=== PATIENT | male | born 1985 | race Caucasian/White ===

== ENCOUNTER 2017-02-06 13:52 | Emergency (ER) | payer MEDICAID ==
[~2017-02-06] VITALS: Ht 170.2 cm; Wt 71.4 kg
[~2017-02-06 13:52] MED LIST: ACHD5005 PO; AGM875T PO; ALPR1TAB72 PO; AMOX500C2 PO; BISA5TAB81 PO; CEPH-38 PO; CEPH500C PO; CHLO118L TP; CYCL10TA9 PO; DIAZ5TAB3 PO; HYDR-229 PO; HYDR-2890 PO; HYDR-2997 PO; HYDR1CAP2 PO; HYDR1TAB PO; KETO-22 PO; KETO75CA PO; LIDO20SO20 PO; METR500T PO; MUPI1OIN5 NS; NAPR-243 PO; ONDA8TAB9 PO; OXYC-12 PO; PENI500T PO; PRM25T PO; SULF-222 PO; TRM50T PO
[2017-02-06] MEDS ORDERED: AZIT250T5 PO (14:03)
[2017-02-06] MEDS ORDERED: BENZ-13 PO (14:03)
--- NOTE | 2017-02-06 14:03 | ED Cough/URI ---
General Chief Complaint: Cough/Cold/Flu Symptoms Stated Complaint: COUGH/CHEST CONGESTION Source: patient Exam Limitations: no limitations History of Present Illness Time seen by provider: 14:00 Initial Comments To ER with reports of a nonproductive cough for 5 days. Cough is nonproductive. No other symptoms. Reports chest congestion. Timing/Duration: just prior to arrival Severity/Quality: moderate Associated Symptoms: cough, shortness of breath Allergies and Home Medications Allergies Coded Allergies: No Known Drug Allergies (Verified , 02/06/17) Home Medications Diazepam 5 Mg Tablet, #28 (Reported) Tramadol HCl 50 Mg Tablet, #28 (Reported) Constitutional: see HPI, No chills, No fever EENTM: see HPI Respiratory: see HPI, cough Cardiovascular: no symptoms reported Genitourinary: no symptoms reported Musculoskeletal: no symptoms reported Skin: no symptoms reported Psychiatric/Neurological: No Symptoms Reported Past Dmfclby-Yxwgsp-Aebfgh Hx Patient Social History Type Used: Cigarettes Recent Foreign Travel: No Contact w/Someone Who Travel: No Recent Hopitalizations: No Immunizations Up To Date Tetanus Booster (TDap): Unknown Date of Influenza Vaccine: Aug 19, 2011 Seasonal Allergies Seasonal Allergies: No Surgeries HX Surgeries: No Respiratory Hx Respiratory Disorders: No Cardiovascular Hx Cardiac Disorders: No Neurological Hx Neurological Disorders: Yes (CERVICAL DISTONIA) Reproductive System Hx Reproductive Disorders: No Sexually Transmitted Disease: No HIV/AIDS: No Genitourinary Hx Genitourinary Disorders: No Gastrointestinal Hx Gastrointestinal Disorders: No Musculoskeletal Hx Musculoskeletal Disorders: Yes Musculoskeletal Disorders: Chronic Back Pain Endocrine Hx Endocrine Disorders: No HEENT HX ENT Disorders: No Cancer Hx Cancer: No Psychosocial Hx Psychiatric Problems: Yes Behavioral Health Disorders: Depression Integumentary HX Skin/Integumentary Disorder: No Blood Transfusions Hx Blood Disorders: No Family Medical History Significant Family History: No Pertinent Family Hx Family Medial History: Patient reports no known family medical history. Physical Exam Vital Signs Vital Sign - Last 12Hours 02/06/17 13:59 Temp 99.3 Pulse 94 Resp 20 B/P (MAP) 130/86 Pulse Ox 99 O2 Delivery Room Air Capillary Refill : General Appearance: WD/WN, no apparent distress Eyes: Bilateral Eye EOMI, Bilateral Eye Normal Inspection, Bilateral Eye PERRL HEENT: PERRL/EOMI, normal ENT inspection Neck: non-tender, full range of motion Respiratory: normal breath sounds, no respiratory distress, no accessory muscle use Cardiovascular: regular rate, rhythm, no murmur Gastrointestinal: normal bowel sounds, non tender, soft Neurologic/Psychiatric: alert, normal mood/affect, oriented x 3 Skin: normal color, warm/dry Progress/Results/Core Measures Results/Orders My Orders Orders - BOO THOMPSON APRN Chest Pa/Lat (2 View) (02/06/17 13:59) Dexamethasone Pf Injection (Decadron Pf (02/06/17 14:15) Vital Signs/I&O Vital Sign - Last 12Hours 02/06/17 02/06/17 13:59 13:59 Temp 99.3 Pulse 94 Resp 20 B/P (MAP) 130/86 Pulse Ox 99 O2 Delivery Room Air Room Air Departure Impression Impression: Primary Impression: Bronchitis Disposition: HOME, SELF-CARE Condition: Stable Departure-Patient Inst. Decision time for Depature: 14:01 Referrals: NO,LOCAL PHYSICIAN (PCP/Family) Primary Care Physician Patient Instructions: Cough, Adult (DC) Add. Discharge Instructions: 1. Medication as directed 2. Follow-up with your doctor later this week. If you do not have a doctor list is been provided for you. There is also a walk-in clinic at the [facility] 3. All discharge instructions reviewed with patient and/or family. Voiced understanding. BOO THOMPSON APRN Feb 06, 2017 14:03
[2017-02-06] MEDS ORDERED: DIAZ5TAB3 (14:06)
[2017-02-06] MEDS ORDERED: TRAM50TA2 (14:06)
[2017-02-06] MEDS ORDERED: DEXAMETHASONE PF 10 MG/ML (DECADRON) VIAL IM ONE (14:15)
[2017-02-06] MEDS ORDERED: PRD20T PO (14:15)
[2017-02-06 14:17] VITALS: BP 130/70
--- NOTE | 2017-02-06 14:22 | Diagnostic Imaging Report ---
Indication: Dizziness and cough for 6 days. Discussion: Two views of the chest were obtained, comparison 09/25/2016. Mild pulmonary hyperinflation is stable. Stable normal heart size. No focal consolidation, pleural fluid, or pneumothorax. No osseous abnormality. Impression: 1. Stable pulmonary hyperinflation. Dictated by: Dictated on workstation # [id number]
== END 2017-02-06 14:16 | disposition home or self-care (01) ==
LOC: EDUNIT# 13:52 → ER 13:54
DX: J40 Bronchitis, not specified as acute or chronic (principal)
CPT/HCPCS: 71020; 99282

== ENCOUNTER 2017-02-18 10:18 | Emergency (ER) | payer MEDICAID ==
[~2017-02-18] VITALS: Ht 167.6 cm; Wt 68.0 kg
[~2017-02-18 10:18] MED LIST changes: +AZIT250T5 PO; +BENZ-13 PO; +DIAZ5TAB3; +PRD20T PO; +TRAM50TA2
[2017-02-18 11:57] LABS: BASOPHILS # (AUTO) 0.1 10^3/uL (0.0-0.1); BASOPHILS % (AUTO) 1 % (0-10); EOSINOPHILS # (AUTO) 0.2 10^3/uL (0.0-0.3); EOSINOPHILS % (AUTO) 3 % (0-10); LYMPHOCYTES # (AUTO) 1.5 X 10^3 (1.0-4.0); LYMPHOCYTES % (AUTO) 24 % (12-44); MEAN CORPUSCULAR HEMOGLOBIN 33 PG (25-34); MEAN CORPUSCULAR HGB CONC 36 G/DL (32-36); MEAN CORPUSCULAR VOLUME 93 FL (80-99); MEAN PLATELET VOLUME 10.3 FL (7.4-10.4); MONOCYTES # (AUTO) 0.9 X 10^3 (0.0-1.0); MONOCYTES % (AUTO) 14 % (0-12); NEUTROPHILS # (AUTO) 3.6 X 10^3 (1.8-7.8); NEUTROPHILS % (AUTO) 58 % (42-75); PLATELET COUNT 228 10^3/uL (130-400); RED BLOOD COUNT 5.12 10^6/uL (4.35-5.85); RED CELL DISTRIBUTION WIDTH 12.9 % (10.0-14.5); WHITE BLOOD COUNT 6.3 10^3/uL (4.3-11.0)
--- NOTE | 2017-02-18 12:06 | ED Cough/URI ---
General Chief Complaint: Cough/Cold/Flu Symptoms Stated Complaint: COUGH NAUSEA Nursing Triage Note: patient reports still having cough that he was treated here previously before. patient also reports being fatigued Source: patient Exam Limitations: no limitations History of Present Illness Time seen by provider: 12:06 Initial Comments 31 yo male patient presents to the ED with c/o clear productive cough x 2-3 wks. patient states he was seen in the ED on 02/06/17 by [facility] [place] APRN for similar symptoms. Was given prednisone and tessalon perles w/o improvement in symptoms. Denies SOA, n/v/d, sore throat or nasal congestion. does have occasional wheezing. continues to smoke. Timing/Duration: other (2-3 wks) Severity/Quality: productive cough (clear sputum.) Modifying Factors: Worse With Coughing Allergies and Home Medications Allergies Coded Allergies: No Known Drug Allergies (Verified , 02/06/17) Home Medications Albuterol Sulfate 6.7 Gm Hfa.aer.ad, 2 PUFF IH Q6H PRN for SHORTNESS OF BREATH, #1 Ref 0 Prescribed by: JUSTIN MONTILLA on 02/18/17 1309 Minocycline HCl 100 Mg Capsule, 100 MG PO BID, #14 Ref 0 Prescribed by: JUSTIN MONTILLA on 02/18/17 1306 Prednisone 20 Mg Tab, 40 MG PO DAILY, #10 Ref 0 Prescribed by: JUSTIN MONTILLA on 02/18/17 1309 Constitutional: see HPI, chills, No dizziness, No fever, malaise EENTM: No ear discharge, No ear pain, No nose congestion, No nose pain, No throat pain, No throat swelling Respiratory: cough, No dyspnea on exertion, phlegm, No short of breath, No stridor, wheezing Cardiovascular: no symptoms reported Gastrointestinal: No abdominal pain, No diarrhea, No loss of appetite, No nausea, No vomiting Genitourinary: no symptoms reported Musculoskeletal: no symptoms reported Skin: no symptoms reported Psychiatric/Neurological: Headache, Denies Numbness, Denies Paresthesia, Denies Tingling, Denies Weakness Immunological/Allergic: no symptoms reported All Other Systems Reviewed Negative Unless Noted: Yes (Negative excepted noted.) Past Tkgndho-Ptjdza-Gisuju Hx Patient Social History Alcohol Use: Denies Use Recreational Drug Use: No Type Used: Cigarettes Recent Foreign Travel: No Contact w/Someone Who Travel: No Recent Infectious Disease Expo: No Recent Hopitalizations: No Immunizations Up To Date Tetanus Booster (TDap): Unknown Date of Influenza Vaccine: Aug 19, 2011 Seasonal Allergies Seasonal Allergies: No Surgeries HX Surgeries: No Respiratory Hx Respiratory Disorders: No Cardiovascular Hx Cardiac Disorders: No Neurological Hx Neurological Disorders: Yes (CERVICAL DISTONIA) Reproductive System Hx Reproductive Disorders: No Sexually Transmitted Disease: No HIV/AIDS: No Genitourinary Hx Genitourinary Disorders: No Gastrointestinal Hx Gastrointestinal Disorders: No Musculoskeletal Hx Musculoskeletal Disorders: Yes Musculoskeletal Disorders: Chronic Back Pain Endocrine Hx Endocrine Disorders: No HEENT HX ENT Disorders: No Cancer Hx Cancer: No Psychosocial Hx Psychiatric Problems: Yes Behavioral Health Disorders: Depression Integumentary HX Skin/Integumentary Disorder: No Blood Transfusions Hx Blood Disorders: No Reviewed Nursing Assessment Reviewed/Agree w Nursing PMH: Yes Family Medical History Significant Family History: No Pertinent Family Hx Family Medial History: Patient reports no known family medical history. Physical Exam Vital Signs Vital Sign - Last 12Hours 02/18/17 11:04 Temp 97.6 Pulse 93 Resp 18 B/P (MAP) 111/86 Pulse Ox 97 O2 Delivery Room Air Capillary Refill : Less Than 3 Seconds General Appearance: WD/WN, no apparent distress, other (sitting on the side of the bed. Moves w/o difficulty.) HEENT: PERRL/EOMI, TMs normal, No photophobia, pharyngeal erythema, No tonsillar exudate Neck: non-tender, full range of motion, supple, lymphadenopathy (R), lymphadenopathy (L), other (trachea midline. ) Respiratory: lungs clear, no respiratory distress, No crackles, No rales, No rhonchi, No stridor, wheezing (faint expiratory wheeze.), expiration Cardiovascular: regular rate, rhythm, no murmur Gastrointestinal: non tender, soft, No distended Neurologic/Psychiatric: alert, normal mood/affect, oriented x 3 Skin: normal color, warm/dry, tattoos/piercings Progress/Results/Core Measures Results/Orders Lab Results Laboratory Tests Test 02/18/17 11:49 Range/Units White Blood Count 6.3 4.3-11.0 10^3/uL Red Blood Count 5.12 4.35-5.85 10^6/uL Hemoglobin 17.0 13.3-17.7 G/DL Hematocrit 48 40-54 % Mean Corpuscular Volume 93 80-99 FL Mean Corpuscular Hemoglobin 33 25-34 PG Mean Corpuscular Hemoglobin Concent 36 32-36 G/DL Red Cell Distribution Width 12.9 10.0-14.5 % Platelet Count 228 130-400 10^3/uL Mean Platelet Volume 10.3 7.4-10.4 FL Neutrophils (%) (Auto) 58 42-75 % Lymphocytes (%) (Auto) 24 12-44 % Monocytes (%) (Auto) 14 H 0-12 % Eosinophils (%) (Auto) 3 0-10 % Basophils (%) (Auto) 1 0-10 % Neutrophils # (Auto) 3.6 1.8-7.8 X 10^3 Lymphocytes # (Auto) 1.5 1.0-4.0 X 10^3 Monocytes # (Auto) 0.9 0.0-1.0 X 10^3 Eosinophils # (Auto) 0.2 0.0-0.3 10^3/uL Basophils # (Auto) 0.1 0.0-0.1 10^3/uL My Orders Orders - JUSTIN MONTILLA PA Chest Pa/Lat (2 View) (02/18/17 12:24) Vital Signs/I&O Vital Sign - Last 12Hours 02/18/17 02/18/17 11:04 11:06 Temp 97.6 Pulse 93 Resp 18 B/P (MAP) 111/86 Pulse Ox 97 O2 Delivery Room Air Room Air Blood Pressure Mean: 94 Diagnostic Imaging Diagonstic Imaging: Xray Plain Films/CT/US/NM/MRI: chest Comments FINDINGS: Heart size and pulmonary vascularity remain within normal limits. There is air trapping similar to previous study. No consolidation, pneumothorax or pleural fluid is identified. IMPRESSION: No acute abnormality is detected. Dictated on workstation # [id number] Reviewed: Reviewed by Me (radiology report reviewed by me. ) Departure Communication Progress Notes patient seen and evaluated. obtained saline lock, CBC, and CXR. Patient states he does not want the IV in and demands removal at this time. I discussed with the patient that we will remove the IV at the time of [facility]. Patient demands to have the IV removed "now!" and states "it creeps me out." IV subsequently removed. 1305 diagnostic findings discussed with the patient. plan for dsch to home. Impression Impression: Primary Impression: Acute bronchitis Qualified Codes: J20.9 - Acute bronchitis, unspecified Additional Impression: Tobacco use Disposition: HOME, SELF-CARE Condition: Improved Departure-Patient Inst. Decision time for Depature: 13:05 Referrals: NO,LOCAL PHYSICIAN (PCP/Family) Primary Care Physician Add. Discharge Instructions: All discharge instructions reviewed with patient and/or family. Voiced understanding. Medications as directed. Tylenol extra strength over the counter for pain, headache, or fever. Motrin 800 mg by mouth every 8 hours as needed for pain, headache, or congestion. Cool humidifier. Avoid smoking. Follow-up with your family practitioner for recheck if no improvement in symptoms. Return to the emergency department for worsened symptoms or any other concerns. 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
--- NOTE | 2017-02-18 12:58 | Diagnostic Imaging Report ---
INDICATION: Chronic cough. PA and lateral views of the chest are obtained. Comparison is made study of 02/06/2017. FINDINGS: Heart size and pulmonary vascularity remain within normal limits. There is air trapping similar to previous study. No consolidation, pneumothorax or pleural fluid is identified. IMPRESSION: No acute abnormality is detected. Dictated by: Dictated on workstation # [id number]
[2017-02-18] MEDS ORDERED: MINO100C2 PO (13:06)
[2017-02-18] MEDS ORDERED: RT-ALBUINH IH (13:09)
[2017-02-18] MEDS ORDERED: PRD20T PO (13:09)
[2017-02-18 13:14] VITALS: BP 118/92
== END 2017-02-18 13:13 | disposition home or self-care (01) ==
LOC: EDUNIT# 10:18 → ER 10:20
DX: J20.9 Acute bronchitis, unspecified (principal); F17.210 Nicotine dependence, cigarettes, uncomplicated
CPT/HCPCS: 36415; 71020; 85025; 93005; 99282

== ENCOUNTER → 2017-06-11 | Emergency (ER) | payer MEDICAID ==
[~2017-06-11] VITALS: Ht 165.1 cm; Wt 68.0 kg
[~2017-06-11] MED LIST changes: +MINO100C2 PO; +RT-ALBUINH IH
[2017-06-11 18:30] VITALS: BP 0/0
== END | disposition left against medical advice (07) ==
LOC: EDUNIT# 17:38 → ER 17:39
DX: S19.9XXA Unspecified injury of neck, initial encounter (principal); X58.XXXA Exposure to other specified factors, initial encounter; Y99.8 Other external cause status; Z53.21 Procedure and treatment not carried out due to patient leaving prior to being seen by health care provider
CPT/HCPCS: 99281

== ENCOUNTER 2017-06-12 13:00 | Emergency (ER) | payer MEDICAID ==
[~2017-06-12] VITALS: Ht 165.1 cm; Wt 68.2 kg
[2017-06-12] MEDS: fentaNYL INJECTION 100 MCG/2 ML AMP ONE (13:28)
[2017-06-12] MEDS: fentaNYL INJECTION 100 MCG/2 ML AMP IM PRN (13:28)
--- NOTE | 2017-06-12 13:58 | ED Neck-Back Pain/Injury ---
General Chief Complaint: Head/Cervical Problems Stated Complaint: NECK PAIN Nursing Triage Note: PT STATES HE HAD HIS SON WALKING ON HIS BACK ABOUT 4 DAYS AGO TO TRY TO POP IT AND HE FELT A POP BETWEEN THE SHOULDER BLADES, HX OF CERVICAL DISTONIA, NECK PAIN WORSE THAN USUAL. PT'S HEAD IS NORMALLY TURNED TO THE RT FROM THE DISTONIA. Nursing Sepsis Screen: No Definite Risk Source of Information: Patient Exam Limitations: No Limitations History of Present Illness Time Seen by Provider: 13:55 Initial Comments 32-year-old white male presents complaining of increasing neck pain after his 140 pound son walked on his neck 4 days ago in an attempt to relieve his cervical muscle spasm. Patient has a history of cervical spondylolysis. He has to this point not had a permanent neurologic sequelae. Patient is complaining of pain in his neck but denies associated paresthesias or weakness in his extremities. Allergies and Home Medications Allergies Coded Allergies: No Known Drug Allergies (Verified , 02/06/17) Home Medications Albuterol Sulfate 6.7 Gm Hfa.aer.ad, 2 PUFF IH Q6H PRN for SHORTNESS OF BREATH, #1 Ref 0 Prescribed by: JUSTIN MONTILLA on 02/18/17 1309 Minocycline HCl 100 Mg Capsule, 100 MG PO BID, #14 Ref 0 Prescribed by: JUSTIN MONTILLA on 02/18/17 1306 Prednisone 20 Mg Tab, 40 MG PO DAILY, #10 Ref 0 Prescribed by: JUSTIN MONTILLA on 02/18/17 1309 Constitutional: No chills, No fever EENTM: No hearing loss, No vision loss Respiratory: No cough Cardiovascular: No chest pain Gastrointestinal: No abdominal pain, No vomiting Genitourinary: No dysuria, No frequency Musculoskeletal: No back pain, neck pain Skin: No rash Psychiatric/Neurological: No Symptoms Reported Past Msdimff-Avbnqx-Jyhhjc Hx Patient Social History Alcohol Use: Denies Use Recreational Drug Use: No Smoking Status: Current Everyday Smoker Type Used: Cigarettes Recent Foreign Travel: No Contact w/Someone Who Travel: No Recent Infectious Disease Expo: No Recent Hopitalizations: No Immunizations Up To Date Tetanus Booster (TDap): Unknown Date of Influenza Vaccine: Aug 19, 2011 Seasonal Allergies Seasonal Allergies: No Surgeries History of Surgeries: No Respiratory History of Respiratory Disorde: No Cardiovascular History of Cardiac Disorders: No Neurological History of Neurological Disord: Yes (CERVICAL DISTONIA) Neurological Disorders: Headaches /Migraines Reproductive System Hx Reproductive Disorders: No Sexually Transmitted Disease: No HIV/AIDS: No Genitourinary History of Genitourinary Disor: No Gastrointestinal History of Gastrointestinal Di: No Musculoskeletal History of Musculoskeletal Dis: Yes Musculoskeletal Disorders: Chronic Back Pain Endocrine History of Endocrine Disorders: No HEENT History of HEENT Disorders: No Cancer History of Cancer: No Psychosocial History of Psychiatric Problem: Yes Behavioral Health Disorders: Depression Integumentary History of Skin or Integumenta: No Blood Transfusions History of Blood Disorders: No Reviewed Nursing Assessment Reviewed/Agree w Nursing PMH: Yes Family Medical History Significant Family History: No Pertinent Family Hx Family Medial History: Patient reports no known family medical history. Physical Exam Vital Signs Vital Sign - Last 12Hours 06/12/17 13:11 Temp 96.9 Pulse 78 Resp 18 B/P (MAP) 127/78 Pulse Ox 98 Capillary Refill : Less Than 3 Seconds General Appearance: No Apparent Distress, Mild Distress HEENT: PERRL/EOMI Neck: Limited Range of Motion, Tender Lateral Cardiovascular: Regular Rate, Rhythm Respiratory: Lungs Clear Gastrointestinal: Normal Bowel Sounds Extremity: Normal Capillary Refill, Normal Inspection Neurologic/Psychiatric: Oriented x3, No Motor/Sensory Deficits, Normal Mood/ Affect Skin: Normal Color, Warm/Dry Progress/Results/Core Measures Results/Orders My Orders Orders - VANESSA MILES MD Fentanyl Injection (Sublimaze Injection (06/12/17 13:30) Ct Cervical Spine Wo (06/12/17 13:19) Fentanyl Injection (Sublimaze Injection (06/12/17 13:16) Medications Given in ED Current Medications Medications Dose Ordered Sig/Travis Route Start Time Stop Time Status Last Admin Dose Admin Fentanyl Citrate 50 mcg ONCE PRN IM 06/12/17 13:30 06/12/17 13:28 50 MCG Vital Signs/I&O Vital Sign - Last 12Hours 06/12/17 06/12/17 06/12/17 13:11 13:28 13:28 Temp 96.9 96.9 96.9 Pulse 78 Resp 18 B/P (MAP) 127/78 Pulse Ox 98 Blood Pressure Mean: 94 Departure Impression Impression: Primary Impression: Neck sprain Qualified Codes: S13.9XXA - Sprain of joints and ligaments of unspecified parts of neck, initial encounter Disposition: 01 HOME, SELF-CARE Condition: Improved (ERASED) Departure-Patient Inst. Decision time for Depature: 15:13 Referrals: [facility],LOCAL PHYSICIAN (PCP) Primary Care Physician Patient Instructions: Neck Sprain (DC) Add. Discharge Instructions: Vicodin for pain. Follow-up with your doctor on Thursday. Return of any problems. All discharge instructions reviewed with patient and/or family. Voiced understanding. VANESSA MILES MD Jun 12, 2017 13:58
--- NOTE | 2017-06-12 14:30 | Diagnostic Imaging Report ---
PROCEDURE: CT cervical spine without contrast. TECHNIQUE: Multiple contiguous axial images were obtained through the cervical spine without the use of intravenous contrast. Sagittal and coronal reformations were then performed. INDICATION: Neck pain, limited range of motion, symptoms of four days' duration. FINDINGS: Reconstruction views revealed no anterior or posterior listheses. Coronal views show the head slightly tilted to the right and rotated to the left. There is no dislocation. There are degenerative disc and endplate and facet changes throughout the cervical spine which showed only mild progression from the previous exam. Osteophytes and disc material now result in mild canal stenoses at the C3-4 and C4-5 levels where there is also at least mild biforaminal stenosis. There is no facet joint dislocation or perching. There is no paravertebral hemorrhage, and there is no endplate destruction or fracture pattern. No segmentation anomaly or dysraphism. No acute finding. IMPRESSION: No listhesis given positioning. No fracture, destruction, or endplate irregularity. Mild spondylosis and facet arthrosis showing mild progression from prior. No high-grade canal stenosis. No acute appearing bony abnormality. Dictated by: Dictated on workstation # [id number]
[2017-06-12 15:32] VITALS: BP 125/80
== END 2017-06-12 15:28 | disposition home or self-care (01) ==
LOC: EDUNIT# 13:00 → ER 13:03
DX: S13.9XXA Sprain of joints and ligaments of unspecified parts of neck, initial encounter (principal); G43.909 Migraine, unspecified, not intractable, without status migrainosus; F32.9 Major depressive disorder, single episode, unspecified; F17.210 Nicotine dependence, cigarettes, uncomplicated; X58.XXXA Exposure to other specified factors, initial encounter
CPT/HCPCS: 72125; 99284

== ENCOUNTER 2017-07-05 16:35 | Emergency (ER) | payer MEDICAID ==
[~2017-07-05] VITALS: Ht 165.1 cm; Wt 68.2 kg
[~2017-07-05 16:35] MED LIST changes: +AZIT250T12 PO; -AZIT250T5 PO
[2017-07-05] MEDS ORDERED: LIDOCAINE 2% 20 ML (XYLOCAINE) VIAL INJ STA (16:48)
--- NOTE | 2017-07-05 16:59 | ED EENT ---
History of Present Illness General Chief Complaint: Dental Problems/Pain Stated Complaint: DENTAL PAIN Source: patient Exam Limitations: no limitations History of Present Illness Time seen by provider: 16:44 Initial Comments Here with complaint of pain to the extraction site to the right lower posterior jaw area. Patient has poor dentition overall. Extraction was 3 or 4 days ago. States ibuprofen 800 mg is not working. He is using topical anesthetic and that is not helping. He is currently on antibiotics and reports he is taking that as directed. Timing/Duration: gradual, other (2-3 days) Severity: moderate Location: mouth, dental Prearrival Treatment: over the counter meds, prescription meds Associated Symptoms: No drooling, No facial pain/swelling, No fever, No nasal congestion/drainage, tooth pain Allergies and Home Medications Allergies Coded Allergies: No Known Drug Allergies (Verified , 02/06/17) Home Medications Albuterol Sulfate 6.7 Gm Hfa.aer.ad, 2 PUFF IH Q6H PRN for SHORTNESS OF BREATH, #1 Ref 0 Prescribed by: JUSTIN MONTILLA on 02/18/17 1309 Minocycline HCl 100 Mg Capsule, 100 MG PO BID, #14 Ref 0 Prescribed by: JUSTIN MONTILLA on 02/18/17 1306 Prednisone 20 Mg Tab, 40 MG PO DAILY, #10 Ref 0 Prescribed by: JUSTIN MONTILLA on 02/18/17 1309 Review of Systems Constitutional: see HPI, No chills, No fever Eyes: No Symptoms Reported Ears: No Symptoms Reported Nose: no symptoms reported Mouth: see HPI, pain, swelling Throat: no symptoms reported Respiratory: no symptoms reported Cardiovascular: no symptoms reported Neurological: No Symptoms Reported Past Ajwiodu-Cphmou-Rpehia Hx Patient Social History Smoking Status: Current Everyday Smoker Type Used: Cigarettes Recent Foreign Travel: No Contact w/Someone Who Travel: No Recent Hopitalizations: No Immunizations Up To Date Tetanus Booster (TDap): Unknown Date of Influenza Vaccine: Aug 19, 2011 Seasonal Allergies Seasonal Allergies: No Surgeries History of Surgeries: No Respiratory History of Respiratory Disorde: No Cardiovascular History of Cardiac Disorders: No Neurological History of Neurological Disord: Yes (CERVICAL DISTONIA) Neurological Disorders: Headaches /Migraines Reproductive System Hx Reproductive Disorders: No Sexually Transmitted Disease: No HIV/AIDS: No Genitourinary History of Genitourinary Disor: No Gastrointestinal History of Gastrointestinal Di: No Musculoskeletal History of Musculoskeletal Dis: Yes Musculoskeletal Disorders: Chronic Back Pain Endocrine History of Endocrine Disorders: No HEENT History of HEENT Disorders: No Cancer History of Cancer: No Psychosocial History of Psychiatric Problem: Yes Behavioral Health Disorders: Depression Integumentary History of Skin or Integumenta: No Blood Transfusions History of Blood Disorders: No Reviewed Nursing Assessment Reviewed/Agree w Nursing PMH: Yes Family Medical History Significant Family History: No Pertinent Family Hx Family Medial History: Patient reports no known family medical history. Physical Exam General Appearance: WD/WN, no apparent distress Mouth/Throat: pharynx normal, dental tenderness, other (tender to the extraction site right lower posterior near what would be number 30. Socket appears to be healing well overall.) Neck: full range of motion, supple Cardiovascular: regular rate, rhythm, no murmur Respiratory: lungs clear, normal breath sounds Neurologic/Psychiatric: alert, oriented x 3 Skin: normal color, warm/dry Progress/Results/Core Measures Results/Orders My Orders Orders - DEE ASHLEY MD Lidocaine 2% Injection 20 Ml (Xylocaine (07/05/17 16:48) Progress Note : Progress Note Seen and evaluated. Patient requesting numbing medicine to the area. Inferior alveolar block and dental block placed with 2 percent lidocaine 4 mL total solution by me. Tolerated procedure well. States he had improvement with respect to pain afterwards. Discharged home with return precautions. Patient verbalize understanding instructions and agreement with plan. Departure Impression Impression: Primary Impression: Pain, dental Disposition: 01 HOME, SELF-CARE Condition: Stable Departure-Patient Inst. Decision time for Depature: 17:06 Referrals: NO,LOCAL PHYSICIAN (PCP/Family) Primary Care Physician Patient Instructions: Dental Pain (DC) Add. Discharge Instructions: All discharge instructions reviewed with patient and/or family. Voiced understanding. Take medications as directed. Follow-up with your dentist tomorrow morning for recheck and further evaluation. Return for worsening, fever, vomiting, weakness , breathing problems or other concerns as needed. Scripts Hydrocodone/Acetaminophen (Hydrocodon-Acetaminoph 7.5-325) 1 Each Tablet 1 EACH PO Q6H for Pain, #5 TAB 0 Refills Prov: DEE ASHLEY MD 07/05/17 Images Mouth/Nose 1 - Tenderness DEE ASHLEY MD Jul 05, 2017 16:59
[2017-07-05] MEDS ORDERED: HYDR-3816 PO (17:05)
[2017-07-05 17:08] VITALS: BP 107/63
== END 2017-07-05 17:08 | disposition home or self-care (01) ==
LOC: EDUNIT# 16:35 → ER 16:36
DX: K08.89 Other specified disorders of teeth and supporting structures (principal); G43.909 Migraine, unspecified, not intractable, without status migrainosus; F32.9 Major depressive disorder, single episode, unspecified; F17.210 Nicotine dependence, cigarettes, uncomplicated
CPT/HCPCS: 99282

== ENCOUNTER 2017-08-18 06:38 | Emergency (ER) | payer MEDICAID ==
[~2017-08-18] VITALS: Ht 167.6 cm; Wt 68.0 kg
[~2017-08-18 06:38] MED LIST changes: -AZIT250T12 PO; +AZIT250T5 PO; +HYDR-3816 PO
[2017-08-18] MEDS ORDERED: ORPHENADRINE 60 MG/2 ML (NORFLEX) AMP IM ONE (07:00)
[2017-08-18] MEDS ORDERED: KETOROLAC 60 MG/2 ML VIAL IM ONE (07:00)
--- NOTE | 2017-08-18 07:10 | ED General ---
General Chief Complaint: General Problems/Pain Stated Complaint: NEUROLOGICAL DISORDER,CAN'T SLEEP Nursing Triage Note: PT TO ED 6 W/ C/O NECK SPASMS R/T CERVICAL DYSTONIA. ALSO REPORTS HE HAS NOT BEEN ABLE TO SLEEP X3 DAYS. Nursing Sepsis Screen: No Definite Risk Source of Information: Patient, Old Records Exam Limitations: No Limitations History of Present Illness Time Seen by Provider: 06:40 Initial Comments This 32-year-old man presents to the emergency room with complaints of cervical dystonia which has been worsening over the past 3 days. He has tried Tylenol and naproxen at home without much benefit. He has had difficulty sleeping. He has head and neck tremors associated with the dystonia. He previously saw a neurologist, Dr. Bergeron, from the [facility]. He has not followed up with a neurologist or primary care provider in over a year. He has had frequent visits to the emergency room for pain related issues including dental and back problems. He denies any drug or alcohol use. He reports previously receiving Botox injections. He took Tylenol PM last night which did not resolve his problem. He reports his grandfather drove him here this morning. Allergies and Home Medications Allergies Coded Allergies: No Known Drug Allergies (Verified , 02/06/17) Constitutional: no symptoms reported EENTM: no symptoms reported Respiratory: no symptoms reported Cardiovascular: no symptoms reported Gastrointestinal: no symptoms reported Genitourinary: no symptoms reported Musculoskeletal: see HPI Skin: no symptoms reported Psychiatric/Neurological: See HPI Hematologic/Lymphatic: No Symptoms Reported Past Ctkafrr-Jijptt-Yhruic Hx Patient Social History Alcohol Use: Denies Use Recreational Drug Use: No Smoking Status: Current Everyday Smoker Type Used: Cigarettes 2nd Hand Smoke Exposure: Yes Recent Foreign Travel: No Contact w/Someone Who Travel: No Recent Infectious Disease Expo: No Recent Hopitalizations: No Physical Abuse: No Sexual Abuse: No Mistreated: No Fear: No Immunizations Up To Date Tetanus Booster (TDap): Unknown Date of Influenza Vaccine: Aug 19, 2011 Seasonal Allergies Seasonal Allergies: No Surgeries History of Surgeries: No Respiratory History of Respiratory Disorde: No Cardiovascular History of Cardiac Disorders: No Neurological History of Neurological Disord: Yes (CERVICAL DYSTONIA) Neurological Disorders: Headaches /Migraines Reproductive System Hx Reproductive Disorders: No Sexually Transmitted Disease: No HIV/AIDS: No Genitourinary History of Genitourinary Disor: No Gastrointestinal History of Gastrointestinal Di: No Musculoskeletal History of Musculoskeletal Dis: Yes Musculoskeletal Disorders: Chronic Back Pain Endocrine History of Endocrine Disorders: No HEENT History of HEENT Disorders: Yes (Recurrent dental pain) Cancer History of Cancer: No Psychosocial History of Psychiatric Problem: Yes Behavioral Health Disorders: Depression Suicide Risk Score: 0 Integumentary History of Skin or Integumenta: No Blood Transfusions History of Blood Disorders: No Family Medical History Significant Family History: No Pertinent Family Hx Family Medial History: Patient reports no known family medical history. 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 Because of history of illicit substances in prior drug screens, I requested a urine drug screen on this visit which patient agreed to. Patient has not yet been able to produce a specimen. Patient initially declined any drug or alcohol use but then later stated he smokes marijuana. Review of patient's chart notes a CT scan of the cervical spine performed in May of this year. No high-grade stenosis was noted at that time. Progress Note #2: Time: 07:30 Progress Note Patient did not provide a urine specimen. He expressed dissatisfaction that he was asked to provide a urine specimen. He was offered cyclobenzaprine and hydroxyzine prescriptions but declined stating he did not want to create a perception that he was seeking controlled substances. We discussed appropriate means of follow-up for chronic conditions. He was advised to follow-up at the [facility] as soon as possible. Departure Impression Impression: Primary Impression: Cervical dystonia Disposition: HOME, SELF-CARE Condition: Improved Departure-Patient Inst. Decision time for Depature: 07:00 Referrals: NO,LOCAL PHYSICIAN (PCP/Family) Primary Care Physician Patient Instructions: Muscle Spasms (DC) Add. Discharge Instructions: Follow-up with the [facility] as soon as possible. Call today to arrange follow-up appointment. You may continue [id number] medications such as ibuprofen up to 800 mg every 8 hours as needed for pain. You may add Tylenol (acetaminophen) up to 1000 mg every 6 hours as needed for additional pain relief. Benadryl (or generic diphenhydramine) up to 50 mg every 6 hours may be used for additional relief of spasms and to help you sleep. Gentle heat such as a heating pad on low may also be helpful. Your primary care provider can help with referral to a neurologist and/or physical therapy. All discharge instructions reviewed with patient and/or family. Voiced understanding. JEREMY GARRIDO MD Aug 18, 2017 07:10
[2017-08-18 07:45] VITALS: BP 114/77
== END 2017-08-18 07:45 | disposition home or self-care (01) ==
LOC: EDUNIT# 06:38 → ER 06:40
DX: G24.3 Spasmodic torticollis (principal); G43.909 Migraine, unspecified, not intractable, without status migrainosus; F32.9 Major depressive disorder, single episode, unspecified; F17.210 Nicotine dependence, cigarettes, uncomplicated
CPT/HCPCS: 96372; 99284

== ENCOUNTER 2017-09-29 08:33 | Emergency (ER) | payer MEDICAID ==
[~2017-09-29] VITALS: Ht 167.6 cm; Wt 68.0 kg
[~2017-09-29 08:33] MED LIST changes: +AZIT250T12 PO; -AZIT250T5 PO
[2017-09-29] MEDS ORDERED: KETOROLAC 30 MG/ML VIAL IVP ONE (09:15)
[2017-09-29] MEDS ORDERED: ASPIRIN 81 MG CHEW (CHILDREN'S ASA) PO ONE (09:15)
[2017-09-29 09:25] LABS: BASOPHILS # (AUTO) 0.1 10^3/uL (0.0-0.1); BASOPHILS % (AUTO) 1 % (0-10); EOSINOPHILS # (AUTO) 0.4 10^3/uL (0.0-0.3); EOSINOPHILS % (AUTO) 5 % (0-10); LYMPHOCYTES # (AUTO) 2.1 X 10^3 (1.0-4.0); LYMPHOCYTES % (AUTO) 26 % (12-44); MEAN CORPUSCULAR HEMOGLOBIN 33 PG (25-34); MEAN CORPUSCULAR HGB CONC 35 G/DL (32-36); MEAN CORPUSCULAR VOLUME 95 FL (80-99); MEAN PLATELET VOLUME 10.5 FL (7.4-10.4); MONOCYTES # (AUTO) 1.1 X 10^3 (0.0-1.0); MONOCYTES % (AUTO) 14 % (0-12); NEUTROPHILS # (AUTO) 4.5 X 10^3 (1.8-7.8); NEUTROPHILS % (AUTO) 55 % (42-75); PLATELET COUNT 193 10^3/uL (130-400); RED BLOOD COUNT 5.12 10^6/uL (4.35-5.85); RED CELL DISTRIBUTION WIDTH 12.4 % (10.0-14.5); WHITE BLOOD COUNT 8.2 10^3/uL (4.3-11.0)
--- NOTE | 2017-09-29 09:33 | Diagnostic Imaging Report ---
INDICATION: Anterior chest pressure and pain. TECHNIQUE: PA and lateral views of the chest were obtained at 0940 hours. COMPARISON: 02/18/2017. FINDINGS: The heart and mediastinal silhouette are normal in appearance. There is hyperinflation. There are chronic appearing increased interstitial markings which are unchanged compared to the prior study. There is no pneumothorax or pleural fluid. IMPRESSION: Hyperinflation with no acute infiltrate or pleural fluid. Dictated by: Dictated on workstation # [id number]
[2017-09-29 09:39] LABS: PROTHROMBIN TIME PATIENT 13.7 SEC (12.2-14.7)
[2017-09-29 09:47] LABS: ALANINE AMINOTRANSFERASE 14 U/L (0-55); ALBUMIN 4.5 GM/DL (3.2-4.5); ANION GAP 10 MMOL/L (5-14); ASPARTATE AMINO TRANSFERASE 23 U/L (5-34); BILIRUBIN,TOTAL 0.7 MG/DL (0.1-1.0); BLOOD UREA NITROGEN 16 MG/DL (7-18); BUN/CREATININE RATIO 18; CALCIUM 9.3 MG/DL (8.5-10.1); CARBON DIOXIDE 25 MMOL/L (21-32); CHLORIDE 102 MMOL/L (98-107); CREATININE SERUM 0.88 MG/DL (0.60-1.30); GFR ESTIMATED > 60; GLUCOSE 92 MG/DL (70-105); POTASSIUM 4.1 MMOL/L (3.6-5.0); SODIUM 137 MMOL/L (135-145); TOTAL PROTEIN 7.5 GM/DL (6.4-8.2)
[2017-09-29 09:53] LABS: MYOGLOBIN SERUM 53.9 NG/ML (10.0-92.0)
--- NOTE | 2017-09-29 13:05 | ED Chest Pain ---
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 He denies associated symptoms. He cannot identify any alleviating or exacerbating factors. Pain was initially 8/10 and is now 5/10. He denies any history of cardiopulmonary problems. He smokes but denies drug or alcohol use. Allergies and Home Medications Allergies Coded Allergies: No Known Drug Allergies (Verified , 02/06/17) Home Medications No Active Prescriptions or Reported Meds Review of Systems Constitutional: no symptoms reported EENTM: No Symptoms Reported Respiratory: No Symptoms Reported Cardiovascular: See HPI Gastrointestinal: No Symptoms Reported Genitourinary: No Symptoms Reported Musculoskeletal: other (neck pain from cervical dystonia) Skin: no symptoms reported Psychiatric/Neurological: No Symptoms Reported Endocrine: No Symptoms Reported Hematologic/Lymphatic: No Symptoms Reported Past Aydclyk-Jtnpol-Lffukz Hx Patient Social History Alcohol Use: Denies Use Recreational Drug Use: No Smoking Status: Current Everyday Smoker Type Used: Cigarettes 2nd Hand Smoke Exposure: Yes Recent Foreign Travel: No Contact w/Someone Who Travel: No Recent Infectious Disease Expo: No Recent Hopitalizations: No Immunizations Up To Date Tetanus Booster (TDap): Unknown Date of Influenza Vaccine: Aug 19, 2011 Seasonal Allergies Seasonal Allergies: No Surgeries History of Surgeries: No Respiratory History of Respiratory Disorde: No Cardiovascular History of Cardiac Disorders: No Neurological History of Neurological Disord: Yes (CERVICAL DYSTONIA) Neurological Disorders: Headaches /Migraines Reproductive System Hx Reproductive Disorders: No Sexually Transmitted Disease: No HIV/AIDS: No Genitourinary History of Genitourinary Disor: No Gastrointestinal History of Gastrointestinal Di: No Musculoskeletal History of Musculoskeletal Dis: Yes Musculoskeletal Disorders: Chronic Back Pain Endocrine History of Endocrine Disorders: No HEENT History of HEENT Disorders: Yes (Recurrent dental pain) Cancer History of Cancer: No Psychosocial History of Psychiatric Problem: Yes Behavioral Health Disorders: Depression Integumentary History of Skin or Integumenta: No Blood Transfusions History of Blood Disorders: No Family Medical History Significant Family History: No Pertinent Family Hx Family Medial History: Patient reports no known family medical history. Physical Exam Vital Signs Vital Sign - Last 12Hours 09/29/17 09/29/17 08:35 13:37 Temp 98.0 Pulse 82 Resp 16 B/P (MAP) 124/83 (97) Pulse Ox 97 Capillary Refill : Less Than 3 Seconds General Appearance: WD/WN, Mild Distress, Thin HEENT: PERRL/EOMI, Normal ENT Inspection, Pharynx Normal Neck: Normal Inspection Respiratory: Chest Non Tender, Lungs Clear, Normal Breath Sounds, No Accessory Muscle Use, No Respiratory Distress Cardiovascular: Regular Rate, Rhythm, No Edema, No Murmur Gastrointestinal: Normal Bowel Sounds, Non Tender, Soft Extremity: Normal Inspection, Non Tender, No Calf Tenderness, No Pedal Edema, Other (Negative Joe) Neurologic/Psychiatric: Alert, Oriented x3, No Motor/Sensory Deficits, Normal 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/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, 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 Skin: Normal Color, Warm/Dry Progress/Results/Core Measures Results/Orders Lab Results Laboratory Tests Test 09/29/17 09:14 09/29/17 10:30 09/29/17 11:56 Range/Units White Blood Count 8.2 4.3-11.0 10^3/uL Red Blood Count 5.12 4.35-5.85 10^6/uL Hemoglobin 17.1 13.3-17.7 G/DL Hematocrit 48 40-54 % Mean Corpuscular Volume 95 80-99 FL Mean Corpuscular Hemoglobin 33 25-34 PG Mean Corpuscular Hemoglobin Concent 35 32-36 G/DL Red Cell Distribution Width 12.4 10.0-14.5 % Platelet Count 193 130-400 10^3/uL Mean Platelet Volume 10.5 H 7.4-10.4 FL Neutrophils (%) (Auto) 55 42-75 % Lymphocytes (%) (Auto) 26 12-44 % Monocytes (%) (Auto) 14 H 0-12 % Eosinophils (%) (Auto) 5 0-10 % Basophils (%) (Auto) 1 0-10 % Neutrophils # (Auto) 4.5 1.8-7.8 X 10^3 Lymphocytes # (Auto) 2.1 1.0-4.0 X 10^3 Monocytes # (Auto) 1.1 H 0.0-1.0 X 10^3 Eosinophils # (Auto) 0.4 H 0.0-0.3 10^3/uL Basophils # (Auto) 0.1 0.0-0.1 10^3/uL Prothrombin Time 13.7 12.2-14.7 SEC INR Comment 1.0 0.8-1.4 Activated Partial Thromboplast Time 34 24-35 SEC Sodium Level 137 135-145 MMOL/L Potassium Level 4.1 3.6-5.0 MMOL/L Chloride Level 102 98-107 MMOL/L Carbon Dioxide Level 25 21-32 MMOL/L Anion Gap 10 5-14 MMOL/L Blood Urea Nitrogen 16 7-18 MG/DL Creatinine 0.88 0.60-1.30 MG/DL Estimat Glomerular Filtration Rate > 60 BUN/Creatinine Ratio 18 Glucose Level 92 70-105 MG/DL Calcium Level 9.3 8.5-10.1 MG/DL Magnesium Level 2.0 1.8-2.4 MG/DL Total Bilirubin 0.7 0.1-1.0 MG/DL Aspartate Amino Transf (AST/SGOT) 23 5-34 U/L Alanine Aminotransferase (ALT/SGPT) 14 0-55 U/L Alkaline Phosphatase 108 40-136 U/L Myoglobin 53.9 10.0-92.0 NG/ML Troponin I < 0.30 < 0.30 <0.30 NG/ML Total Protein 7.5 6.4-8.2 GM/DL Albumin 4.5 3.2-4.5 GM/DL Urine Opiates Screen NEGATIVE NEGATIVE Urine Oxycodone Screen NEGATIVE NEGATIVE Urine Methadone Screen NEGATIVE NEGATIVE Urine Propoxyphene Screen NEGATIVE NEGATIVE Urine Barbiturates Screen NEGATIVE NEGATIVE Ur Tricyclic Antidepressants Screen POSITIVE H NEGATIVE Urine Phencyclidine Screen NEGATIVE NEGATIVE Urine Amphetamines Screen NEGATIVE NEGATIVE Urine Methamphetamines Screen NEGATIVE NEGATIVE Urine Benzodiazepines Screen NEGATIVE NEGATIVE Urine Cocaine Screen NEGATIVE NEGATIVE Urine Cannabinoids Screen POSITIVE H NEGATIVE My Orders Orders - JEREMY GARRIDO MD Ekg Tracing (09/29/17 08:38) Cbc With Automated Diff (09/29/17 09:02) Magnesium (09/29/17 09:02) Cardiac Profile 1 (09/29/17 09:02) Comprehensive Metabolic Panel (09/29/17 09:02) Myoglobin Serum (09/29/17 09:02) Protime With Inr (09/29/17 09:02) Partial Thromboplastin Time (09/29/17 09:02) O2 (09/29/17 09:02) Monitor-Rhythm Ecg Trace Only (09/29/17 09:02) Aspirin Chewable Tablet (Baby Aspirin Ch (09/29/17 09:15) Saline Lock/Iv-Start (09/29/17 09:02) Chest Pa/Lat (2 View) (09/29/17 09:02) Ketorolac Injection (Toradol Injection) (09/29/17 09:15) Drug Screen Stat (Urine) (09/29/17 09:04) Troponin I (09/29/17 11:41) Ekg Tracing (09/29/17 11:41) Medications Given in ED Vital Signs/I&O Vital Sign - Last 12Hours 09/29/17 09/29/17 08:35 13:37 Temp 98.0 Pulse 82 71 Resp 16 18 B/P (MAP) 124/83 (97) Pulse Ox 97 Blood Pressure Mean: 97 Progress Note : Progress Note Patient received aspirin and Toradol. Pain resolved. Workup was unremarkable. Repeat EKG and troponin 4 hours after onset of pain were normal. Patient was dismissed home in stable and improved condition. ECG EKG #1: EKG Time: 08:38 Rate: 84 Rhythm: Normal Sinus Comment Normal sinus rhythm. ST changes have the appearance of normal early repolarization pattern for this young male. No evidence of ischemia. No abnormal intervals or axis deviation. EKG #2: EKG Time: 11:49 Rate: 76 Rhythm: Normal Sinus Intervals: Normal ECG Comparisson: Unchanged Comment Normal sinus rhythm. ST changes have the appearance of normal early repolarization pattern for this young male. No evidence of ischemia. No abnormal intervals or axis deviation. Diagnostic Imaging Diagonstic Imaging: Xray Plain Films/CT/US/NM/MRI: chest Comments NAME: CAROLEE MOISE [facility]i [facility] REC#: [id number] PT STATUS: REG ER : 1985 PHYSICIAN: JEREMY GARRIDO MD ADMIT DATE: 09/29/17/ER Signed Date of Exam: 09/29/17 CHEST PA/LAT (2 VIEW) INDICATION: Anterior chest pressure and pain. TECHNIQUE: PA and lateral views of the chest were obtained at 0940 hours. COMPARISON: 02/18/2017. FINDINGS: The heart and mediastinal silhouette are normal in appearance. There is hyperinflation. There are chronic appearing increased interstitial markings which are unchanged compared to the prior study. There is no pneumothorax or pleural fluid. IMPRESSION: Hyperinflation with no acute infiltrate or pleural fluid. Dictated by: Dictated on workstation # [id number] Dict: 09/29/17926 Trans: 09/29/17947 Interpreted by: ANDREA BALL MD Electronically signed by: ANDREA BALL MD 09/29/17947 Departure Impression Impression: Primary Impression: Atypical chest pain Disposition: HOME, SELF-CARE Condition: Improved Departure-Patient Inst. Decision time for Depature: 13:15 Referrals: NO,LOCAL PHYSICIAN (PCP/Family) Primary Care Physician Patient Instructions: Chest Pain (DC) Add. Discharge Instructions: You may take ibuprofen up to 600 mg every 6 hours as needed for pain. Add Tylenol (acetaminophen) up to 1000 mg every 6 hours as needed for additional pain relief. Establish with an follow-up with a primary care provider soon as possible. Discuss possible referral to a corporate legal manager if felt appropriate by your doctor. Return to the emergency room if you have more episodes of chest pain, especially chest pain not resolved by use of ibuprofen. All discharge instructions reviewed with patient and/or family. Voiced understanding. Scripts No Active Prescriptions or Reported Meds JEREMY GARRIDO MD Sep 29, 2017 13:05
[2017-09-29 13:37] VITALS: BP 95/67
== END 2017-09-29 13:37 | disposition home or self-care (01) ==
LOC: EDUNIT# 08:33 → ER 08:34
DX: R07.89 Other chest pain (principal); G40.909 Epilepsy, unspecified, not intractable, without status epilepticus; F32.9 Major depressive disorder, single episode, unspecified; F17.210 Nicotine dependence, cigarettes, uncomplicated
CPT/HCPCS: 36415; 71020; 80053; 80306; 83735; 83874; 84484; 85025; 85610; 85730; 93005; 93041

== ENCOUNTER 2017-10-29 08:56 | Emergency (ER) | payer MEDICAID ==
[~2017-10-29] VITALS: Ht 167.6 cm; Wt 49.0 kg
--- NOTE | 2017-10-29 10:16 | Diagnostic Imaging Report ---
PROCEDURE: CT cervical spine without contrast. TECHNIQUE: Multiple contiguous axial images were obtained through the cervical spine without the use of intravenous contrast. Sagittal and coronal reformations were then performed. INDICATION: Neck pain. COMPARISON: CT cervical spine without contrast 06/12/2017. FINDINGS: Vertebral body heights are preserved. No fractures. No anterolisthesis or retrolisthesis. Mild to moderate degenerative endplate changes and facet arthropathy in the upper cervical spine. This results in mild to moderate bilateral neural foraminal narrowing at C2-C3, C3-C4 and C4-C5. No high-grade spinal canal narrowing is evident on this noncontrast exam. The visualized paravertebral soft tissues are unremarkable. IMPRESSION: No acute CT findings in the cervical spine. Spondylotic changes as above. Dictated by: Dictated on workstation # [id number]
[2017-10-29] MEDS ORDERED: HYDROcodone/APAP 7.5 MG/325 MG (LORTAB, LORCET PLUS) TABLET PO STA (10:38)
--- NOTE | 2017-10-29 10:41 | ED Neck-Back Pain/Injury ---
General Chief Complaint: Head/Cervical Problems Stated Complaint: NECK PAIN Nursing Triage Note: AMB TO ROOM REPORTS WAS PLAYING FOOTBALL WITH SONS DIVED TO CATCH FOOTBALL FELT POP HIS HIS NECK.PMH OF CERVICAL DYSTONIA. C COLLAR APPLIED ON ADMIT. Nursing Sepsis Screen: No Definite Risk Source of Information: Patient Exam Limitations: No Limitations History of Present Illness Time Seen by Provider: 10:20 Initial Comments Here with report of neck pain. States he is playing football with his sons in diabetic and she football a few days ago and felt his neck pop currently is undergoing disability evaluation for cervical dystonia. C-collar was applied by nurse. Denies weakness or numbness in the upper extremities. Denies bowel or bladder incontinence. He is walking without difficulty. Complains of significant neck pain. Does not have a local physician. Previously was living in [place] but now lives here. He is asking about a neurologist. Timing/Duration: 2-3 Days Severity: Moderate Pain/Injury Location: Neck Radiation: Other (none) Associated Symptoms: No muscle spasms, No weakness, No lower back pain, No loss of bladder control, No loss of bowel control Allergies and Home Medications Allergies Coded Allergies: No Known Drug Allergies (Verified , 02/06/17) Home Medications No Active Prescriptions or Reported Meds Constitutional: see HPI, No chills, No fever EENTM: no symptoms reported Respiratory: no symptoms reported Cardiovascular: no symptoms reported Musculoskeletal: see HPI, muscle pain, neck pain Skin: no symptoms reported Psychiatric/Neurological: No Symptoms Reported Past Hkoetef-Lufhqj-Sfxxjm Hx Patient Social History Alcohol Use: Denies Use Recreational Drug Use: No Type Used: Cigarettes 2nd Hand Smoke Exposure: Yes Recent Foreign Travel: No Contact w/Someone Who Travel: No Recent Infectious Disease Expo: No Recent Hopitalizations: No Immunizations Up To Date Tetanus Booster (TDap): Unknown Date of Influenza Vaccine: Aug 19, 2011 Seasonal Allergies Seasonal Allergies: No Surgeries History of Surgeries: No Respiratory History of Respiratory Disorde: No Cardiovascular History of Cardiac Disorders: No Neurological History of Neurological Disord: Yes (CERVICAL DYSTONIA) Neurological Disorders: Headaches /Migraines Reproductive System Hx Reproductive Disorders: No Sexually Transmitted Disease: No HIV/AIDS: No Genitourinary History of Genitourinary Disor: No Gastrointestinal History of Gastrointestinal Di: No Musculoskeletal History of Musculoskeletal Dis: Yes Musculoskeletal Disorders: Chronic Back Pain Endocrine History of Endocrine Disorders: No HEENT History of HEENT Disorders: Yes (Recurrent dental pain) Cancer History of Cancer: No Psychosocial History of Psychiatric Problem: Yes Behavioral Health Disorders: Depression Integumentary History of Skin or Integumenta: No Blood Transfusions History of Blood Disorders: No Reviewed Nursing Assessment Reviewed/Agree w Nursing PMH: Yes Family Medical History Significant Family History: No Pertinent Family Hx Family Medial History: Patient reports no known family medical history. Physical Exam Vital Signs Vital Sign - Last 12Hours 10/29/17 09:02 Temp 98.2 Pulse 108 Resp 18 B/P (MAP) 129/72 (91) Capillary Refill : Less Than 3 Seconds General Appearance: WD/WN, Mild Distress (pain related) HEENT: PERRL/EOMI, Pharynx Normal Neck: Limited Range of Motion, Tender Lateral, Other (remain in c-collar until after exam by CT) Cardiovascular: Regular Rate, Rhythm, No Murmur Respiratory: Lungs Clear, Normal Breath Sounds Peripheral Pulses: 2+ Dorsalis Pedis (R), 2+ Left Dors-Pedis (L), 2+ Radial Pulses (R), 2+ Radial Pulses (L) Gastrointestinal: Non Tender, Soft Back: Normal Inspection, No CVA Tenderness, No Vertebral Tenderness Extremity: Normal Range of Motion, Non Tender Neurologic/Psychiatric: Alert, Oriented x3 Skin: Normal Color, Warm/Dry Progress/Results/Core Measures Results/Orders My Orders Orders - DEE ASHLEY MD Ct Cervical Spine Wo (10/29/17 09:09) Hydrocodone/Apap 7.5/325 Tab (Lortab 7. (10/29/17 10:38) Vital Signs/I&O Vital Sign - Last 12Hours 10/29/17 09:02 Temp 98.2 Pulse 108 Resp 18 B/P (MAP) 129/72 (91) Blood Pressure Mean: 91 Progress Note : Progress Note Seen and evaluated. CT neck ordered. No acute fractures noted. Degenerative changes noted. 1032 C-collar removed. Full range of motion although has pain. [place] 7.5/325 one tab by mouth given. Discharged home with return precautions. Patient verbalize understanding instructions and agreement with plan. Instructed to follow-up with his primary provider or seek local provider. Information given for [facility]. Diagnostic Imaging Diagonstic Imaging: CT Plain Films/CT/US/NM/MRI: c-spine Comments [facility]. [place], [place] NAME: CAROLEE MOISE [facility] REC#: [id number] PT STATUS: REG ER : 1985 PHYSICIAN: DEE ASHLEY MD ADMIT DATE: 10/29/17/ER Draft Date of Exam:10/29/17 CT CERVICAL SPINE WO PROCEDURE: CT cervical spine without contrast. TECHNIQUE: Multiple contiguous axial images were obtained through the cervical spine without the use of intravenous contrast. Sagittal and coronal reformations were then performed. INDICATION: Neck pain. COMPARISON: CT cervical spine without contrast 06/12/2017. FINDINGS: Vertebral body heights are preserved. No fractures. No anterolisthesis or retrolisthesis. Mild to moderate degenerative endplate changes and facet arthropathy in the upper cervical spine. This results in mild to moderate bilateral neural foraminal narrowing at C2-C3, C3-C4 and C4-C5. No high-grade spinal canal narrowing is evident on this noncontrast exam. The visualized paravertebral soft tissues are unremarkable. IMPRESSION: No acute CT findings in the cervical spine. Spondylotic changes as above. Dictated on workstation # [id number] Dict: 10/29/17 1007 Trans: 10/29/17 [facility]5 MARIELLA [phone] Interpreted by: MIRLANDE MCWILLIAMS MD Electronically signed by: Departure Impression Impression: Primary Impression: Neck pain Disposition: HOME, SELF-CARE Condition: Stable Departure-Patient Inst. Decision time for Depature: 10:52 Ref[facility]: [facility] [place] (PCP) Primary Care Physician Patient Instructions: Chronic Neck Pain (DC) Add. Discharge Instructions: All discharge instructions reviewed with patient and/or family. Voiced understanding. Follow-up with your doctor of choice or the system listed. You do need to seek primary care. You should seek neurology or neurosurgery evaluation as well. You can discussed this with your primary care doctor. Return for worse pain, fever, vomiting, weakness, breathing problems or other concerns as needed. Scripts Ibuprofen (Ibuprofen) 600 Mg Tablet 600 MG PO Q6H Y for PAIN, #30 TAB 0 Refills Prov: DEE ASHLEY MD 10/29/17 Tramadol HCl (Tramadol HCl) 50 Mg Tablet 50 MG PO Q6H Y for PAIN, #20 TAB 0 Refills Prov: DEE ASHLEY MD 10/29/17 Cyclobenzaprine HCl (Cyclobenzaprine HCl) 10 Mg Tablet 10 MG PO Q8H Y for SPASMS, #15 TAB 0 Refills Prov: DEE ASHLEY MD 10/29/17 Work/School Note: Local Medical Staff Listing DEE ASHLEY MD Oct 29, 2017 10:41
[2017-10-29] MEDS ORDERED: IBUP-1773 PO (10:54)
[2017-10-29] MEDS ORDERED: CYCL10TA9 PO (10:54)
[2017-10-29] MEDS ORDERED: TRAM50TA2 PO (10:54)
[2017-10-29 11:11] VITALS: BP 129/72
--- OUTSIDE RECORDS SUMMARY | 2017-10-29 20:12 | XMS REPORT | Continuity of Care Document ---
Author Author [facility] Address Unknown Phone Unavailable Allergies Active Description Code Type Severity Reaction Onset Reported/Identified Relationship to Patient Clinical Status Yes No Known Drug Allergies [id number] Drug Allergy Mild N/A 02/06/2017 Medications There is no data. Problems Date Dx Coded Attending Type Code Diagnosis Diagnosed By 04/22/2010 Ot 723.1 04/22/2010 Ot 905.7 04/22/2010 Ot E929.3 06/06/2010 Ot 521.00 06/06/2010 Ot 525.9 07/03/2010 Ot 521.00 07/03/2010 Ot 523.10 07/03/2010 Ot 525.9 07/28/2010 Ot 681.10 07/28/2010 Ot 917.1 07/28/2010 Ot E000.8 07/28/2010 Ot E849.0 07/28/2010 Ot E920.4 10/14/2010 Ot 521.00 10/14/2010 Ot 522.5 10/14/2010 Ot 525.9 11/28/2010 Ot 521.00 11/28/2010 Ot 525.9 04/08/2011 Ot 805.2 FX DORSAL VERTEBRA-CLOSE 04/08/2011 Ot 959.19 OTH INJURY OF OTHER SITES OF TRUNK 04/08/2011 Ot E000.8 OTHER EXTERNAL CAUSE STATUS 04/08/2011 Ot E849.0 ACCIDENT IN HOME 04/08/2011 Ot E927.0 OVEREXERTION FROM SUDDEN STRENUOUS MOVEM 08/18/2011 Ot 521.00 UNSPEC DENTAL CARIES 08/18/2011 Ot 523.10 CHRONIC GINGIVITIS, PLAQUE INDUCED 08/18/2011 Ot 525.9 DENTAL DISORDER NOS 11/16/2011 Ot 846.0 SPRAIN LUMBOSACRAL 11/16/2011 Ot 847.1 SPRAIN THORACIC REGION 11/16/2011 Ot 959.19 OTH INJURY OF OTHER SITES OF TRUNK 11/16/2011 Ot E000.8 OTHER EXTERNAL CAUSE STATUS 11/16/2011 Ot E849.0 ACCIDENT IN HOME 11/16/2011 Ot E880.9 FALL ON STAIR/STEP NEC 12/13/2011 Ot 521.00 UNSPEC DENTAL CARIES 12/13/2011 Ot 523.10 CHRONIC GINGIVITIS, PLAQUE INDUCED 12/13/2011 Ot 525.9 DENTAL DISORDER NOS 01/10/2012 Ot 724.5 BACKACHE NOS 01/10/2012 Ot 959.19 OTH INJURY OF OTHER SITES OF TRUNK 01/10/2012 Ot E000.8 OTHER EXTERNAL CAUSE STATUS 01/10/2012 Ot E849.0 ACCIDENT IN HOME 01/10/2012 Ot E882 FALL FROM BUILDING 01/24/2012 Ot 724.2 LUMBAGO 03/10/2012 Ot 724.2 LUMBAGO 03/10/2012 Ot 847.2 SPRAIN LUMBAR REGION 03/10/2012 Ot E000.8 OTHER EXTERNAL CAUSE STATUS 03/10/2012 Ot E849.0 ACCIDENT IN HOME 03/10/2012 Ot E927.0 OVEREXERTION FROM SUDDEN STRENUOUS MOVEM 06/03/2012 Ot 922.31 BACK CONTUSION 06/03/2012 Ot 923.11 CONTUSION OF ELBOW 06/03/2012 Ot 959.19 OTH INJURY OF OTHER SITES OF TRUNK 06/03/2012 Ot E000.8 OTHER EXTERNAL CAUSE STATUS 06/03/2012 Ot E849.0 ACCIDENT IN HOME 06/03/2012 Ot E880.9 FALL ON STAIR/STEP NEC 04/28/2013 JUSTIN VELOZ Ot 521.00 UNSPEC DENTAL CARIES 04/28/2013 JUSTIN VELOZ Ot 522.5 PERIAPICAL ABSCESS 04/28/2013 JUSTIN VELOZ Ot 525.9 DENTAL DISORDER NOS 05/28/2013 JESSICA NICHOLE DO Ot 847.2 SPRAIN LUMBAR REGION 05/28/2013 JESSICA NICHOLE DO Ot 959.19 OTH INJURY OF OTHER SITES OF TRUNK 05/28/2013 JESSICA NICHOLE DO Ot E000.8 OTHER EXTERNAL CAUSE STATUS 05/28/2013 JESSICA NICHOLE DO Ot E884.9 FALL-1 LEVEL TO OTH NEC 07/08/2014 BOO THOMPSON APRN Ot 521.00 UNSPEC DENTAL CARIES 07/08/2014 BOO THOMPSON APRN Ot 585.9 CHRONIC KIDNEY DISEASE, UNSPECIFIED 10/03/2014 MORGAN BARRERA APRN T 723.1 PAIN NECK 10/03/2014 MORGAN BARRERA APRN 723.1 PAIN NECK 10/03/2014 MARSH DDS, JESSICA 723.1 PAIN NECK 01/10/2015 INGRID YAN, CAROLEE Kiser Ot 041.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 SUSCEPTIBLE STAPHYLOCOCCUS A 01/10/2015 INGRID YAN, CAROLEE Kiser Ot 682.3 CELLULITIS OF ARM 02/16/2015 MORGAN GANNON DO Ot 041.12 METHICILLIN RESISTANT STAPHYLOCOCCUS AUR 02/16/2015 MORGAN GANNON DO Ot 682.3 CELLULITIS OF ARM 02/16/2015 MORGAN GANNON DO Ot 682.6 CELLULITIS OF LEG 02/18/2015 JUSTIN VELOZ Ot 682.6 CELLULITIS OF LEG 04/21/2015 BOO THOMPSON APRN Ot 305.50 OPIOID ABUSE-UNSPEC 04/21/2015 BOO THOMPSON APRN Ot 564.00 UNSPEC CONSTIPATION 04/21/2015 BOO THOMPSON APRN Ot 789.05 ABDOMINAL PAIN, PERIUMBILIC 04/24/2015 BRANDI YAN, VANESSA Anderson Ot 305.1 TOBACCO USE DISORDER 04/24/2015 BRANDI YAN, VANESSA Anderson Ot 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, HYPNOTIC OR ANXIOLYTIC ABUSE, 04/24/2015 VANESSA PAZ MD Ot 305.51 OPIOID ABUSE-CONTINUOUS 06/02/2016 VANESSA MILES MD Ot F17.210 NICOTINE DEPENDENCE, CIGARETTES, UNCOMPL 06/02/2016 VANESSA MILES MD Ot M54.2 CERVICALGIA 06/04/2016 VANESSA MILES MD Ot F17.210 NICOTINE DEPENDENCE, CIGARETTES, UNCOMPL 06/04/2016 VANESSA MILES MD Ot M54.2 CERVICALGIA 09/25/2016 BOO THOMPSON APRN Ot F17.210 NICOTINE DEPENDENCE, CIGARETTES, UNCOMPL 09/25/2016 BOO THOMPSON APRN Ot M79.1 MYALGIA 09/25/2016 BOO THOMPSON APRN Ot R11.2 NAUSEA WITH VOMITING, UNSPECIFIED 09/25/2016 BOO THOMPSON APRN Ot R19.7 DIARRHEA, UNSPECIFIED 09/25/2016 THOMPSON, PETER J [employer] ASSEMBLER Ot R51 HEADACHE 09/26/2016 BOO THOMPSON [employer] ASSEMBLER Ot F17.210 NICOTINE DEPENDENCE, CIGARETTES, UNCOMPL 09/26/2016 BOO THOMPSON [employer] ASSEMBLER Ot M79.1 MYALGIA 09/26/2016 BOO THOMPSON [employer] ASSEMBLER Ot R11.2 NAUSEA WITH VOMITING, UNSPECIFIED 09/26/2016 BOO THOMPSON [employer] ASSEMBLER Ot R19.7 DIARRHEA, UNSPECIFIED 09/26/2016 BOO THOMPSON BACKREST ASSEMBLER Ot R51 HEADACHE 02/06/2017 BOO THOMPSON [employer] ASSEMBLER Ot J40 BRONCHITIS, NOT SPECIFIED ACUTE OR CH 02/06/2017 BOO THOMPSON [employer] ASSEMBLER Ot R05 COUGH 02/18/2017 JUSTIN VELOZ Ot F17.210 NICOTINE DEPENDENCE, CIGARETTES, UNCOMPL 02/18/2017 JUSTIN VELOZ Ot J20.9 ACUTE BRONCHITIS, UNSPECIFIED 02/18/2017 JUSTIN VELOZ Ot R05 COUGH 02/18/2017 JUSTIN VELOZ Ot F17.210 NICOTINE DEPENDENCE, CIGARETTES, UNCOMPL 02/18/2017 JUSTIN VELOZ Ot J20.9 ACUTE BRONCHITIS, UNSPECIFIED 02/18/2017 JUSTIN VELOZ Ot R05 COUGH 06/11/2017 VANESSA MILES MD Ot S19.9XXA UNSPECIFIED INJURY OF NECK, INITIAL ENCO 06/11/2017 VANESSA MILES MD Ot X58.XXXA EXPOSURE TO OTHER SPECIFIED FACTORS, INI 06/11/2017 VANESSA MILES MD Ot Y99.8 OTHER EXTERNAL CAUSE STATUS 06/11/2017 VANESSA MILES MD Ot Z53.21 PROC/TRTMT NOT CRD OUT D/T PT LV BEF SEE 06/12/2017 VANESSA MILES MD Ot S19.9XXA UNSPECIFIED INJURY OF NECK, INITIAL ENCO 06/12/2017 VANESSA MILES MD Ot X58.XXXA EXPOSURE TO OTHER SPECIFIED FACTORS, INI 06/12/2017 VANESSA MILES MD Ot Y99.8 OTHER EXTERNAL CAUSE STATUS 06/12/2017 VANESSA MILES MD Ot Z53.21 PROC/TRTMT NOT CRD OUT D/T PT LV BEF SEE 06/12/2017 JUSTIN VELOZ Ot F17.210 NICOTINE DEPENDENCE, CIGARETTES, UNCOMPL 06/12/2017 JUSTIN VELOZ Ot F32.9 MAJOR DEPRESSIVE DISORDER, SINGLE EPISOD 06/12/2017 JUSTIN VELOZ Ot G43.909 MIGRAINE, UNSP, NOT INTRACTABLE, WITHOUT 06/12/2017 JUSTIN VELOZ Ot M54.2 CERVICALGIA 06/12/2017 JUSTIN VELOZ Ot S13.9XXA SPRAIN OF JOINTS AND LIGAMENTS OF UNSP P 06/12/2017 JUSTIN VELOZ Ot X58.XXXA EXPOSURE TO OTHER SPECIFIED FACTORS, INI 07/05/2017 DEE ASHLEY MD Ot F17.210 NICOTINE DEPENDENCE, CIGARETTES, UNCOMPL 07/05/2017 DEE ASHLEY MD Ot F32.9 MAJOR DEPRESSIVE DISORDER, SINGLE EPISOD 07/05/2017 DEE ASHLEY MD Ot G43.909 MIGRAINE, UNSP, NOT INTRACTABLE, WITHOUT 07/05/2017 DEE ASHLEY MD Ot K08.89 OTHER SPECIFIED DISORDERS OF TEETH AND S 08/18/2017 RADHIKA YAN, JEREMY Laws Ot F17.210 NICOTINE DEPENDENCE, CIGARETTES, UNCOMPL 08/18/2017 JEREMY GARRIDO MD Ot F32.9 MAJOR DEPRESSIVE DISORDER, SINGLE EPISOD 08/18/2017 RADHIKA YAN, JEREMY Laws Ot G24.3 SPASMODIC TORTICOLLIS 08/18/2017 JEREMY GARRIDO MD Ot G43.909 MIGRAINE, UNSP, NOT INTRACTABLE, WITHOUT 09/29/2017 JEREMY GARRIDO MD Ot F17.210 NICOTINE DEPENDENCE, CIGARETTES, UNCOMPL 09/29/2017 JEREMY GARRIDO MD Ot F32.9 MAJOR DEPRESSIVE DISORDER, SINGLE EPISOD 09/29/2017 JEREMY GARRIDO MD Ot G40.909 EPILEPSY, UNSP, NOT INTRACTABLE, WITHOUT 09/29/2017 JEREMY GARRIDO MD Ot R07.89 OTHER CHEST PAIN 09/29/2017 JEREMY GARRIDO MD Ot R07.9 CHEST PAIN, UNSPECIFIED Procedures Code Description Performed By Performed On 94.65 DRUG DETOXIFICATION 04/22/2015 Results Test Result Range Complete blood count (CBC) with automated white blood cell (WBC) differential - 09/25/16 10:43 Blood leukocytes automated count (number/volume) 8.8 10*3/uL 4.3-11.0 Blood erythrocytes automated count (number/volume) 4.82 10*6/uL 4.35-5.85 Venous blood hemoglobin measurement (mass/volume) 16.2 g/dL 13.3-17.7 Blood hematocrit (volume fraction) 46 % 40-54 Automated erythrocyte mean corpuscular volume 96 [foz_us] 80-99 Automated erythrocyte mean corpuscular hemoglobin (mass per erythrocyte) 34 pg 25-34 Automated erythrocyte mean corpuscular hemoglobin concentration measurement ( mass/volume) 35 g/dL 32-36 Automated erythrocyte distribution width ratio 12.8 % 10.0-14.5 Automated blood platelet count (count/volume) 211 10*3/uL 130-400 Automated blood platelet mean volume measurement 10.6 [foz_us] 7.4-10.4 Automated blood neutrophils/100 leukocytes 60 % 42-75 Automated blood lymphocytes/100 leukocytes 22 % 12-44 Blood monocytes/100 leukocytes 15 % 0-12 Automated blood eosinophils/100 leukocytes 3 % 0-10 Automated blood basophils/100 leukocytes 1 % 0-10 Blood neutrophils automated count (number/volume) 5.3 10*3 1.8-7.8 Blood lymphocytes automated count (number/volume) 1.9 10*3 1.0-4.0 Blood monocytes automated count (number/volume) 1.3 10*3 0.0-1.0 Automated eosinophil count 0.3 10*3/uL 0.0-0.3 Automated blood basophil count (count/volume) 0.0 10*3/uL 0.0-0.1 Comprehensive metabolic panel - 09/25/16 10:43 Serum or plasma sodium measurement (moles/volume) 140 mmol/L 135-145 Serum or plasma potassium measurement (moles/volume) 4.6 mmol/L 3.6-5.0 Serum or plasma chloride measurement (moles/volume) 106 mmol/L 98-107 Carbon dioxide 24 mmol/L 21-32 Serum or plasma anion gap determination (moles/volume) 10 mmol/L 5-14 Serum or plasma urea nitrogen measurement (mass/volume) 19 mg/dL 7-18 Serum or plasma creatinine measurement (mass/volume) 0.80 mg/dL 0.60-1.30 Serum or plasma urea nitrogen/creatinine mass ratio 24 NRG Serum or plasma creatinine measurement with calculation of estimated glomerular filtration rate > NRG Serum or plasma glucose measurement (mass/volume) 111 mg/dL 70-105 Serum or plasma calcium measurement (mass/volume) 9.2 mg/dL 8.5-10.1 Serum or plasma total bilirubin measurement (mass/volume) 0.3 mg/dL 0.1-1.0 Serum or plasma alkaline phosphatase measurement (enzymatic activity/volume) 112 U/L 40-136 Serum or plasma aspartate aminotransferase measurement (enzymatic activity/ volume) 33 U/L 5-34 Serum or plasma alanine aminotransferase measurement (enzymatic activity/volume ) 45 U/L 0-55 Serum or plasma protein measurement (mass/volume) 7.1 g/dL 6.4-8.2 Serum or plasma albumin measurement (mass/volume) 4.2 g/dL 3.2-4.5 Complete urinalysis with reflex to culture - 09/25/16 11:28 Urine color determination YELLOW NRG Urine clarity determination CLEAR NRG Urine pH measurement by test strip 8 5-9 Specific gravity of urine by test strip 1.015 1.016- 1.022 Urine protein assay by test strip, semi-quantitative NEGATIVE NEGATIVE Urine glucose detection by automated test strip NEGATIVE NEGATIVE Erythrocytes detection in urine sediment by light microscopy NEGATIVE NEGATIVE Urine ketones detection by automated test strip NEGATIVE NEGATIVE Urine nitrite detection by test strip NEGATIVE NEGATIVE Urine total bilirubin detection by test strip NEGATIVE NEGATIVE Urine urobilinogen measurement by automated test strip (mass/volume) 8 mg/dL NORMAL Urine leukocyte esterase detection by dipstick 1+ NEGATIVE Automated urine sediment erythrocyte count by microscopy (number/high power field) NONE NRG Automated urine sediment leukocyte count by microscopy (number/high power field ) [HPF] NRG Bacteria detection in urine sediment by light microscopy FEW NRG Squamous epithelial cells detection in urine sediment by light microscopy RARE NRG Crystals detection in urine sediment by light microscopy NONE NRG Casts detection in urine sediment by light microscopy NONE NRG Mucus detection in urine sediment by light microscopy NEGATIVE NRG Complete urinalysis with reflex to culture NO NRG Amorphous sediment detection in urine sediment by light microscopy FEW JUJU PHOSPHATE NRG Urine drug screening test - 09/25/16 11:28 Urine phencyclidine detection by screening method NEGATIVE NEGATIVE Urine benzodiazepines detection by screening method POSITIVE NEGATIVE Urine cocaine detection NEGATIVE NEGATIVE Urine amphetamines detection by screening method NEGATIVE NEGATIVE Urine methamphetamine detection by screening method NEGATIVE NEGATIVE Urine cannabinoids detection by screening method POSITIVE NEGATIVE Urine opiates detection by screening method POSITIVE NEGATIVE Urine barbiturates detection NEGATIVE NEGATIVE Screening urine tricyclic antidepressants detection NEGATIVE NEGATIVE Urine methadone detection by screening method NEGATIVE NEGATIVE Urine oxycodone detection NEGATIVE NEGATIVE Urine propoxyphene detection NEGATIVE NEGATIVE Complete blood count (CBC) with automated white blood cell (WBC) differential - 02/18/17 11:49 Blood leukocytes automated count (number/volume) 6.3 10*3/uL 4.3-11.0 Blood erythrocytes automated count (number/volume) 5.12 10*6/uL 4.35-5.85 Venous blood hemoglobin measurement (mass/volume) 17.0 g/dL 13.3-17.7 Blood hematocrit (volume fraction) 48 % 40-54 Automated erythrocyte mean corpuscular volume 93 [foz_us] 80-99 Automated erythrocyte mean corpuscular hemoglobin (mass per erythrocyte) 33 pg 25-34 Automated erythrocyte mean corpuscular hemoglobin concentration measurement ( mass/volume) 36 g/dL 32-36 Automated erythrocyte distribution width ratio 12.9 % 10.0-14.5 Automated blood platelet count (count/volume) 228 10*3/uL 130-400 Automated blood platelet mean volume measurement 10.3 [foz_us] 7.4-10.4 Automated blood neutrophils/100 leukocytes 58 % 42-75 Automated blood lymphocytes/100 leukocytes 24 % 12-44 Blood monocytes/100 leukocytes 14 % 0-12 Automated blood eosinophils/100 leukocytes 3 % 0-10 Automated blood basophils/100 leukocytes 1 % 0-10 Blood neutrophils automated count (number/volume) 3.6 10*3 1.8-7.8 Blood lymphocytes automated count (number/volume) 1.5 10*3 1.0-4.0 Blood monocytes automated count (number/volume) 0.9 10*3 0.0-1.0 Automated eosinophil count 0.2 10*3/uL 0.0-0.3 Automated blood basophil count (count/volume) 0.1 10*3/uL 0.0-0.1 Complete blood count (CBC) with automated white blood cell (WBC) differential - 09/29/17 09:14 Blood leukocytes automated count (number/volume) 8.2 10*3/uL 4.3-11.0 Blood erythrocytes automated count (number/volume) 5.12 10*6/uL 4.35-5.85 Venous blood hemoglobin measurement (mass/volume) 17.1 g/dL 13.3-17.7 Blood hematocrit (volume fraction) 48 % 40-54 Automated erythrocyte mean corpuscular volume 95 [foz_us] 80-99 Automated erythrocyte mean corpuscular hemoglobin (mass per erythrocyte) 33 pg 25-34 Automated erythrocyte mean corpuscular hemoglobin concentration measurement ( mass/volume) 35 g/dL 32-36 Automated erythrocyte distribution width ratio 12.4 % 10.0-14.5 Automated blood platelet count (count/volume) 193 10*3/uL 130-400 Automated blood platelet mean volume measurement 10.5 [foz_us] 7.4-10.4 Automated blood neutrophils/100 leukocytes 55 % 42-75 Automated blood lymphocytes/100 leukocytes 26 % 12-44 Blood monocytes/100 leukocytes 14 % 0-12 Automated blood eosinophils/100 leukocytes 5 % 0-10 Automated blood basophils/100 leukocytes 1 % 0-10 Blood neutrophils automated count (number/volume) 4.5 10*3 1.8-7.8 Blood lymphocytes automated count (number/volume) 2.1 10*3 1.0-4.0 Blood monocytes automated count (number/volume) 1.1 10*3 0.0-1.0 Automated eosinophil count 0.4 10*3/uL 0.0-0.3 Automated blood basophil count (count/volume) 0.1 10*3/uL 0.0-0.1 Comprehensive metabolic panel - 09/29/17 09:14 Serum or plasma sodium measurement (moles/volume) 137 mmol/L 135-145 Serum or plasma potassium measurement (moles/volume) 4.1 mmol/L 3.6-5.0 Serum or plasma chloride measurement (moles/volume) 102 mmol/L 98-107 Carbon dioxide 25 mmol/L 21-32 Serum or plasma anion gap determination (moles/volume) 10 mmol/L 5-14 Serum or plasma urea nitrogen measurement (mass/volume) 16 mg/dL 7-18 Serum or plasma creatinine measurement (mass/volume) 0.88 mg/dL 0.60-1.30 Serum or plasma urea nitrogen/creatinine mass ratio 18 NRG Serum or plasma creatinine measurement with calculation of estimated glomerular filtration rate > NRG Serum or plasma glucose measurement (mass/volume) 92 mg/dL 70-105 Serum or plasma calcium measurement (mass/volume) 9.3 mg/dL 8.5-10.1 Serum or plasma total bilirubin measurement (mass/volume) 0.7 mg/dL 0.1-1.0 Serum or plasma alkaline phosphatase measurement (enzymatic activity/volume) 108 U/L 40-136 Serum or plasma aspartate aminotransferase measurement (enzymatic activity/ volume) 23 U/L 5-34 Serum or plasma alanine aminotransferase measurement (enzymatic activity/volume ) 14 U/L 0-55 Serum or plasma protein measurement (mass/volume) 7.5 g/dL 6.4-8.2 Serum or plasma albumin measurement (mass/volume) 4.5 g/dL 3.2-4.5 Magnesium - 09/29/17 09:14 Magnesium 2.0 mg/dL 1.8-2.4 PT panel in platelet poor plasma by coagulation assay - 09/29/17 09:14 Prothrombin time (PT) in platelet poor plasma by coagulation assay 13.7 s 12.2-14.7 INR in platelet poor plasma or blood by coagulation assay 1.0 0.8-1.4 Activated partial thromboplastin time (aPTT) in platelet poor plasma bycoagulation assay - 09/29/17 09:14 Activated partial thromboplastin time (aPTT) in platelet poor plasma bycoagulation assay 34 s 24-35 Serum or plasma troponin i.cardiac measurement (mass/volume) - 09/29/17 09:14 Serum or plasma troponin i.cardiac measurement (mass/volume) < ng/ mL <0.30 Myoglobin, serum - 09/29/17 09:14 Myoglobin, serum 53.9 ng/mL 10.0-92.0 Urine drug screening test - 09/29/17 10:30 Urine phencyclidine detection by screening method NEGATIVE NEGATIVE Urine benzodiazepines detection by screening method NEGATIVE NEGATIVE Urine cocaine detection NEGATIVE NEGATIVE Urine amphetamines detection by screening method NEGATIVE NEGATIVE Urine methamphetamine detection by screening method NEGATIVE NEGATIVE Urine cannabinoids detection by screening method POSITIVE NEGATIVE Urine opiates detection by screening method NEGATIVE NEGATIVE Urine barbiturates detection NEGATIVE NEGATIVE Screening urine tricyclic antidepressants detection POSITIVE NEGATIVE Urine methadone detection by screening method NEGATIVE NEGATIVE Urine oxycodone detection NEGATIVE NEGATIVE Urine propoxyphene detection NEGATIVE NEGATIVE Serum or plasma troponin i.cardiac measurement (mass/volume) - 09/29/17 11:56 Serum or plasma troponin i.cardiac measurement (mass/volume) < ng/ mL <0.30 Encounters ACCT No. Visit Date/Time Discharge Status Pt. Type Provider Facility Loc./Unit Complaint [id number] 02/08/2015 13:21:00 02/08/2015 23:59:59 CLS Outpatient MARSH SHAHBAZ JESSICA [id number] 11/06/2014 12:15:00 11/06/2014 23:59:59 CLS Outpatient MORGAN BARRERA APRN [id number] 10/03/2014 08:26:00 10/03/2014 23:59:59 CLS Outpatient MORGAN BARRERA APRN [id number] 05/07/2010 16:02:00 05/07/2010 23:59:59 CLS Outpatient DIMPLEJose HARTMANNGLADYS Kwasi [id number] 09/29/2017 08:34:00 09/29/2017 13:37:00 DIS Emergency JEREMY GARRIDO MD [facility] ER CP [id number] 08/18/2017 06:40:00 08/18/2017 07:45:00 DIS Emergency JEREMY GARRIDO MD [facility] ER NEUROLOGICAL DISORDER, CAN'T SLEEP [id number] 07/05/2017 16:36:00 07/05/2017 17:08:00 DIS Emergency DEE ASHLEY MD [facility] ER DENTAL PAIN [id number] 06/12/2017 13:03:00 06/12/2017 15:28:00 DIS Emergency JUSTIN VELOZ [facility] ER NECK PAIN [id number] 06/11/2017 17:39:00 06/11/2017 18:30:00 DIS Emergency VANESSA MILES MD [facility] ER NECK INJ [id number] 02/18/2017 10:20:00 02/18/2017 13:13:00 DIS Emergency JUSTIN VELOZ [facility] ER COUGH NAUSEA [id number] 02/06/2017 13:54:00 02/06/2017 14:16:00 DIS Emergency BOO THOMPSON APRN [facility] ER COUGH/CHEST CONGESTION [id number] 09/25/2016 10:36:00 09/25/2016 12:08:00 DIS Emergency BOO THOMPSON APRN [facility] ER VOMITING COUGH HEADACHE FATIGUE [id number] 06/02/2016 13:14:00 06/02/2016 14:13:00 DIS Emergency VANESSA MILES MD [facility] ER NECK PAIN/SHAKING [id number] 04/22/2015 23:25:00 04/24/2015 15:25:00 DIS Inpatient VANESSA PAZ MD [facility] 4TH BENZODIAZEPINE WITHDRAWAL ;NARCOTIC WITHDRAWAL [id number] 04/21/2015 20:34:00 04/21/2015 22:10:00 DIS Emergency BOO THOMPSON APRN [facility] ER BLOODY STOOLS,ABD PAIN, WANTS REHAB [id number] 02/18/2015 12:02:00 02/18/2015 12:51:00 DIS Emergency JUSTIN VELOZ [facility] ER CYST ON HIP [id number] 02/16/2015 00:03:00 02/16/2015 00:55:00 DIS Emergency MORGAN GANNON DO [facility] ER CELLULITIS [id number] 01/15/2015 11:44:00 01/15/2015 23:59:59 CLS Preadmit ROHAN HARTMAN MD [facility] WOUNDCARE [id number] 01/07/2015 01:35:00 01/10/2015 16:30:00 DIS Outpatient CAROLEE QUINTERO MD [facility] SDC MULTIPLE ABCESS/ CELLULITIS [id number] 07/08/2014 11:44:00 07/08/2014 12:25:00 DIS Emergency BOO THOMPSON APRN [facility] ER TOOTH INFECTION [id number] 06/03/2013 16:23:00 06/03/2013 23:59:59 CLS Preadmit DAVON VINCENT MD [facility] ER DENTAL PAIN,POSSIBLE RASH [id number] 06/01/2013 12:37:00 06/01/2013 23:59:59 CLS Outpatient [id number] 05/28/2013 08:10:00 05/28/2013 09:58:00 DIS Emergency JESSICA NICHOLE DO [facility] ER L SIDE LOWER BACK PAIN AND RIB PAIN [id number] 04/28/2013 16:12:00 04/28/2013 18:55:00 DIS Emergency JUSTIN VELOZ [facility] ER DENTAL PAIN [id number] 03/26/2015 10:11:00 Document Registration [id number] 03/23/2015 13:15:00 Document Registration [id number] 06/03/2012 17:30:00 Document Registration [id number] 03/10/2012 13:38:00 Document Registration [id number] 01/24/2012 14:20:00 Document Registration [id number] 01/10/2012 14:24:00 Document Registration [id number] 12/13/2011 16:18:00 Document Registration [id number] 11/16/2011 08:46:00 Document Registration [id number] 08/18/2011 21:09:00 Document Registration [id number] 04/08/2011 12:15:00 Document Registration [id number] 11/28/2010 16:26:00 Document Registration [id number] 10/14/2010 10:52:00 Document Registration [id number] 07/28/2010 16:08:00 Document Registration [id number] 07/03/2010 02:58:00 Document Registration [id number] 06/06/2010 06:29:00 Document Registration [id number] 04/22/2010 12:05:00 Document Registration
== END 2017-10-29 11:11 | disposition home or self-care (01) ==
LOC: EDUNIT# 08:56 → ER 08:57
DX: M54.2 Cervicalgia (principal); G43.909 Migraine, unspecified, not intractable, without status migrainosus; F32.9 Major depressive disorder, single episode, unspecified; Z77.22 Contact with and (suspected) exposure to environmental tobacco smoke (acute) (chronic); X50.0XXA Overexertion from strenuous movement or load, initial encounter
CPT/HCPCS: 72125; 99283

== ENCOUNTER 2017-11-26 08:44 | Emergency (ER) | payer MEDICAID ==
[~2017-11-26] VITALS: Ht 167.6 cm; Wt 68.0 kg
[~2017-11-26 08:44] MED LIST changes: +HYDR-34 PO; -HYDR-3816 PO; +IBUP-1773 PO; +TRAM50TA2 PO
--- NOTE | 2017-11-26 09:23 | ED Neck-Back Pain/Injury ---
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 has had incrased shaking, head and neck pain for the past 5 days. has taken motrin and naprosyn with little relief. Nursing Sepsis Screen: No Definite Risk Source of Information: Patient Exam Limitations: No Limitations History of Present Illness Date Seen by Provider: Nov 26, 2017 Time Seen by Provider: 09:22 Initial Comments This is the 56 contact for this 32-year-old white male. Most have involved the neck complaint. This goes back to 2005. Timing/Duration: 6-7 Days Severity: Moderate, Severe Pain/Injury Location: Neck Allergies and Home Medications Allergies Coded Allergies: No Known Drug Allergies (Verified , 02/06/17) Home Medications Cyclobenzaprine HCl 10 Mg Tablet, 10 MG PO Q8H PRN for SPASMS, #15 Ref 0 Prescribed by: DEE ASHLEY on 10/29/17 1054 Ibuprofen 600 Mg Tablet, 600 MG PO Q6H PRN for PAIN, #30 Ref 0 Prescribed by: DEE ASHLEY on 10/29/17 1054 Tramadol HCl 50 Mg Tablet, 50 MG PO Q6H PRN for PAIN, #20 Ref 0 Prescribed by: DEE ASHLEY on 10/29/17 1054 Constitutional: see HPI EENTM: no symptoms reported Respiratory: no symptoms reported Cardiovascular: no symptoms reported Gastrointestinal: no symptoms reported Genitourinary: no symptoms reported Musculoskeletal: neck pain, other (tremulous movement of head) Skin: no symptoms reported Psychiatric/Neurological: No Symptoms Reported Past Timlovj-Ntrdtj-Vnzhtq Hx Patient Social History Type Used: Cigarettes 2nd Hand Smoke Exposure: Yes Recent Foreign Travel: No Contact w/Someone Who Travel: No Recent Infectious Disease Expo: No Recent Hopitalizations: No Immunizations Up To Date Tetanus Booster (TDap): Unknown Date of Influenza Vaccine: Aug 19, 2011 Seasonal Allergies Seasonal Allergies: No Surgeries History of Surgeries: No Respiratory History of Respiratory Disorde: No Cardiovascular History of Cardiac Disorders: No Neurological History of Neurological Disord: Yes (CERVICAL DYSTONIA) Neurological Disorders: Headaches /Migraines Reproductive System Hx Reproductive Disorders: No Sexually Transmitted Disease: No HIV/AIDS: No Genitourinary History of Genitourinary Disor: No Gastrointestinal History of Gastrointestinal Di: No Musculoskeletal History of Musculoskeletal Dis: Yes Musculoskeletal Disorders: Chronic Back Pain Endocrine History of Endocrine Disorders: No HEENT History of HEENT Disorders: Yes (Recurrent dental pain) Cancer History of Cancer: No Psychosocial History of Psychiatric Problem: Yes Behavioral Health Disorders: Depression Integumentary History of Skin or Integumenta: No Blood Transfusions History of Blood Disorders: No Family Medical History Significant Family History: No Pertinent Family Hx Family Medial History: Patient reports no known family medical history. Physical Exam Vital Signs Vital Signs - First Documented 11/26/17 09:10 Temp 95.9 Pulse 94 B/P (MAP) 135/88 (104) Capillary Refill : Less Than 3 Seconds General Appearance: Other (patient sitting on gurney with legs crossed Ivorian style and leaning forward with head and hands) HEENT: Other Neck: Other Cardiovascular: Regular Rate, Rhythm, No Edema, No Gallop, No JVD, No Murmur, Normal Peripheral Pulses Respiratory: Chest Non Tender, Lungs Clear, Normal Breath Sounds, No Accessory Muscle Use, No Respiratory Distress, Accessory Muscle Use Gastrointestinal: Normal Bowel Sounds, No Organomegaly, No Pulsatile Mass, Non Tender, Soft Back: Normal Inspection Extremity: Normal Capillary Refill, Normal Inspection, Normal Range of Motion, Non Tender, No Calf Tenderness, No Pedal Edema, Calf Tenderness Neurologic/Psychiatric: Alert, Oriented x3, No Motor/Sensory Deficits, Normal Mood/Affect, cane piler II-XII Norm as Tested, Abnormal Cerebellar Tests Skin: Normal Color, Warm/Dry, Cool, Cyanosis Lymphatic: No Adenopathy Progress/Results/Core Measures Results/Orders Vital Signs/I&O Vital Sign - Last 12Hours 11/26/17 09:10 Temp 95.9 Pulse 94 B/P (MAP) 135/88 (104) Blood Pressure Mean: 104 Departure Impression Impression: Primary Impression: cervical dystonia Disposition: 01 HOME, SELF-CARE Condition: Stable/Unchanged Departure-Patient Inst. Decision time for Depature: 10:13 Referrals: NO,LOCAL PHYSICIAN (PCP) Primary Care Physician Add. Discharge Instructions: All discharge instructions reviewed with patient and/or family. Voiced understanding. You need a referral to a neurologist who does neuromuscular diseases. Medications used for treatment of cervical dystonia are not in the scope of ER medicine. DAVON VINCENT MD Nov 26, 2017 09:23
[2017-11-26] MEDS ORDERED: LORazepam 1 MG (ATIVAN) TAB PO ONE (10:15)
[2017-11-26] MEDS ORDERED: KETOROLAC 60 MG/2 ML VIAL IM ONE (10:15)
[2017-11-26 10:32] VITALS: BP 135/88
[2017-11-27] MEDS ORDERED: NAPR-1071 PO (08:00)
[2017-11-27] MEDS ORDERED: TRAM50TA2 PO (08:00)
== END 2017-11-26 10:32 | disposition home or self-care (01) ==
LOC: EDUNIT# 08:44 → ER 08:47
DX: G24.9 Dystonia, unspecified (principal); G43.909 Migraine, unspecified, not intractable, without status migrainosus; F32.9 Major depressive disorder, single episode, unspecified; Z77.22 Contact with and (suspected) exposure to environmental tobacco smoke (acute) (chronic)
CPT/HCPCS: 96372; 99284

== ENCOUNTER 2017-11-27 04:54 | Emergency (ER) | payer MEDICAID ==
[~2017-11-27] VITALS: Ht 172.7 cm; Wt 68.0 kg
[2017-11-27] MEDS ORDERED: ORPHENADRINE 60 MG/2 ML (NORFLEX) AMP IM STA (06:38)
[2017-11-27] MEDS ORDERED: morphine INJ 10 MG/ML 1ML (SYR OR VIAL) IM STA (06:38)
--- NOTE | 2017-11-27 06:42 | ED Neck-Back Pain/Injury ---
General Chief Complaint: Back Problems Stated Complaint: BACK PAIN,SON WALKED ON BACK YESTERDAY Nursing Triage Note: pt states chronic back pain hx cervical dystonia, states pain sceen here yesterday, went home son 180 lbs walked on back, foot slipped stepped on neck, now has neck pain. Nursing Sepsis Screen: No Definite Risk Source of Information: Patient Exam Limitations: No Limitations History of Present Illness Date Seen by Provider: Nov 27, 2017 Time Seen by Provider: 06:28 Initial Comments Here with report of neck pain that worsened since yesterday. He was seen yesterday for the same and last month as well by me at that time. Today he reports the pain is worse after he had his 180 pound son try to walk on his back to see if it would pop his neck and make him feel better. This did not work. On the last visit that I saw him he was playing football and fell and hit his head and neck and worsened his neck. This also occurred with his son. Denies weakness or numbness. Complains of pain to the area of C6/7. Location: C-Spine, Paraspinous Muscles Timing/Duration: 1-2 Days, Getting Worse Severity: Moderate, Severe Pain/Injury Location: Neck Method of Injury: Other Modifying Factors: Improves With Immobilization, Worse With Movement Associated Symptoms: muscle spasms, No fever, No weakness, No numbness in legs/ feet, No tingling in legs/feet, No sensory/motor loss, No lower back pain, No loss of bladder control, No loss of bowel control Allergies and Home Medications Allergies Coded Allergies: No Known Drug Allergies (Verified , 02/06/17) Home Medications Cyclobenzaprine HCl 10 Mg Tablet, 10 MG PO Q8H PRN for SPASMS, #15 Ref 0 Prescribed by: DEE ASHLEY on 10/29/17 1054 Ibuprofen 600 Mg Tablet, 600 MG PO Q6H PRN for PAIN, #30 Ref 0 Prescribed by: DEE ASHLEY on 10/29/17 1054 Tramadol HCl 50 Mg Tablet, 50 MG PO Q6H PRN for PAIN, #20 Ref 0 Prescribed by: DEE ASHLEY on 10/29/17 1054 Constitutional: see HPI, No chills, No fever EENTM: no symptoms reported Respiratory: no symptoms reported Cardiovascular: no symptoms reported Gastrointestinal: No abdominal pain, No nausea, No vomiting Musculoskeletal: see HPI Skin: no symptoms reported Psychiatric/Neurological: Emotional Problems, Denies Weakness All Other Systems Reviewed Negative Unless Noted: Yes Past Uszhvdy-Msrojt-Ccuwdv Hx Patient Social History Alcohol Use: Denies Use Recreational Drug Use: No Type Used: Cigarettes 2nd Hand Smoke Exposure: Yes Recent Foreign Travel: No Contact w/Someone Who Travel: No Recent Infectious Disease Expo: No Recent Hopitalizations: No Immunizations Up To Date Tetanus Booster (TDap): Unknown Date of Influenza Vaccine: Aug 19, 2011 Seasonal Allergies Seasonal Allergies: No Surgeries History of Surgeries: No Respiratory History of Respiratory Disorde: No Cardiovascular History of Cardiac Disorders: No Neurological History of Neurological Disord: Yes (CERVICAL DYSTONIA) Neurological Disorders: Headaches /Migraines Reproductive System Hx Reproductive Disorders: No Sexually Transmitted Disease: No HIV/AIDS: No Genitourinary History of Genitourinary Disor: No Gastrointestinal History of Gastrointestinal Di: No Musculoskeletal History of Musculoskeletal Dis: Yes Musculoskeletal Disorders: Chronic Back Pain Endocrine History of Endocrine Disorders: No HEENT History of HEENT Disorders: Yes (Recurrent dental pain) Cancer History of Cancer: No Psychosocial History of Psychiatric Problem: Yes Behavioral Health Disorders: Depression Integumentary History of Skin or Integumenta: No Blood Transfusions History of Blood Disorders: No Reviewed Nursing Assessment Reviewed/Agree w Nursing PMH: Yes Family Medical History Significant Family History: No Pertinent Family Hx Family Medial History: Patient reports no known family medical history. Physical Exam Vital Signs Vital Signs - First Documented 11/27/17 06:03 Temp 97.1 Pulse 72 Resp 20 B/P (MAP) 131/77 (95) Pulse Ox 99 O2 Delivery Room Air Capillary Refill : Less Than 3 Seconds General Appearance: No Apparent Distress, WD/WN HEENT: PERRL/EOMI, Pharynx Normal Neck: Tender Lateral, Tender Midline, Other (prominent sternocleidomastoids bilateral. Tenderness posterior and throughout neck.) Cardiovascular: Regular Rate, Rhythm, No Murmur Respiratory: Lungs Clear, Normal Breath Sounds Peripheral Pulses: 2+ Dorsalis Pedis (R), 2+ Left Dors-Pedis (L), 2+ Radial Pulses (R), 2+ Radial Pulses (L) Gastrointestinal: Non Tender, Soft Back: Normal Inspection, No CVA Tenderness, No Vertebral Tenderness Extremity: Normal Range of Motion, Non Tender Neurologic/Psychiatric: Alert, Oriented x3 Skin: Normal Color, Warm/Dry Progress/Results/Core Measures Results/Orders My Orders Orders - DEE ASHLEY MD Ct Cervical Spine Wo (11/27/17 06:38) Morphine Injection (Morphine Injection (11/27/17 06:38) Orphenadrine Injection (Norflex Injectio (11/27/17 06:38) Vital Signs/I&O Vital Sign - Last 12Hours 11/27/17 06:03 Temp 97.1 Pulse 72 Resp 20 B/P (MAP) 131/77 (95) Pulse Ox 99 O2 Delivery Room Air Blood Pressure Mean: 95 Progress Note : Progress Note Seen and evaluated. Morphine 10 mg IM and Norflex 60 mg IM. We will repeat CT scan of neck as he apparently has new injury. Monitor patient. 0750: CT results reviewed. Patient felt a little better after medicines. Discharged home with return precautions. Patient verbalize understanding instructions and agreement with plan. He is asking for prescription of tramadol which I will give her a few days. He's declined muscle relaxants but states he will do ibuprofen or Naprosyn. Diagnostic Imaging Diagonstic Imaging: CT Plain Films/CT/US/NM/MRI: c-spine Comments VIA [facility]. [place], [place] NAME: CAROLEE MOISE [facility] REC#: [id number] PT STATUS: REG ER : 1985 PHYSICIAN: DEE ASHLEY MD ADMIT DATE: 11/27/17/ER Draft Date of Exam:11/27/17 CT CERVICAL SPINE WO Clinical indication: Patient with chronic back pain and history of cervical dystonia. Exam: CT scan of the cervical spine performed without IV contrast. Coronal and sagittal reformatted images are created. Comparison: CT scan of the cervical spine dated 10/29/2017. Findings: There is no evidence of acute cervical spine fracture or dislocation. There is stable multilevel cervical spine degenerative disease with vertebral body spurs seen at the C2 through C5 levels. There is stable small posterior spurs and uncinate spurs at the C2-C3, C3-C4, and C4-C5 levels with associated stable multilevel moderate bilateral neural foramen narrowing and mild central canal narrowing. There is no significant neck soft tissue abnormality. Visualized upper lung bearden are clear. IMPRESSION: Stable CT scan of cervical spine with multilevel degenerative disease and no acute fracture or dislocation. Dictated on workstation # [id number] Dict: 11/27/17 0737 Trans: 11/27/17 0745 [facility] [id number] Interpreted by: ALEJANDRA PALUMBO MD Electronically signed by: Departure Impression Impression: Primary Impression: Chronic neck pain Disposition: HOME, SELF-CARE Condition: Stable Departure-Patient Inst. Referrals: NO,LOCAL PHYSICIAN (PCP/Family) Primary Care Physician Patient Instructions: Chronic Neck Pain (DC) Add. Discharge Instructions: All discharge instructions reviewed with patient and/or family. Voiced understanding. You need to follow-up with your Dr. for recheck and further evaluation. Return for worse pain, weakness, numbness, breathing problems or other concerns as needed. You should avoid activities that will increased risk of injuring your neck like playing football or having people walk on your back. You may take ibuprofen 800 mg every 8 hours as needed for pain or the prescribed Naprosyn but do not take both as they are the same med class. Scripts Tramadol HCl (Tramadol HCl) 50 Mg Tablet 50 MG PO Q6H Y for PAIN, #20 TAB 0 Refills Prov: DEE ASHLEY MD 11/27/17 Naproxen (Naprosyn) 500 Mg Tablet 500 MG PO BID Y for PAIN-MODERATE, #30 TAB 0 Refills Prov: DEE ASHLEY MD 11/27/17 DEE ASHLEY MD Nov 27, 2017 06:42
--- NOTE | 2017-11-27 07:45 | Diagnostic Imaging Report ---
Clinical indication: Patient with chronic back pain and history of cervical dystonia. Exam: CT scan of the cervical spine performed without IV contrast. Coronal and sagittal reformatted images are created. Comparison: CT scan of the cervical spine dated 10/29/2017. Findings: There is no evidence of acute cervical spine fracture or dislocation. There is stable multilevel cervical spine degenerative disease with vertebral body spurs seen at the C2 through C5 levels. There is stable small posterior spurs and uncinate spurs at the C2-C3, C3-C4, and C4-C5 levels with associated stable multilevel moderate bilateral neural foramen narrowing and mild central canal narrowing. There is no significant neck soft tissue abnormality. Visualized upper lung bearden are clear. IMPRESSION: Stable CT scan of cervical spine with multilevel degenerative disease and no acute fracture or dislocation. Dictated by: Dictated on workstation # [id number]
[2017-11-27] MEDS ORDERED: TRAM50TA2 PO (08:00)
[2017-11-27] MEDS ORDERED: NAPR-1071 PO (08:00)
[2017-11-27 08:06] VITALS: BP 131/77
--- OUTSIDE RECORDS SUMMARY | 2017-11-29 07:56 | XMS REPORT | Continuity of Care Document ---
Author Author [facility] Address Unknown Phone Unavailable Allergies Active Description Code Type Severity Reaction Onset Reported/Identified Relationship to Patient Clinical Status Yes No Known Drug Allergies [id number] Drug Allergy Mild N/A 02/06/2017 Medications There [...] Ot 525.9 DENTAL DISORDER NOS 05/28/2013 JESSICA NICHOEL DO Ot 847.2 SPRAIN LUMBAR REGION 05/28/2013 [...] R19.7 DIARRHEA, UNSPECIFIED 09/25/2016 THOMPSON, PETER J CAKE CUTTER MACHINE Ot R51 HEADACHE 09/26/2016 BOO THOMPSON CAKE CUTTER MACHINE Ot F17.210 NICOTINE DEPENDENCE, CIGARETTES, UNCOMPL 09/26/2016 BOO THOMPSON CAKE CUTTER MACHINE Ot M79.1 MYALGIA 09/26/2016 BOO THOMPSON CAKE CUTTER MACHINE Ot R11.2 NAUSEA WITH VOMITING, UNSPECIFIED 09/26/2016 BOO THOMPSON CAKE CUTTER MACHINE Ot R19.7 DIARRHEA, UNSPECIFIED 09/26/2016 BOO THOMPSON CAKE CUTTER MACHINE Ot R51 HEADACHE 02/06/2017 BOO THOMPSON CAKE CUTTER MACHINE Ot J40 BRONCHITIS, NOT SPECIFIED ACUTE OR CH 02/06/2017 BOO THOMPSON CAKE CUTTER MACHINE Ot R05 COUGH 02/18/2017 JUSTIN VELOZ Ot [...] G43.909 MIGRAINE, UNSP, NOT INTRACTABLE, WITHOUT 09/29/2017 RADHIKA YAN, JEREMY Laws Ot F17.210 NICOTINE DEPENDENCE, CIGARETTES, UNCOMPL 09/29/2017 RADHIKA YAN, JEREMY Laws Ot F32.9 MAJOR DEPRESSIVE DISORDER, SINGLE EPISOD 09/29/2017 JEREMY GARRIDO MD Ot G40.909 EPILEPSY, UNSP, NOT INTRACTABLE, WITHOUT 09/29/2017 JEREMY GARRIDO MD T Ot R07.89 OTHER CHEST PAIN 09/29/2017 JEREMY GARRIDO MD Ot R07.9 CHEST PAIN, UNSPECIFIED 10/29/2017 DEE ASHLEY MD Ot F32.9 MAJOR DEPRESSIVE DISORDER, SINGLE EPISOD 10/29/2017 DEE ASHLEY MD Ot G43.909 MIGRAINE, UNSP, NOT INTRACTABLE, WITHOUT 10/29/2017 DEE ASHLEY MD Ot M54.2 CERVICALGIA 10/29/2017 DEE ASHLEY MD Ot X50.0XXA OVEREXERTION FROM STRENUOUS MOVEMENT OR 10/29/2017 DEE ASHLEY MD Ot Z77.22 CNTCT W AND EXPSR TO ENVIRON TOBACCO SMO Procedures Code Description Performed By Performed On [...] Status Pt. Type Provider Facility Loc./Unit Complaint [id number] 02/08/2015 13:21:00 02/08/2015 23:59:59 CLS Outpatient JESSICA MARSH DDS [id number] 11/06/2014 12:15:00 11/06/2014 23:59:59 CLS Outpatient MORGAN BARRERA APRN [id number] 10/03/2014 08:26:00 10/03/2014 23:59:59 CLS Outpatient MORGAN BARRERA APRN [id number] 05/07/2010 16:02:00 05/07/2010 23:59:59 CLS Outpatient GLADYS HASKINS DDS [id number] 11/26/2017 08:47:00 11/26/2017 10:32:00 DIS Emergency DAVON VINCENT MD [facility] ER SHAKING,NECK PAIN,RIGHT SIDE PAIN [id number] 10/29/2017 08:57:00 10/29/2017 11:11:00 DIS Emergency DEE ASHLEY MD [facility] NECK PAIN [id number] 09/29/2017 08:34:00 09/29/2017 13:37:00 DIS Emergency JEREMY GARRIDO MD [facility] CP [id number] 08/18/2017 06:40:00 08/18/2017 07:45:00 DIS Emergency RADHIKA YAN, JEREMY Veto [facility] NEUROLOGICAL DISORDER, CAN'T SLEEP [id number] 07/05/2017 16:36:00 07/05/2017 17:08:00 DIS Emergency DEE ASHLEY MD [facility] ER DENTAL PAIN [id number] 06/12/2017 13:03:00 06/12/2017 15:28:00 DIS Emergency JUSTIN VELOZ [facility] NECK PAIN [id number] 06/11/2017 17:39:00 06/11/2017 18:30:00 DIS Emergency VANESSA MILES MD [facility] NECK INJ [id number] 02/18/2017 10:20:00 02/18/2017 13:13:00 DIS Emergency JUSTIN VELOZ [facility] COUGH NAUSEA [id number] 02/06/2017 13:54:00 02/06/2017 14:16:00 DIS Emergency BOO THOMPSON APRN [facility] COUGH/CHEST CONGESTION [id number] 09/25/2016 10:36:00 09/25/2016 12:08:00 DIS Emergency BOO THOMPSON APRN [facility] VOMITING COUGH HEADACHE FATIGUE [id number] 06/02/2016 13:14:00 06/02/2016 14:13:00 DIS Emergency GINGER YAN, VANESSA Adame [facility] NECK PAIN/SHAKING [id number] 04/22/2015 23:25:00 04/24/2015 15:25:00 DIS Inpatient BRANDI YAN, VANESSA Anderson [facility] 4TH BENZODIAZEPINE WITHDRAWAL ;NARCOTIC WITHDRAWAL [id number] 04/21/2015 20:34:00 04/21/2015 22:10:00 DIS Emergency BOO THOMPSON APRN [facility] ER BLOODY STOOLS,ABD PAIN, WANTS REHAB [id number] 02/18/2015 12:02:00 02/18/2015 12:51:00 DIS Emergency JUSTIN VELOZ [facility] ER CYST ON HIP [id number] 02/16/2015 00:03:00 02/16/2015 00:55:00 DIS Emergency JAGDEEP KEARNEYMORGAN [facility] ER CELLULITIS [id number] 01/15/2015 11:44:00 01/15/2015 23:59:59 CLS Preadmit ROHAN HARTMAN MD [facility] WOUNDCARE [id number] 01/07/2015 01:35:00 01/10/2015 16:30:00 DIS Outpatient CAROLEE QUINTERO MD [facility] SDC MULTIPLE ABCESS/ CELLULITIS [id number] 07/08/2014 11:44:00 07/08/2014 12:25:00 DIS Emergency BOO THOMPSON APRN [facility] ER TOOTH INFECTION [id number] 06/03/2013 16:23:00 06/03/2013 23:59:59 CLS Preadmit DAVON VINCENT MD [facility] ER DENTAL PAIN,POSSIBLE RASH [id number] 06/01/2013 12:37:00 06/01/2013 23:59:59 CLS Outpatient [id number] 05/28/2013 08:10:00 05/28/2013 09:58:00 DIS Emergency JESSICA NICHOLE DO [facility] ER L SIDE LOWER BACK PAIN AND RIB PAIN [id number] 04/28/2013 16:12:00 04/28/2013 18:55:00 DIS Emergency JUSTIN VELOZ [facility] ER DENTAL PAIN [id number] 03/26/2015 10:11:00 Document Registration [id number] 03/23/2015 13:15:00 Document Registration [id number] 06/03/2012 17:30:00 Document Registration [id number] 03/10/2012 13:38:00 Document Registration [id number] 01/24/2012 14:20:00 Document Registration [id number] 01/10/2012 14:24:00 Document Registration [id number] 12/13/2011 16:18:00 Document Registration [id number] 11/16/2011 08:46:00 Document Registration [id number] 08/18/2011 21:09:00 Document Registration [id number] 04/08/2011 12:15:00 Document Registration [id number] 11/28/2010 16:26:00 Document Registration [id number] 10/14/2010 10:52:00 Document Registration [id number] 07/28/2010 16:08:00 Document Registration [id number] 07/03/2010 02:58:00 Document Registration [id number] 06/06/2010 06:29:00 Document Registration [id number] 04/22/2010 12:05:00 Document Registration
== END 2017-11-27 08:06 | disposition home or self-care (01) ==
LOC: EDUNIT# 04:54 → ER 04:58
DX: M54.2 Cervicalgia (principal); G89.29 Other chronic pain; G43.909 Migraine, unspecified, not intractable, without status migrainosus; F32.9 Major depressive disorder, single episode, unspecified; Z77.22 Contact with and (suspected) exposure to environmental tobacco smoke (acute) (chronic)
CPT/HCPCS: 72125; 96372; 99284

== ENCOUNTER 2017-12-09 20:40 | Emergency (ER) | payer MEDICAID ==
[~2017-12-09] VITALS: Ht 170.2 cm; Wt 68.0 kg
[~2017-12-09 20:40] MED LIST changes: +NAPR-1071 PO
[2017-12-09] MEDS ORDERED: ORPHENADRINE 60 MG/2 ML (NORFLEX) AMP IV STA (21:47)
[2017-12-09] MEDS ORDERED: KETOROLAC 30 MG/ML VIAL IVP STA (21:47)
[2017-12-09] MEDS ORDERED: NS 250 ML (IVPB) BAG IV ONE (22:45)
[2017-12-09] MEDS ORDERED: IOHEXOL 350 MG/ML 100 ML (OMNIPAQUE 350) VIAL IV ONE (22:45)
[2017-12-09] MEDS ORDERED: RX-NAPROXEN (NAPROSYN) 250 MG TAB PPK#4 PO ONE (23:30)
[2017-12-09] MEDS ORDERED: RX-CYCLOBENZAPRINE 10 MG (FLEXERIL) TAB PPK#3 PO ONE (23:30)
[2017-12-09] MEDS ORDERED: RX-TRAMADOL 50 MG (ULTRAM) TAB PPK#4 PO STA (23:32)
[2017-12-09] MEDS ORDERED: RX-CYCLOBENZAPRINE 10 MG (FLEXERIL) TAB PPK#3 PO STA (23:32)
[2017-12-09] MEDS ORDERED: METH4TAB PO (23:37)
[2017-12-09] MEDS ORDERED: CYCL10TA9 PO (23:37)
--- NOTE | 2017-12-09 23:37 | ED Fall/Injury ---
General Chief Complaint: Trauma-Non Activation Stated Complaint: BACK AND NECK PAIN;FALL Nursing Triage Note: pt reports he slipped on ice at home as he was carrying in groceries. he struck his right ribs et felt his neck pop. c/o right upper back pain, right neck pain et right rib pain. ccollar applied. denies numbness or tingling. denies loc Source: patient History of Present Illness Date Seen by Provider: Dec 10, 2017 Time Seen by Provider: 21:30 Initial Comments PT ARRIVES VIA POV FROM HOME PT STATES HE WAS CARRYING GROCERIES INTO HOUSE AND SLIPPED ON THE ICE, LANDING ON HIS RIGHT SIDE ON [place], AND HIS HEAD LANDED ON [place] STATES HE HIT HIS RIGHT RIBS ON [place] AND IT JERKED HIS NECK AND HIS NECK POPPED OCCURRED AT 2000 TONIGHT NO LOSS OF CONSCIOUSNESS NO PARESTHESIAS OR MOTOR DEFICITS NO VISION CHANGES NO DIZZINESS NO NAUSEA/VOMITING HAS CHRONIC NECK AND BACK PAIN--STATES HE HAS "CERVICAL DYSTONIA" AND "HIS NECK IS ALWAYS FIXATED TO THE RIGHT", AND CLAIMS THAT HE HAS HAD A "BROKEN VERTEBRA IN HIS BACK" BUT HAS NO IDEA WHAT PART OF HIS BACK. PT WITH MULTITUDE OF VISITS --ALL FOR VARIOUS PAIN COMPLAINTS--NECK PAIN, BACK PAIN, DENTAL PAIN, ABSCESSES, VARIOUS REPORTED "INJURIES" THIS IS 4TH VISIT IN 2018 SEEN 10/29/17 FOR ALLEGED FALL INJURY--GIVEN RX'S FOR FLEXERIL #15, IBUPROFEN AND TRAMADOL #20 SEEN HERE 11/26/17 FOR CHRONIC NECK PAIN COMPLAINT--NO RX GIVEN SEEN HERE AGAIN 11/27/17 FOR ALLEGED INJURY--GIVEN RX FOR NAPROXEN #30 AND TRAMADOL #20 HAS RECEIVED MULTIPLE RX'S FOR TRAMADOL AND HYDROCODONE HAS NEW PT APPOINTMENT AT [facility] 01/05/[address] PT OF DR. [facility]PA[facility] IN [place] Allergies and Home Medications Allergies Coded Allergies: No Known Drug Allergies (Verified , 02/06/17) Home Medications Cyclobenzaprine HCl 10 Mg Tablet, 10 MG PO Q8H PRN for SPASMS, #15 Ref 0 Prescribed by: DEE ASHLEY on 10/29/17 1054 Cyclobenzaprine HCl 10 Mg Tablet, 10 MG PO Q8H, #15 Prescribed by: JESSICA NICHOLE on 12/09/17 2337 Ibuprofen 600 Mg Tablet, 600 MG PO Q6H PRN for PAIN, #30 Ref 0 Prescribed by: DEE ASHLEY on 10/29/17 1054 Methylprednisolone 4 Mg Tab.ds.pk, 4 MG PO UD, #1 Prescribed by: JESSICA NICHOLE on 12/09/17 2337 Naproxen 500 Mg Tablet, 500 MG PO BID PRN for PAIN-MODERATE, #30 Ref 0 Prescribed by: DEE ASHLEY on 11/27/17 0800 Tramadol HCl 50 Mg Tablet, 50 MG PO Q6H PRN for PAIN, #20 Ref 0 Prescribed by: DEE ASHLEY on 10/29/17 1054 Tramadol HCl 50 Mg Tablet, 50 MG PO Q6H PRN for PAIN, #20 Ref 0 Prescribed by: DEE ASHLEY on 11/27/17 0800 Constitutional: no symptoms reported Eyes: No Symptoms Reported Ears, Nose, Mouth, Throat: no symptoms reported Respiratory: no symptoms reported Cardiovascular: no symptoms reported Gastrointestinal: no symptoms reported Genitourinary: no symptoms reported Musculoskeletal: see HPI Skin: no symptoms reported Psychiatric/Neurological: No Symptoms Reported Past Czvnxab-Zizubq-Wtnbap Hx Patient Social History Alcohol Use: Occasionally Uses Recreational Drug Use: Yes (TESTED + FOR THC, OPIATES, BENZODIAZEPINES MULTIPLE TIMES, IN ADDITION TO TRICYCLICS) Smoking Status: Current Everyday Smoker (1 PPD) Type Used: Cigarettes (1 PPD) 2nd Hand Smoke Exposure: Yes Recent Foreign Travel: No Contact w/Someone Who Travel: No Recent Infectious Disease Expo: No Recent Hopitalizations: No Immunizations Up To Date Tetanus Booster (TDap): Unknown Date of Influenza Vaccine: Aug 19, 2011 Seasonal Allergies Seasonal Allergies: No Surgeries History of Surgeries: No Respiratory History of Respiratory Disorde: No Cardiovascular History of Cardiac Disorders: No Neurological History of Neurological Disord: Yes ("CERVICAL DYSTONIA" PER PT) Neurological Disorders: Headaches /Migraines Reproductive System Hx Reproductive Disorders: No Sexually Transmitted Disease: No HIV/AIDS: No Genitourinary History of Genitourinary Disor: No Gastrointestinal History of Gastrointestinal Di: No Musculoskeletal History of Musculoskeletal Dis: Yes (CHRONIC NECK PAIN AND SELF-REPORTED "CERVICAL DYSTONIA" ) Musculoskeletal Disorders: Chronic Back Pain Endocrine History of Endocrine Disorders: No HEENT History of HEENT Disorders: Yes (Recurrent dental pain) Cancer History of Cancer: No Psychosocial History of Psychiatric Problem: Yes Behavioral Health Disorders: Depression Integumentary History of Skin or Integumenta: No Blood Transfusions History of Blood Disorders: No Family Medical History Significant Family History: No Pertinent Family Hx Family Medial History: Patient reports no known family medical history. Physical Exam Vital Signs Vital Signs - First Documented 12/09/17 21:20 Temp 97.3 Pulse 121 Resp 20 B/P (MAP) 116/78 (91) Pulse Ox 98 O2 Delivery Room Air Capillary Refill : Less Than 3 Seconds General Appearance: thin, other (VERY DRAMATIC, CONSTANT MOVEMENTS--LAYING ON RIGHT SIDE IN POSITION, ANXIOUS, DIRTY, REEKS OF CIGARETTES. PT AMBULATED INTO ER ON HIS OWN) HEENT: PERRL/EOMI Neck: tender lateral, tender midline Cardiovascular: normal peripheral pulses, regular rate, rhythm, no murmur Respiratory: normal breath sounds, no respiratory distress, no accessory muscle use Gastrointestinal: normal bowel sounds, soft, no organomegaly, no pulsatile mass Back: other (DIFFUSE TENDERNESS TO BACK AND RIGHT POSTERIOR RIBS AND FLANK AREA. 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 tested, no motor/sensory deficits, alert, oriented x 3 Skin: normal color, warm/dry, tattoos/piercings (MULTIPLE TATTOOS), other (NO EXTERNAL EVIDENCE OF TRAUMA) Zonia Coma Score Best Eye Response: (4) Open Spontaneously Best Verbal Response: (5) Oriented Best Motor Response: (6) Obeys Commands Zonia Total: 15 Progress/Results/Core Measures Results/Orders My Orders Orders - JESSICA NICHOLE DO Ct Head/Cervical Spine Wo (12/09/17 21:47) Ct Thoracic/Lumbar Spine Wo (12/09/17 21:47) Saline Lock/Iv-Start (12/09/17 21:47) Chest 1 View, Ap/Pa Only (12/09/17 21:47) Pelvis (12/09/17 21:47) Ketorolac Injection (Toradol Injection) (12/09/17 21:47) Orphenadrine Injection (Norflex Injectio (12/09/17 21:47) Ct Chest/Abdomen/Pelvis W (12/09/17 21:47) Cervical Collar (12/09/17 21:47) Iohexol Injection (Omnipaque 350 Mg/Ml 1 (12/09/17 22:45) Ns (Ivpb) (Sodium Chloride 0.9%) (12/09/17 22:45) Rx-Cyclobenzaprine Tablet (Rx-Flexeril T (12/09/17 23:32) Rx-Naproxen (Rx-Naprosyn) (12/09/17 23:32) Rx-Tramadol Hcl (Rx-Ultram) (12/09/17 23:32) Rx-Cyclobenzaprine Tablet (Rx-Flexeril T (12/09/17 23:30) Rx-Naproxen (Rx-Naprosyn) (12/09/17 23:30) Medications Given in ED Current Medications Medications Dose Ordered Sig/Travis Route Start Time Stop Time Status Last Admin Dose Admin Iohexol 100 ml ONCE ONCE IV 12/09/17 22:45 12/09/17 22:46 DC 12/09/17 22:40 100 ML Sodium Chloride 250 ml ONCE ONCE IV 12/09/17 22:45 12/09/17 22:46 DC 12/09/17 22:40 80 ML Vital Signs/I&O Vital Sign - Last 12Hours 12/09/17 12/09/17 12/10/17 12/10/17 21:20 21:20 00:05 00:05 Temp 97.3 Pulse 121 121 78 78 Resp 18 18 B/P (MAP) 116/78 (91) 116/78 (91) 121/83 (96) 121/83 Pulse Ox 98 99 99 O2 Delivery Room Air Room Air Room Air Blood Pressure Mean: 91 Progress Note : Progress Note NO DETERIORATION IN PT'S CONDITION DURING ER STAY PT AMBULATED OUT OF ER WITHOUT DIFFICULTY REFUSED NAPROXEN --STATES HE HAS SOME AT HOME PT ADVISED HE WOULD NOT BE GETTING RX'S FOR NARCOTICS OR ULTRAM ( HAS RECEIVED MULTIPLE RX'S RECENTLY FOR PAIN MEDICATION) Diagnostic Imaging Comments CT HEAD/CERVICAL SPINE--NO ACUTE PROCESS, DEGENERATIVE CHANGES--PER [facility] VIA FAX @ 3765 CT CHEST/ABDOMEN/PELVIS AND THORACIC AND LUMBAR SPINE--NO ACUTE PROCESS, DEGENERATIVE CHANGES--PER [facility] VIA FAX @ 8643 CXR--NO ACUTE PROCESS, PENDING RADIOLOGIST REVIEW PELVIS XRAY--NO ACUTE PROCESS, PENDING RADIOLOGIST REVIEW Reviewed: Reviewed by Me Departure Impression Impression: Primary Impression: Status post fall Additional Impressions: EXACERBATION OF CHRONIC BACK AND NECK PAIN Head contusion Contusion of rib on right side Disposition: HOME, SELF-CARE Condition: Stable Departure-Patient Inst. Referrals: NO,LOCAL PHYSICIAN (PCP/Family) Primary Care Physician Patient Instructions: Bruised Rib (DC), CHRONIC PAIN, Cervical Muscle Strain ( DC), Contusion (DC), Lumbar Muscle Strain (DC), Minor Head Injury (DC) Add. Discharge Instructions: ALTERNATE ICE AND HEAT TO SORE AREAS AT 20 MINUTE INTERVALS FOLLOW UP WITH OF [facility] IN 1 WEEK IF NO BETTER All discharge instructions reviewed with patient and/or family. Voiced understanding. Scripts Cyclobenzaprine HCl (Cyclobenzaprine HCl) 10 Mg Tablet 10 MG PO Q8H, #15 TAB Prov: JESSICA NICHOLE DO 12/09/17 Methylprednisolone (Medrol) 4 Mg Tab.ds.pk 4 MG PO UD, #1 PKG Prov: JESSICA NICHOLE DO 12/09/17 JESSICA NICHOLE DO Dec 09, 2017 23:37
[2017-12-09] MEDS: RX-NAPROXEN (NAPROSYN) 250 MG TAB PPK#4 PO STA ×2 (23:39→23:42)
[2017-12-10 00:05] VITALS: BP 121/83
--- NOTE | 2017-12-10 07:40 | Diagnostic Imaging Report ---
INDICATION: Fall, chest pain COMPARISON: 09/29/2017 FINDINGS: Single view of the chest demonstrate clear lungs bilaterally. The heart is normal. There is no pneumothorax. The osseous structures are age-appropriate. IMPRESSION: Negative chest. Dictated by: Dictated on workstation # [id number]
--- NOTE | 2017-12-10 07:47 | Diagnostic Imaging Report ---
INDICATION: Fall COMPARISON: None FINDINGS: Single view of the pelvis demonstrates no fracture or dislocation. Articular surfaces are normal. There is contrast in the distal ureters and urinary bladder. IMPRESSION: No fracture identified. Dictated by: Dictated on workstation # [id number]
--- NOTE | 2017-12-10 07:50 | Diagnostic Imaging Report ---
INDICATION: Back pain, trauma COMPARISON: None TECHNIQUE: Multiple axial images were obtained through the thoracolumbar spine with two-dimensional reconstructions. FINDINGS: The alignment is normal. There is no subluxation or fracture. Vertebral body heights and disc spaces are well-maintained. The SI joints are symmetric. Posterior elements are intact throughout. Visualized lung bases are clear. There are nonobstructive stones in both kidneys measuring approximately 2 mm. There is no paraspinous hematoma. IMPRESSION: 1. No traumatic malalignment or fracture 2. Nonobstructive bilateral nephrolithiasis. Dictated by: Dictated on workstation # [id number]
--- NOTE | 2017-12-10 08:12 | Diagnostic Imaging Report ---
PROCEDURE: CT head and CT cervical spine without contrast. TECHNIQUE: Multiple contiguous axial images were obtained through the brain and cervical spine without the use of intravenous contrast. Sagittal and coronal reformations through the cervical spine were then performed. INDICATION: Fall with injury resulting in head and neck pain. CT HEAD: Multiple contiguous axial CT images of the head were obtained. FINDINGS: Ventricles and sulci are within normal limits for size. There is no intracranial hemorrhage identified. There is no abnormal mass effect or shift of midline structures. There is a mucous retention cyst or polyp in left maxillary sinus. IMPRESSION: Unremarkable CT of the head. CT cervical spine: Comparison is made to study of 11/27/2017. EXAMINATION: Multiple contiguous axial CT images of the cervical spine were obtained with sagittal and coronal reformatted images produced. FINDINGS: The cervical curvature and alignment are within normal limits. The vertebral body heights and disc spaces are maintained without evidence of fracture or subluxation. There is no paraspinous hematoma. Mild cervical spondylosis is similar to the previous study. IMPRESSION: No CT evidence of acute cervical spinal abnormality. Dictated by: Dictated on workstation # [id number]
--- NOTE | 2017-12-10 08:14 | Diagnostic Imaging Report ---
PROCEDURE: CT chest, abdomen, and pelvis with contrast. TECHNIQUE: Multiple contiguous axial images were obtained through the chest, abdomen, and pelvis after the administration of intravenous contrast. INDICATION: Slipped and fall, right neck, chest and back pain. CHEST: There is no pneumothorax. There is no findings of lung contusion or pulmonary laceration. The aorta and mediastinum intact. No fracture deformity is identified. No evidence for pleural hematoma. Lungs clear. No mass. ABDOMEN AND PELVIS: There is no free fluid or findings of hemoperitoneum. The liver, spleen, adrenals, pancreas and kidneys intact. There is no mesenteric or bowel wall hematoma. There is no free air. Images are reconstructed in sagittal and coronal planes showing the thoracolumbar statures to be grossly unremarkable with no acute endplate irregularity or paraspinal hematoma. The urinary bladder is intact. The pelvic osseous structures are intact. No pneumatosis or free gas. No mass, adenopathy or bowel obstruction. IMPRESSION: CT CHEST: No thoracic injury apparent. CT ABDOMEN AND PELVIS: No findings of solid or hollow visceral injury. No acute findings Dictated by: Dictated on workstation # [id number]
== END 2017-12-10 00:05 | disposition home or self-care (01) ==
LOC: EDUNIT# 20:40 → ER 20:42
DX: S00.93XA Contusion of unspecified part of head, initial encounter (principal); S20.211A Contusion of right front wall of thorax, initial encounter; M54.9 Dorsalgia, unspecified; M54.2 Cervicalgia; G89.29 Other chronic pain; R40.2142 Coma scale, eyes open, spontaneous, at arrival to emergency department; R40.2252 Coma scale, best verbal response, oriented, at arrival to emergency department; R40.2362 Coma scale, best motor response, obeys commands, at arrival to emergency department; G43.909 Migraine, unspecified, not intractable, without status migrainosus; F32.9 Major depressive disorder, single episode, unspecified; F12.10 Cannabis abuse, uncomplicated; F17.210 Nicotine dependence, cigarettes, uncomplicated; Z79.82 Long term (current) use of aspirin; W01.198A Fall on same level from slipping, tripping and stumbling with subsequent striking against other object, initial encounter
CPT/HCPCS: 70450; 71045; 71260; 72125; 72128; 72131; 72170; 74177; 96374; 96375

== ENCOUNTER 2018-01-26 13:01 | Emergency (ER) | payer MEDICAID ==
[~2018-01-26] VITALS: Ht 170.2 cm; Wt 68.2 kg
[~2018-01-26 13:01] MED LIST changes: +METH4TAB PO
--- OUTSIDE RECORDS SUMMARY | 2018-01-26 13:07 | XMS REPORT ---
Author Author ROSINAHANH CEJA [facility] Address Unknown Care Team Providers Care Clam Digger Name Role Phone HANH COLBY Unavailable PROBLEMS Type Condition ICD9-CM Code JOH75-IV Code Onset Dates Condition Status SNOMED Code Problem Mood disorder F39 Active 10032390 Problem Abnormal thyroid blood test R94.6 Active 863030466 Problem Other chronic pain G89.29 Active 29536608 Problem Cervical dystonia G24.3 Active 037274775 ALLERGIES No Known Allergies ENCOUNTERS Encounter Location Date Diagnosis [facility] [address] [address] Dec, [facility] [address] [phone] Nov, [facility] [address] [address] Oct, [facility] [address] [address] Aug, Fever, unspecified fever cause R50.9 and Viral illness B34.9 [facility] [id number] [place] [id number] Jun, Dental examination Z01.20 and Dental caries K02.9 [facility] [address] [id number] Apr, Cervicalgia M54.2 ; Mood disorder F39 and Periodontal abscess K05.219 [facility] [address] [id number] February, Dental examination Z01.20 [facility] [address] [address] Jul, Other chronic pain G89.29 [facility] [address] [address] Jul, [facility] [id number] [place] [phone] Jul, [facility] [id number] [place] [address] Jul, [facility] [id number] [place] [address] Jun, Cervical dystonia G24.3 ; Other chronic pain G89.29 and Abnormal thyroid blood test R94.6 [facility] [id number] [place] [phone] May, Cervical dystonia G24.3 [facility] [id number] [place] [phone] February, [facility] [id number] [place] [phone] Jan, [facility] [address] [address] Jan, [facility] [id number] [place] [phone] Oct, [facility] [id number] [place] [address] Oct, [facility] [id number] [place] [address] Sep, [facility] [address] [phone] Sep, [facility] [id number] [place] [address] Aug, [facility] [id number] [place] [address] Aug, IMMUNIZATIONS No Known Immunizations SOCIAL HISTORY Never Assessed REASON FOR VISIT Archie PLAN OF CARE Activity Details Follow Up 1 Week, 2 Weeks Reason:te VITAL SIGNS Blood pressure systolic 112 mmHg 2017-03-10 Blood pressure diastolic 69 mmHg 2017-03-10 MEDICATIONS Medication Instructions Dosage Frequency Start Date End Date Duration Status Amoxicillin 500 MG Orally every 8 hrs 1 capsule 8h 7 days Active Diazepam 5 mg Orally 2 times a day prn 1 tablet 14 days Active RESULTS No Results PROCEDURES Procedure Date Ordered Result Body Site LTD ORAL EVALUATION - PROBLEM FOCUS March 10, 2017 INTRAORL-PERIAPICAL 1 FILM [id number] March 10, 2017 INSTRUCTIONS MEDICATIONS ADMINISTERED No Known Medications MEDICAL (GENERAL) HISTORY Type Description Date Medical History Cervical Dystonia--dx at age 18 Medical History Opiod Abuse per Dr. Harmon
--- OUTSIDE RECORDS SUMMARY | 2018-01-26 13:09 | XMS REPORT | Continuity of Care Document ---
Author Author [facility] Address Unknown Phone Unavailable Allergies Active Description Code Type Severity Reaction Onset Reported/Identified Relationship to Patient Clinical Status Yes No Known Drug Allergies [id number] Drug Allergy Mild N/A 02/06/2017 Medications There [...] OF OTHER SITES OF TRUNK 05/28/2013 JESSICA NCIHOLE DO Ot E000.8 OTHER EXTERNAL CAUSE STATUS [...] PAZ MD Ot 305.51 OPIOID ABUSE-CONTINUOUS 06/02/2016 AVNESSA MILES MD Ot F17.210 NICOTINE DEPENDENCE, CIGARETTES, [...] R19.7 DIARRHEA, UNSPECIFIED 09/25/2016 THOMPSON, PETER J COMPENSATION AND BENEFITS ADMINISTRATOR Ot R51 HEADACHE 09/26/2016 BOO THOMPSON COMPENSATION AND BENEFITS ADMINISTRATOR Ot F17.210 NICOTINE DEPENDENCE, CIGARETTES, UNCOMPL 09/26/2016 BOO THOMPSON COMPENSATION AND BENEFITS ADMINISTRATOR Ot M79.1 MYALGIA 09/26/2016 BOO THOMPSON COMPENSATION AND BENEFITS ADMINISTRATOR Ot R11.2 NAUSEA WITH VOMITING, UNSPECIFIED 09/26/2016 BOO THOMPSON COMPENSATION AND BENEFITS ADMINISTRATOR Ot R19.7 DIARRHEA, UNSPECIFIED 09/26/2016 BOO THOMPSON COMPENSATION AND BENEFITS ADMINISTRATOR Ot R51 HEADACHE 02/06/2017 BOO THOMPSON COMPENSATION AND BENEFITS ADMINISTRATOR Ot J40 BRONCHITIS, NOT SPECIFIED ACUTE OR CH 02/06/2017 BOO THOMPSON COMPENSATION AND BENEFITS ADMINISTRATOR Ot R05 COUGH 02/18/2017 JUSTIN VELOZ Ot [...] W AND EXPSR TO ENVIRON TOBACCO SMO 11/26/2017 DAVON VINCENT MD Ot F32.9 MAJOR DEPRESSIVE DISORDER, SINGLE EPISOD 11/26/2017 DAVON VINCENT MD Ot G24.9 DYSTONIA, UNSPECIFIED 11/26/2017 DAVON VINCENT MD Ot G43.909 MIGRAINE, UNSP, NOT INTRACTABLE, WITHOUT 11/26/2017 DAVON VINCENT MD Ot M54.2 CERVICALGIA 11/26/2017 DAVON VINCENT MD Ot Z77.22 CNTCT W AND EXPSR TO ENVIRON TOBACCO SMO 11/27/2017 DEE ASHLEY MD Ot F32.9 MAJOR DEPRESSIVE DISORDER, SINGLE EPISOD 11/27/2017 DEE ASHLEY MD Ot G43.909 MIGRAINE, UNSP, NOT INTRACTABLE, WITHOUT 11/27/2017 DEE ASHLEY MD Ot G89.29 OTHER CHRONIC PAIN 11/27/2017 EDE ASHLEY MD Ot M54.2 CERVICALGIA 11/27/2017 DEE ASHLEY MD Ot Z77.22 CNTCT W AND EXPSR TO ENVIRON TOBACCO SMO 11/30/2017 DAVON VINCENT MD Ot F32.9 MAJOR DEPRESSIVE DISORDER, SINGLE EPISOD 11/30/2017 DAVON VINCENT MD Ot G24.9 DYSTONIA, UNSPECIFIED 11/30/2017 DAVON VINCENT MD Ot G43.909 MIGRAINE, UNSP, NOT INTRACTABLE, WITHOUT 11/30/2017 DAVON VINCENT MD Ot M54.2 CERVICALGIA 11/30/2017 DAVON VINCENT MD Ot Z77.22 CNTCT W AND EXPSR TO ENVIRON TOBACCO SMO 11/30/2017 DEE ASHLEY MD Ot F32.9 MAJOR DEPRESSIVE DISORDER, SINGLE EPISOD 11/30/2017 DEE ASHLEY MD Ot G43.909 MIGRAINE, UNSP, NOT INTRACTABLE, WITHOUT 11/30/2017 DEE ASHLEY MD Ot G89.29 OTHER CHRONIC PAIN 11/30/2017 DEE ASHLEY MD Ot M54.2 CERVICALGIA 11/30/2017 DEE ASHLEY MD Ot Z77.22 CNTCT W AND EXPSR TO ENVIRON TOBACCO SMO 12/10/2017 JESSICA NICHOLE DO Ot F12.10 CANNABIS ABUSE, UNCOMPLICATED 12/10/2017 JESSICA NICHOLE DO Ot F17.210 NICOTINE DEPENDENCE, CIGARETTES, UNCOMPL 12/10/2017 JESSICA NICHOLE DO Ot F32.9 MAJOR DEPRESSIVE DISORDER, SINGLE EPISOD 12/10/2017 JESSICA NICHOLE DO Ot G43.909 MIGRAINE, UNSP, NOT INTRACTABLE, WITHOUT 12/10/2017 JESSICA NICHOLE DO Ot G89.29 OTHER CHRONIC PAIN 12/10/2017 JESSICA NICHOLE DO Ot M54.2 CERVICALGIA 12/10/2017 JESSICA NICHOLE DO Ot M54.9 DORSALGIA, UNSPECIFIED 12/10/2017 JESSICA NICHOLE DO Ot R40.2142 COMA SCALE, EYES OPEN, SPONTANEOUS, EMR 12/10/2017 JESSICA NICHOLE DO Ot R40.2252 COMA SCALE, BEST VERBAL RESPONSE, ORIENT 12/10/2017 JESSICA NICHOLE DO Ot R40.2362 COMA SCALE, BEST MOTOR RESPONSE, OBEYS C 12/10/2017 JESSICA NICHOLE DO Ot S00.93XA CONTUSION OF UNSPECIFIED PART OF HEAD, I 12/10/2017 JESSICA NICHOLE DO Ot S20.211A CONTUSION OF RIGHT FRONT WALL OF THORAX, 12/10/2017 JESSICA NICHOLE DO Ot W01.198A FALL SAME LEV FROM SLIP/TRIP W STRIKE AG 12/10/2017 JESSICA NICHOLE DO Ot Z79.82 FPC (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 12/11/2017 JESSICA NICHOLE DO Ot F12.10 CANNABIS ABUSE, UNCOMPLICATED 12/11/2017 JESSICA NICHOLE DO Ot F17.210 NICOTINE DEPENDENCE, CIGARETTES, UNCOMPL 12/11/2017 JESSICA NICHOLE DO Ot F32.9 MAJOR DEPRESSIVE DISORDER, SINGLE EPISOD 12/11/2017 DIONISIO KEARNEY JESSICA Sean Ot G43.909 MIGRAINE, UNSP, NOT INTRACTABLE, WITHOUT 12/11/2017 DIONISIO JESSICA KEARNEY Ot G89.29 OTHER CHRONIC PAIN 12/11/2017 DIONISIO DO JESSICA K Ot M54.2 CERVICALGIA 12/11/2017 DIONISIO DO JESSICA K Ot M54.9 DORSALGIA, UNSPECIFIED 12/11/2017 DIONISIO JESSICA KEARNEY Ot R40.2142 COMA SCALE, EYES OPEN, SPONTANEOUS, EMR 12/11/2017 DIONISIO JESSICA KEARNEY Ot R40.2252 COMA SCALE, BEST VERBAL RESPONSE, ORIENT 12/11/2017 DIONISIO JESSICA KEARNEY Ot R40.2362 COMA SCALE, BEST MOTOR RESPONSE, OBEYS C 12/11/2017 DIONISIO ELISHA KEARNEYA Sean Ot S00.93XA CONTUSION OF UNSPECIFIED PART OF HEAD, I 12/11/2017 JESSICA NICHOLE DO Ot S20.211A CONTUSION OF RIGHT FRONT WALL OF THORAX, 12/11/2017 JESSICA NICHOLE DO Ot W01.198A FALL SAME LEV FROM SLIP/TRIP W STRIKE AG 12/11/2017 DIONISIO DO JESSICA Sean Ot Z79.82 INSURANCE ADJUSTOR (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 Procedures Code Description Performed By Performed On 94.65 DRUG DETOXIFICATION 04/22/2015 Results Test Result Range CBC With Differential/Platelet - 06/18/16 11:42 WBC 6.3 x10E3/uL 3.4-10.8 RBC 4.95 x10E6/uL 4.14-5.80 Hemoglobin 16.5 g/dL 12.6-17.7 Hematocrit 47.4 % 37.5-51.0 MCV 96 fL 79-97 MCH 33.3 pg 26.6-33.0 MCHC 34.8 g/dL 31.5-35.7 RDW 12.9 % 12.3-15.4 Platelets 214 x10E3/uL 150-379 Neutrophils 59 % Lymphs 25 % Monocytes 13 % Eos 2 % Basos 1 % Neutrophils (Absolute) 3.8 x10E3/uL 1.4-7.0 Lymphs (Absolute) 1.6 x10E3/uL 0.7-3.1 Monocytes(Absolute) 0.8 x10E3/uL 0.1-0.9 Eos (Absolute) 0.1 x10E3/uL 0.0-0.4 Baso (Absolute) 0.1 x10E3/uL 0.0-0.2 Immature Granulocytes 0 % Immature Grans (Abs) 0.0 x10E3/uL 0.0-0.1 Comp. Metabolic Panel (14) - 06/18/16 11:42 Glucose, Serum 99 mg/dL 65-99 BUN 10 mg/dL 6-20 Creatinine, Serum 0.71 mg/dL 0.76-1.27 eGFR If NonAfricn Am 125 mL/min/1.73 >59 eGFR If Africn Am 145 mL/min/1.73 >59 BUN/Creatinine Ratio 14 8-19 Sodium, Serum 140 mmol/L 134-144 Potassium, Serum 4.2 mmol/L 3.5-5.2 Chloride, Serum 102 mmol/L 97-108 Carbon Dioxide, Total 21 mmol/L 18-29 Calcium, Serum 9.5 mg/dL 8.7-10.2 Protein, Total, Serum 7.3 g/dL 6.0-8.5 Albumin, Serum 4.6 g/dL 3.5-5.5 Globulin, Total 2.7 g/dL 1.5-4.5 A/G Ratio 1.7 1.1-2.5 Bilirubin, Total 0.5 mg/dL 0.0-1.2 Alkaline Phosphatase, S 107 IU/L 39-117 AST (SGOT) 30 IU/L 0-40 ALT (SGPT) 24 IU/L 0-44 TSH - 06/18/16 11:42 TSH 0.293 uIU/mL 0.450-4.500 Complete blood count (CBC) with automated white [...] Status Pt. Type Provider Facility Loc./Unit Complaint [id number] 02/08/2015 13:21:00 02/08/2015 23:59:59 [facility] Outpatient JESSICA MARSH DDS [id number] 11/06/2014 12:15:00 11/06/2014 23:59:59 CLS Outpatient MORGAN BARRERA APRN T [id number] 10/03/2014 08:26:00 10/03/2014 23:59:59 CLS Outpatient BRUCE MORGAN GARZA [id number] 05/07/2010 16:02:00 05/07/2010 23:59:59 CLS Outpatient GLADYS HASKINS DDS [id number] 04/23/2015 02:28:34 ACT Document Registration [id number] 12/09/2017 20:42:00 12/10/2017 00:05:00 DIS Emergency JESSICA NICHOLE DO [facility] ER BACK AND NECK PAIN;FALL [id number] 11/27/2017 04:58:00 11/27/2017 08:06:00 DIS Emergency DEE ASHLEY MD [facility] ER BACK PAIN,SON WALKED ON BACK YESTERDAY [id number] 11/26/2017 08:47:00 11/26/2017 10:32:00 DIS Emergency DAVON VINCENT MD [facility] ER SHAKING,NECK PAIN,RIGHT SIDE PAIN [id number] 10/29/2017 08:57:00 10/29/2017 11:11:00 DIS Emergency DEE ASHLEY MD [facility] ER NECK PAIN [id number] 09/29/2017 08:34:00 09/29/2017 13:37:00 DIS Emergency JEREMY GARRIDO MD [facility] ER CP [id number] 08/18/2017 06:40:00 08/18/2017 07:45:00 DIS Emergency JEREMY GARRIDO MD [facility] ER NEUROLOGICAL DISORDER, CAN'T SLEEP [id number] 07/05/2017 16:36:00 07/05/2017 17:08:00 DIS Emergency DEE ASHLEY MD [facility] ER DENTAL PAIN [id number] 06/12/2017 13:03:00 06/12/2017 15:28:00 DIS Emergency JUSTIN VELOZ [facility] ER NECK PAIN [id number] 06/11/2017 17:39:00 06/11/2017 18:30:00 DIS Emergency VANESSA MILES MD [facility] ER NECK INJ [id number] 02/18/2017 10:20:00 02/18/2017 13:13:00 DIS Emergency JUSTIN VELOZ [facility] ER COUGH NAUSEA [id number] 02/06/2017 13:54:00 02/06/2017 14:16:00 DIS Emergency BOO THOMPSON APRN [facility] ER COUGH/CHEST CONGESTION [id number] 09/25/2016 10:36:00 09/25/2016 12:08:00 DIS Emergency BOO THOMPSON APRN [facility] ER VOMITING COUGH HEADACHE FATIGUE [id number] 06/02/2016 13:14:00 06/02/2016 14:13:00 DIS Emergency VANESSA MILES MD [facility] ER NECK PAIN/SHAKING [id number] 04/22/2015 23:25:00 04/24/2015 15:25:00 DIS Inpatient VANESSA PAZ MD [facility] 4TH BENZODIAZEPINE WITHDRAWAL ;NARCOTIC WITHDRAWAL [id number] 04/21/2015 20:34:00 04/21/2015 22:10:00 DIS Emergency BOO THOMPSON APRN [facility] ER BLOODY STOOLS,ABD PAIN, WANTS REHAB [id number] 02/18/2015 12:02:00 02/18/2015 12:51:00 DIS Emergency JUSTIN VELOZ [facility] ER CYST ON HIP [id number] 02/16/2015 00:03:00 02/16/2015 00:55:00 DIS Emergency MORGAN GANNON DO [facility] ER CELLULITIS [id number] 01/15/2015 11:44:00 01/15/2015 23:59:59 CLS PreadROHAN Balderrama MD [facility] WOUNDCARE [id number] 01/07/2015 01:35:00 01/10/2015 16:30:00 DIS Outpatient CAROLEE QUINTERO MD [facility] SDC MULTIPLE ABCESS/ CELLULITIS [id number] 07/08/2014 11:44:00 07/08/2014 12:25:00 DIS Emergency BOO THOMPSON APRN [facility] ER TOOTH INFECTION [id number] 06/03/2013 16:23:00 06/03/2013 23:59:59 CLS Preadmit DAVON VINCENT MD [facility] ER DENTAL PAIN,POSSIBLE RASH [id number] 06/01/2013 12:37:00 06/01/2013 23:59:59 CLS Outpatient [id number] 05/28/2013 08:10:00 05/28/2013 09:58:00 DIS Emergency DIONISIO DO, JESSICA K [facility] ER L SIDE LOWER BACK PAIN AND RIB PAIN [id number] 04/28/2013 16:12:00 04/28/2013 18:55:00 DIS Emergency JUSTIN VELOZ [facility] ER DENTAL PAIN [id number] 03/26/2015 10:11:00 Document Registration [id number] 03/23/2015 13:15:00 Document Registration [id number] 06/03/2012 17:30:00 Document Registration [id number] 03/10/2012 13:38:00 Document Registration [id number] 01/24/2012 14:20:00 Document Registration [id number] 01/10/2012 14:24:00 Document Registration [id number] 12/13/2011 16:18:00 Document Registration [id number] 11/16/2011 08:46:00 Document Registration [id number] 08/18/2011 21:09:00 Document Registration [id number] 04/08/2011 12:15:00 Document Registration [id number] 11/28/2010 16:26:00 Document Registration [id number] 10/14/2010 10:52:00 Document Registration [id number] 07/28/2010 16:08:00 Document Registration [id number] 07/03/2010 02:58:00 Document Registration [id number] 06/06/2010 06:29:00 Document Registration [id number] 04/22/2010 12:05:00 Document Registration [id number] 01/19/2018 10:40:00 01/19/2018 23:59:59 CLS Outpatient JOLEEN MCKEON APRN [facility] [id number] 06/19/2016 08:46:00 Document Registration
[2018-01-26] MEDS ORDERED: ORPHENADRINE 60 MG/2 ML (NORFLEX) AMP IM ONE (13:15)
[2018-01-26] MEDS ORDERED: CYCL5TAB PO (13:15)
[2018-01-26] MEDS ORDERED: NAPR-1071 PO (13:15)
[2018-01-26] MEDS ORDERED: KETOROLAC 60 MG/2 ML VIAL IM ONE (13:15)
--- NOTE | 2018-01-26 13:15 | ED Neck-Back Pain/Injury ---
General Chief Complaint: Head/Cervical Problems Stated Complaint: NECK AND SHOULDER PAIN AND DISCOMFORT Nursing Triage Note: PT WITH HX OF NECK PAIN PRESENTS WITH NECK PAIN. Nursing Sepsis Screen: No Definite Risk Source of Information: Patient Exam Limitations: No Limitations History of Present Illness Date Seen by Provider: Jan 26, 2018 Time Seen by Provider: 13:11 Initial Comments To ER with reports of pain at the base of his neck which is chronic but worse than usual since playing football a week ago. He reports a history of cervical dystonia. Pain does not radiate down either of his arms, no paresthesias. He has been getting headaches since the pain has been worse than usual. No fevers or chills. Has had 2 c-spine CTs this year alone and C spine MRI in 2009. Location: C-Spine Timing/Duration: 1 Week Severity: Moderate Associated Symptoms: No fever, No numbness in legs/feet, No tingling in legs/ feet, No sensory/motor loss, No lower back pain, No loss of bladder control, No loss of bowel control Allergies and Home Medications Allergies Coded Allergies: No Known Drug Allergies (Verified , 02/06/17) Home Medications Cyclobenzaprine HCl 10 Mg Tablet, 10 MG PO Q8H PRN for SPASMS Prescribed by: DEE ASHLEY on 10/29/17 1054 Cyclobenzaprine HCl 10 Mg Tablet, 10 MG PO Q8H Prescribed by: JESSICA NICHOLE on 12/09/17 2337 Cyclobenzaprine HCl 5 Mg Tablet, 5 MG PO TID Prescribed by: BOO THOMPSON on 01/26/18 1315 Ibuprofen 600 Mg Tablet, 600 MG PO Q6H PRN for PAIN Prescribed by: DEE ASHLEY on 10/29/17 1054 Methylprednisolone 4 Mg Tab.ds.pk, 4 MG PO UD Prescribed by: JESSICA NICHOLE on 12/09/17 2337 Naproxen 500 Mg Tablet, 500 MG PO BID PRN for PAIN-MODERATE Prescribed by: DEE ASHLEY on 11/27/17 0800 Naproxen 500 Mg Tablet, 500 MG PO BID PRN for PAIN-MODERATE TO SEVERE Prescribed by: BOO THOMPSON on 01/26/18 1315 Tramadol HCl 50 Mg Tablet, 50 MG PO Q6H PRN for PAIN Prescribed by: DEE ASHLEY on 10/29/17 1054 Tramadol HCl 50 Mg Tablet, 50 MG PO Q6H PRN for PAIN Prescribed by: DEE ASHLEY on 11/27/17 0800 Patient Home Medication List Home Medication List Reviewed: Yes Constitutional: see HPI, No chills, No fever EENTM: see HPI Respiratory: no symptoms reported Cardiovascular: no symptoms reported Genitourinary: no symptoms reported Musculoskeletal: see HPI, neck pain Skin: no symptoms reported Past Cngekfk-Tppshg-Harcwq Hx Patient Social History Type Used: Cigarettes 2nd Hand Smoke Exposure: Yes Recent Foreign Travel: No Contact w/Someone Who Travel: No Recent Infectious Disease Expo: No Recent Hopitalizations: No Immunizations Up To Date Tetanus Booster (TDap): Unknown Date of Influenza Vaccine: Aug 19, 2011 Seasonal Allergies Seasonal Allergies: No Past Medical History Surgeries: No Respiratory: No Cardiac: No Neurological: Yes ("CERVICAL DYSTONIA" PER PT) Headaches /Migraines Reproductive Disorders: No Sexually Transmitted Disease: No HIV/AIDS: No Genitourinary: No Gastrointestinal: No Musculoskeletal: Yes (CHRONIC NECK PAIN AND SELF-REPORTED "CERVICAL DYSTONIA" ) Chronic Back Pain Endocrine: No HEENT: Yes (Recurrent dental pain) Cancer: No Psychosocial: Yes Depression Integumentary: No Blood Disorders: No Family Medical History Patient reports no known family medical history. No Pertinent Family Hx Physical Exam Vital Signs Vital Signs - First Documented 01/26/18 13:06 Temp 96.5 Pulse 95 Resp 20 B/P (MAP) 143/85 (104) Pulse Ox 96 O2 Delivery Room Air Capillary Refill : Less Than 3 Seconds General Appearance: No Apparent Distress, WD/WN, Anxious HEENT: PERRL/EOMI, TMs Normal Neck: Limited Range of Motion, Tender Lateral, Tender Midline Cardiovascular: Regular Rate, Rhythm, Normal Peripheral Pulses Respiratory: Normal Breath Sounds, No Accessory Muscle Use, No Respiratory Distress Gastrointestinal: Normal Bowel Sounds, Non Tender, Soft Extremity: Normal Capillary Refill, Normal Inspection Neurologic/Psychiatric: Alert, Oriented x3, No Motor/Sensory Deficits Skin: Normal Color, Warm/Dry Progress/Results/Core Measures My Orders Orders - BOO THOMPSON APRN Ketorolac Injection (Toradol Injection) (01/26/18 13:15) Orphenadrine Injection (Norflex Injectio (01/26/18 13:15) Medications Given in ED Current Medications Medications Dose Ordered Sig/Travis Route Start Time Stop Time Status Last Admin Dose Admin Ketorolac Tromethamine 60 mg ONCE ONCE IM 01/26/18 13:15 01/26/18 13:16 DC 01/26/18 13:24 60 MG Orphenadrine Citrate 60 mg ONCE ONCE IM 01/26/18 13:15 01/26/18 13:16 DC 01/26/18 13:24 60 MG Vital Signs/I&O 01/26/18 01/26/18 01/26/18 01/26/18 13:06 13:24 13:24 13:39 Temp 96.5 96.5 96.5 96.5 Pulse 95 95 Resp 20 20 B/P (MAP) 143/85 (104) 143/85 (104) Pulse Ox 96 96 O2 Delivery Room Air Room Air Blood Pressure Mean: 104 Departure Impression Primary Impression: Neck sprain Disposition: 01 HOME, SELF-CARE Condition: Stable Departure-Patient Inst. Decision time for Depature: 13:13 Referrals: NO,LOCAL PHYSICIAN (PCP/Family) Primary Care Physician Patient Instructions: Cervical Muscle Strain (DC) Add. Discharge Instructions: 1.Warm compresses to neck 2. medication as directed 3. See your doctor this week for recheck. All discharge instructions reviewed with patient and/or family. Voiced understanding. Scripts Naproxen (Naprosyn) 500 Mg Tablet 500 MG PO BID Y for PAIN-MODERATE TO SEVERE, #20 TAB Prov: BOO THOMPSON CONVERTIBLE SOFA BEDSPRING TESTER 01/26/18 Cyclobenzaprine HCl (Cyclobenzaprine HCl) 5 Mg Tablet 5 MG PO TID, #21 TAB Prov: BOO THOMPSON CONVERTIBLE SOFA BEDSPRING TESTER 01/26/18 BOO THOMPSON CONVERTIBLE SOFA BEDSPRING TESTER Jan 26, 2018 13:15
[2018-01-26 13:39] VITALS: BP 143/85
== END 2018-01-26 13:39 | disposition home or self-care (01) ==
LOC: EDUNIT# 13:01 → ER 13:03
DX: S13.4XXA Sprain of ligaments of cervical spine, initial encounter (principal); G43.909 Migraine, unspecified, not intractable, without status migrainosus; F32.9 Major depressive disorder, single episode, unspecified; Z79.52 Long term (current) use of systemic steroids; Z87.59 Personal history of other complications of pregnancy, childbirth and the puerperium; Z77.22 Contact with and (suspected) exposure to environmental tobacco smoke (acute) (chronic); W03.XXXA Other fall on same level due to collision with another person, initial encounter; Y93.61 Activity, american tackle football
CPT/HCPCS: 96372; 99284

== ENCOUNTER 2018-02-18 12:56 | Emergency (ER) | payer MEDICAID ==
[~2018-02-18] VITALS: Ht 170.2 cm; Wt 68.0 kg
[~2018-02-18 12:56] MED LIST changes: +CYCL5TAB PO
--- OUTSIDE RECORDS SUMMARY | 2018-02-18 13:02 | XMS REPORT | Continuity of Care Document ---
Author Author [employer] [facility] Address Unknown Phone Unavailable Care Team Providers Care Master Motorcycle Technician Name Role Phone [employer] Unavailable Unavailable Problems Medications Allergies, Adverse Reactions, Alerts Immunizations Results Vital Signs Encounters Procedures Plan of Care Social History Assessment and Plan Family History Advance Directives Functional Status
--- OUTSIDE RECORDS SUMMARY | 2018-02-18 13:03 | XMS REPORT ---
Author Author HANH COLBY [facility] Address Unknown Care Team Providers Care Food Safety Manager Name Role Phone HANH COLBY Unavailable PROBLEMS Type Condition ICD9-CM Code RND44-ZS Code Onset Dates Condition Status SNOMED Code Problem Mood disorder F39 Active 62123604 Problem Abnormal thyroid blood test R94.6 Active 143372327 Problem Other chronic pain G89.29 Active 61575865 Problem Cervical dystonia G24.3 Active [id number] ALLERGIES No Known Allergies ENCOUNTERS Encounter Location Date Diagnosis [facility] [address] [phone] Jan, 2018 Abnormal thyroid blood test R94.6 and Cervical dystonia G24.3 [facility] [address] [phone] 14 Nov, 2017 [facility] [address] [address] Oct, [facility] [address] [phone] 14 Aug, 2017 Fever, unspecified fever cause R50.9 and Viral illness B34.9 [facility] [id number] [place] [phone] Jun, 2017 Dental examination Z01.20 and Dental caries K02.9 [facility] [address] [phone] 11 Apr, 2017 Cervicalgia M54.2 ; Mood disorder F39 and Periodontal abscess K05.219 [facility] [address] [phone] February, Dental examination Z01.20 [facility] [address] [address] Jul, Other chronic pain G89.29 [facility] [id number] [address] Jul, [facility] [id number] [place] [phone] Jul, [facility] [id number] [place] [phone] Jul, [facility] [id number] [place] [phone] Jun, Cervical dystonia G24.3 ; Other chronic pain G89.29 and Abnormal thyroid blood test R94.6 [facility] [id number] [place] [address] May, Cervical dystonia G24.3 [facility] [id number] [place] [phone] February, [facility] [id number] [place] [address] Jan, [facility] [id number] [place] [phone] Jan, [facility] [id number] [place] [phone] Oct, [facility] [id number] [address] Oct, [facility] [id number] [address] Sep, [facility] [address] [phone] Sep, [facility] [id number] [address] Aug, [facility] [id number] [address] Aug, IMMUNIZATIONS No Known Immunizations SOCIAL HISTORY Never Assessed REASON FOR VISIT walk in pain PLAN OF CARE Activity Details Follow Up prn Reason:will call VITAL SIGNS Blood pressure systolic 132 mmHg 2017-07-02 Blood pressure diastolic 81 mmHg 2017-07-02 MEDICATIONS No Known Medications RESULTS No Results PROCEDURES Procedure Date Ordered Result Body Site LTD ORAL EVALUATION - PROBLEM FOCUS Jul 02, 2017 INTRAORL-PERIAPICAL 1 FILM [id number] Jul 02, 2017 EXTRAC ERUPTED TOOTH/EXPOSED ROOT Jul 02, 2017 INSTRUCTIONS MEDICATIONS ADMINISTERED No Known Medications MEDICAL (GENERAL) HISTORY Type Description Date Medical History Cervical Dystonia--dx at age 18 Medical History Opiod Abuse per Dr. Harmon
--- OUTSIDE RECORDS SUMMARY | 2018-02-18 13:04 | XMS REPORT | Continuity of Care Document ---
Author Author [facility] Ctr of [facility] C[facility] of [facility] Address Unknown Phone Unavailable Allergies Active Description Code Type Severity Reaction Onset Reported/Identified Relationship to Patient Clinical Status Yes No Known Drug Allergies [id number] Drug Allergy Mild N/A 02/06/2017 Medications There [...] R19.7 DIARRHEA, UNSPECIFIED 09/25/2016 THOMPSON, PETER J SEARCH ANALYST Ot R51 HEADACHE 09/26/2016 BOO THOMPSON SEARCH ANALYST Ot F17.210 NICOTINE DEPENDENCE, CIGARETTES, UNCOMPL 09/26/2016 BOO THOMPSON SEARCH ANALYST Ot M79.1 MYALGIA 09/26/2016 BOO THOMPSON SEARCH ANALYST Ot R11.2 NAUSEA WITH VOMITING, UNSPECIFIED 09/26/2016 BOO THOMPSON SEARCH ANALYST Ot R19.7 DIARRHEA, UNSPECIFIED 09/26/2016 BOO THOMPSON SEARCH ANALYST Ot R51 HEADACHE 02/06/2017 BOO THOMPSON SEARCH ANALYST Ot J40 BRONCHITIS, NOT SPECIFIED ACUTE OR CH 02/06/2017 BOO THOMPSON SEARCH ANALYST Ot R05 COUGH 02/18/2017 JUSTIN VELOZ Ot [...] MD Ot G89.29 OTHER CHRONIC PAIN 11/27/2017 DEE ASHLEY MD Ot M54.2 CERVICALGIA 11/27/2017 DEE [...] AG 12/10/2017 JESSICA NICHOLE DO Ot Z79.82 PRISON (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 12/11/2017 JESSICA NICHOLE DO Ot F12.10 CANNABIS ABUSE, UNCOMPLICATED 12/11/2017 JESSICA NICHOLE DO Ot F17.210 NICOTINE DEPENDENCE, CIGARETTES, UNCOMPL 12/11/2017 JESSICA NICHOLE DO Ot F32.9 MAJOR DEPRESSIVE DISORDER, SINGLE EPISOD 12/11/2017 DIONISIO KEARNEY JESSICA K Ot G43.909 MIGRAINE, UNSP, NOT INTRACTABLE, WITHOUT 12/11/2017 DIONISIO KEARNEY JESSICA K Ot G89.29 OTHER CHRONIC PAIN 12/11/2017 DIONISIO DO JESSICA K Ot M54.2 CERVICALGIA 12/11/2017 DIONISIO KEARNEY JESSICA K Ot M54.9 DORSALGIA, UNSPECIFIED 12/11/2017 DIONISIO JESSICA KEARNEY Ot R40.2142 COMA SCALE, EYES OPEN, SPONTANEOUS, EMR 12/11/2017 DIONISIO JESSICA KEARNEY Ot R40.2252 COMA SCALE, BEST VERBAL RESPONSE, ORIENT 12/11/2017 DIONISIO JESSICA KEARNEY Ot R40.2362 COMA SCALE, BEST MOTOR RESPONSE, OBEYS C 12/11/2017 DIONISIO DO JESSICA K Ot S00.93XA CONTUSION OF UNSPECIFIED PART OF HEAD, I 12/11/2017 DIONISIO DOJESSICA Ot S20.211A CONTUSION OF RIGHT FRONT WALL OF THORAX, 12/11/2017 DIONISIO JESSICA KEARNEY Ot W01.198A FALL SAME LEV FROM SLIP/TRIP W STRIKE AG 12/11/2017 JESSICA NICHOLE DO Ot 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 01/26/2018 BOO THOMPSON APRN Ot F32.9 MAJOR DEPRESSIVE DISORDER, SINGLE EPISOD 01/26/2018 BOO THOMPSON APRN Ot G43.909 MIGRAINE, UNSP, NOT INTRACTABLE, WITHOUT 01/26/2018 BOO THOMPSON APRN Ot M54.2 CERVICALGIA 01/26/2018 BOO THOMPSON APRN Ot S13.4XXA SPRAIN OF LIGAMENTS OF CERVICAL SPINE, I 01/26/2018 BOO THOMPSON APRN Ot W03.XXXA OTH FALL SAME LEV DUE TO COLLISION W ANO 01/26/2018 BOO THOMPSON APRN Ot Y93.61 ACTIVITY, GUATEMALAN TACKLE FOOTBALL 01/26/2018 BOO THOMPSON APRN Ot Z77.22 CNTCT W AND EXPSR TO ENVIRON TOBACCO SMO 01/26/2018 BOO THOMPSON APRN Ot Z79.52 DATA ENTRY SUPERVISOR (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 OF SYSTEMIC STER 01/26/2018 BOO THOMPSON APRN Ot Z87.59 PERSONAL HISTORY OF COMP OF PREG, CHLDBR 01/28/2018 BOO THOMPSON APRN Ot F32.9 MAJOR DEPRESSIVE DISORDER, SINGLE EPISOD 01/28/2018 BOO THOMPSON APRN Ot G43.909 MIGRAINE, UNSP, NOT INTRACTABLE, WITHOUT 01/28/2018 BOO THOMPSON APRN Ot M54.2 CERVICALGIA 01/28/2018 BOO THOMPSON APRN Ot S13.4XXA SPRAIN OF LIGAMENTS OF CERVICAL SPINE, I 01/28/2018 BOO THOMPSON APRN Ot W03.XXXA OTH FALL SAME LEV DUE TO COLLISION W ANO 01/28/2018 BOO THOMPSON APRN Ot Y93.61 ACTIVITY, GUATEMALAN TACKLE FOOTBALL 01/28/2018 BOO THOMPSON APRN Ot Z77.22 CNTCT W AND EXPSR TO ENVIRON TOBACCO SMO 01/28/2018 BOO THOMPSON APRN Ot Z79.52 PRISON (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 OF SYSTEMIC STER 01/28/2018 BOO THOMPSON APRN Ot Z87.59 PERSONAL HISTORY OF COMP OF PREG, CHLDBR 02/01/2018 BOO THOMPSON APRN Ot F32.9 MAJOR DEPRESSIVE DISORDER, SINGLE EPISOD 02/01/2018 BOO THOMPSON APRN Ot G43.909 MIGRAINE, UNSP, NOT INTRACTABLE, WITHOUT 02/01/2018 BOO THOMPSON APRN Ot M54.2 CERVICALGIA 02/01/2018 BOO THOMPSON APRN Ot S13.4XXA SPRAIN OF LIGAMENTS OF CERVICAL SPINE, I 02/01/2018 BOO THOMPSON APRN Ot W03.XXXA OTH FALL SAME LEV DUE TO COLLISION W ANO 02/01/2018 BOO THOMPSON APRN Ot Y93.61 ACTIVITY, GUATEMALAN Valentin Uzhun FOOTBALL 02/01/2018 BOO THOMPSON APRN Ot Z77.22 CNTCT W AND EXPSR TO ENVIRON TOBACCO SMO 02/01/2018 BOO THOMPSON APRN Ot Z79.52 DATA ENTRY SUPERVISOR (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 OF SYSTEMIC STER 02/01/2018 BOO THOMPSON APRN Ot Z87.59 PERSONAL HISTORY OF COMP OF PREG, CHLDBR Procedures Code Description Performed By Performed On [...] Status Pt. Type Provider Facility Loc./Unit Complaint [id number] 02/08/2015 13:21:00 02/08/2015 23:59:59 CLS Outpatient JESSICA MARSH DDS [id number] 11/06/2014 12:15:00 11/06/2014 23:59:59 CLS Outpatient MORGAN BARRERA APRN [id number] 10/03/2014 08:26:00 10/03/2014 23:59:59 CLS Outpatient MORGAN BARRERA APRN [id number] 05/07/2010 16:02:00 05/07/2010 23:59:59 CLS Outpatient GLADYS HASKINS DDS [id number] 04/23/2015 02:28:34 ACT Document Registration [id number] 01/26/2018 13:03:00 01/26/2018 13:39:00 DIS Emergency BOO THOMPSON APRN [facility] ER NECK AND SHOULDER PAIN AND DISCOMFORT [id number] 12/09/2017 20:42:00 12/10/2017 00:05:00 DIS Emergency JESSICA NICHOLE DO [facility] ER BACK AND NECK PAIN;FALL [id number] 11/27/2017 04:58:00 11/27/2017 08:06:00 DIS Emergency DEE ASHLEY MD [facility] ER BACK PAIN,SON WALKED ON BACK YESTERDAY [id number] 11/26/2017 08:47:00 11/26/2017 10:32:00 DIS Emergency DAVON VINCENT MD [facility] ER SHAKING,NECK PAIN,RIGHT SIDE PAIN [id number] 10/29/2017 08:57:00 10/29/2017 11:11:00 DIS Emergency EDE ASHLEY MD [facility] ER NECK PAIN [id number] 09/29/2017 08:34:00 09/29/2017 13:37:00 DIS Emergency JEREMY GARRIDO MD [facility] ER CP [id number] 08/18/2017 06:40:00 08/18/2017 07:45:00 DIS Emergency JEREMY GARRIDO MD [facility] ER NEUROLOGICAL DISORDER, CAN'T SLEEP [id number] 07/05/2017 16:36:00 07/05/2017 17:08:00 DIS Emergency DEE ASHLEY MD [facility] ER DENTAL PAIN [id number] 06/12/2017 13:03:00 06/12/2017 15:28:00 DIS Emergency JUSTIN VELOZ [facility] ER NECK PAIN [id number] 06/11/2017 17:39:00 06/11/2017 18:30:00 DIS Emergency VANESSA MILES MD [facility] ER NECK INJ [id number] 02/18/2017 10:20:00 02/18/2017 13:13:00 DIS Emergency JUSTIN VELOZ [facility] ER COUGH NAUSEA [id number] 02/06/2017 13:54:00 02/06/2017 14:16:00 DIS Emergency BOO THOMPSON APRN [facility] ER COUGH/CHEST CONGESTION [id number] 09/25/2016 10:36:00 09/25/2016 12:08:00 DIS Emergency BOO THOMPSON APRN [facility] ER VOMITING COUGH HEADACHE FATIGUE [id number] 06/02/2016 13:14:00 06/02/2016 14:13:00 DIS Emergency VANESSA MILES MD [facility] ER NECK PAIN/SHAKING [id number] 04/22/2015 23:25:00 04/24/2015 15:25:00 DIS Inpatient VANESSA PAZ MD [facility] 4TH BENZODIAZEPINE WITHDRAWAL ;NARCOTIC WITHDRAWAL [id number] 04/21/2015 20:34:00 04/21/2015 22:10:00 DIS Emergency BOO THOMPSON SEARCH ANALYST [facility] ER BLOODY STOOLS,ABD PAIN, WANTS REHAB [id number] 02/18/2015 12:02:00 02/18/2015 12:51:00 DIS Emergency JUSTIN VELOZ [facility] ER CYST ON HIP [id number] 02/16/2015 00:03:00 02/16/2015 00:55:00 DIS Emergency MORGAN GANNON DO [facility] ER CELLULITIS [id number] 01/15/2015 11:44:00 01/15/2015 23:59:59 CLS Preadmit DEVAN YAN, ROHAN Davalos [facility] WOUNDCARE [id number] 01/07/2015 01:35:00 01/10/2015 16:30:00 DIS Outpatient INGRID YAN, CAROLEE Kiser [facility] SDC MULTIPLE ABCESS/ CELLULITIS [id number] 07/08/2014 11:44:00 07/08/2014 12:25:00 DIS Emergency BOO THOMPSON SEARCH ANALYST [facility] ER TOOTH INFECTION [id number] 06/03/2013 16:23:00 06/03/2013 23:59:59 CLS Preadmit DAVON VINCENT MD [facility] ER DENTAL PAIN,POSSIBLE RASH [id number] 06/01/2013 12:37:00 06/01/2013 23:59:59 CLS Outpatient [id number] 05/28/2013 08:10:00 05/28/2013 09:58:00 DIS Emergency JESSICA NICHOLE DO [facility] ER L SIDE LOWER BACK PAIN AND RIB PAIN [id number] 04/28/2013 16:12:00 04/28/2013 18:55:00 DIS Emergency JUSTIN VELOZ [facility] ER DENTAL PAIN [id number] 02/18/2018 12:58:00 ACT Emergency JEREMY GARRIDO MD [facility] ER NECK PAIN [id number] 03/26/2015 10:11:00 Document Registration [id number] 03/23/2015 13:15:00 Document Registration [id number] 06/03/2012 17:30:00 Document Registration [id number] 03/10/2012 13:38:00 Document Registration [id number] 01/24/2012 14:20:00 Document Registration [id number] 01/10/2012 14:24:00 Document Registration [id number] 12/13/2011 16:18:00 Document Registration [id number] 11/16/2011 08:46:00 Document Registration [id number] 08/18/2011 21:09:00 Document Registration [id number] 04/08/2011 12:15:00 Document Registration [id number] 11/28/2010 16:26:00 Document Registration [id number] 10/14/2010 10:52:00 Document Registration [id number] 07/28/2010 16:08:00 Document Registration [id number] 07/03/2010 02:58:00 Document Registration [id number] 06/06/2010 06:29:00 Document Registration [id number] 04/22/2010 12:05:00 Document Registration [id number] 01/19/2018 10:40:00 01/19/2018 23:59:59 CLS Outpatient KALANIL JOLEEN [facility] [id number] 06/19/2016 08:46:00 Document Registration
[2018-02-18] MEDS ORDERED: TRAM50TA2 PO (15:32)
--- NOTE | 2018-02-18 15:33 | ED Neck-Back Pain/Injury ---
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 He has appointment an appointment in 1 month with a neck specialist in [place]. He has been seen several times in 2018 for neck problems. Location: C-Spine Timing/Duration: Getting Worse Severity: Moderate Pain/Injury Location: Neck Method of Injury: Fall Associated Symptoms: muscle spasms; No numbness in legs/feet, No tingling in legs/feet, No sensory/motor loss, No lower back pain, No loss of bladder control , No loss of bowel control Allergies and Home Medications Allergies Coded Allergies: No Known Drug Allergies (Verified , 02/06/17) Home Medications Cyclobenzaprine HCl 10 Mg Tablet, 10 MG PO Q8H PRN for SPASMS Prescribed by: DEE ASHLEY on 10/29/17 1054 Cyclobenzaprine HCl 10 Mg Tablet, 10 MG PO Q8H Prescribed by: JESSICA NICHOLE on 12/09/17 2337 Cyclobenzaprine HCl 5 Mg Tablet, 5 MG PO TID Prescribed by: BOO THOMPSON on 01/26/18 1315 Ibuprofen 600 Mg Tablet, 600 MG PO Q6H PRN for PAIN Prescribed by: DEE ASHLEY on 10/29/17 1054 Methylprednisolone 4 Mg Tab.ds.pk, 4 MG PO UD Prescribed by: JESSICA NICHOLE on 12/09/17 2337 Naproxen 500 Mg Tablet, 500 MG PO BID PRN for PAIN-MODERATE Prescribed by: DEE ASHLEY on 11/27/17 0800 Naproxen 500 Mg Tablet, 500 MG PO BID PRN for PAIN-MODERATE TO SEVERE Prescribed by: BOO THOMPSON on 01/26/18 1315 Tramadol HCl 50 Mg Tablet, 50 MG PO Q6H PRN for PAIN Prescribed by: DEE ASHLEY on 10/29/17 1054 Tramadol HCl 50 Mg Tablet, 50 MG PO Q6H PRN for PAIN Prescribed by: DEE ASHLEY on 11/27/17 0800 Tramadol HCl 50 Mg Tablet, 50 MG PO Q8H Prescribed by: GAURANG TOMAS on 02/18/18 1532 Patient Home Medication List Home Medication List Reviewed: Yes Constitutional: no symptoms reported, chills Musculoskeletal: see HPI, neck pain All Other Systems Reviewed Negative Unless Noted: Yes Past Tjvyewe-Ijxpuv-Pbaobg Hx Past Med/Social Hx: Reviewed Nursing Past Med/Soc Hx Patient Social History Alcohol Use: Denies Use Recreational Drug Use: No Smoking Status: Current Everyday Smoker Type Used: Cigarettes 2nd Hand Smoke Exposure: Yes Recent Foreign Travel: No Contact w/Someone Who Travel: No Recent Infectious Disease Expo: No Recent Hopitalizations: No Immunizations Up To Date Tetanus Booster (TDap): Unknown Date of Influenza Vaccine: Aug 19, 2011 Seasonal Allergies Seasonal Allergies: No Past Medical History Surgeries: No Respiratory: No Cardiac: No Neurological: Yes ("CERVICAL DYSTONIA" PER PT) Headaches /Migraines Reproductive Disorders: No Sexually Transmitted Disease: No HIV/AIDS: No Genitourinary: No Gastrointestinal: No Musculoskeletal: Yes (CHRONIC NECK PAIN AND SELF-REPORTED "CERVICAL DYSTONIA" ) Chronic Back Pain Endocrine: No HEENT: Yes (Recurrent dental pain) Cancer: No Psychosocial: Yes Depression Integumentary: No Blood Disorders: No Family Medical History Patient reports no known family medical history. No Pertinent Family Hx Physical Exam Vital Signs Vital Signs - First Documented 02/18/18 14:03 Temp 98.2 Pulse 89 Resp 18 B/P (MAP) 118/90 (99) Pulse Ox 97 Capillary Refill : Less Than 3 Seconds General Appearance: No Apparent Distress, WD/WN Neck: Normal Inspection, Supple, Limited Range of Motion (secondary to pain), Tender Lateral Cardiovascular: No Murmur, Normal Peripheral Pulses Respiratory: Chest Non Tender, Lungs Clear, Normal Breath Sounds Neurologic/Psychiatric: Alert, Oriented x3, No Motor/Sensory Deficits, Normal Mood/Affect Skin: Normal Color, Warm/Dry Progress/Results/Core Measures Results/Orders My Orders Orders - GAURANG TOMAS Tramadol Tablet (Ultram Tablet) (02/18/18 15:27) Vital Signs/I&O 02/18/18 02/18/18 14:03 15:40 Temp 98.2 Pulse 89 89 Resp 18 18 B/P (MAP) 118/90 (99) 118/90 (99) Pulse Ox 97 97 Blood Pressure Mean: 99 Progress Progress Note : Time: 15:10 Progress Note Initial evaluation completed. Discharge instructions and return precautions reviewed. Provided physical therapy prescription for 2 times a week for 4 weeks. Departure Impression Primary Impression: Cervical disc disease Disposition: HOME, SELF-CARE Condition: Stable Departure-Patient Inst. Decision time for Depature: 15:30 Referrals: NO,LOCAL PHYSICIAN (PCP/Family) Primary Care Physician Patient Instructions: Chronic Neck Pain (DC), Degenerative Disc Disease (DC) Add. Discharge Instructions: Alternate between heat and ice on your neck. Use Columbia balm rub or patches for neck pain. Establish care with [facility]. Call your neurologist at [facility] to see about having an appointment sooner. Consider physical therapy for neck pain. Use her medication as prescribed. You may continue taking naproxen twice daily with food. Return to the emergency department for urgent health care needs. All discharge instructions reviewed with patient and/or family. Voiced understanding. Scripts Tramadol HCl (Tramadol HCl) 50 Mg Tablet 50 MG PO Q8H for Pain, #20 TAB 0 Refills Prov: GAURANG TOMAS 02/18/18 GAURANG TOMAS February 18, 2018 15:33
[2018-02-18 15:40] VITALS: BP 118/90
== END 2018-02-18 15:40 | disposition home or self-care (01) ==
LOC: EDUNIT# 12:56 → ER 12:58
DX: M50.90 Cervical disc disorder, unspecified, unspecified cervical region (principal); G43.909 Migraine, unspecified, not intractable, without status migrainosus; F32.9 Major depressive disorder, single episode, unspecified; F17.210 Nicotine dependence, cigarettes, uncomplicated; Z79.52 Long term (current) use of systemic steroids
CPT/HCPCS: 99283

== ENCOUNTER 2018-03-09 08:59 | Emergency (ER) | payer MEDICAID ==
[~2018-03-09] VITALS: Ht 167.6 cm; Wt 63.7 kg
--- NOTE | 2018-03-09 10:37 | ED Neck-Back Pain/Injury ---
General Chief Complaint: Head/Cervical Problems Stated Complaint: NECK PAIN Nursing Triage Note: PT STATES CHRONIC NECK PAIN, DENIES TAKING ANYTHING FOR THE PAIN. Nursing Sepsis Screen: No Definite Risk Source of Information: Patient Exam Limitations: No Limitations History of Present Illness Date Seen by Provider: March 09, 2018 Time Seen by Provider: 10:37 Initial Comments This 32-year-old man presents to the emergency room with exacerbation of chronic neck pain. He states the pain is been worsening for the last 2 months. His primary care provider is [facility]. He reportedly is starting physical therapy March 19 and has a consultation with a neurologist at [facility] later in March. Patient has history of dystonia and degenerative disc disease of the cervical spine. He has been seen numerous times in the emergency room for pain and musculoskeletal complaints. He has been prescribed tramadol multiple times in the past for these issues. He reports playing football a few months ago and landing on his neck which she believes may have exacerbated his problems. He was also moving some furniture over the weekend. He takes naproxen as well as his tramadol. He has tried using a TENS unit and warm baths as well. He has used Voltaren cream as well. He denies any drug or alcohol use although he has had positive toxicology screens in the past. He denies any paresthesias or weakness of the extremities. He denies any bowel or bladder dysfunction. Imaging studies from earlier this year were reviewed. Allergies and Home Medications Allergies Coded Allergies: No Known Drug Allergies (Verified , 02/06/17) Home Medications Prednisone 20 Mg Tab, 20 MG PO DAILY Prescribed by: JEREMY JO on 03/09/18 1112 Tramadol HCl 50 Mg Tablet, 50 MG PO Q6H Prescribed by: JEREMY JO on 03/09/18 1201 Patient Home Medication List Home Medication List Reviewed: Yes Constitutional: no symptoms reported EENTM: no symptoms reported Respiratory: no symptoms reported Cardiovascular: no symptoms reported Gastrointestinal: no symptoms reported Genitourinary: no symptoms reported Musculoskeletal: see HPI Skin: no symptoms reported Psychiatric/Neurological: See HPI Past Xjzcbsv-Lzsnxq-Hhqpbi Hx Past Med/Social Hx: Reviewed Nursing Past Med/Soc Hx, Reviewed and Corrections made Patient Social History Alcohol Use: Denies Use Recreational Drug Use: Yes (Past history) Drug of Choice: Marijuana Smoking Status: Current Everyday Smoker Type Used: Cigarettes 2nd Hand Smoke Exposure: Yes Recent Foreign Travel: No Contact w/Someone Who Travel: No Recent Infectious Disease Expo: No Recent Hopitalizations: No Immunizations Up To Date Tetanus Booster (TDap): Unknown Date of Influenza Vaccine: Aug 19, 2011 Seasonal Allergies Seasonal Allergies: No Past Medical History Surgeries: No Respiratory: No Cardiac: No Neurological: Yes ("CERVICAL DYSTONIA" PER PT, tremor) Headaches /Migraines Reproductive Disorders: No Sexually Transmitted Disease: No HIV/AIDS: No Genitourinary: No Gastrointestinal: No Musculoskeletal: Yes (CHRONIC NECK PAIN AND SELF-REPORTED "CERVICAL DYSTONIA" ) Chronic Back Pain Endocrine: Yes ("Thyroid issues") HEENT: Yes (Recurrent dental pain) Cancer: No Psychosocial: Yes Depression Integumentary: No Blood Disorders: No Family Medical History Reviewed Nursing Family Hx Patient reports no known family medical history. No Pertinent Family Hx Physical Exam Vital Signs Vital Signs - First Documented 03/09/18 09:06 Temp 96.0 Pulse 81 Resp 20 B/P (MAP) 133/79 (97) Pulse Ox 100 O2 Delivery Room Air Capillary Refill : Less Than 3 Seconds General Appearance: WD/WN, Mild Distress HEENT: PERRL/EOMI, Normal ENT Inspection Neck: Tender Lateral, Other (Tenderness and tension in the muscles of the neck and upper back, especially in the trapezius and paraspinous muscles on the left) Cardiovascular: Regular Rate, Rhythm, No Edema, No Murmur Respiratory: Lungs Clear, Normal Breath Sounds, No Accessory Muscle Use Back: Normal Inspection Extremity: Normal Inspection, No Pedal Edema Neurologic/Psychiatric: Alert, Oriented x3, No Motor/Sensory Deficits, Normal Mood/Affect, trim stencil maker II-XII Norm as Tested, Other (Generalized tremor) Skin: Normal Color, Warm/Dry Progress/Results/Core Measures Results/Orders My Orders Orders - JEREMY GARRIDO MD Orphenadrine Injection (Norflex Injectio (03/09/18 11:00) Ketorolac Injection (Toradol Injection) (03/09/18 11:00) Medications Given in ED Vital Signs/I&O 03/09/18 03/09/18 03/09/18 03/09/18 09:06 10:59 10:59 11:38 Temp 96.0 96.0 96.0 96.0 Pulse 81 68 Resp 20 18 B/P (MAP) 133/79 (97) 103/69 (97) Pulse Ox 100 99 O2 Delivery Room Air Room Air Blood Pressure Mean: 97 Progress Progress Note : Progress Note Chart was reviewed including prior visits, recent imaging studies, and medication filling record. Patient was treated with IM Norflex and Toradol. Patient was prescribed tramadol. He was strongly encouraged to establish a chronic pain management program with his primary care provider. Departure Impression Primary Impression: Chronic neck pain Additional Impression: Degenerative disc disease Qualified Codes: M50.30 - Other cervical disc degeneration, unspecified cervical region Disposition: HOME, SELF-CARE Condition: Improved Departure-Patient Inst. Decision time for Depature: 10:55 Referrals: NO,LOCAL PHYSICIAN (PCP/Family) Primary Care Physician Patient Instructions: Chronic Neck Pain (DC) Add. Discharge Instructions: Keep your appointment at [facility]. Additionally, make an appointment was [facility] to establish for chronic pain management. You may continue using ibuprofen or naproxen for anti-inflammatory and pain management. Add Tylenol (acetaminophen) for additional pain relief if needed. Use Ultram (tramadol) only as a backup medication when lrys-vhg-jllsjen medications fail. Try the prednisone as prescribed which may help reduce your pain over the next few days. Return to care if symptoms are worsening, especially if you develop weakness or numbness in the extremities or difficulty controlling bowels or bladder. All discharge instructions reviewed with patient and/or family. Voiced understanding. Scripts Tramadol HCl (Ultram) 50 Mg Tablet 50 MG PO Q6H, #20 TAB Prov: JEREMY GARRIDO MD 03/09/18 Prednisone (Prednisone) 20 Mg Tab 20 MG PO DAILY, #4 TAB Prov: JEREMY GARRIDO MD 03/09/18 Copy Copies To 1: SANDRA HOOVER MD, JOSHUA T MD March 09, 2018 10:37
--- OUTSIDE RECORDS SUMMARY | 2018-03-09 10:56 | XMS REPORT | Continuity of Care Document ---
Author Author [employer] Organization [facility] Address Unknown Phone Unavailable Care Team Providers Care Dip Stand Loader Name Role Phone [employer] Unavailable Unavailable Problems Medications Allergies, Adverse Reactions, Alerts Immunizations Results Vital Signs Encounters Procedures Plan of Care Social History Assessment and Plan Family History Advance Directives Functional Status
--- OUTSIDE RECORDS SUMMARY | 2018-03-09 10:57 | XMS REPORT | Continuity of Care Document ---
Author Author Formerly [facility], 1928–1983 Ctr of [facility] of [facility] Address Unknown Phone Unavailable Allergies Active Description Code Type Severity Reaction Onset Reported/Identified Relationship to Patient Clinical Status Yes No Known Drug Allergies [id number] Drug Allergy Mild N/A 02/06/2017 Medications There [...] R19.7 DIARRHEA, UNSPECIFIED 09/25/2016 THOMPSON, PETER J [employer] Ot R51 HEADACHE 09/26/2016 BOO THOMPSON [employer] Ot F17.210 NICOTINE DEPENDENCE, CIGARETTES, UNCOMPL 09/26/2016 BOO THOMPSON [employer] Ot M79.1 MYALGIA 09/26/2016 BOO THOMPSON [employer] Ot R11.2 NAUSEA WITH VOMITING, UNSPECIFIED 09/26/2016 BOO THOMPSON [employer] Ot R19.7 DIARRHEA, UNSPECIFIED 09/26/2016 BOO THOMPSON [employer] Ot R51 HEADACHE 02/06/2017 BOO THOMPSON [employer] Ot J40 BRONCHITIS, NOT SPECIFIED ACUTE OR CH 02/06/2017 BOO THOMPSON [employer] Ot R05 COUGH 02/18/2017 JUSTIN VELOZ Ot [...] AG 12/10/2017 JESSICA NICHOLE DO Ot Z79.82 HALF-WAY (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 12/11/2017 JESSICA NICHOLE [...] AG 12/11/2017 JESSICA NICHOLE DO Ot Z79.82 TURN OUT (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 01/26/2018 BOO THOMPSON [...] 01/26/2018 BOO THOMPSON APRN Ot Y93.61 ACTIVITY, KITTITIAN TACKLE FOOTBALL 01/26/2018 BOO THOMPSON APRN Ot Z77.22 CNTCT W AND EXPSR TO ENVIRON TOBACCO SMO 01/26/2018 BOO THOMPSON APRN Ot Z79.52 TURN OUT (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 OF SYSTEMIC STER 01/26/2018 BOO [...] 01/28/2018 BOO THOMPSON APRN Ot Y93.61 ACTIVITY, KITTITIAN TACKLE FOOTBALL 01/28/2018 BOO THOMPSON APRN Ot Z77.22 CNTCT W AND EXPSR TO ENVIRON TOBACCO SMO 01/28/2018 BOO THOMPSON APRN Ot Z79.52 HALF-WAY (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 OF SYSTEMIC STER 01/28/2018 BOO [...] 02/01/2018 BOO THOMPSON APRN Ot Y93.61 ACTIVITY, KITTITIAN TACKLE FOOTBALL 02/01/2018 BOO THOMPSON APRN Ot Z77.22 CNTCT W AND EXPSR TO ENVIRON TOBACCO SMO 02/01/2018 BOO THOMPSON APRN Ot Z79.52 TURN OUT (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 OF SYSTEMIC STER 02/01/2018 BOO THOMPSON APRN Ot Z87.59 PERSONAL HISTORY OF COMP OF PREG, CHLDBR 02/18/2018 GAURANG TOMAS Ot F17.210 NICOTINE DEPENDENCE, CIGARETTES, UNCOMPL 02/18/2018 GENOVEVA, GAURANG RESIDENTIAL PROGRAM COORDINATOR Ot F32.9 MAJOR DEPRESSIVE DISORDER, SINGLE EPISOD 02/18/2018 GENOVEVA, GAURANG RESIDENTIAL PROGRAM COORDINATOR Ot G43.909 MIGRAINE, UNSP, NOT INTRACTABLE, WITHOUT 02/18/2018 GENOVEVA, GAURANG RESIDENTIAL PROGRAM COORDINATOR Ot M50.90 CERVICAL DISC DISORDER, UNSP, UNSPECIFIE 02/18/2018 GENOVEVA, GAURANG RESIDENTIAL PROGRAM COORDINATOR Ot M54.2 CERVICALGIA 02/18/2018 GENOVEVA, GAURANG RESIDENTIAL PROGRAM COORDINATOR Ot Z79.52 HALF-WAY (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 OF SYSTEMIC STER 02/22/2018 GENOVEVA, GAURANG RESIDENTIAL PROGRAM COORDINATOR Ot F17.210 NICOTINE DEPENDENCE, CIGARETTES, UNCOMPL 02/22/2018 GENOVEVA, GAURANG RESIDENTIAL PROGRAM COORDINATOR Ot F32.9 MAJOR DEPRESSIVE DISORDER, SINGLE EPISOD 02/22/2018 GENOVEVA, GAURANG RESIDENTIAL PROGRAM COORDINATOR Ot G43.909 MIGRAINE, UNSP, NOT INTRACTABLE, WITHOUT 02/22/2018 GENOVEVA, GAURANG RESIDENTIAL PROGRAM COORDINATOR Ot M50.90 CERVICAL DISC DISORDER, UNSP, UNSPECIFIE 02/22/2018 GENOVEVA, GAURANG RESIDENTIAL PROGRAM COORDINATOR Ot M54.2 CERVICALGIA 02/22/2018 GENOVEVA, GAURANG RESIDENTIAL PROGRAM COORDINATOR Ot Z79.52 TURN OUT (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 OF SYSTEMIC STER 02/24/2018 GENOVEVA, GAURANG RESIDENTIAL PROGRAM COORDINATOR Ot F17.210 NICOTINE DEPENDENCE, CIGARETTES, UNCOMPL 02/24/2018 GENOVEVA, GAURANG RESIDENTIAL PROGRAM COORDINATOR Ot F32.9 MAJOR DEPRESSIVE DISORDER, SINGLE EPISOD 02/24/2018 GENOVEVA, GAURANG RESIDENTIAL PROGRAM COORDINATOR Ot G43.909 MIGRAINE, UNSP, NOT INTRACTABLE, WITHOUT 02/24/2018 GENOVEVA, GAURANG RESIDENTIAL PROGRAM COORDINATOR Ot M50.90 CERVICAL DISC DISORDER, UNSP, UNSPECIFIE 02/24/2018 GENOVEVA, GAURANG RESIDENTIAL PROGRAM COORDINATOR Ot M54.2 CERVICALGIA 02/24/2018 GENOVEVA, GAURANG RESIDENTIAL PROGRAM COORDINATOR Ot Z79.52 HALF-WAY (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 OF SYSTEMIC STER 02/25/2018 GINGER YAN, VANESSA Adame Ot F17.210 NICOTINE DEPENDENCE, CIGARETTES, UNCOMPL 02/25/2018 GINGER YAN, VANESSA Adame Ot F32.9 MAJOR DEPRESSIVE DISORDER, SINGLE EPISOD 02/25/2018 GINGER YAN, VANESSA Adame Ot G24.9 DYSTONIA, UNSPECIFIED 02/25/2018 GINGER YAN, VANESSA Adame Ot G43.909 MIGRAINE, UNSP, NOT INTRACTABLE, WITHOUT 02/25/2018 GINGER YAN, VANESSA Adame Ot M54.2 CERVICALGIA Procedures Code Description Performed By Performed On [...] ng/mL 10.0-92.0 Urine drug screening test - 12/12/17 10:30 Urine phencyclidine detection by screening method [...] Status Pt. Type Provider Facility Loc./Unit Complaint [id number] 02/08/2015 13:21:00 02/08/2015 23:59:59 CLS Outpatient JESSICA MARSH DDS [id number] 11/06/2014 12:15:00 11/06/2014 23:59:59 CLS Outpatient MORGAN BARRERA APRN [id number] 10/03/2014 08:26:00 10/03/2014 23:59:59 CLS Outpatient MORGAN BARRERA APRN [id number] 05/07/2010 16:02:00 05/07/2010 23:59:59 CLS Outpatient GLADYS HASKINS DDS [id number] 04/23/2015 02:28:34 ACT Document Registration [id number] 02/25/2018 08:05:00 02/25/2018 08:48:00 DIS Emergency VANESSA MILES MD Via [facility] ER NECK PAIN [id number] 02/18/2018 12:58:00 02/18/2018 15:40:00 DIS Emergency GAURANG TOMAS [facility] ER NECK PAIN [id number] 01/26/2018 13:03:00 01/26/2018 13:39:00 DIS Emergency BOO THOMPSON APRN [facility] ER NECK AND SHOULDER PAIN AND DISCOMFORT [id number] 12/09/2017 20:42:00 12/10/2017 00:05:00 DIS Emergency JESSICA NICHOLE DO [facility] ER BACK AND NECK PAIN;FALL [id number] 11/27/2017 04:58:00 11/27/2017 08:06:00 DIS Emergency GABI YAN, DEE Anderson [facility] ER BACK PAIN,SON WALKED ON BACK YESTERDAY [id number] 11/26/2017 08:47:00 11/26/2017 10:32:00 DIS Emergency CARLTON YAN, DAVON Estrada [facility] ER SHAKING,NECK PAIN,RIGHT SIDE PAIN [id number] 10/29/2017 08:57:00 10/29/2017 11:11:00 DIS Emergency GABI YAN, DEE Anderson [facility] ER NECK PAIN [id number] 09/29/2017 08:34:00 09/29/2017 13:37:00 DIS Emergency JEREMY GARRIDO MD [facility] ER CP [id number] 08/18/2017 06:40:00 08/18/2017 07:45:00 DIS Emergency JEREMY GARRIDO MD [facility] ER NEUROLOGICAL DISORDER, CAN'T SLEEP [id number] 07/05/2017 16:36:00 07/05/2017 17:08:00 DIS Emergency GABI YAN, DEE Anderson [facility] ER DENTAL PAIN [id number] 06/12/2017 13:03:00 06/12/2017 15:28:00 DIS Emergency JUSTIN VELOZ [facility] ER NECK PAIN [id number] 06/11/2017 17:39:00 06/11/2017 18:30:00 DIS Emergency VANESSA MILES MD [facility] ER NECK INJ [id number] 02/18/2017 10:20:00 02/18/2017 13:13:00 DIS Emergency JUSTIN VELOZ [facility] ER COUGH NAUSEA [id number] 02/06/2017 13:54:00 02/06/2017 14:16:00 DIS Emergency BOO THOMPSON APRN [facility] ER COUGH/CHEST CONGESTION [id number] 09/25/2016 10:36:00 09/25/2016 12:08:00 DIS Emergency BOO THOMPSON APRN [facility] ER VOMITING COUGH HEADACHE FATIGUE [id number] 06/02/2016 13:14:00 06/02/2016 14:13:00 DIS Emergency VANESSA MILES MD [facility] ER NECK PAIN/SHAKING [id number] 04/22/2015 23:25:00 04/24/2015 15:25:00 DIS Inpatient VANESSA PAZ MD [facility] 4TH BENZODIAZEPINE WITHDRAWAL ;NARCOTIC WITHDRAWAL [id number] 04/21/2015 20:34:00 04/21/2015 22:10:00 DIS Emergency BOO THOMPSON APRN [facility] ER BLOODY STOOLS,ABD PAIN, WANTS REHAB [id number] 02/18/2015 12:02:00 02/18/2015 12:51:00 DIS Emergency JUSTIN VELOZ [facility] ER CYST ON HIP [id number] 02/16/2015 00:03:00 02/16/2015 00:55:00 DIS Emergency MORGAN GANNON DO [facility] ER CELLULITIS [id number] 01/15/2015 11:44:00 01/15/2015 23:59:59 CLS Preadmit ROHAN HARTMAN MD [facility] WOUNDCARE [id number] 01/07/2015 01:35:00 01/10/2015 16:30:00 DIS Outpatient CAROLEE QUINTERO MD [facility] SDC MULTIPLE ABCESS/ CELLULITIS [id number] 07/08/2014 11:44:00 07/08/2014 12:25:00 DIS Emergency BOO THOMPSON APRN [facility] ER TOOTH INFECTION [id number] 06/03/2013 16:23:00 06/03/2013 23:59:59 CLS Preadmit DAVON VINCENT MD [facility] ER DENTAL PAIN,POSSIBLE RASH [id number] 06/01/2013 12:37:00 06/01/2013 23:59:59 CLS Outpatient [id number] 05/28/2013 08:10:00 05/28/2013 09:58:00 DIS Emergency JESSICA NICHOLE DO [facility] ER L SIDE LOWER BACK PAIN AND RIB PAIN [id number] 04/28/2013 16:12:00 04/28/2013 18:55:00 DIS Emergency JUSTIN VELOZ [facility] ER DENTAL PAIN [id number] 03/23/2018 09:48:00 PEN Preadmit NO, LOCAL PHYSICIAN [facility] REHAB CERVICAL DYSTONIA [id number] 03/26/2015 10:11:00 Document Registration [id number] 03/23/2015 13:15:00 Document Registration [id number] 06/03/2012 17:30:00 Document Registration [id number] 03/10/2012 13:38:00 Document Registration [id number] 01/24/2012 14:20:00 Document Registration [id number] 01/10/2012 14:24:00 Document Registration [id number] 12/13/2011 16:18:00 Document Registration [id number] 11/16/2011 08:46:00 Document Registration [id number] 08/18/2011 21:09:00 Document Registration [id number] 04/08/2011 12:15:00 Document Registration [id number] 11/28/2010 16:26:00 Document Registration [id number] 10/14/2010 10:52:00 Document Registration [id number] 07/28/2010 16:08:00 Document Registration [id number] 07/03/2010 02:58:00 Document Registration [id number] 06/06/2010 06:29:00 Document Registration [id number] 04/22/2010 12:05:00 Document Registration [id number] 01/19/2018 10:40:00 01/19/2018 23:59:59 [facility] Outpatient MADL JOLEEN GAR[facility] [id number] 06/19/2016 08:46:00 Document Registration
[2018-03-09] MEDS ORDERED: ORPHENADRINE 60 MG/2 ML (NORFLEX) AMP IM ONE (11:00)
[2018-03-09] MEDS ORDERED: KETOROLAC 30 MG/ML VIAL IM ONE (11:00)
[2018-03-09] MEDS ORDERED: TRAM-42 PO ×2 (11:12→12:01)
[2018-03-09] MEDS ORDERED: PRD20T PO (11:12)
[2018-03-09 11:38] VITALS: BP 103/69
[2018-04-12] MEDS ORDERED: NAPR-1071 (08:59)
== END 2018-03-09 11:39 | disposition home or self-care (01) ==
LOC: EDUNIT# 08:59 → ER 09:01
DX: M50.30 Other cervical disc degeneration, unspecified cervical region (principal); F32.9 Major depressive disorder, single episode, unspecified; G43.909 Migraine, unspecified, not intractable, without status migrainosus; F12.10 Cannabis abuse, uncomplicated; F17.210 Nicotine dependence, cigarettes, uncomplicated; Z79.52 Long term (current) use of systemic steroids
CPT/HCPCS: 96372; 99284

== ENCOUNTER 2018-03-24 09:27 | Emergency (ER) | payer MEDICAID ==
[~2018-03-24] VITALS: Ht 177.8 cm; Wt 72.6 kg
[~2018-03-24 09:27] MED LIST changes: +TRAM-42 PO
[2018-03-24] MEDS ORDERED: TRAM-42 PO (10:09)
[2018-03-24] MEDS ORDERED: PRD20T PO (10:09)
--- NOTE | 2018-03-24 10:09 | ED Neck-Back Pain/Injury ---
General Chief Complaint: Back Problems Stated Complaint: NECK PAIN,SHOULDER PAIN,FELL IN SHOWER Nursing Triage Note: ARRIVED VIA AMB TO ROOM 04. STATES HIS CERVICAL DYSTONIA FLARED UP X5 DAYS AGO AND HE FELL IN THE SHOWER X2 DAYS AGO HITTING HIS BACK. Nursing Sepsis Screen: No Definite Risk Source of Information: Patient, Old Records Exam Limitations: No Limitations History of Present Illness Date Seen by Provider: Mar 24, 2018 Time Seen by Provider: 09:54 Initial Comments This 32-year-old man with cervical dystonia presents to the emergency room with complaints of exacerbation of his chronic pain in the neck and back. Pain seems to have worsened over the last 4 or 5 days. He also reports slipping in the shower and bumping his upper back on the wall 2 days ago. He does not feel like there was any acute traumatic injury with that incident. Patient is known to me from multiple other prior visits for similar reasons. Patient states he takes naproxen and Voltaren cream at home which is insufficient for his pain. He was seen recently by me for another exacerbation and was prescribed tramadol. He has used all of that prescription. He was also prescribed prednisone and states he still has 3 of those pills remaining. Patient has received Botox treatments in the past but does not believe those are the best treatment for him. He has an appointment with a neurologist at [facility] April 13. Patient has not follow-up with his primary care provider since his last ER encounter despite instructions to do so. Allergies and Home Medications Allergies Coded Allergies: No Known Drug Allergies (Verified , 02/06/17) Home Medications Prednisone 20 Mg Tab, 20 MG PO DAILY Prescribed by: JEREMY JO on 03/09/18 1112 Prednisone 20 Mg Tab, 20 MG PO DAILY Prescribed by: JEREMY JO on 03/24/18 1009 Tramadol HCl 50 Mg Tablet, 50 MG PO Q6H Prescribed by: JEREMY JO on 03/09/18 1201 Tramadol HCl 50 Mg Tablet, 50 MG PO Q6H PRN for PAIN-MODERATE TO SEVERE Prescribed by: JEREMY JO on 03/24/18 1009 Patient Home Medication List Home Medication List Reviewed: Yes Constitutional: no symptoms reported EENTM: no symptoms reported Respiratory: no symptoms reported Cardiovascular: no symptoms reported Gastrointestinal: no symptoms reported Genitourinary: no symptoms reported Musculoskeletal: see HPI Skin: no symptoms reported Psychiatric/Neurological: See HPI Past Xzmqszh-Yadojz-Iwsagf Hx Past Med/Social Hx: Reviewed Nursing Past Med/Soc Hx Patient Social History Drug of Choice: Marijuana Type Used: Cigarettes 2nd Hand Smoke Exposure: Yes Recent Foreign Travel: No Contact w/Someone Who Travel: No Recent Infectious Disease Expo: No Recent Hopitalizations: No Immunizations Up To Date Tetanus Booster (TDap): Unknown Date of Influenza Vaccine: Aug 19, 2011 Seasonal Allergies Seasonal Allergies: No Past Medical History Surgeries: No Respiratory: No Cardiac: No Neurological: Yes ("CERVICAL DYSTONIA" PER PT, tremor) Headaches /Migraines Reproductive Disorders: No Sexually Transmitted Disease: No HIV/AIDS: No Genitourinary: No Gastrointestinal: No Musculoskeletal: Yes (CHRONIC NECK PAIN AND SELF-REPORTED "CERVICAL DYSTONIA" ) Chronic Back Pain Endocrine: Yes ("Thyroid issues") HEENT: Yes (Recurrent dental pain) Cancer: No Psychosocial: Yes Depression Integumentary: No Blood Disorders: No Family Medical History Patient reports no known family medical history. No Pertinent Family Hx Physical Exam Vital Signs Vital Signs - First Documented 03/24/18 09:51 Temp 98.0 Pulse 79 Resp 18 B/P (MAP) 111/61 (78) Pulse Ox 96 Capillary Refill : Less Than 3 Seconds General Appearance: WD/WN, Mild Distress HEENT: PERRL/EOMI, Normal ENT Inspection Neck: Other (Muscle tension in the neck with muscle tenderness) Cardiovascular: Regular Rate, Rhythm, No Edema, No Murmur Respiratory: Lungs Clear, Normal Breath Sounds, No Accessory Muscle Use, No Respiratory Distress Extremity: Normal Inspection, No Pedal Edema Neurologic/Psychiatric: Alert, Oriented x3, No Motor/Sensory Deficits, Normal Mood/Affect, java architect II-XII Norm as Tested, Other (Tremors of the head, neck, and upper extremities) Skin: Normal Color, Warm/Dry Progress/Results/Core Measures Results/Orders My Orders Orders - JEREMY GARRIDO MD Ketorolac Injection (Toradol Injection) (03/24/18 10:15) Im/Sub-Q Injection Non-Ab Ed (03/24/18 ) Vital Signs/I&O 03/24/18 03/24/18 09:51 10:30 Temp 98.0 98.0 Pulse 79 79 Resp 18 18 B/P (MAP) 111/61 (78) 111/61 (78) Pulse Ox 96 96 Blood Pressure Mean: 78 Progress Progress Note : Time: 10:04 Progress Note Patient is receiving a Toradol injection for pain management. I will renew his Ultram prescription and prescribed a few more days of prednisone. As I have discussed with him before, I am strongly advising that he seek care from his primary care provider for chronic pain management. He has been to [facility] in the past and [facility] facilitated his referral. I asked him to return there to establish a pain management program. Although I have asserted this necessity for primary care management in the past, patient still has not called for an appointment. Departure Impression Primary Impression: Exacerbation of chronic back pain Additional Impression: Cervical dystonia Disposition: 01 HOME, SELF-CARE Condition: Improved Departure-Patient Inst. Decision time for Depature: 10:06 Referrals: NO,LOCAL PHYSICIAN (PCP/Family) Primary Care Physician Patient Instructions: MANAGING YOUR CHRONIC PAIN Add. Discharge Instructions: Please follow through with your referral to the specialist at . It is very important that you establish with a primary care provider for management of your chronic pain. Please call today for an appointment. You may continue taking naproxen up to 500 mg every 12 hours and Tylenol ( acetaminophen) up to 1000 mg every 6 hours as needed for primary pain management. Use Ultram (tramadol) for pain not controlled by [id number]-rrrlnku medications. Return to care if symptoms are worsening despite treatment. Take prednisone and naproxen with food or milk to avoid stomach irritation. All discharge instructions reviewed with patient and/or family. Voiced understanding. Scripts Prednisone (Prednisone) 20 Mg Tab 20 MG PO DAILY, #4 TAB Prov: JEREMY GARRIDO MD 03/24/18 Tramadol HCl (Ultram) 50 Mg Tablet 50 MG PO Q6H PRN for PAIN-MODERATE TO SEVERE, #20 TAB Prov: JEREMY GARRIDO MD 03/24/18 Copy Copies To 1: ANDREAS JULIO JOSHUA T MD Mar 24, 2018 10:09
[2018-03-24] MEDS ORDERED: KETOROLAC 30 MG/ML VIAL IM ONE (10:15)
[2018-03-24 10:30] VITALS: BP 111/61
[2018-04-12] MEDS ORDERED: NAPR-1071 (08:59)
== END 2018-03-24 10:28 | disposition home or self-care (01) ==
LOC: EDUNIT# 09:27 → ER 09:29
DX: M54.2 Cervicalgia (principal); G89.29 Other chronic pain; G24.8 Other dystonia; F32.9 Major depressive disorder, single episode, unspecified; G43.909 Migraine, unspecified, not intractable, without status migrainosus; Z87.891 Personal history of nicotine dependence; Z79.52 Long term (current) use of systemic steroids; W01.198A Fall on same level from slipping, tripping and stumbling with subsequent striking against other object, initial encounter; Y92.002 Bathroom of unspecified non-institutional (private) residence as the place of occurrence of the external cause
CPT/HCPCS: 96372; 99284

== ENCOUNTER 2018-04-01 08:18 | Emergency (ER) | payer MEDICAID ==
[~2018-04-01] VITALS: Ht 167.6 cm; Wt 68.0 kg
--- OUTSIDE RECORDS SUMMARY | 2018-04-01 08:38 | XMS REPORT | Continuity of Care Document ---
Author Author [facility] Address Unknown Phone Unavailable Allergies Active Description Code Type Severity Reaction Onset Reported/Identified Relationship to Patient Clinical Status Yes No Known Drug Allergies [id number] Drug Allergy Mild N/A 02/06/2017 Medications There [...] R19.7 DIARRHEA, UNSPECIFIED 09/25/2016 THOMPSON, PETER J CODE CLERK Ot R51 HEADACHE 09/26/2016 BOO THOMPSON CODE CLERK Ot F17.210 NICOTINE DEPENDENCE, CIGARETTES, UNCOMPL 09/26/2016 BOO THOMPSON CODE CLERK Ot M79.1 MYALGIA 09/26/2016 BOO THOMPSON CODE CLERK Ot R11.2 NAUSEA WITH VOMITING, UNSPECIFIED 09/26/2016 BOO THOMPSON CODE CLERK Ot R19.7 DIARRHEA, UNSPECIFIED 09/26/2016 BOO THOMPSON CODE CLERK Ot R51 HEADACHE 02/06/2017 BOO THOMPSON CODE CLERK Ot J40 BRONCHITIS, NOT SPECIFIED ACUTE OR CH 02/06/2017 BOO THOMPSON CODE CLERK Ot R05 COUGH 02/18/2017 JUSTIN VELOZ Ot [...] AG 12/10/2017 JESSICA NICHOLE DO Ot Z79.82 CUSTODIAL (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 12/11/2017 JESSICA NICHOLE [...] AG 12/11/2017 JESSICA NICHOLE DO Ot 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 01/26/2018 BOO THOMPSON [...] 01/26/2018 BOO THOMPSON APRN Ot Y93.61 ACTIVITY, GIBRALTARIAN TACKLE FOOTBALL 01/26/2018 BOO THOMPSON APRN Ot Z77.22 CNTCT W AND EXPSR TO ENVIRON TOBACCO SMO 01/26/2018 BOO THOMPSON APRN Ot 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 STER 01/26/2018 BOO [...] 01/28/2018 BOO THOMPSON APRN Ot Y93.61 ACTIVITY, GIBRALTARIAN TACKLE FOOTBALL 01/28/2018 BOO THOMPSON APRN Ot Z77.22 CNTCT W AND EXPSR TO ENVIRON TOBACCO SMO 01/28/2018 BOO THOMPSON APRN Ot Z79.52 CUSTODIAL (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 OF SYSTEMIC STER 01/28/2018 BOO [...] 02/01/2018 BOO THOMPSON APRN Ot Y93.61 ACTIVITY, GIBRALTARIAN TACKLE FOOTBALL 02/01/2018 BOO THOMPSON APRN Ot Z77.22 CNTCT W AND EXPSR TO ENVIRON TOBACCO SMO 02/01/2018 BOO THOMPSON APRN Ot 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 STER 02/01/2018 BOO THOMPSON APRN Ot Z87.59 PERSONAL HISTORY OF COMP OF PREG, CHLDBR 02/18/2018 GAURANG TOMAS Ot F17.210 NICOTINE DEPENDENCE, CIGARETTES, UNCOMPL 02/18/2018 GENOVEVA, GAURANG USED CAR SALES SUPERVISOR Ot F32.9 MAJOR DEPRESSIVE DISORDER, SINGLE EPISOD 02/18/2018 GENOVEVA, GAURANG USED CAR SALES SUPERVISOR Ot G43.909 MIGRAINE, UNSP, NOT INTRACTABLE, WITHOUT 02/18/2018 GENOVEVA, GAURANG USED CAR SALES SUPERVISOR Ot M50.90 CERVICAL DISC DISORDER, UNSP, UNSPECIFIE 02/18/2018 GENOVEVA, GAURANG USED CAR SALES SUPERVISOR Ot M54.2 CERVICALGIA 02/18/2018 GENOVEVA, GAURANG USED CAR SALES SUPERVISOR Ot Z79.52 CUSTODIAL (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 OF SYSTEMIC STER 02/22/2018 GENOVEVA, GAURANG USED CAR SALES SUPERVISOR Ot F17.210 NICOTINE DEPENDENCE, CIGARETTES, UNCOMPL 02/22/2018 GENOVEVA, GAURANG USED CAR SALES SUPERVISOR Ot F32.9 MAJOR DEPRESSIVE DISORDER, SINGLE EPISOD 02/22/2018 GENOVEVA, GAURANG USED CAR SALES SUPERVISOR Ot G43.909 MIGRAINE, UNSP, NOT INTRACTABLE, WITHOUT 02/22/2018 GENOVEVA, GAURANG USED CAR SALES SUPERVISOR Ot M50.90 CERVICAL DISC DISORDER, UNSP, UNSPECIFIE 02/22/2018 GENOVEVA, GAURANG USED CAR SALES SUPERVISOR Ot M54.2 CERVICALGIA 02/22/2018 GENOVEVA, GAURANG USED CAR SALES SUPERVISOR Ot 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 STER 02/24/2018 GENOVEVA, GAURANG USED CAR SALES SUPERVISOR Ot F17.210 NICOTINE DEPENDENCE, CIGARETTES, UNCOMPL 02/24/2018 GENOVEVA, GAURANG USED CAR SALES SUPERVISOR Ot F32.9 MAJOR DEPRESSIVE DISORDER, SINGLE EPISOD 02/24/2018 GENOVEVA, GAURANG USED CAR SALES SUPERVISOR Ot G43.909 MIGRAINE, UNSP, NOT INTRACTABLE, WITHOUT 02/24/2018 GENOVEVA, GAURANG USED CAR SALES SUPERVISOR Ot M50.90 CERVICAL DISC DISORDER, UNSP, UNSPECIFIE 02/24/2018 GENOVEVA, GAURANG USED CAR SALES SUPERVISOR Ot M54.2 CERVICALGIA 02/24/2018 GENOVEVA, GAURANG USED CAR SALES SUPERVISOR Ot Z79.52 CUSTODIAL (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 OF SYSTEMIC STER 02/25/2018 GINGER YAN, VANESSA Adame Ot F17.210 NICOTINE DEPENDENCE, CIGARETTES, UNCOMPL 02/25/2018 GINGER YAN, VANESSA Adame Ot F32.9 MAJOR DEPRESSIVE DISORDER, SINGLE EPISOD 02/25/2018 GINGER YAN, VANESSA Adame Ot G24.9 DYSTONIA, UNSPECIFIED 02/25/2018 GINGER YAN, VANESSA Adame Ot G43.909 MIGRAINE, UNSP, NOT INTRACTABLE, WITHOUT 02/25/2018 GINGER YAN, VANESSA S Ot M54.2 CERVICALGIA 03/11/2018 RADHIKA YAN, JEREMY Laws Ot F12.10 CANNABIS ABUSE, UNCOMPLICATED 03/11/2018 RADHIKA YAN, JEREMY Laws Ot F17.210 NICOTINE DEPENDENCE, CIGARETTES, UNCOMPL 03/11/2018 RADHIKA YAN, JEREMY Laws Ot F32.9 MAJOR DEPRESSIVE DISORDER, SINGLE EPISOD 03/11/2018 RADHIKA YAN, JEREMY Laws Ot G43.909 MIGRAINE, UNSP, NOT INTRACTABLE, WITHOUT 03/11/2018 RADHIKA YAN, JEREMY Laws Ot M50.30 OTHER CERVICAL DISC DEGENERATION, UNSP C 03/11/2018 RADHIKA YAN, JEREMY Laws Ot M54.2 CERVICALGIA 03/11/2018 RADHIKA YAN, JEREMY Laws Ot 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 Type Provider Facility Loc./Unit Complaint [id number] 02/08/2015 13:21:00 02/08/2015 23:59:59 CLS Outpatient JESSICA MARSH DDS [id number] 11/06/2014 12:15:00 11/06/2014 23:59:59 CLS Outpatient MORGAN BARRERA APRN [id number] 10/03/2014 08:26:00 10/03/2014 23:59:59 CLS Outpatient MORGAN BARRERA APRN [id number] 05/07/2010 16:02:00 05/07/2010 23:59:59 CLS Outpatient GLADYS HASKINS DDS [id number] 04/23/2015 02:28:34 ACT Document Registration [id number] 03/24/2018 09:29:00 03/24/2018 10:28:00 DIS Emergency RADHIKA YAN, JEREMY Laws Via [facility] ER NECK PAIN,SHOULDER PAIN,FELL IN SHOWER [id number] 03/23/2018 09:48:00 03/23/2018 23:59:59 CLS Preadmit NO, LOCAL PHYSICIAN Via [facility] REHAB CERVICAL DYSTONIA [id number] 03/09/2018 09:01:00 03/09/2018 11:39:00 DIS Outpatient RADHIKA YAN, JEREMY Laws Via [facility] ER NECK PAIN [id number] 02/25/2018 08:05:00 02/25/2018 08:48:00 DIS Emergency VANESSA MILES MD Via [facility] ER NECK PAIN [id number] 02/18/2018 12:58:00 02/18/2018 15:40:00 DIS Emergency GAURANG TOMAS Via [facility] ER NECK PAIN [id number] 01/26/2018 13:03:00 01/26/2018 13:39:00 DIS Emergency BOO THOMPSON APRN Via [facility] ER NECK AND SHOULDER PAIN AND DISCOMFORT [id number] 12/09/2017 20:42:00 12/10/2017 00:05:00 DIS Emergency JESSICA NICHOLE DO Via [facility] ER BACK AND NECK PAIN;FALL [id number] 11/27/2017 04:58:00 11/27/2017 08:06:00 DIS Emergency DEE ASHLEY MD Via [facility] ER BACK PAIN,SON WALKED ON BACK YESTERDAY [id number] 11/26/2017 08:47:00 11/26/2017 10:32:00 DIS Emergency DAVON VINCENT MD Via [facility] ER SHAKING,NECK PAIN,RIGHT SIDE PAIN [id number] 10/29/2017 08:57:00 10/29/2017 11:11:00 DIS Emergency DEE ASHLEY MD Via [facility] ER NECK PAIN [id number] 09/29/2017 08:34:00 09/29/2017 13:37:00 DIS Emergency RADHIKA YAN, JEREMY Laws Via [facility] ER CP [id number] 08/18/2017 06:40:00 08/18/2017 07:45:00 DIS Emergency RADHIKA YAN, JEREMY Laws Via [facility] ER NEUROLOGICAL DISORDER, CAN'T SLEEP [id number] 07/05/2017 16:36:00 07/05/2017 17:08:00 DIS Emergency DEE ASHLEY MD Via [facility] ER DENTAL PAIN [id number] 06/12/2017 13:03:00 06/12/2017 15:28:00 DIS Emergency JUSTIN VELOZ Via [facility] ER NECK PAIN [id number] 06/11/2017 17:39:00 06/11/2017 18:30:00 DIS Emergency VANESSA MILES MD Via [facility] ER NECK INJ [id number] 02/18/2017 10:20:00 02/18/2017 13:13:00 DIS Emergency JUSTIN VELOZ Via [facility] ER COUGH NAUSEA [id number] 02/06/2017 13:54:00 02/06/2017 14:16:00 DIS Emergency BOO THOMPSON APRN Via [facility] ER COUGH/CHEST CONGESTION [id number] 09/25/2016 10:36:00 09/25/2016 12:08:00 DIS Emergency BOO THOMPSON APRN Via [facility] ER VOMITING COUGH HEADACHE FATIGUE [id number] 06/02/2016 13:14:00 06/02/2016 14:13:00 DIS Emergency VANESSA MILES MD Via [facility] ER NECK PAIN/SHAKING [id number] 04/22/2015 23:25:00 04/24/2015 15:25:00 DIS Inpatient BRANDI YAN, VANESSA Anderson Via [facility] 4TH BENZODIAZEPINE WITHDRAWAL ;NARCOTIC WITHDRAWAL [id number] 04/21/2015 20:34:00 04/21/2015 22:10:00 DIS Emergency BOO THMOPSON APRN Via [facility] ER BLOODY STOOLS,ABD PAIN, WANTS REHAB [id number] 02/18/2015 12:02:00 02/18/2015 12:51:00 DIS Emergency JUSTIN VELOZ Via [facility] ER CYST ON HIP [id number] 02/16/2015 00:03:00 02/16/2015 00:55:00 DIS Emergency JAGDEEP MORGAN KEARNEY Via [facility] ER CELLULITIS [id number] 01/15/2015 11:44:00 01/15/2015 23:59:59 CLS Preadmit DEVAN YAN, ROHAN Davalos Via [facility] WOUNDCARE [id number] 01/07/2015 01:35:00 01/10/2015 16:30:00 DIS Out[facility]/ CELLULITIS [id number] 07/08/2014 11:44:00 07/08/2014 12:25:00 DIS Emergency BOO THOMPSON APRN Via [facility] ER TOOTH INFECTION [id number] 06/03/2013 16:23:00 06/03/2013 23:59:59 CLS Preadmit DAVON VINCENT MD Via [facility] ER DENTAL PAIN,POSSIBLE RASH [id number] 06/01/2013 12:37:00 06/01/2013 23:59:59 CLS Outpatient [id number] 05/28/2013 08:10:00 05/28/2013 09:58:00 DIS Emergency JESSICA NICHOLE DO Via [facility] ER L SIDE LOWER BACK PAIN AND RIB PAIN [id number] 04/28/2013 16:12:00 04/28/2013 18:55:00 DIS Emergency JUSTIN VELOZ Via [facility] ER DENTAL PAIN [id number] 03/26/2015 10:11:00 Document Registration [id number] 03/23/2015 13:15:00 Document Registration [id number] 06/03/2012 17:30:00 Document Registration [id number] 03/10/2012 13:38:00 Document Registration [id number] 01/24/2012 14:20:00 Document Registration [id number] 01/10/2012 14:24:00 Document Registration [id number] 12/13/2011 16:18:00 Document Registration [id number] 11/16/2011 08:46:00 Document Registration [id number] 08/18/2011 21:09:00 Document Registration [id number] 04/08/2011 12:15:00 Document Registration [id number] 11/28/2010 16:26:00 Document Registration [id number] 10/14/2010 10:52:00 Document Registration [id number] 07/28/2010 16:08:00 Document Registration [id number] 07/03/2010 02:58:00 Document Registration [id number] 06/06/2010 06:29:00 Document Registration [id number] 04/22/2010 12:05:00 Document Registration [id number] 01/19/2018 10:40:00 01/19/2018 23:59:59 CLS Outpatient MADL CODE CLERK, [facility] [id number] 06/19/2016 08:46:00 Document Registration
[2018-04-01] MEDS ORDERED: PANTOPRAZOLE 40 MG/10 ML (PROTONIX) VIAL IV STA (08:39)
[2018-04-01] MEDS ORDERED: LACTATED RINGERS 1,000 ML IV ONE (08:39)
[2018-04-01] MEDS ORDERED: ONDANSETRON 4 MG/2 ML (SDV) Z0FRAN IVP ONE (08:45)
[2018-04-01 09:01] LABS: BILIRUBIN,URINE NEGATIVE (NEGATIVE); CLARITY,URINE CLEAR; COLOR,URINE YELLOW; GLUCOSE, URINE (UA) NEGATIVE (NEGATIVE); KETONES,URINE NEGATIVE (NEGATIVE); LEUKOCYTE ESTERASE ,URINE 1+ (NEGATIVE); NITRITE,URINE NEGATIVE (NEGATIVE); PH,URINE 6 (5-9); PROTEIN,URINE 1+ (NEGATIVE); UROBILINOGEN,URINE NORMAL (NORMAL)
[2018-04-01 09:01] LABS: BASOPHILS # (AUTO) 0.1 10^3/uL (0.0-0.1); BASOPHILS % (AUTO) 1 % (0-10); EOSINOPHILS # (AUTO) 0.3 10^3/uL (0.0-0.3); EOSINOPHILS % (AUTO) 4 % (0-10); HEMATOCRIT 41 % (40-54); HEMOGLOBIN 15.3 G/DL (13.3-17.7); LYMPHOCYTES # (AUTO) 2.3 X 10^3 (1.0-4.0); LYMPHOCYTES % (AUTO) 31 % (12-44); MEAN CORPUSCULAR HEMOGLOBIN 35 PG (25-34); MEAN CORPUSCULAR HGB CONC 37 G/DL (32-36); MEAN CORPUSCULAR VOLUME 95 FL (80-99); MEAN PLATELET VOLUME 10.5 FL (7.4-10.4); MONOCYTES # (AUTO) 0.9 X 10^3 (0.0-1.0); MONOCYTES % (AUTO) 12 % (0-12); NEUTROPHILS # (AUTO) 3.7 X 10^3 (1.8-7.8); NEUTROPHILS % (AUTO) 52 % (42-75); PLATELET COUNT 188 10^3/uL (130-400); RED BLOOD COUNT 4.35 10^6/uL (4.35-5.85); RED CELL DISTRIBUTION WIDTH 12.2 % (10.0-14.5); WHITE BLOOD COUNT 7.2 10^3/uL (4.3-11.0)
--- NOTE | 2018-04-01 09:03 | ED Abdominal Pain ---
General Chief Complaint: Abdominal/GI Problems Stated Complaint: ABD PAIN Nursing Triage Note: LEFT LOWER ABDPAIN WITH NAUSEA FOR A COUPLE OF DAYS. Sepsis Screen: No Definite Risk Source of Information: Patient History of Present Illness Date Seen by Provider: Apr 01, 2018 Time Seen by Provider: 08:30 Initial Comments PT C/O LUQ PAIN " UNDER MY RIBS" FOR 2-3 DAYS STATES HE HAS HAD NAUSEA X 1 WEEK, NO VOMITING NO DIARRHEA OR CONSTIPATION. LAST BM WAS YESTERDAY. NO BLACK/BLOODY/TARRY STOOLS NO FEVER NO URINARY SYMPTOMS LAST MEAL WAS LAST NIGHT PAIN IS WORSENED BY BENDING OVER, AND PAIN COMES AND GOES. SEEN A WEEK AGO AT [facility] FOR NAUSEA AND WAS TOLD HE HAD A "STOMACH VIRUS". NO TESTS AND NO RX'S PER PT. NO HISTORY OF STOMACH PROBLEMS OR ABDOMINAL SURGERY PT WITH MULTITUDE OF VISITS--VARIOUS PAIN COMPLAINTS--NECK AND BACK PAIN, ALLEGED INJURIES, DENTAL PAIN, ABSCESSES, ETC. 10 VISITS IN 2018--LAST VISIT 03/24/18 FOR CHRONIC BACK AND NECK PAIN COMPLAINT , AND ALLEGED FALL IN THE SHOWER PT HAS RECEIVED MULTIPLE RX'S FOR PAIN MEDICATIONS--RECEIVED RX FOR TRAMADOL # 20 AND PREDNISONE 20 MG #4 ON 03/24/18 SEE PREVIOUS CHARTS FOR DETAILS PCP: [facility], HAS ALSO BEEN A PT OF DR. ROBIN IN [place] Allergies and Home Medications Allergies Coded Allergies: No Known Drug Allergies (Verified , 02/06/17) Patient Home Medication List Home Medication List Reviewed: Yes Review of Systems Constitutional: no symptoms reported; No chills, No diaphoresis, No fever Respiratory: No Symptoms Reported Cardiovascular: No Symptoms Reported Gastrointestinal: See HPI, Abdominal Pain; Denies Constipated, Denies Diarrhea ; Nausea; Denies Poor Appetite, Denies Poor Fluid Intake, Denies Rectal Bleeding , Denies Vomiting Genitourinary: No Symptoms Reported Musculoskeletal: no symptoms reported; No back pain Skin: no symptoms reported Psychiatric/Neurological: No Symptoms Reported Endocrine: No Symptoms Reported Hematologic/Lymphatic: No Symptoms Reported Past Hsxmhvi-Roryge-Ntvzhq Hx Patient Social History Alcohol Use: Denies Use Recreational Drug Use: Yes (THC, TESTED + FOR BENZODIAZEPINES 04/01/18, TESTED + FOR THC, BENZO'S AND TRICYCLICS MUJLTIPLE TIMES) Drug of Choice: THC, TESTED + FOR BENZODIAZEPINES 04/01/18 Smoking Status: Current Everyday Smoker (1 PPD) Type Used: Cigarettes ( 1 PPD) 2nd Hand Smoke Exposure: Yes Recent Foreign Travel: No Contact w/Someone Who Travel: No Recent Infectious Disease Expo: No Recent Hopitalizations: No Immunizations Up To Date Tetanus Booster (TDap): Unknown Date of Influenza Vaccine: Aug 19, 2011 Seasonal Allergies Seasonal Allergies: No Past Medical History Surgeries: No Respiratory: No Cardiac: No Neurological: Yes ("CERVICAL DYSTONIA" PER PT--SELF-REPORTED; TREMOR) Headaches /Migraines Reproductive Disorders: No Sexually Transmitted Disease: No HIV/AIDS: No Genitourinary: No Gastrointestinal: No Musculoskeletal: Yes (CHRONIC NECK PAIN AND SELF-REPORTED "CERVICAL DYSTONIA" ) Chronic Back Pain Endocrine: Yes ("Thyroid issues") HEENT: Yes (Recurrent dental pain) Cancer: No Psychosocial: Yes Depression Integumentary: Yes (ABSCESSES) Blood Disorders: No Family Medical History Patient reports no known family medical history. 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/Psychiatric: 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, no motor/sensory deficits, alert, normal mood/affect, oriented x 3 Skin: normal color, warm/dry, tattoos/piercings (MULTIPLE TATTOOS) Progress/Results/Core Measures Results/Orders Lab Results Laboratory Tests Test 04/01/18 08:45 04/01/18 08:50 Range/Units Urine Color YELLOW Urine Clarity CLEAR Urine pH 6 5-9 Urine Specific [place] 1.025 H 1.016-1.022 Urine Protein 1+ H NEGATIVE Urine Glucose (UA) NEGATIVE NEGATIVE Urine Ketones NEGATIVE NEGATIVE Urine Nitrite NEGATIVE NEGATIVE Urine Bilirubin NEGATIVE NEGATIVE Urine Urobilinogen NORMAL NORMAL MG/DL Urine Leukocyte Esterase 1+ H NEGATIVE Urine RBC (Auto) NEGATIVE NEGATIVE Urine RBC NONE /HPF Urine WBC 2-5 /HPF Urine Squamous Epithelial Cells RARE /HPF Urine Crystals NONE /LPF Urine Bacteria TRACE /HPF Urine Casts NONE /LPF Urine Mucus SMALL H /LPF Urine Other MOD SPERM H /HPF Urine Culture Indicated NO Urine Opiates Screen NEGATIVE NEGATIVE Urine Oxycodone Screen NEGATIVE NEGATIVE Urine Methadone Screen NEGATIVE NEGATIVE Urine Propoxyphene Screen NEGATIVE NEGATIVE Urine Barbiturates Screen NEGATIVE NEGATIVE Ur Tricyclic Antidepressants Screen NEGATIVE NEGATIVE Urine Phencyclidine Screen NEGATIVE NEGATIVE Urine Amphetamines Screen NEGATIVE NEGATIVE Urine Methamphetamines Screen NEGATIVE NEGATIVE Urine Benzodiazepines Screen POSITIVE H NEGATIVE Urine Cocaine Screen NEGATIVE NEGATIVE Urine Cannabinoids Screen POSITIVE H NEGATIVE White Blood Count 7.2 4.3-11.0 10^3/uL Red Blood Count 4.35 4.35-5.85 10^6/uL Hemoglobin 15.3 13.3-17.7 G/DL Hematocrit 41 40-54 % Mean Corpuscular Volume 95 80-99 FL Mean Corpuscular Hemoglobin 35 H 25-34 PG Mean Corpuscular Hemoglobin Concent 37 H 32-36 G/DL Red Cell Distribution Width 12.2 10.0-14.5 % Platelet Count 188 130-400 10^3/uL Mean Platelet Volume 10.5 H 7.4-10.4 FL Neutrophils (%) (Auto) 52 42-75 % Lymphocytes (%) (Auto) 31 12-44 % Monocytes (%) (Auto) 12 0-12 % Eosinophils (%) (Auto) 4 0-10 % Basophils (%) (Auto) 1 0-10 % Neutrophils # (Auto) 3.7 1.8-7.8 X 10^3 Lymphocytes # (Auto) 2.3 1.0-4.0 X 10^3 Monocytes # (Auto) 0.9 0.0-1.0 X 10^3 Eosinophils # (Auto) 0.3 0.0-0.3 10^3/uL Basophils # (Auto) 0.1 0.0-0.1 10^3/uL Prothrombin Time 14.9 H 12.2-14.7 SEC INR Comment 1.2 0.8-1.4 Activated Partial Thromboplast Time 33 24-35 SEC Sodium Level 140 135-145 MMOL/L Potassium Level 3.7 3.6-5.0 MMOL/L Chloride Level 108 H 98-107 MMOL/L Carbon Dioxide Level 24 21-32 MMOL/L Anion Gap 8 5-14 MMOL/L Blood Urea Nitrogen 15 7-18 MG/DL Creatinine 0.81 0.60-1.30 MG/DL Estimat Glomerular Filtration Rate > 60 BUN/Creatinine Ratio 19 Glucose Level 107 H 70-105 MG/DL Calcium Level 9.3 8.5-10.1 MG/DL Magnesium Level 2.2 1.8-2.4 MG/DL Total Bilirubin 1.3 H 0.1-1.0 MG/DL Aspartate Amino Transf (AST/SGOT) 19 5-34 U/L Alanine Aminotransferase (ALT/SGPT) 16 0-55 U/L Alkaline Phosphatase 83 40-136 U/L Total Protein 6.8 6.4-8.2 GM/DL Albumin 4.3 3.2-4.5 GM/DL Amylase Level 54 25-125 U/L Lipase 10 8-78 U/L TSH [place] Testing 1.10 0.35-4.94 UIU/ML Acetaminophen Level < 10 L 10-30 UG/ML Serum Alcohol < 10 <10 MG/DL My Orders Orders - JESSICA NICHOLE DO Saline Lock/Iv-Start (04/01/18 08:39) Acetaminophen (04/01/18 08:39) Alcohol (04/01/18 08:39) Amylase (04/01/18 08:39) Cbc With Automated Diff (04/01/18 08:39) Comprehensive Metabolic Panel (04/01/18 08:39) Drug Screen Stat (Urine) (04/01/18 08:39) Lipase (04/01/18 08:39) Magnesium (04/01/18 08:39) Protime With Inr (04/01/18 08:39) Partial Thromboplastin Time (04/01/18 08:39) Thyroid Analyzer (04/01/18 08:39) Ua Culture If Indicated (04/01/18 08:39) Saline Lock/Iv-Start (04/01/18 08:39) Lactated Ringers (Lr 1000 Ml Iv Solution (04/01/18 08:39) Ondansetron Injection (Zofran Injectio (04/01/18 08:45) Pantoprazole Injection (Protonix Injecti (04/01/18 08:39) Ct Abdomen/Pelvis W (04/01/18 09:17) Acute Abd Series (04/01/18 09:17) Iohexol Injection (Omnipaque 350 Mg/Ml 1 (04/01/18 09:30) Ns (Ivpb) (Sodium Chloride 0.9%) (04/01/18 09:30) Iv Push Conservation Planner Ed (04/01/18 ) Medications Given in ED Vital Signs/I&O Blood Pressure Mean: 77 Progress Progress Note : Progress Note UNEVENTFUL ER STAY Diagnostic Imaging Comments CT ABDOMEN/PELVIS--NO ACUTE PROCESS ACUTE ABDOMEN XRAYS--NO ACUTE PROCESS PER RADIOLOGIST REPORTS @ 1025 Reviewed: Reviewed by Me Departure Impression Primary Impression: Left sided abdominal pain of unknown cause Additional Impression: Illicit drug use Disposition: HOME, SELF-CARE Condition: Stable Departure-Patient Inst. Referrals: [facility] Patient Instructions: Acute Abdomen (Belly Pain), Adult (DC) Add. Discharge Instructions: CLEAR LIQUIDS--WATER, BROTH, JELLO, GATORADE NO FOOD UNTIL YOUR PAIN IS GONE, THEN ADD BRATS DIET TO CLEAR LIQUIDS---BANANAS , RICE, APPLESAUCE, TOAST, SALTINES FOLLOW UP WITH [facility] IN 2-3 DAYS FOR FURTHER CARE All discharge instructions reviewed with patient and/or family. Voiced understanding. JESSICA NICHOLE DO Apr 01, 2018 09:03
[2018-04-01 09:11] LABS: BACTERIA,URINE TRACE /HPF; SQUAMOUS EPITHELIAL CELL,UR RARE /HPF
[2018-04-01 09:12] LABS: URINE OTHER MOD SPERM /HPF
[2018-04-01 09:14] LABS: AMPHETAMINE SCREEN, URINE NEGATIVE (NEGATIVE); BARBITURATE SCREEN URINE NEGATIVE (NEGATIVE); BENZODIAZEPINES SCREEN URINE POSITIVE (NEGATIVE); CANNABINOID SCREEN, URINE POSITIVE (NEGATIVE); COCAINE SCREEN URINE NEGATIVE (NEGATIVE); METHADONE STAT NEGATIVE (NEGATIVE); METHAMPHETAMINE SCREEN URINE S NEGATIVE (NEGATIVE); OPIATE SCREEN URINE NEGATIVE (NEGATIVE); OXYCODONE STAT NEGATIVE (NEGATIVE); PROPOXYPHENE STAT NEGATIVE (NEGATIVE); TRICYCLIC ANTIDEPRESSANTS SCRE NEGATIVE (NEGATIVE)
[2018-04-01 09:14] LABS: INR 1.2 (0.8-1.4); PROTHROMBIN TIME PATIENT 14.9 SEC (12.2-14.7)
[2018-04-01 09:24] LABS: ALANINE AMINOTRANSFERASE 16 U/L (0-55); ALBUMIN 4.3 GM/DL (3.2-4.5); ALKALINE PHOSPHATASE 83 U/L (40-136); AMYLASE 54 U/L (25-125); BILIRUBIN,TOTAL 1.3 MG/DL (0.1-1.0); BUN/CREATININE RATIO 19; CALCIUM 9.3 MG/DL (8.5-10.1); CARBON DIOXIDE 24 MMOL/L (21-32); CHLORIDE 108 MMOL/L (98-107); CREATININE SERUM 0.81 MG/DL (0.60-1.30); GFR ESTIMATED > 60; GLUCOSE 107 MG/DL (70-105); LIPASE 10 U/L (8-78); MAGNESIUM 2.2 MG/DL (1.8-2.4); POTASSIUM 3.7 MMOL/L (3.6-5.0); SODIUM 140 MMOL/L (135-145); TOTAL PROTEIN 6.8 GM/DL (6.4-8.2)
[2018-04-01 09:30] LABS: ACETAMINOPHEN < 10 UG/ML (10-30)
[2018-04-01] MEDS ORDERED: IOHEXOL 350 MG/ML 100 ML (OMNIPAQUE 350) VIAL IV ONE (09:30)
[2018-04-01] MEDS ORDERED: NS 250 ML (IVPB) BAG IV ONE (09:30)
--- NOTE | 2018-04-01 09:55 | Diagnostic Imaging Report ---
INDICATION: Left lower abdominal pain with nausea for a couple of days. TECHNIQUE: Single view chest with supine and upright radiographs of the abdomen. CORRELATION STUDY: 12/09/2017 FINDINGS: Frontal radiograph of the chest demonstrates no acute abnormality. Imaging of the abdomen demonstrates a few gas-filled loops of bowel to be present. However, there is no finding to suggest underlying obstruction. There does appear to be some high density contrast within the distal colon. There is contrast within the genitourinary system which appears to be nonobstructed. The liver does appear to be perhaps enlarged. IMPRESSION: 1. Negative for acute cardiopulmonary abnormality. 2. Unremarkable appearing bowel gas pattern. 3. Suspect hepatomegaly. Dictated by: Dictated on workstation # [id number]
--- NOTE | 2018-04-01 10:01 | Diagnostic Imaging Report ---
PROCEDURE: CT abdomen and pelvis with contrast. TECHNIQUE: Multiple contiguous axial images were obtained through the abdomen and pelvis after administration of intravenous contrast. INDICATION: Mid abdominal pain for 2 days. Comparison is made with prior CT from 12/09/2017. FINDINGS: The lung bases are clear. Liver does demonstrate some generalized low density suggestive of hepatic steatosis. No discrete liver mass is identified. The gallbladder is unremarkable. Pancreas and spleen are unremarkable. No adrenal mass is identified. The kidneys are unremarkable. Aorta is non-aneurysmal. The small and large bowel loops are normal caliber. There is no ascites. No inflammatory process is seen. Bladder is decompressed. Prostate is unremarkable. IMPRESSION: Unremarkable CT of the abdomen and pelvis. No acute feature is detected. Dictated by: Dictated on workstation # [id number]
[2018-04-01] MEDS ORDERED: SUCR1TAB36 PO (10:32)
[2018-04-01] MEDS ORDERED: PANT40TA2 PO (10:32)
[2018-04-01] MEDS ORDERED: HYOS0.1283 SL (10:32)
[2018-04-01 10:40] VITALS: BP 111/73
[2018-04-12] MEDS ORDERED: NAPR-1071 (08:59)
== END 2018-04-01 10:40 | disposition home or self-care (01) ==
LOC: EDUNIT# 08:18 → ER 08:19
DX: R10.12 Left upper quadrant pain (principal); G43.909 Migraine, unspecified, not intractable, without status migrainosus; F32.9 Major depressive disorder, single episode, unspecified; F12.10 Cannabis abuse, uncomplicated; F17.210 Nicotine dependence, cigarettes, uncomplicated
CPT/HCPCS: 36415; 74022; 74177; 80053; 80306; 80320; 80329; 81000; 82150; 83690; 83735; 84443; 85025; 85610; 85730; 96374; 96375; 99282

== ENCOUNTER 2018-04-28 02:09 | Emergency (ER) | payer MEDICAID ==
[~2018-04-28] VITALS: Ht 167.6 cm; Wt 63.7 kg
[~2018-04-28 02:09] MED LIST changes: +HYOS0.1283 SL; +NAPR-1071; +PANT40TA2 PO; +SUCR1TAB36 PO
--- OUTSIDE RECORDS SUMMARY | 2018-04-28 02:14 | XMS REPORT ---
Author Author LARISA PULIDO [facility] Address [address] [place] [address] Care Team Providers Care Bowling Alley Manager Name Role Phone LARISA PULIDO Unavailable PROBLEMS Type Condition ICD9-CM Code [id number] Code Onset Dates Condition Status SNOMED Code Problem Mood disorder F39 Active 97793471 Problem Abnormal thyroid blood test R94.6 Active 435630675 Problem Other chronic pain G89.29 Active 34518927 Problem Cervical dystonia G24.3 Active 618686841 ALLERGIES No Known Allergies ENCOUNTERS Encounter Location Date Diagnosis [facility] [address] [address] Jan, Abnormal thyroid blood test R94.6 and Cervical dystonia G24.3 [facility] IN [facility] [address] [address] 14 Nov, 2017 [facility] [address] [address] Oct, [facility] IN [facility] [address] [address] 14 Aug, 2017 Fever, unspecified fever cause R50.9 and Viral illness B34.9 [facility] [address] [id number] 14 Jun, 2017 Dental examination Z01.20 and Dental caries K02.9 [facility] [address] [place] [id number] Apr, Cervicalgia M54.2 ; Mood disorder F39 and Periodontal abscess K05.219 [facility] [id number] [place] [id number] February, Dental examination Z01.20 [facility] [address] [address] Jul, Other chronic pain G89.29 [facility] [address], [place] [address] Jul, [facility] [id number] [place] [address] Jul, [facility] [id number] [place] [address] Jul, [facility] [id number] [place] [address] Jun, Cervical dystonia G24.3 ; Other chronic pain G89.29 and Abnormal thyroid blood test R94.6 [facility] [id number] [place] [address] May, Cervical dystonia G24.3 [facility] [id number] [place] [address] February, [facility] [address] [address] Jan, [facility] [id number] [place] [address] Jan, [facility] [address], [place] [address] Oct, [facility] [address] [place] [address] Oct, [facility] [address], [place] [address] Sep, [facility] [address] [place] [phone] Sep, [facility] [address], [place] [address] Aug, [facility] [address], [place] [address] Aug, IMMUNIZATIONS No Known Immunizations SOCIAL HISTORY Never Assessed REASON FOR VISIT Cough, fever 101 last night JStrasserRN PLAN OF CARE Activity Details Follow Up prn Reason: VITAL SIGNS Height 66 in 2017-09-01 Weight 144.0 lbs 2017-09-01 Temperature 98.2 degrees Fahrenheit 2017-09-01 Heart Rate 92 bpm 2017-09-01 Respiratory Rate 18 2017-09-01 BMI 23.24 kg/m2 2017-09-01 Blood pressure systolic 112 mmHg 2017-09-01 Blood pressure diastolic 80 mmHg 2017-09-01 MEDICATIONS No Known Medications RESULTS Name Result Date Reference Range INFLUENZA A & B (IN HOUSE) 2017-09-01 INFLUENZA A negative INFLUENZA B negative Control + Lot # [id number] Exp date 2018-06-18 PROCEDURES Procedure Date Ordered Result Body Site INFLUENZA ASSAY W/OPTIC Sep 01, 2017 INSTRUCTIONS MEDICATIONS ADMINISTERED No Known Medications MEDICAL (GENERAL) HISTORY Type Description Date Medical History Cervical Dystonia--dx at age 18 Medical History Opiod Abuse per Dr. Harmon
--- OUTSIDE RECORDS SUMMARY | 2018-04-28 02:14 | XMS REPORT ---
Author Author FRANK GOMEZ [facility] Address [address] [place] [address] Care Team Providers Care Freelance Court Stenographer Name Role Phone FRANK GOMEZ Unavailable PROBLEMS Type Condition ICD9-CM Code MZV03-GB Code Onset Dates Condition Status SNOMED Code Problem Mood disorder F39 Active 78825420 Problem Abnormal thyroid blood test R94.6 Active 004692804 Problem Other chronic pain G89.29 Active 92624042 Problem Cervical dystonia G24.3 Active 930545583 ALLERGIES No Information ENCOUNTERS Encounter Location Date Diagnosis [facility] [address] [address] Jan, Abnormal thyroid blood test R94.6 and Cervical dystonia G24.3 [facility] [address] [address] 14 Nov, 2017 [facility] [address] [address] Oct, [facility] IN [facility] [address] [address] 14 Aug, 2017 Fever, unspecified fever cause R50.9 and Viral illness B34.9 [facility] [address] [id number] 14 Jun, 2017 Dental examination Z01.20 and Dental caries K02.9 [facility] [address] [place] [id number] Apr, Cervicalgia M54.2 ; Mood disorder F39 and Periodontal abscess K05.219 [facility] [address] [id number] February, Dental examination Z01.20 [facility] [address] [address] Jul, Other chronic pain G89.29 [facility] [address] [place] [address] Jul, [facility] [id number] [place] [address] Jul, [facility] [id number] [place] [address] Jul, [facility] [id number] [place] [address] Jun, Cervical dystonia G24.3 ; Other chronic pain G89.29 and Abnormal thyroid blood test R94.6 [facility] [id number] [place] [address] May, Cervical dystonia G24.3 [facility] [id number] [place] [address] February, [facility] [id number] [place] [address] Jan, [facility] [id number] [place] [address] Jan, [facility] [id number] [place] [address] Oct, [facility] [address] [place] [address] Oct, [facility] [address] [place] [address] Sep, [facility] [address] [place] [id number] Sep, [facility] [address] [place] [address] Aug, [facility] [address], [place] [address] Aug, IMMUNIZATIONS No Known Immunizations SOCIAL HISTORY Never Assessed REASON FOR VISIT Triage PLAN OF CARE VITAL SIGNS Height 66 in 2017-12-02 Weight 142.4 lbs 2017-12-02 Temperature 98.9 degrees Fahrenheit 2017-12-02 Heart Rate 80 bpm 2017-12-02 Respiratory Rate 20 2017-12-02 BMI 22.98 kg/m2 2017-12-02 Blood pressure systolic 90 mmHg 2017-12-02 Blood pressure diastolic 60 mmHg 2017-12-02 MEDICATIONS No Known Medications RESULTS No Results PROCEDURES No Known procedures INSTRUCTIONS MEDICATIONS ADMINISTERED No Known Medications MEDICAL (GENERAL) HISTORY Type Description Date Medical History Cervical Dystonia--dx at age 18 Medical History Opiod Abuse per Dr. Harmon
--- OUTSIDE RECORDS SUMMARY | 2018-04-28 02:15 | XMS REPORT ---
Author Author JOLEEN MCKEON Organization [facility] Address [address] [place] [address] Care Team Providers Care Personal Companion Name Role Phone JOLEEN MCKEON Unavailable PROBLEMS Type Condition ICD9-CM Code DVF64-DS Code Onset Dates Condition Status SNOMED Code Problem Mood disorder F39 Active 54474654 Problem Abnormal thyroid blood test R94.6 Active 396160162 Problem Other chronic pain G89.29 Active 76766095 Problem Cervical dystonia G24.3 Active 706380243 ALLERGIES No Information ENCOUNTERS Encounter Location Date Diagnosis [facility] [address] [address] Jan, Abnormal thyroid blood test R94.6 and Cervical dystonia G24.3 [facility] [address] [address] 14 Nov, 2017 [facility] [address] [address] Oct, [facility] WALK IN [facility] [address] [address] 14 Aug, 2017 Fever, unspecified fever cause R50.9 and Viral illness B34.9 [facility] [address] [id number] 14 Jun, 2017 Dental examination Z01.20 and Dental caries K02.9 [facility] [address] [place] [id number] Apr, 2017 Cervicalgia M54.2 ; Mood disorder F39 and Periodontal abscess K05.219 [facility] [id number] [place] [id number] 23 Feb, 2017 Dental examination Z01.20 [facility] [address] [address] Jul, Other chronic pain G89.29 [facility] [address] [place] [address] Jul, [facility] [id number] [place] [address] Jul, [facility] [id number] [place] [address] Jul, [facility] [id number] [place] [address] Jun, Cervical dystonia G24.3 ; Other chronic pain G89.29 and Abnormal thyroid blood test R94.6 [facility] [address] [place] [address] May, Cervical dystonia G24.3 [facility] [id number] [address] February, [facility] [address] [place] [address] Jan, [facility] [address] [place] [address] Jan, [facility] [address], [place] [address] Oct, [facility] [address] [place] [address] Oct, [facility] [address] [place] [address] Sep, [facility] [address] [facility] [place] [id number] Sep, [facility] [address] [place] [address] Aug, [facility] [id number], [place] [address] Aug, IMMUNIZATIONS No Known Immunizations SOCIAL HISTORY Never Assessed REASON FOR VISIT Requests return call PLAN OF CARE VITAL SIGNS MEDICATIONS No Known Medications RESULTS No Results PROCEDURES No Known procedures INSTRUCTIONS MEDICATIONS ADMINISTERED No Known Medications MEDICAL (GENERAL) HISTORY Type Description Date Medical History Cervical Dystonia--dx at age 18 Medical History Opiod Abuse per Dr. Harmon
--- OUTSIDE RECORDS SUMMARY | 2018-04-28 02:16 | XMS REPORT | Continuity of Care Document ---
Author Author [facility] Address Unknown Phone Unavailable Allergies Active Description Code Type Severity Reaction Onset Reported/Identified Relationship to Patient Clinical Status Yes No Known Drug Allergies [id number] Drug Allergy Mild N/A 02/06/2017 Medications There [...] R19.7 DIARRHEA, UNSPECIFIED 09/25/2016 THOMPSON, PETER J [employer] PRINCIPAL Ot R51 HEADACHE 09/26/2016 BOO THOMPSON [employer] V[employer] PRINCIPAL Ot F17.210 NICOTINE DEPENDENCE, CIGARETTES, UNCOMPL 09/26/2016 BOO THOMPSON [employer] PRINCIPAL Ot M79.1 MYALGIA 09/26/2016 BOO THOMPSON [employer] V[employer] PRINCIPAL Ot R11.2 NAUSEA WITH VOMITING, UNSPECIFIED 09/26/2016 BOO THOMPSON [employer] V[employer] PRINCIPAL Ot R19.7 DIARRHEA, UNSPECIFIED 09/26/2016 BOO THOMPSON [employer] PRINCIPAL Ot R51 HEADACHE 02/06/2017 BOO THOMPSON [employer] VICE PRINCIPAL Ot J40 BRONCHITIS, NOT SPECIFIED ACUTE OR CH 02/06/2017 BOO THOMPSON [employer] PRINCIPAL Ot R05 COUGH 02/18/2017 JUSTIN VELOZ Ot [...] VINCENT MD Ot M54.2 CERVICALGIA 11/26/2017 DAVON VINECNT MD Ot Z77.22 CNTCT W AND EXPSR [...] AG 12/10/2017 JESSICA NICHOLE DO Ot Z79.82 SKILLED NURSING (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 12/11/2017 JESSICA NICHOLE [...] AG 12/11/2017 JESSICA NICHOLE DO Ot 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] 02/01/2018 BOO THOMPSON APRN Ot Y93.61 ACTIVITY, BANGLADESHI TACKLE FOOTBALL 02/01/2018 BOO THOMPSON APRN Ot Z77.22 CNTCT W AND EXPSR TO ENVIRON TOBACCO SMO 02/01/2018 BOO THOMPSON APRN Ot Z79.52 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 (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 OF SYSTEMIC STER 02/01/2018 BOO THOMPSON APRN Ot Z87.59 PERSONAL HISTORY OF COMP OF PREG, CHLDBR 02/18/2018 GAURANG TOMAS Ot F17.210 NICOTINE DEPENDENCE, CIGARETTES, UNCOMPL 02/18/2018 GENOVEVA, GAURANG AUTO BODY STRAIGHTENER Ot F32.9 MAJOR DEPRESSIVE DISORDER, SINGLE EPISOD 02/18/2018 GENOVEVA, GAURANG AUTO BODY STRAIGHTENER Ot G43.909 MIGRAINE, UNSP, NOT INTRACTABLE, WITHOUT 02/18/2018 GENOVEVA, GAURANG AUTO BODY STRAIGHTENER Ot M50.90 CERVICAL DISC DISORDER, UNSP, UNSPECIFIE 02/18/2018 GENOVEVA, GAURANG AUTO BODY STRAIGHTENER Ot M54.2 CERVICALGIA 02/18/2018 GENOVEVA, GAURANG AUTO BODY STRAIGHTENER Ot Z79.52 SKILLED NURSING (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 OF SYSTEMIC STER 02/22/2018 GENOVEVA, GAURANG AUTO BODY STRAIGHTENER Ot F17.210 NICOTINE DEPENDENCE, CIGARETTES, UNCOMPL 02/22/2018 GENOVEVA, GAURANG AUTO BODY STRAIGHTENER Ot F32.9 MAJOR DEPRESSIVE DISORDER, SINGLE EPISOD 02/22/2018 GENOVEVA, GAURANG AUTO BODY STRAIGHTENER Ot G43.909 MIGRAINE, UNSP, NOT INTRACTABLE, WITHOUT 02/22/2018 GENOVEVA, GAURANG AUTO BODY STRAIGHTENER Ot M50.90 CERVICAL DISC DISORDER, UNSP, UNSPECIFIE 02/22/2018 GENOVEVA, GAURANG AUTO BODY STRAIGHTENER Ot M54.2 CERVICALGIA 02/22/2018 GENOVEVA, GAURANG AUTO BODY STRAIGHTENER Ot Z79.52 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 (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 OF SYSTEMIC STER 02/24/2018 GENOVEVA, GAURANG AUTO BODY STRAIGHTENER Ot F17.210 NICOTINE DEPENDENCE, CIGARETTES, UNCOMPL 02/24/2018 GENOVEVA, GAURANG AUTO BODY STRAIGHTENER Ot F32.9 MAJOR DEPRESSIVE DISORDER, SINGLE EPISOD 02/24/2018 GENOVEVA, GAURANG AUTO BODY STRAIGHTENER Ot G43.909 MIGRAINE, UNSP, NOT INTRACTABLE, WITHOUT 02/24/2018 GENOVEVA, GAURANG AUTO BODY STRAIGHTENER Ot M50.90 CERVICAL DISC DISORDER, UNSP, UNSPECIFIE 02/24/2018 GENOVEVA, GAURANG AUTO BODY STRAIGHTENER Ot M54.2 CERVICALGIA 02/24/2018 GENOVEVA, GAURANG AUTO BODY STRAIGHTENER Ot Z79.52 SKILLED NURSING (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 OF SYSTEMIC STER 02/25/2018 GINGER YAN, VANESSA Adame Ot F17.210 NICOTINE DEPENDENCE, CIGARETTES, UNCOMPL 02/25/2018 GINGER YAN, VANESSA Adame Ot F32.9 MAJOR DEPRESSIVE DISORDER, SINGLE EPISOD 02/25/2018 GINGER YAN, VANESSA Adame Ot G24.9 DYSTONIA, UNSPECIFIED 02/25/2018 GINGER YAN, VANESSA Adame Ot G43.909 MIGRAINE, UNSP, NOT INTRACTABLE, WITHOUT 02/25/2018 GINGER YAN, VANESSA S Ot M54.2 CERVICALGIA 03/09/2018 RADHIKA YAN, JEREMY Laws Ot F12.10 CANNABIS ABUSE, UNCOMPLICATED 03/09/2018 RADHIKA YAN, JEREMY T Ot F17.210 NICOTINE DEPENDENCE, CIGARETTES, UNCOMPL 03/09/2018 JEREMY GARRIDO MD Ot F32.9 MAJOR DEPRESSIVE DISORDER, SINGLE EPISOD 03/09/2018 JEREMY GARRIDO MD Ot G43.909 MIGRAINE, UNSP, NOT INTRACTABLE, WITHOUT 03/09/2018 RADHIKA YAN, JEREMY Laws Ot M50.30 OTHER CERVICAL DISC DEGENERATION, UNSP C 03/09/2018 JEREMY GARRIDO MD Ot M54.2 CERVICALGIA 03/09/2018 JEREMY GARRIDO MD T Ot Z79.52 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 (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 OF SYSTEMIC STER 03/11/2018 JEREMY GARRIDO MD Ot F12.10 CANNABIS ABUSE, UNCOMPLICATED 03/11/2018 JEREMY GARRIDO MD T Ot F17.210 NICOTINE DEPENDENCE, CIGARETTES, UNCOMPL 03/11/2018 JEREMY GARRIDO MD Ot F32.9 MAJOR DEPRESSIVE DISORDER, SINGLE EPISOD 03/11/2018 JEREMY GARRIDO MD Ot G43.909 MIGRAINE, UNSP, NOT INTRACTABLE, WITHOUT 03/11/2018 JEREMY GARRIDO MD T Ot M50.30 OTHER CERVICAL DISC DEGENERATION, UNSP C 03/11/2018 JEREMY GARRIDO MD Ot M54.2 CERVICALGIA 03/11/2018 JEREMY GARRIDO MD T Ot Z79.52 SKILLED NURSING (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 OF SYSTEMIC STER 03/24/2018 JEREMY GARRIDO MD Ot F32.9 MAJOR DEPRESSIVE DISORDER, SINGLE EPISOD 03/24/2018 JEREMY GARRIDO MD Ot G24.8 OTHER DYSTONIA 03/24/2018 JEREMY GARRIDO MD Ot G43.909 MIGRAINE, UNSP, NOT INTRACTABLE, WITHOUT 03/24/2018 JEREMY GARRIDO MD Ot G89.29 OTHER CHRONIC PAIN 03/24/2018 JEREMY GARRIDO MD Ot M54.2 CERVICALGIA 03/24/2018 JEREMY GARRIDO MD Ot W01.198A FALL SAME LEV FROM SLIP/TRIP W STRIKE AG 03/24/2018 JEREMY GARRIDO MD Ot Y92.002 [facility]HRM OF [facility] SNGL 03/24/2018 JEREMY GARRIDO MD Ot Z79.52 SKILLED NURSING (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 OF SYSTEMIC STER 03/24/2018 JEREMY GARRIDO MD Ot Z87.891 PERSONAL HISTORY OF NICOTINE DEPENDENCE 03/26/2018 JEREMY GARRIDO MD Ot F32.9 MAJOR DEPRESSIVE DISORDER, SINGLE EPISOD 03/26/2018 JEREMY GARRIDO MD Ot G24.8 OTHER DYSTONIA 03/26/2018 JEREMY GARRIDO MD Ot G43.909 MIGRAINE, UNSP, NOT INTRACTABLE, WITHOUT 03/26/2018 JEREMY GARRIDO MD Ot G89.29 OTHER CHRONIC PAIN 03/26/2018 JEREMY GARRIDO MD Ot M54.2 CERVICALGIA 03/26/2018 JEREMY GARRIDO MD Ot W01.198A FALL SAME LEV FROM SLIP/TRIP W STRIKE AG 03/26/2018 JEREMY GARRIDO MD Ot Y92.002 BATHRM OF [facility] SNGL 03/26/2018 JEREMY GARRIDO MD Ot Z79.52 SKILLED NURSING (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 OF SYSTEMIC STER 03/26/2018 JEREMY GARRIDO MD Ot Z87.891 PERSONAL HISTORY OF NICOTINE DEPENDENCE 04/01/2018 JESSICA NICHOLE DO Ot F12.10 CANNABIS ABUSE, UNCOMPLICATED 04/01/2018 JESSICA NICHOLE DO Ot F17.210 NICOTINE DEPENDENCE, CIGARETTES, UNCOMPL 04/01/2018 JESSICA NICHOLE DO Ot F32.9 MAJOR DEPRESSIVE DISORDER, SINGLE EPISOD 04/01/2018 JESSICA NICHOLE DO Ot G43.909 MIGRAINE, UNSP, NOT INTRACTABLE, WITHOUT 04/01/2018 JESSICA NICHOLE DO Ot R10.12 LEFT UPPER QUADRANT PAIN 04/05/2018 JESSICA NICHOLE DO Ot F12.10 CANNABIS ABUSE, UNCOMPLICATED 04/05/2018 JESSICA NICHOLE DO Ot F17.210 NICOTINE DEPENDENCE, CIGARETTES, UNCOMPL 04/05/2018 JESSICA NICHOLE DO Ot F32.9 MAJOR DEPRESSIVE DISORDER, SINGLE EPISOD 04/05/2018 JESSICA NICHOLE DO Ot G43.909 MIGRAINE, UNSP, NOT INTRACTABLE, WITHOUT 04/05/2018 JESSICA NICHOLE DO Ot R10.12 LEFT UPPER QUADRANT PAIN 04/12/2018 DEE ASHLEY MD Ot F12.10 CANNABIS ABUSE, UNCOMPLICATED 04/12/2018 DEE ASHLEY MD Ot F17.210 NICOTINE DEPENDENCE, CIGARETTES, UNCOMPL 04/12/2018 DEE ASHLEY MD Ot F32.9 MAJOR DEPRESSIVE DISORDER, SINGLE EPISOD 04/12/2018 DEE ASHLEY MD Ot G43.909 MIGRAINE, UNSP, NOT INTRACTABLE, WITHOUT 04/12/2018 DEE ASHLEY MD Ot G89.29 OTHER CHRONIC PAIN 04/12/2018 DEE ASHLEY MD Ot M54.2 CERVICALGIA 04/14/2018 DEE ASHLEY MD Ot F12.10 CANNABIS ABUSE, UNCOMPLICATED 04/14/2018 DEE ASHLEY MD Ot F17.210 NICOTINE DEPENDENCE, CIGARETTES, UNCOMPL 04/14/2018 DEE ASHLEY MD Ot F32.9 MAJOR DEPRESSIVE DISORDER, SINGLE EPISOD 04/14/2018 DEE ASHLEY MD Ot G43.909 MIGRAINE, UNSP, NOT INTRACTABLE, WITHOUT 04/14/2018 DEE ASHLEY MD Ot G89.29 OTHER CHRONIC PAIN 04/14/2018 DEE ASHLEY MD Ot M54.2 CERVICALGIA Procedures Code Description Performed [...] i.cardiac measurement (mass/volume) < ng/ mL <0.30 Complete urinalysis with reflex to culture - 04/01/18 08:45 Urine color determination YELLOW NRG Urine clarity determination CLEAR NRG Urine pH measurement by test strip 6 5-9 Specific gravity of urine by test strip 1.025 1.016- 1.022 Urine protein assay by test strip, semi-quantitative 1+ NEGATIVE Urine glucose detection by automated test strip NEGATIVE NEGATIVE Erythrocytes detection in urine sediment by light microscopy NEGATIVE NEGATIVE Urine ketones detection by automated test strip NEGATIVE NEGATIVE Urine nitrite detection by test strip NEGATIVE NEGATIVE Urine total bilirubin detection by test strip NEGATIVE NEGATIVE Urine urobilinogen measurement by automated test strip (mass/volume) NORMAL NORMAL Urine leukocyte esterase detection by dipstick 1+ NEGATIVE Automated urine sediment erythrocyte count by microscopy (number/high power field) NONE NRG Automated urine sediment leukocyte count by microscopy (number/high power field ) [HPF] NRG Bacteria detection in urine sediment by light microscopy TRACE NRG Squamous epithelial cells detection in urine sediment by light microscopy RARE NRG Crystals detection in urine sediment by light microscopy NONE NRG Casts detection in urine sediment by light microscopy NONE NRG Mucus detection in urine sediment by light microscopy SMALL NRG Complete urinalysis with reflex to culture NO NRG Other elements identification in urine sediment by light microscopy MOD SPERM NRG Urine drug screening test - 04/01/18 08:45 Urine phencyclidine detection by screening method NEGATIVE [...] automated white blood cell (WBC) differential - 04/01/18 08:50 Blood leukocytes automated count (number/volume) 7.2 10*3/uL 4.3-11.0 Blood erythrocytes automated count (number/volume) 4.35 10*6/uL 4.35-5.85 Venous blood hemoglobin measurement (mass/volume) 15.3 g/dL 13.3-17.7 Blood hematocrit (volume fraction) 41 % 40-54 Automated erythrocyte mean corpuscular volume 95 [foz_us] 80-99 Automated erythrocyte mean corpuscular hemoglobin (mass per erythrocyte) 35 pg 25-34 Automated erythrocyte mean corpuscular hemoglobin concentration measurement ( mass/volume) 37 g/dL 32-36 Automated erythrocyte distribution width ratio 12.2 % 10.0-14.5 Automated blood platelet count (count/volume) 188 10*3/uL 130-400 Automated blood platelet mean volume measurement 10.5 [[facility]_us] 7.4-10.4 Automated blood neutrophils/100 leukocytes 52 % 42-75 Automated blood lymphocytes/100 leukocytes 31 % 12-44 Blood monocytes/100 leukocytes 12 % 0-12 Automated blood eosinophils/100 leukocytes 4 % 0-10 Automated blood basophils/100 leukocytes 1 % 0-10 Blood neutrophils automated count (number/volume) 3.7 10*3 1.8-7.8 Blood lymphocytes automated count (number/volume) 2.3 10*3 1.0-4.0 Blood monocytes automated count (number/volume) 0.9 10*3 0.0-1.0 Automated eosinophil count 0.3 10*3/uL 0.0-0.3 Automated blood basophil count (count/volume) 0.1 10*3/uL 0.0-0.1 PT panel in platelet poor plasma by coagulation assay - 04/01/18 08:50 Prothrombin time (PT) in platelet poor plasma by coagulation assay 14.9 s 12.2-14.7 INR in platelet poor plasma or blood by coagulation assay 1.2 0.8-1.4 Activated partial thromboplastin time (aPTT) in platelet poor plasma bycoagulation assay - 04/01/18 08:50 Activated partial thromboplastin time (aPTT) in platelet poor plasma bycoagulation assay 33 s 24-35 Comprehensive metabolic panel - 04/01/18 08:50 Serum or plasma sodium measurement (moles/volume) 140 mmol/L 135-145 Serum or plasma potassium measurement (moles/volume) 3.7 mmol/L 3.6-5.0 Serum or plasma chloride measurement (moles/volume) 108 mmol/L 98-107 Carbon dioxide 24 mmol/L 21-32 Serum or plasma anion gap determination (moles/volume) 8 mmol/L 5-14 Serum or plasma urea nitrogen measurement (mass/volume) 15 mg/dL 7-18 Serum or plasma creatinine measurement (mass/volume) 0.81 mg/dL 0.60-1.30 Serum or plasma urea nitrogen/creatinine mass ratio 19 NRG Serum or plasma creatinine measurement with calculation of estimated glomerular filtration rate > NRG Serum or plasma glucose measurement (mass/volume) 107 mg/dL 70-105 Serum or plasma calcium measurement (mass/volume) 9.3 mg/dL 8.5-10.1 Serum or plasma total bilirubin measurement (mass/volume) 1.3 mg/dL 0.1-1.0 Serum or plasma alkaline phosphatase measurement (enzymatic activity/volume) 83 U/L 40-136 Serum or plasma aspartate aminotransferase measurement (enzymatic activity/ volume) 19 U/L 5-34 Serum or plasma alanine aminotransferase measurement (enzymatic activity/volume ) 16 U/L 0-55 Serum or plasma protein measurement (mass/volume) 6.8 g/dL 6.4-8.2 Serum or plasma albumin measurement (mass/volume) 4.3 g/dL 3.2-4.5 Magnesium - 04/01/18 08:50 Magnesium 2.2 mg/dL 1.8-2.4 Serum or plasma amylase measurement (enzymatic activity/volume) - 04/01/18 08: 50 Serum or plasma amylase measurement (enzymatic activity/volume) 54 U /L 25-125 Lipase - 04/01/18 08:50 Lipase 10 U/L 8-78 Serum or plasma thyrotropin measurement by detection limit <=0.05 miu/l (units/ volume) - 04/01/18 08:50 Serum or plasma thyrotropin measurement by detection limit <=0.05 miu/l (units/ volume) 1.10 u[iU]/mL 0.35-4.94 Serum or plasma acetaminophen measurement (mass/volume) - 04/01/18 08:50 Serum or plasma acetaminophen measurement (mass/volume) < ug/mL 10-30 Serum or plasma ethanol measurement (mass/volume) - 04/01/18 08:50 Serum or plasma ethanol measurement (mass/volume) < mg/dL <10 Encounters ACCT No. Visit Date/Time Discharge Status Pt. Type Provider Facility Loc./Unit Complaint [id number] 02/08/2015 13:21:00 02/08/2015 23:59:59 [facility] Outpatient JESSICA MARSH DDS [id number] 11/06/2014 12:15:00 11/06/2014 23:59:59 CLS Outpatient MORGAN BARRERA APRN Veto [id number] 10/03/2014 08:26:00 10/03/2014 23:59:59 CLS Outpatient BRUCE IGLESIASN MORGAN Laws [id number] 05/07/2010 16:02:00 05/07/2010 23:59:59 CLS Outpatient GLADYS HASKINS DDS [id number] 04/23/2015 02:28:34 ACT Document Registration [id number] 04/12/2018 08:19:00 04/12/2018 09:50:00 DIS Emergency GABI YAN, DEE Anderson [facility] ER NECK PAIN,SHAKING [id number] 04/01/2018 08:19:00 04/01/2018 10:40:00 DIS Emergency JESSICA NICHOLE DO [facility] ER ABD PAIN [id number] 03/24/2018 09:29:00 03/24/2018 10:28:00 DIS Emergency RADHIKA YAN, JEREMY Laws [facility] ER NECK PAIN,SHOULDER PAIN,FELL IN SHOWER [id number] 03/23/2018 09:48:00 03/23/2018 23:59:59 CLS Preadmit NO, LOCAL PHYSICIAN [facility] REHAB CERVICAL DYSTONIA [id number] 03/09/2018 09:01:00 03/09/2018 11:39:00 DIS Emergency JEREMY GARRIDO MD [facility] ER NECK PAIN [id number] 02/25/2018 08:05:00 02/25/2018 08:48:00 DIS Emergency VANESSA MILES MD [facility] ER NECK PAIN [id number] 02/18/2018 12:58:00 02/18/2018 15:40:00 DIS Emergency GAURANG TOMAS [facility] ER NECK PAIN [id number] 01/26/2018 13:03:00 01/26/2018 13:39:00 DIS Emergency BOO THOMPSON APRN [facility] ER NECK AND SHOULDER PAIN AND DISCOMFORT [id number] 12/09/2017 20:42:00 12/10/2017 00:05:00 DIS Emergency JESSICA NICHOLE DO [facility] ER BACK AND NECK PAIN;FALL [id number] 11/27/2017 04:58:00 11/27/2017 08:06:00 DIS Emergency GABI YAN, DEE Anderson [facility] ER BACK PAIN,SON WALKED ON BACK YESTERDAY [id number] 11/26/2017 08:47:00 11/26/2017 10:32:00 DIS Emergency DAVON VINCENT MD [facility] ER SHAKING,NECK PAIN,RIGHT SIDE PAIN [id number] 10/29/2017 08:57:00 10/29/2017 11:11:00 DIS Emergency DEE ASHLEY MD [facility] ER NECK PAIN [id number] 09/29/2017 08:34:00 09/29/2017 13:37:00 DIS Emergency JEREMY GARRIDO MD [facility] ER CP [id number] 08/18/2017 06:40:00 08/18/2017 07:45:00 DIS Emergency JEREMY GARRIDO MD [facility] ER NEUROLOGICAL DISORDER, CAN'T SLEEP [id number] 07/05/2017 16:36:00 07/05/2017 17:08:00 DIS Emergency DEE ASHLEY MD [facility] ER DENTAL PAIN [id number] 06/12/2017 13:03:00 06/12/2017 15:28:00 DIS Emergency JUSTIN VELOZ [facility] ER NECK PAIN [id number] 06/11/2017 17:39:00 06/11/2017 18:30:00 DIS Emergency VANESSA MILES MD [facility] ER NECK INJ [id number] 02/18/2017 10:20:00 02/18/2017 13:13:00 DIS Emergency JUSTIN VELOZ [facility] ER COUGH NAUSEA [id number] 02/06/2017 13:54:00 02/06/2017 14:16:00 DIS Emergency BOO THOMPSON APRN [facility] ER COUGH/CHEST CONGESTION [id number] 09/25/2016 10:36:00 09/25/2016 12:08:00 DIS Emergency BOO THOMPSON APRN [facility] ER VOMITING COUGH HEADACHE FATIGUE [id number] 06/02/2016 13:14:00 06/02/2016 14:13:00 DIS Emergency VANESSA MILES MD [facility] ER NECK PAIN/SHAKING [id number] 04/22/2015 23:25:00 04/24/2015 15:25:00 DIS Inpatient VANESSA PAZ MD [facility] 4TH BENZODIAZEPINE WITHDRAWAL ;NARCOTIC WITHDRAWAL [id number] 04/21/2015 20:34:00 04/21/2015 22:10:00 DIS Emergency BOO THOMPSON APRN [facility] ER BLOODY STOOLS,ABD PAIN, WANTS REHAB [id number] 02/18/2015 12:02:00 02/18/2015 12:51:00 DIS Emergency JUSTIN VELOZ [facility] ER CYST ON HIP [id number] 02/16/2015 00:03:00 02/16/2015 00:55:00 DIS Emergency MORGAN GANNON DO [facility] ER CELLULITIS [id number] 01/15/2015 11:44:00 01/15/2015 23:59:59 CLS Preadmit ROHAN HARTMAN MD [facility] WOUNDCARE [id number] 01/07/2015 01:35:00 01/10/2015 16:30:00 DIS [facility]LLULIT[facility] [id number] 07/08/2014 11:44:00 07/08/2014 12:25:00 DIS Emergency BOO THOMPSON APRN [facility] ER TOOTH INFECTION [id number] 06/03/2013 16:23:00 06/03/2013 23:59:59 CLS Preadmit DAVON VINCENT MD [facility] ER DENTAL PAIN,POSSIBLE RASH [id number] 06/01/2013 12:37:00 06/01/2013 23:59:59 CLS Outpatient [id number] 05/28/2013 08:10:00 05/28/2013 09:58:00 DIS Emergency JESSICA NICHOLE DO [facility] ER L SIDE LOWER BACK PAIN AND RIB PAIN [id number] 04/28/2013 16:12:00 04/28/2013 18:55:00 DIS Emergency ELADIA REYESITZCHERELLE Spain [facility] ER DENTAL PAIN [id number] 03/26/2015 10:11:00 Document Registration [id number] 03/23/2015 13:15:00 Document Registration [id number] 06/03/2012 17:30:00 Document Registration [id number] 03/10/2012 13:38:00 Document Registration [id number] 01/24/2012 14:20:00 Document Registration [id number] 01/10/2012 14:24:00 Document Registration [id number] 12/13/2011 16:18:00 Document Registration [id number] 11/16/2011 08:46:00 Document Registration [id number] 08/18/2011 21:09:00 Document Registration [id number] 04/08/2011 12:15:00 Document Registration [id number] 11/28/2010 16:26:00 Document Registration [id number] 10/14/2010 10:52:00 Document Registration [id number] 07/28/2010 16:08:00 Document Registration [id number] 07/03/2010 02:58:00 Document Registration [id number] 06/06/2010 06:29:00 Document Registration [id number] 04/22/2010 12:05:00 Document Registration [id number] 01/19/2018 10:40:00 01/19/2018 23:59:59 CLS Outpatient [employer] [id number] 06/19/2016 08:46:00 Document Registration
[2018-04-28] MEDS ORDERED: ORPHENADRINE 60 MG/2 ML (NORFLEX) AMP IM STA (02:19)
[2018-04-28] MEDS ORDERED: KETOROLAC 60 MG/2 ML VIAL IM STA (02:19)
--- NOTE | 2018-04-28 02:28 | ED Neck-Back Pain/Injury ---
General Chief Complaint: Trauma-Non Activation Stated Complaint: PREVIOUS FALL, NECK PAIN Nursing Triage Note: NECK PAIN S/P FALL 04/26/18 Nursing Sepsis Screen: No Definite Risk Source of Information: Patient Exam Limitations: No Limitations History of Present Illness Date Seen by Provider: Apr 28, 2018 Time Seen by Provider: 02:09 Initial Comments Here by EMS with police escort for complaining of pain in his neck. Apparently he was walking to the hospital for the neck pain and it was hurting too bad down a police lieutenant patrol who noted that he had a warrant for his arrest. He wanted to be seen so was brought here for evaluation. He states that he fell in the shower 2 days ago and had neck pain exacerbation of his chronic neck pain problem. He has been seen multiple times for the same and has at least 10 CTs of the neck/spine/Ed and other CTs of the chest abdomen and pelvis. None have demonstrated any significant abnormality of the C-spine. Patient states that he has been unable to get in with the neurologist in [place] due to transportation issues and he is looking for one closer and is considering [place]. Injury occurred 2 days ago when he fell backwards in the shower and hit his head on the wall. No loss of consciousness but states he strained his neck. He states he felt his neck pop but his neck pops quite a bit. Denies nausea or vomiting. Denies weakness. Allergies and Home Medications Allergies Coded Allergies: No Known Drug Allergies (Verified , 02/06/17) Patient Home Medication List Home Medication List Reviewed: Yes Constitutional: see HPI; No chills, No fever Respiratory: no symptoms reported Cardiovascular: no symptoms reported Gastrointestinal: no symptoms reported Musculoskeletal: see HPI, muscle pain, muscle stiffness, neck pain Skin: no symptoms reported Past Zzcxyyq-Fukotf-Cucadh Hx Past Med/Social Hx: Reviewed Nursing Past Med/Soc Hx Patient Social History Alcohol Use: Denies Use Recreational Drug Use: No (DENIES) Drug of Choice: THC, TESTED + FOR BENZODIAZEPINES 04/01/18 Smoking Status: Current Everyday Smoker Type Used: Cigarettes 2nd Hand Smoke Exposure: Yes Recent Foreign Travel: No Contact w/Someone Who Travel: No Recent Infectious Disease Expo: No Recent Hopitalizations: No Immunizations Up To Date Tetanus Booster (TDap): Unknown Date of Influenza Vaccine: Aug 19, 2011 Seasonal Allergies Seasonal Allergies: No Past Medical History Surgeries: No Respiratory: No Cardiac: No Neurological: Yes ("CERVICAL DYSTONIA" PER PT--SELF-REPORTED; TREMOR) Headaches /Migraines Reproductive Disorders: No Sexually Transmitted Disease: No HIV/AIDS: No Genitourinary: No Gastrointestinal: No Musculoskeletal: Yes (CHRONIC NECK PAIN AND SELF-REPORTED "CERVICAL DYSTONIA" ) Chronic Back Pain Endocrine: Yes ("Thyroid issues") HEENT: Yes (Recurrent dental pain) Cancer: No Psychosocial: Yes Depression Integumentary: Yes (ABSCESSES) Blood Disorders: No Family Medical History Reviewed Nursing Family Hx Patient reports no known family medical history. No Pertinent Family Hx Physical Exam Vital Signs Vital Signs - First Documented 04/28/18 02:12 Temp 98.3 Pulse 92 Resp 18 B/P (MAP) 122/81 (95) Pulse Ox 95 O2 Delivery Room Air Capillary Refill : Less Than 3 Seconds Height, Weight, BMI Height: 5', 6.00" Weight: 140lbs 7.0oz, 63.308261sy Method:Stated ,23.49BMI General Appearance: No Apparent Distress, WD/WN Neck: Limited Range of Motion (typical for patient), Tender Lateral; No Tender Midline (left-sided) Cardiovascular: Regular Rate, Rhythm, No Murmur Respiratory: Lungs Clear, Normal Breath Sounds Extremity: Normal Range of Motion, Non Tender Neurologic/Psychiatric: Alert, Oriented x3, Other (normal gait) Skin: Normal Color, Warm/Dry Progress/Results/Core Measures Results/Orders My Orders Orders - DEE ASHLEY MD Ketorolac Injection (Toradol Injection) (04/28/18 02:19) Orphenadrine Injection (Norflex Injectio (04/28/18 02:19) Drug Screen Stat (Urine) (04/28/18 02:19) Vital Signs/I&O 04/28/18 02:12 Temp 98.3 Pulse 92 Resp 18 B/P (MAP) 122/81 (95) Pulse Ox 95 O2 Delivery Room Air Blood Pressure Mean: 95 Progress Progress Note : Progress Note Seen and evaluated. I have discussed my concern with him related to his chronic neck pain and frequent CT scans. He has had multiple CT scans over the last 8 years of his spine. I discussed with him my concerns for thyroid cancer. Patient is concerned about this and states that the injury was not that bad and he does not want a CT scan. C-collar was removed and he had typical range of motion for him. I did express that we would be unable to tell if he had a serious neck injury without CT scan and he states that he does not want to do that and is not worried about injury but does still have some pain. Norflex and Toradol ordered and given. Discharged home with return precautions. Patient verbalize understanding of instructions and agreement with plan. Gait is steady and he moves all extremities without difficulty. There is no focal neurological deficit other than the left lateral tenderness which is typical for him. Departure Impression Primary Impression: Neck pain Disposition: HOME, SELF-CARE Condition: Stable Departure-Patient Inst. Decision time for Depature: 02:29 Referrals: NO,LOCAL PHYSICIAN (PCP/Family) Primary Care Physician Patient Instructions: Chronic Neck Pain (DC) Add. Discharge Instructions: All discharge instructions reviewed with patient and/or family. Voiced understanding. Follow-up with your doctor this week for recheck and further evaluation and referral to neurology/neurosurgery for further evaluation as previously indicated. You may take ibuprofen 600 mg every 8 hours as needed for pain. You may take Tylenol 1000 mg every 8 hours as needed for pain. Drink plenty of fluids. You may use warm packs or other [id number] items such as I see hot with lidocaine or salon past with lidocaine or similar to area of concern. Cleared for incarceration. DEE ASHLEY MD Apr 28, 2018 02:28
[2018-04-28 02:35] VITALS: BP 122/81
[2018-04-28 02:44] LABS: AMPHETAMINE SCREEN, URINE NEGATIVE (NEGATIVE); BARBITURATE SCREEN URINE NEGATIVE (NEGATIVE); BENZODIAZEPINES SCREEN URINE NEGATIVE (NEGATIVE); CANNABINOID SCREEN, URINE NEGATIVE (NEGATIVE); COCAINE SCREEN URINE NEGATIVE (NEGATIVE); METHADONE STAT NEGATIVE (NEGATIVE); METHAMPHETAMINE SCREEN URINE S NEGATIVE (NEGATIVE); OPIATE SCREEN URINE NEGATIVE (NEGATIVE); OXYCODONE STAT NEGATIVE (NEGATIVE); PROPOXYPHENE STAT NEGATIVE (NEGATIVE); TRICYCLIC ANTIDEPRESSANTS SCRE NEGATIVE (NEGATIVE)
== END 2018-04-28 02:38 | disposition home or self-care (01) ==
LOC: EDUNIT# 02:09 → ER 02:10
DX: M54.2 Cervicalgia (principal); G43.909 Migraine, unspecified, not intractable, without status migrainosus; E07.9 Disorder of thyroid, unspecified; F32.9 Major depressive disorder, single episode, unspecified; F17.210 Nicotine dependence, cigarettes, uncomplicated; W01.198A Fall on same level from slipping, tripping and stumbling with subsequent striking against other object, initial encounter; Y93.E1 Activity, personal bathing and showering
CPT/HCPCS: 80306; 96372; 99284

== ENCOUNTER 2018-05-01 11:18 | Emergency (ER) | payer MEDICAID ==
[~2018-05-01] VITALS: Ht 167.6 cm; Wt 68.0 kg
[2018-05-01] MEDS ORDERED: ORPHENADRINE 60 MG/2 ML (NORFLEX) AMP IM ONE (11:30)
--- NOTE | 2018-05-01 11:36 | ED Neck-Back Pain/Injury ---
General Chief Complaint: Head/Cervical Problems Stated Complaint: NECK PROBLEMS,PAIN Source of Information: Patient Exam Limitations: No Limitations History of Present Illness Date Seen by Provider: May 01, 2018 Time Seen by Provider: 11:32 Initial Comments Patient is a 33-year-old male who presents to the emergency room with complaints of chronic cervical disc dystonia. He has been seen numerous times in this emergency room with several imaging studies. He reports having appointments in [place] with a neurologist but is unable to make these appointments due to transportation. He is a patient of [facility] and reports they are who set up these appointments for him. He states that he was just seen on the April 28 in this emergency room and he also reports that on the April 29 he went to the [place] emergency room and was given a steroid dose pack. He reports this pain is very similar to his chronic pain and he denies injury. Location: C-Spine Timing/Duration: Other (chronic) Pain/Injury Location: Neck Modifying Factors: Worse With Movement; Improves With Pain Medication Associated Symptoms: muscle spasms; No weakness, No numbness in legs/feet, No tingling in legs/feet, No sensory/motor loss, No lower back pain, No loss of bladder control, No loss of bowel control Allergies and Home Medications Allergies Coded Allergies: No Known Drug Allergies (Verified , 02/06/17) Patient Home Medication List Home Medication List Reviewed: Yes Constitutional: see HPI; No chills, No diaphoresis, No weakness EENTM: no symptoms reported Respiratory: see HPI; No dyspnea on exertion, No short of breath, No wheezing Cardiovascular: see HPI; No chest pain, No edema Gastrointestinal: see HPI; No abdominal pain, No constipation, No diarrhea Genitourinary: see HPI; No decreased output, No discharge, No dysuria Musculoskeletal: see HPI; No back pain, No gout, No joint pain; neck pain ( patient has left-sided) Skin: see HPI; No change in color, No change in hair/nails, No dryness Psychiatric/Neurological: See HPI; Denies Anxiety, Denies Depressed, Denies Emotional Problems Past Djouzje-Arrzaj-Kvcsbb Hx Past Med/Social Hx: Reviewed Nursing Past Med/Soc Hx Patient Social History Drug of Choice: THC, TESTED + FOR BENZODIAZEPINES 04/01/18 Type Used: Cigarettes 2nd Hand Smoke Exposure: Yes Recent Foreign Travel: No Contact w/Someone Who Travel: No Recent Hopitalizations: No Immunizations Up To Date Tetanus Booster (TDap): Unknown Date of Influenza Vaccine: Aug 19, 2011 Seasonal Allergies Seasonal Allergies: No Past Medical History Surgeries: No Respiratory: No Cardiac: No Neurological: Yes ("CERVICAL DYSTONIA" PER PT--SELF-REPORTED; TREMOR) Headaches /Migraines Reproductive Disorders: No Sexually Transmitted Disease: No HIV/AIDS: No Genitourinary: No Gastrointestinal: No Musculoskeletal: Yes (CHRONIC NECK PAIN AND SELF-REPORTED "CERVICAL DYSTONIA" ) Chronic Back Pain Endocrine: Yes ("Thyroid issues") HEENT: Yes (Recurrent dental pain) Cancer: No Psychosocial: Yes Depression Integumentary: Yes (ABSCESSES) Blood Disorders: No Family Medical History Reviewed Nursing Family Hx Patient reports no known family medical history. No Pertinent Family Hx Physical Exam Vital Signs Vital Signs - First Documented 05/01/18 11:25 Temp 96.2 Pulse 74 Resp 18 B/P (MAP) 125/98 (107) Pulse Ox 96 Capillary Refill : Height, Weight, BMI Height: 5'6.00" Weight: 140lbs. 7.0oz. 63.081600hb; 23.49 BMI Method:Stated General Appearance: No Apparent Distress, WD/WN HEENT: PERRL/EOMI, TMs Normal, Normal ENT Inspection, Pharynx Normal, Moist Mucous Membranes Neck: Normal Inspection, Supple, Tender Lateral (left lateral tenderness. He reports normal.), Other (typical range of motion for him) Cardiovascular: Regular Rate, Rhythm, No Edema, No Gallop, No JVD, No Murmur, Normal Peripheral Pulses Respiratory: Chest Non Tender, Lungs Clear, Normal Breath Sounds, No Accessory Muscle Use, No Respiratory Distress Gastrointestinal: Normal Bowel Sounds, No Organomegaly, No Pulsatile Mass, Non Tender, Soft Back: Normal Inspection, No CVA Tenderness, No Vertebral Tenderness Extremity: Normal Capillary Refill, Normal Inspection, Normal Range of Motion Neurologic/Psychiatric: Alert, Oriented x3, Normal Mood/Affect Skin: Normal Color, Warm/Dry Lymphatic: No Adenopathy Progress/Results/Core Measures Results/Orders My Orders Orders - BERNOT,DIDIER Orphenadrine Injection (Norflex Injectio (05/01/18 11:30) Tramadol Tablet (Ultram Tablet) (05/01/18 11:30) Medications Given in ED Current Medications Medications Dose Ordered Sig/Travis Route Start Time Stop Time Status Last Admin Dose Admin Orphenadrine Citrate 60 mg ONCE ONCE IM 05/01/18 11:30 05/01/18 11:31 DC 05/01/18 11:40 60 MG Tramadol HCl 50 mg ONCE ONCE PO 05/01/18 11:30 05/01/18 11:31 DC 05/01/18 11:40 50 MG Vital Signs/I&O 05/01/18 05/01/18 11:25 12:00 Temp 96.2 96.2 Pulse 74 74 Resp 18 18 B/P (MAP) 125/98 (107) 125/98 (107) Pulse Ox 96 96 Progress Progress Note : Time: 11:25 Progress Note I discussed close follow up with [facility] early next week. I informed him that they can make arrangements for transportation to [place]. He agrees with follow-up with [facility] early next week. Departure Impression Primary Impression: Chronic neck pain Disposition: 01 HOME, SELF-CARE Condition: Stable/Unchanged Departure-Patient Inst. Decision time for Depature: 11:56 Referrals: NO,LOCAL PHYSICIAN (PCP) Primary Care Physician [facility] Patient Instructions: Chronic Neck Pain (DC) Add. Discharge Instructions: All discharge instructions reviewed with patient and/or family. Voiced understanding. Follow-up with your doctor within 1 week for recheck and further evaluation and referral to neurology/neurosurgery for further evaluation as previously indicated. Call Thursday morning for appointment time. [facility] [phone] You may take ibuprofen 600 mg every 8 hours as needed for pain. You may take Tylenol 1000 mg every 8 hours as needed for pain. Drink plenty of fluids. DIDIER JONES May 01, 2018 11:36
[2018-05-01 12:00] VITALS: BP 125/98
--- OUTSIDE RECORDS SUMMARY | 2018-05-02 15:56 | XMS REPORT | Continuity of Care Document ---
Author Author [facility] of [facility] Address Unknown Phone Unavailable Allergies Active Description Code Type Severity Reaction Onset Reported/Identified Relationship to Patient Clinical Status Yes NO KNOWN DRUG ALLERGIES UNKNOWN NO KNOWN DRUG ALLERG Yes No Known Drug Allergies [id number] Drug Allergy Mild N/A 02/06/2017 Medications Medication Packaging Start Date Stop Date Route Dosage Sig KETOROLAC VIAL INJ 60 MG/2CC (TORADOL VIAL) MG 04/28/2018 04/28/2018 ONCE&1733 ORPHENADRINE INJ 60 MG/2CC (NORFLEX) MG 04/28/2018 04/28/2018 ONCE&1734 Problems Date Dx Coded Attending Type Code [...] KIDNEY DISEASE, UNSPECIFIED 10/03/2014 MORGAN BARRERA APRN 723.1 PAIN NECK 10/03/2014 MORGAN BARRERA APRN 723.1 PAIN NECK 10/03/2014 SALMA DDS, JESSICA 723.1 PAIN NECK 01/10/2015 INGRID YAN, CAROLEE Kisre Ot 041.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 SUSCEPTIBLE STAPHYLOCOCCUS A 01/10/2015 INGRID YAN, CAROLEE Kiser Ot 682.3 CELLULITIS OF ARM 02/16/2015 MORGAN GANNON DO Ot 041.12 METHICILLIN RESISTANT STAPHYLOCOCCUS AUR 02/16/2015 MORGAN GANNON DO Ot 682.3 CELLULITIS OF ARM 02/16/2015 MORGAN GANNON DO Ot 682.6 CELLULITIS OF LEG 02/18/2015 JUSTIN VELOZ Ot 682.6 CELLULITIS OF LEG 04/21/2015 BOO THOMPSON [employer] Ot 305.50 OPIOID ABUSE-UNSPEC 04/21/2015 BOO THOMPSON APRN Ot 564.00 UNSPEC CONSTIPATION 04/21/2015 BOO THOMPSON APRN Ot 789.05 ABDOMINAL PAIN, PERIUMBILIC 04/24/2015 VANESSA PAZ MD Ot 305.1 TOBACCO USE DISORDER 04/24/2015 VANESSA PAZ MD Ot 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, HYPNOTIC OR ANXIOLYTIC ABUSE, 04/24/2015 VANESSA PAZ MD Ot 305.51 OPIOID ABUSE-CONTINUOUS 06/02/2016 VANESSA MILES MD Ot F17.210 NICOTINE DEPENDENCE, CIGARETTES, UNCOMPL 06/02/2016 VANESSA MILES MD Ot M54.2 CERVICALGIA 06/04/2016 VANESSA MILES MD Ot F17.210 NICOTINE DEPENDENCE, CIGARETTES, UNCOMPL 06/04/2016 VANESSA MILES MD Ot M54.2 CERVICALGIA 09/25/2016 BOO THOMPSON APRN Ot F17.210 NICOTINE DEPENDENCE, CIGARETTES, UNCOMPL 09/25/2016 [facility] Ot M79.1 MYALGIA 09/25/2016 BOO THOMPSON APRN Ot R11.2 NAUSEA WITH VOMITING, UNSPECIFIED 09/25/2016 B[facility] Ot R19.7 DIARRHEA, UNSPECIFIED 09/25/2016 [facility] Ot R51 HEADACHE 09/26/2016 BOO THOMPSON APRN Ot F17.210 NICOTINE DEPENDENCE, CIGARETTES, UNCOMPL 09/26/2016 [facility] Ot M79.1 MYALGIA 09/26/2016 B[employer] Ot R11.2 NAUSEA WITH VOMITING, UNSPECIFIED 09/26/2016 BOO THOMPSON APRN Ot R19.7 DIARRHEA, UNSPECIFIED 09/26/2016 BOO THOMPSON APRN Ot R51 HEADACHE 02/06/2017 BOO THOMPSON APRN Ot J40 BRONCHITIS, NOT SPECIFIED ACUTE OR CH 02/06/2017 BOO THOMPSON APRN Ot R05 COUGH 02/18/2017 JUSTIN VELOZ Ot [...] EXPOSURE TO OTHER SPECIFIED FACTORS, INI 06/12/2017 GINGER YAN, VANESSA Adame Ot Y99.8 OTHER EXTERNAL CAUSE STATUS 06/12/2017 GINGER YAN, VANESSA Adame Ot Z53.21 PROC/TRTMT NOT CRD OUT D/T [...] SPECIFIED DISORDERS OF TEETH AND S 08/18/2017 JEREMY GARRIOD MD Ot F17.210 NICOTINE DEPENDENCE, CIGARETTES, UNCOMPL 08/18/2017 JEREMY GARRIDO MD Ot F32.9 MAJOR DEPRESSIVE DISORDER, SINGLE EPISOD 08/18/2017 JEREMY GARRIDO MD Ot G24.3 SPASMODIC TORTICOLLIS 08/18/2017 JEREMY GARRIDO MD Ot G43.909 MIGRAINE, UNSP, NOT INTRACTABLE, WITHOUT 09/29/2017 JEREMY GARRIDO MD Ot F17.210 NICOTINE DEPENDENCE, CIGARETTES, UNCOMPL 09/29/2017 JEREMY GARRIDO MD Ot F32.9 MAJOR DEPRESSIVE DISORDER, SINGLE EPISOD 09/29/2017 JEREMY GARRIDO MD Ot G40.909 EPILEPSY, UNSP, NOT INTRACTABLE, WITHOUT 09/29/2017 RADHIKA YAN, JEREMY Laws Ot R07.89 OTHER CHEST PAIN 09/29/2017 RADHIKA YAN, JEREMY Laws Ot R07.9 CHEST PAIN, UNSPECIFIED 10/29/2017 DEE [...] DO Ot M54.9 DORSALGIA, UNSPECIFIED 12/10/2017 JESSICA NCIHOLE DO Ot R40.2142 COMA SCALE, EYES OPEN, [...] AG 12/10/2017 JESSICA NICHOLE DO Ot Z79.82 SENIOR CARE (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 12/11/2017 DIONISIO JESSICA K Ot F12.10 CANNABIS ABUSE, UNCOMPLICATED 12/11/2017 DIONISIO DO JESSICA K Ot F17.210 NICOTINE DEPENDENCE, CIGARETTES, UNCOMPL 12/11/2017 DIONISIO KEARNEY JESSICA K Ot F32.9 MAJOR DEPRESSIVE DISORDER, SINGLE EPISOD 12/11/2017 DIONISIO JESSICA Sean Ot G43.909 MIGRAINE, UNSP, NOT INTRACTABLE, WITHOUT 12/11/2017 DIONISIO JESSICA K Ot G89.29 OTHER CHRONIC PAIN 12/11/2017 DIONISIO DO JESSICA K Ot M54.2 CERVICALGIA 12/11/2017 DIONISIO DO JESSICA K Ot M54.9 DORSALGIA, UNSPECIFIED 12/11/2017 DIONISIO JESSICA K Ot R40.2142 COMA SCALE, EYES OPEN, SPONTANEOUS, EMR 12/11/2017 DIONISIO DO JESSICA K Ot R40.2252 COMA SCALE, BEST VERBAL RESPONSE, ORIENT 12/11/2017 DIONISIO DO JESSICA K Ot R40.2362 COMA SCALE, BEST MOTOR RESPONSE, OBEYS C 12/11/2017 DIONISIO JESSICA Sean Ot S00.93XA CONTUSION OF UNSPECIFIED PART OF HEAD, I 12/11/2017 DIONISIO DO JESSICA Sean Ot S20.211A CONTUSION OF RIGHT FRONT WALL OF THORAX, 12/11/2017 DIONISIO DO JESSICA K Ot W01.198A FALL SAME LEV FROM SLIP/TRIP W STRIKE AG 12/11/2017 DIONISIO DO JESSICA Sean Ot Z79.82 REFINING SUPERVISOR (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 01/26/2018 BOO [...] 01/26/2018 BOO THOMPSON APRN Ot Y93.61 ACTIVITY, ARMENIAN TACKLE FOOTBALL 01/26/2018 BOO THOMPSON APRN Ot Z77.22 CNTCT W AND EXPSR TO ENVIRON TOBACCO SMO 01/26/2018 BOO THOMPSON APRN Ot Z79.52 SENIOR CARE (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 OF SYSTEMIC STER 01/26/2018 BOO [...] 01/28/2018 BOO THOMPSON APRN Ot Y93.61 ACTIVITY, ARMENIAN TACKLE FOOTBALL 01/28/2018 BOO THOMPSON APRN Ot Z77.22 CNTCT W AND EXPSR TO ENVIRON TOBACCO SMO 01/28/2018 BOO THOMPSON APRN Ot Z79.52 SENIOR CARE (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 OF SYSTEMIC STER 01/28/2018 BOO [...] 02/01/2018 BOO THOMPSON APRN Ot Y93.61 ACTIVITY, ARMENIAN TACKLE FOOTBALL 02/01/2018 BOO THOMPSON APRN Ot Z77.22 CNTCT W AND EXPSR TO ENVIRON TOBACCO SMO 02/01/2018 BOO THOMPSON APRN Ot Z79.52 REFINING SUPERVISOR (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 OF SYSTEMIC STER 02/01/2018 BOO THOMPSON [employer] Ot Z87.59 PERSONAL HISTORY OF COMP OF PREG, CHLDBR 02/18/2018 GENOVEVA, GAURANG CHILI PEPPER GRINDER Ot F17.210 NICOTINE DEPENDENCE, CIGARETTES, UNCOMPL 02/18/2018 GENOVEVA, GAURANG CHILI PEPPER GRINDER Ot F32.9 MAJOR DEPRESSIVE DISORDER, SINGLE EPISOD 02/18/2018 GENOVEVA, GAURANG CHILI PEPPER GRINDER Ot G43.909 MIGRAINE, UNSP, NOT INTRACTABLE, WITHOUT 02/18/2018 GENOVEVA, GAURANG CHILI PEPPER GRINDER Ot M50.90 CERVICAL DISC DISORDER, UNSP, UNSPECIFIE 02/18/2018 GENOVEVA, GAURANG CHILI PEPPER GRINDER Ot M54.2 CERVICALGIA 02/18/2018 GENOVEVA, GAURANG CHILI PEPPER GRINDER Ot Z79.52 SENIOR CARE (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 OF SYSTEMIC STER 02/22/2018 GENOVEVA, GAURANG CHILI PEPPER GRINDER Ot F17.210 NICOTINE DEPENDENCE, CIGARETTES, UNCOMPL 02/22/2018 GENOVEVA, GAURANG CHILI PEPPER GRINDER Ot F32.9 MAJOR DEPRESSIVE DISORDER, SINGLE EPISOD 02/22/2018 GENOVEVA, GAURANG CHILI PEPPER GRINDER Ot G43.909 MIGRAINE, UNSP, NOT INTRACTABLE, WITHOUT 02/22/2018 GENOVEVA, GAURANG CHILI PEPPER GRINDER Ot M50.90 CERVICAL DISC DISORDER, UNSP, UNSPECIFIE 02/22/2018 GENOVEVA, GAURANG CHILI PEPPER GRINDER Ot M54.2 CERVICALGIA 02/22/2018 GENOVEVA, GAURANG CHILI PEPPER GRINDER Ot Z79.52 REFINING SUPERVISOR (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 OF SYSTEMIC STER 02/24/2018 GENOVEVA, GAURANG CHILI PEPPER GRINDER Ot F17.210 NICOTINE DEPENDENCE, CIGARETTES, UNCOMPL 02/24/2018 GENOVEVA, GAURANG CHILI PEPPER GRINDER Ot F32.9 MAJOR DEPRESSIVE DISORDER, SINGLE EPISOD 02/24/2018 GENOVEVA, GAURANG CHILI PEPPER GRINDER Ot G43.909 MIGRAINE, UNSP, NOT INTRACTABLE, WITHOUT 02/24/2018 GENOVEVA, GAURANG CHILI PEPPER GRINDER Ot M50.90 CERVICAL DISC DISORDER, UNSP, UNSPECIFIE 02/24/2018 GENOVEVA, GAURANG CHILI PEPPER GRINDER Ot M54.2 CERVICALGIA 02/24/2018 GENOVEVA, GAURANG CHILI PEPPER GRINDER Ot Z79.52 REFINING SUPERVISOR (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 OF SYSTEMIC STER 02/25/2018 GINGER YAN, VANESSA Adame Ot F17.210 NICOTINE DEPENDENCE, CIGARETTES, UNCOMPL 02/25/2018 GINGER YAN, VANESSA Adame Ot F32.9 MAJOR DEPRESSIVE DISORDER, SINGLE EPISOD 02/25/2018 GINGER YAN, VANESSA Adame Ot G24.9 DYSTONIA, UNSPECIFIED 02/25/2018 GINGER YAN, VANESSA S Ot G43.909 MIGRAINE, UNSP, NOT INTRACTABLE, WITHOUT 02/25/2018 GINGER YAN, VANESSA Adame Ot M54.2 CERVICALGIA 03/09/2018 JEREMY GARRIDO MD T Ot F12.10 CANNABIS ABUSE, UNCOMPLICATED 03/09/2018 RADHIKA YAN, JEREMY T Ot F17.210 NICOTINE DEPENDENCE, CIGARETTES, UNCOMPL 03/09/2018 JEREMY GARRIDO MD Ot F32.9 MAJOR DEPRESSIVE DISORDER, SINGLE EPISOD 03/09/2018 JEREMY GARRIDO MD Ot G43.909 MIGRAINE, UNSP, NOT INTRACTABLE, WITHOUT 03/09/2018 RADHIKA YAN, JEREMY T Ot M50.30 OTHER CERVICAL DISC DEGENERATION, UNSP C 03/09/2018 JEREMY GARRIDO MD Ot M54.2 CERVICALGIA 03/09/2018 JEREMY GARRIDO MD T Ot Z79.52 REFINING SUPERVISOR (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 OF SYSTEMIC STER 03/11/2018 JEREMY GARRIDO MD T Ot F12.10 CANNABIS ABUSE, UNCOMPLICATED 03/11/2018 RADHIKA YAN, JEREMY T Ot F17.210 NICOTINE DEPENDENCE, CIGARETTES, UNCOMPL 03/11/2018 JEREMY GARRIDO MD Ot F32.9 MAJOR DEPRESSIVE DISORDER, SINGLE EPISOD 03/11/2018 JEREMY GARRIDO MD Ot G43.909 MIGRAINE, UNSP, NOT INTRACTABLE, WITHOUT 03/11/2018 RADHIKA YAN, JEREMY T Ot M50.30 OTHER CERVICAL DISC DEGENERATION, UNSP C 03/11/2018 JEREMY GARRIDO MD Ot M54.2 CERVICALGIA 03/11/2018 JEREMY GARRIDO MD T Ot Z79.52 SENIOR CARE (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 OF SYSTEMIC STER 03/24/2018 JEREMY GARRIDO MD Ot F32.9 MAJOR DEPRESSIVE DISORDER, SINGLE EPISOD 03/24/2018 JEREMY GARRIDO MD T Ot G24.8 OTHER DYSTONIA 03/24/2018 JEREMY GARRIDO MD Ot G43.909 MIGRAINE, UNSP, NOT INTRACTABLE, WITHOUT 03/24/2018 JEREMY GARRIDO MD Ot G89.29 OTHER CHRONIC PAIN 03/24/2018 JEREMY GARRIDO MD Ot M54.2 CERVICALGIA 03/24/2018 JEREMY GARRIDO MD Ot W01.198A FALL SAME LEV FROM SLIP/TRIP W STRIKE AG 03/24/2018 JEREMY GARRIDO MD Ot Y92.002 BATHRM OF [facility] SN 03/24/2018 JEREMY GARRIDO MD Ot Z79.52 REFINING SUPERVISOR (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 OF SYSTEMIC STER 03/24/2018 JEREMY [...] JEREMY GARRIDO MD Ot Y92.002 [facility]HRM [facility] SN 03/26/2018 JEREMY GARRIDO MD Ot Z79.52 REFINING SUPERVISOR (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 OF SYSTEMIC STER 03/26/2018 JEREMY GARRIDO MD Ot Z87.891 PERSONAL HISTORY OF NICOTINE DEPENDENCE 04/01/2018 JESSICA NICHOLE DO Ot F12.10 CANNABIS ABUSE, UNCOMPLICATED 04/01/2018 JESSICA NICHOLE DO Ot F17.210 NICOTINE DEPENDENCE, CIGARETTES, UNCOMPL 04/01/2018 DIONISIO DO, JESSICA K Ot F32.9 MAJOR DEPRESSIVE DISORDER, SINGLE EPISOD 04/01/2018 DIONISIO ELISHA KEARNEYA K Ot G43.909 MIGRAINE, UNSP, NOT INTRACTABLE, WITHOUT 04/01/2018 DIONISIO ELISHA KEARNEYA K Ot R10.12 LEFT UPPER QUADRANT PAIN 04/05/2018 ELISHA NICHOLE DOA K Ot F12.10 CANNABIS ABUSE, UNCOMPLICATED 04/05/2018 DIONISIO ELISHA KEARNEYA K Ot F17.210 NICOTINE DEPENDENCE, CIGARETTES, UNCOMPL 04/05/2018 ELISHA NICHOLE DOA K Ot F32.9 MAJOR DEPRESSIVE DISORDER, SINGLE EPISOD 04/05/2018 DIONISIO ELISHA KEARNEYA K Ot G43.909 MIGRAINE, UNSP, NOT INTRACTABLE, WITHOUT 04/05/2018 DIONISIO , JESSICA Sean Ot R10.12 LEFT UPPER QUADRANT PAIN 04/12/2018 [...] 04/14/2018 DEE ASHLEY MD Ot M54.2 CERVICALGIA 04/30/2018 DEE ASHLEY MD Ot E07.9 DISORDER OF THYROID, UNSPECIFIED 04/30/2018 DEE ASHLEY MD Ot F17.210 NICOTINE DEPENDENCE, CIGARETTES, UNCOMPL 04/30/2018 DEE ASHLEY MD Ot F32.9 MAJOR DEPRESSIVE DISORDER, SINGLE EPISOD 04/30/2018 DEE ASHLEY MD Ot G43.909 MIGRAINE, UNSP, NOT INTRACTABLE, WITHOUT 04/30/2018 DEE ASHLEY MD Ot M54.2 CERVICALGIA 04/30/2018 DEE ASHLEY MD Ot W01.198A FALL SAME LEV FROM SLIP/TRIP W STRIKE AG 04/30/2018 DEE ASHLEY MD Ot Y93.E1 ACTIVITY, PERSONAL BATHING AND SHOWERING Procedures Code Description Performed By Performed On [...] 10.5 [foz_us] 7.4-10.4 Automated blood neutrophils/100 leukocytes 52 % [...] plasma ethanol measurement (mass/volume) < mg/dL <10 Urine drug screening test - 04/28/18 02:25 Urine phencyclidine detection by screening method NEGATIVE NEGATIVE Urine benzodiazepines detection by screening method NEGATIVE NEGATIVE Urine cocaine detection NEGATIVE NEGATIVE Urine amphetamines detection by screening method NEGATIVE NEGATIVE Urine methamphetamine detection by screening method NEGATIVE NEGATIVE Urine cannabinoids detection by screening method NEGATIVE NEGATIVE Urine opiates detection by screening method NEGATIVE NEGATIVE Urine barbiturates detection NEGATIVE NEGATIVE Screening urine tricyclic antidepressants detection NEGATIVE NEGATIVE Urine methadone detection by screening method NEGATIVE NEGATIVE Urine oxycodone detection NEGATIVE NEGATIVE Urine propoxyphene detection NEGATIVE NEGATIVE Rapid Drug Screen,Medical - 04/28/18 17:30 Amphetamine NEGATIVE NEGATIVE Barbiturates NEGATIVE NEGATIVE Benzodiazepines POSITIVE NEGATIVE Cocaine NEGATIVE NEGATIVE Marijuana POSITIVE NEGATIVE Methylenedioxymethamphetamine NEGATIVE NEGATIVE Opiates NEGATIVE NEGATIVE Oxycodone NEGATIVE NEGATIVE Phencyclidine NEGATIVE NEGATIVE Propoxyphene NEGATIVE NEGATIVE Tricyclic Antidepressant NEGATIVE NEGATIVE Encounters ACCT No. Visit Date/Time Discharge Status Pt. Type Provider Facility Loc./Unit Complaint [id number] 02/08/2015 13:21:00 02/08/2015 23:59:59 CLS Outpatient JESSICA MARSH DDS [id number] 11/06/2014 12:15:00 11/06/2014 23:59:59 CLS Outpatient MORGAN BARRERA APRN [id number] 10/03/2014 08:26:00 10/03/2014 23:59:59 CLS Outpatient MORGAN BARRERA APRN [id number] 05/07/2010 16:02:00 05/07/2010 23:59:59 CLS Outpatient GLADYS HASKINS DDS [id number] 04/23/2015 02:28:34 ACT Document Registration [id number] 04/28/2018 15:57:00 04/28/2018 18:18:00 [facility] [place] [facility] [place] [id number] 04/28/2018 17:34:01 Document Registration [id number] 04/28/2018 02:10:00 04/28/2018 02:38:00 DIS Outpatient DEE ASHLEY MD [facility] ER PREVIOUS FALL, NECK PAIN [id number] 04/12/2018 08:19:00 04/12/2018 09:50:00 DIS Emergency DEE ASHLEY MD [facility] ER NECK PAIN,SHAKING [id number] 04/01/2018 08:19:00 04/01/2018 10:40:00 DIS Emergency JESSICA NICHOLE DO [facility] ER ABD PAIN [id number] 03/24/2018 09:29:00 03/24/2018 10:28:00 DIS Emergency JEREMY GARRIDO MD [facility] ER NECK PAIN,SHOULDER PAIN,FELL IN SHOWER [id number] 03/23/2018 09:48:00 03/23/2018 23:59:59 CLS Preadmit NO, LOCAL PHYSICIAN [facility] REHAB CERVICAL DYSTONIA [id number] 03/09/2018 09:01:00 03/09/2018 11:39:00 DIS Emergency JEREMY GARRIDO MD [facility] ER NECK PAIN [id number] 02/25/2018 08:05:00 02/25/2018 08:48:00 DIS Emergency VANESSA MILES MD [facility] ER NECK PAIN [id number] 02/18/2018 12:58:00 02/18/2018 15:40:00 DIS Emergency GAURANG TOMAS [facility] ER NECK PAIN [id number] 01/26/2018 13:03:00 01/26/2018 13:39:00 DIS Emergency BOO THOMPSON APRN [facility] ER NECK AND SHOULDER PAIN AND DISCOMFORT [id number] 12/09/2017 20:42:00 12/10/2017 00:05:00 DIS Emergency JESSICA NICHOLE DO [facility] ER BACK AND NECK PAIN;FALL [id number] 11/27/2017 04:58:00 11/27/2017 08:06:00 DIS Emergency GABI YAN, DEE Anderson [facility] ER BACK PAIN,SON WALKED ON BACK YESTERDAY [id number] 11/26/2017 08:47:00 11/26/2017 10:32:00 DIS Emergency CARLTON YAN, DAVON Estrada [facility] ER SHAKING,NECK PAIN,RIGHT SIDE PAIN [id number] 10/29/2017 08:57:00 10/29/2017 11:11:00 DIS Emergency DEE ASHLEY MD [facility] ER NECK PAIN [id number] 09/29/2017 08:34:00 09/29/2017 13:37:00 DIS Emergency JEREMY GARRIDO MD [facility] ER CP [id number] 08/18/2017 06:40:00 08/18/2017 07:45:00 DIS Emergency JEREMY GARRIDO MD [facility] ER NEUROLOGICAL DISORDER, CAN'T SLEEP [id number] 07/05/2017 16:36:00 07/05/2017 17:08:00 DIS Emergency DEE ASHLEY MD [facility] ER DENTAL PAIN [id number] 06/12/2017 13:03:00 06/12/2017 15:28:00 DIS Emergency JUSTIN VELOZ [facility] ER NECK PAIN [id number] 06/11/2017 17:39:00 06/11/2017 18:30:00 DIS Emergency VANESSA MILES MD [facility] ER NECK INJ [id number] 02/18/2017 10:20:00 02/18/2017 13:13:00 DIS Emergency JUSTIN VELOZ [facility] ER COUGH NAUSEA [id number] 02/06/2017 13:54:00 02/06/2017 14:16:00 DIS Emergency BOO THOMPSON APRN [facility] ER COUGH/CHEST CONGESTION [id number] 09/25/2016 10:36:00 09/25/2016 12:08:00 DIS Emergency BOO THOMPSON APRN [facility] ER VOMITING COUGH HEADACHE FATIGUE [id number] 06/02/2016 13:14:00 06/02/2016 14:13:00 DIS Emergency VANESSA MILES MD [facility] ER NECK PAIN/SHAKING [id number] 04/22/2015 23:25:00 04/24/2015 15:25:00 DIS Inpatient VANESSA PAZ MD [facility] 4TH BENZODIAZEPINE WITHDRAWAL ;NARCOTIC WITHDRAWAL [id number] 04/21/2015 20:34:00 04/21/2015 22:10:00 DIS Emergency BOO THOMPSON APRN [facility] ER BLOODY STOOLS,ABD PAIN, WANTS REHAB [id number] 02/18/2015 12:02:00 02/18/2015 12:51:00 DIS Emergency JUSTIN VELOZ [facility] ER CYST ON HIP [id number] 02/16/2015 00:03:00 02/16/2015 00:55:00 DIS Emergency MORGAN GANNON DO [facility] ER CELLULITIS [id number] 01/15/2015 11:44:00 01/15/2015 23:59:59 CLS Preadmit ROHAN HARTMAN MD [facility] WOUNDCARE [id number] 01/07/2015 01:35:00 01/10/2015 16:30:00 DIS Outpatient CAROLEE QUINTERO MD [facility] SDC MULTIPLE ABCESS/ CELLULITIS [id number] 07/08/2014 11:44:00 07/08/2014 12:25:00 DIS Emergency BOO THOMPSON APRN [facility] ER TOOTH INFECTION [id number] 06/03/2013 16:23:00 06/03/2013 23:59:59 CLS Preadmit DAVON VINCENT MD [facility] ER DENTAL PAIN,POSSIBLE RASH [id number] 06/01/2013 12:37:00 06/01/2013 23:59:59 CLS Outpatient [id number] 05/28/2013 08:10:00 05/28/2013 09:58:00 DIS Emergency JESSICA NICHOLE DO [facility] ER L SIDE LOWER BACK PAIN AND RIB PAIN [id number] 04/28/2013 16:12:00 04/28/2013 18:55:00 DIS Emergency JUSTIN VELOZ [facility] ER DENTAL PAIN [id number] 03/26/2015 10:11:00 Document Registration [id number] 03/23/2015 13:15:00 Document Registration [id number] 06/03/2012 17:30:00 Document Registration [id number] 03/10/2012 13:38:00 Document Registration [id number] 01/24/2012 14:20:00 Document Registration [id number] 01/10/2012 14:24:00 Document Registration [id number] 12/13/2011 16:18:00 Document Registration [id number] 11/16/2011 08:46:00 Document Registration [id number] 08/18/2011 21:09:00 Document Registration [id number] 04/08/2011 12:15:00 Document Registration [id number] 11/28/2010 16:26:00 Document Registration [id number] 10/14/2010 10:52:00 Document Registration [id number] 07/28/2010 16:08:00 Document Registration [id number] 07/03/2010 02:58:00 Document Registration [id number] 06/06/2010 06:29:00 Document Registration [id number] 04/22/2010 12:05:00 Document Registration [id number] 01/19/2018 10:40:00 01/19/2018 23:59:59 CLS Outpatient KALANIL JOLEEN [facility]AR[facility] [id number] 06/19/2016 08:46:00 Document Registration
== END 2018-05-01 12:04 | disposition home or self-care (01) ==
LOC: EDUNIT# 11:18 → ER 11:20
DX: M54.2 Cervicalgia (principal); G89.29 Other chronic pain; G43.909 Migraine, unspecified, not intractable, without status migrainosus; E07.9 Disorder of thyroid, unspecified; F32.9 Major depressive disorder, single episode, unspecified; Z77.22 Contact with and (suspected) exposure to environmental tobacco smoke (acute) (chronic)
CPT/HCPCS: 96372; 99284

== ENCOUNTER 2018-05-22 08:39 | Emergency (ER) | payer SELFPAY ==
[~2018-05-22] VITALS: Ht 167.6 cm; Wt 68.0 kg
[2018-05-22] MEDS ORDERED: KETOROLAC 30 MG/ML VIAL IM ONE (09:15)
[2018-05-22] MEDS ORDERED: ORPHENADRINE 60 MG/2 ML (NORFLEX) AMP IM ONE (09:15)
[2018-05-22] MEDS ORDERED: TRAM-42 PO (09:18)
--- NOTE | 2018-05-22 09:18 | ED Neck-Back Pain/Injury ---
General Chief Complaint: Head/Cervical Problems Stated Complaint: NECK PAIN, HEADACHE, Nursing Triage Note: PT AMB TO ROOM #6 W/O DIFFICULTY. A&OX4. CO HEADACHE AND CHRONIC NECK PAIN WHICH IS NOW RADIATING TO BILAT. SHOULDER BLADES. PT REPORTS HE CAN NOT GET INTO PRIMARY DR. AT UNTIL AND THE PAIN HAS BEEN STEADILY INCREASING FOR THE PAST 5 DAYS. PT REPORTS HE HAS BEEN TAKING NAPROXEN AND WARM BATHS TO TRY ANS EASE PAIN WITH LITTLE RELIEF. Nursing Sepsis Screen: No Definite Risk Source of Information: Patient, Old Records Exam Limitations: No Limitations History of Present Illness Date Seen by Provider: May 22, 2018 Time Seen by Provider: 09:00 Initial Comments This 33-year-old man presents to the emergency room with complaints of exacerbation of his chronic neck pain from cervical dystonia. He has been seen in the emergency room room numerous times including multiple recent visits for the same thing. He has had appointments scheduled with [facility] but has not gone due to transportation problems. He also admits that he has not followed up at [facility] since at least February despite documentation that he had appointments scheduled and my assertion that he needs to have his chronic problems managed by his primary care provider. He has been taking ibuprofen and/or naproxen at home for the pain. He had been seen at [facility] as well in April and was prescribed a course of steroids. He stated this was not particularly helpful. He reports his appointment is now scheduled for June. He reports difficulty sleeping for the past 3 days due to exacerbation of his neck pain. Allergies and Home Medications Allergies Coded Allergies: No Known Drug Allergies (Verified , 02/06/17) Home Medications Tramadol HCl 50 Mg Tablet, 50 MG PO Q6H PRN for PAIN-MODERATE TO SEVERE Prescribed by: JEREMY JO on 05/22/18 0954 Patient Home Medication List Home Medication List Reviewed: Yes Constitutional: no symptoms reported EENTM: no symptoms reported Respiratory: no symptoms reported Cardiovascular: no symptoms reported Gastrointestinal: no symptoms reported Genitourinary: no symptoms reported Musculoskeletal: see HPI Skin: no symptoms reported Psychiatric/Neurological: See HPI Past Nldetgd-Tqemsn-Cktmuo Hx Patient Social History Alcohol Use: Denies Use Recreational Drug Use: No Drug of Choice: THC, TESTED + FOR BENZODIAZEPINES 04/01/18 Smoking Status: Current Everyday Smoker Type Used: Cigarettes 2nd Hand Smoke Exposure: Yes Recent Foreign Travel: No Contact w/Someone Who Travel: No Recent Infectious Disease Expo: No Recent Hopitalizations: No Physical Abuse: No Sexual Abuse: No Immunizations Up To Date Tetanus Booster (TDap): Unknown Date of Influenza Vaccine: Aug 19, 2011 Seasonal Allergies Seasonal Allergies: No Past Medical History Surgeries: No Respiratory: No Cardiac: No Neurological: Yes ("CERVICAL DYSTONIA" PER PT--SELF-REPORTED; TREMOR) Headaches /Migraines Reproductive Disorders: No Sexually Transmitted Disease: No HIV/AIDS: No Genitourinary: No Gastrointestinal: No Musculoskeletal: Yes (CHRONIC NECK PAIN AND SELF-REPORTED "CERVICAL DYSTONIA" ) Chronic Back Pain Endocrine: Yes ("Thyroid issues") HEENT: Yes (Recurrent dental pain) Cancer: No Psychosocial: Yes Depression Nursing Suicide Risk Score: 0 Integumentary: Yes (ABSCESSES) Blood Disorders: No Family Medical History Patient reports no known family medical history. No Pertinent Family Hx Physical Exam Vital Signs Vital Signs - First Documented 05/22/18 08:43 Temp 97.0 Pulse 88 Resp 16 B/P (MAP) 118/60 (79) Pulse Ox 98 O2 Delivery Room Air Capillary Refill : Less Than 3 Seconds Height, Weight, BMI Height: 5'6.00" Weight: 150lbs. 0oz. 68.038918ju; 23.49 BMI Method:Stated General Appearance: WD/WN, Mild Distress HEENT: PERRL/EOMI, Normal ENT Inspection Neck: Other (attention in the musculature of the neck with tenderness bilaterally.) Cardiovascular: Regular Rate, Rhythm, No Edema, No Murmur Respiratory: Lungs Clear, Normal Breath Sounds, No Accessory Muscle Use, No Respiratory Distress Back: Normal Inspection Extremity: Normal Inspection Neurologic/Psychiatric: Alert, Oriented x3, No Motor/Sensory Deficits, Normal Mood/Affect, vocational adviser II-XII Norm as Tested, Other (tremor of the head and neck) Skin: Normal Color, Warm/Dry Progress/Results/Core Measures Results/Orders My Orders Orders - JEREMY GARRIDO MD Ketorolac Injection (Toradol Injection) (05/22/18 09:15) Orphenadrine Injection (Norflex Injectio (05/22/18 09:15) Medications Given in ED Current Medications Medications Dose Ordered Sig/Travis Route Start Time Stop Time Status Last Admin Dose Admin Ketorolac Tromethamine 30 mg ONCE ONCE IM 05/22/18 09:15 05/22/18 09:16 DC 05/22/18 09:21 30 MG Orphenadrine Citrate 60 mg ONCE ONCE IM 05/22/18 09:15 05/22/18 09:16 DC 05/22/18 09:21 60 MG Vital Signs/I&O 05/22/18 05/22/18 08:43 09:30 Temp 97.0 97.0 Pulse 88 88 Resp 16 16 B/P (MAP) 118/60 (79) 118/60 (79) Pulse Ox 98 98 O2 Delivery Room Air Blood Pressure Mean: 79 Progress Progress Note : Progress Note Patient was treated with Toradol and Norflex. A small prescription for Ultram was provided. I expressed my frustration and concern with this patient again, as I have in the past, regarding his failure to follow through with referrals and primary care visits. He admits that he has not attempted to follow with his primary care provider despite repeated instructions from me to do so on prior visits. I again reiterated the importance of following up with a primary care provider for consistency and the importance of keeping his specialty referrals. Departure Impression Primary Impression: Cervical dystonia Additional Impression: Non-compliant patient Disposition: 01 HOME, SELF-CARE Condition: Improved Departure-Patient Inst. Decision time for Depature: 09:14 Referrals: NO,LOCAL PHYSICIAN (PCP/Family) Primary Care Physician Patient Instructions: NO INSTRUCTIONS GIVEN Add. Discharge Instructions: You may continue taking naproxen up to 500 mg twice daily for primary pain control. Add Tylenol (acetaminophen) up to 1000 mg every 6 hours as needed for additional pain relief. Use Ultram (tramadol) as prescribed only for pain that is not controlled by [id number] medications. You MUST follow up with your primary care provider for management of your chronic conditions. Follow- up at the [facility] as soon as possible and keep your appointments including your referral to the neurologist at . Return to care at the [facility] walk-in clinic or the ER if you have significant worsening of symptoms. All discharge instructions reviewed with patient and/or family. Voiced understanding. Scripts Tramadol HCl (Ultram) 50 Mg Tablet 50 MG PO Q6H PRN for PAIN-MODERATE TO SEVERE, #8 TAB Prov: JEREMY GARRIDO MD 05/22/18 Copy Copies To 1: ANDREAS JULIO JOSHUA T MD May 22, 2018 09:18
[2018-05-22 09:30] VITALS: BP 118/60
--- OUTSIDE RECORDS SUMMARY | 2018-05-22 12:28 | XMS REPORT ---
Author Author JOLEEN MCKEON Organization [facility] Address [address] [place] [address] Care Team Providers Care Shoe Repairman Name Role Phone JOLEEN MCKEON Unavailable PROBLEMS Type Condition ICD9-CM Code [id number] Code Onset Dates Condition Status SNOMED Code Problem Mood disorder F39 Active 41595035 Problem Abnormal thyroid blood test R94.6 Active 548654241 Problem Other chronic pain G89.29 Active 66828284 Problem Cervical dystonia G24.3 Active 426593085 ALLERGIES No Known Allergies ENCOUNTERS Encounter Location Date Diagnosis [facility] [address] [address] Jan, Abnormal thyroid blood test R94.6 and Cervical dystonia G24.3 [facility] [address] [address] 14 Nov, 2017 [facility] [address] [address] Oct, [facility] [address] [address] 14 Aug, 2017 Fever, unspecified fever cause R50.9 and Viral illness B34.9 [facility] [address] [id number] 14 Jun, 2017 Dental examination Z01.20 and Dental caries K02.9 [facility] [address] [place] [id number] 11 Apr, 2017 Cervicalgia M54.2 ; Mood disorder F39 and Periodontal abscess K05.219 [facility] [id number] [place] [id number] February, Dental examination Z01.20 [facility] [address] [place] [address] Jul, Other chronic pain G89.29 [facility] [id number] [place] [address] Jul, [facility] [id number] [place] [address] Jul, [facility] [id number] [place] [address] Jul, [facility] [id number] [place] [address] Jun, Cervical dystonia G24.3 ; Other chronic pain G89.29 and Abnormal thyroid blood test R94.6 [facility] [id number] [place] [address] May, Cervical dystonia G24.3 [facility] [id number] [place] [address] February, [facility] [id number] [place] [phone] Jan, [facility] [id number] [place] [phone] Jan, [facility] [id number] [address] Oct, [facility] [id number] [address] Oct, [facility] [id number] [address] Sep, [facility] [address] [facility] [place] [id number] Sep, [facility] [id number] [address] Aug, [facility] [id number] [address] Aug, IMMUNIZATIONS No Known Immunizations SOCIAL HISTORY Never Assessed REASON FOR VISIT Thyroid--tjanssenMA, --he c/o not being able to gain weight, wants labs checked to see if thyroid is off. , --having alot of flare ups with his cervial Dystonia PLAN OF CARE Activity Details Follow Up with neurologist as referred Reason:f/u cervical dystonia Pending Test TSH w/ FREE T4 VITAL SIGNS Height 66 in 2018-01-19 Weight 146 lbs 2018-01-19 Temperature 98.4 degrees Fahrenheit 2018-01-19 Heart Rate 68 bpm 2018-01-19 Respiratory Rate 20 2018-01-19 BMI 23.56 kg/m2 2018-01-19 Blood pressure systolic 122 mmHg 2018-01-19 Blood pressure diastolic 80 mmHg 2018-01-19 MEDICATIONS No Known Medications RESULTS No Results PROCEDURES Procedure Date Ordered Result Body Site LAB NOT BILLED BY [facility] January 19, 2018 INSTRUCTIONS MEDICATIONS ADMINISTERED No Known Medications MEDICAL (GENERAL) HISTORY Type Description Date Medical History Cervical Dystonia--dx at age 18 Medical History Opiod Abuse per Dr. Harmon
--- OUTSIDE RECORDS SUMMARY | 2018-05-22 12:29 | XMS REPORT | Continuity of Care Document ---
Author Author [facility] Address Unknown Phone Unavailable Allergies Active Description Code Type Severity Reaction Onset Reported/Identified Relationship to Patient Clinical Status Yes NO KNOWN DRUG ALLERGIES UNKNOWN NO KNOWN DRUG ALLERG Yes No Known Drug Allergies [id number] Drug Allergy Mild N/A 02/06/2017 Medications Medication [...] 682.6 CELLULITIS OF LEG 04/21/2015 BOO THOMPSON AOC DIRECTOR INTELLIGENCE OFFICER Ot 305.50 OPIOID ABUSE-UNSPEC 04/21/2015 BOO THOMPSON [...] NICOTINE DEPENDENCE, CIGARETTES, UNCOMPL 09/25/2016 BOO THOMPSON AOC DIRECTOR INTELLIGENCE OFFICER Ot M79.1 MYALGIA 09/25/2016 BOO THOMPSON APRN Ot R11.2 NAUSEA WITH VOMITING, UNSPECIFIED 09/25/2016 BOO THOMPSON AOC DIRECTOR INTELLIGENCE OFFICER Ot R19.7 DIARRHEA, UNSPECIFIED 09/25/2016 BOO THOMPSON AOC DIRECTOR INTELLIGENCE OFFICER Ot R51 HEADACHE 09/26/2016 BOO THOMPSON APRN Ot F17.210 NICOTINE DEPENDENCE, CIGARETTES, UNCOMPL 09/26/2016 BOO THOMPSON AOC DIRECTOR INTELLIGENCE OFFICER Ot M79.1 MYALGIA 09/26/2016 BOO THOMPSON AOC DIRECTOR INTELLIGENCE OFFICER Ot R11.2 NAUSEA WITH VOMITING, UNSPECIFIED 09/26/2016 [...] DISORDERS OF TEETH AND S 08/18/2017 JEREMY GARRIDO MD Ot F17.210 NICOTINE DEPENDENCE, [...] AG 12/10/2017 JESSICA NICHOLE DO Ot Z79.82 ALF (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 12/11/2017 DIONISIO JESSICA [...] 12/11/2017 DIONISIO DO JESSICA Sean Ot Z79.82 [employer] (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 01/26/2018 BOO THOMPSON [...] 01/26/2018 BOO THOMPSON APRN Ot Y93.61 ACTIVITY, [place] ISLANDER TACKLE FOOTBALL 01/26/2018 BOO THOMPSON APRN Ot Z77.22 CNTCT W AND EXPSR TO ENVIRON TOBACCO SMO 01/26/2018 BOO THOMPSON APRN Ot Z79.52 ALF (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 OF SYSTEMIC STER 01/26/2018 BOO [...] 01/28/2018 BOO THOMPSON APRN Ot Y93.61 ACTIVITY, P[place]ER TACKLE FOOTBALL 01/28/2018 BOO THOMPSON APRN Ot Z77.22 CNTCT W AND EXPSR TO ENVIRON TOBACCO SMO 01/28/2018 BOO THOMPSON APRN Ot Z79.52 ALF (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 OF SYSTEMIC STER 01/28/2018 BOO [...] 02/01/2018 BOO THOMPSON APRN Ot Y93.61 ACTIVITY, [place] TACKLE FOOTBALL 02/01/2018 BOO THOMPSON APRN Ot Z77.22 CNTCT W AND EXPSR TO ENVIRON TOBACCO SMO 02/01/2018 BOO THOMSPON APRN Ot Z79.52 [employer] (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 OF SYSTEMIC STER 02/01/2018 BOO THOMPSON AOC DIRECTOR INTELLIGENCE OFFICER Ot Z87.59 PERSONAL HISTORY OF COMP OF PREG, CHLDBR 02/18/2018 GENOVEVA, GAURANG STOCK HOUSE WORKER Ot F17.210 NICOTINE DEPENDENCE, CIGARETTES, UNCOMPL 02/18/2018 GENOVEVA, GAURANG STOCK HOUSE WORKER Ot F32.9 MAJOR DEPRESSIVE DISORDER, SINGLE EPISOD 02/18/2018 GENOVEVA, GAURANG STOCK HOUSE WORKER Ot G43.909 MIGRAINE, UNSP, NOT INTRACTABLE, WITHOUT 02/18/2018 GENOVEVA, GAURANG STOCK HOUSE WORKER Ot M50.90 CERVICAL DISC DISORDER, UNSP, UNSPECIFIE 02/18/2018 GENOVEVA, GAURANG STOCK HOUSE WORKER Ot M54.2 CERVICALGIA 02/18/2018 GENOVEVA, GAURANG STOCK HOUSE WORKER Ot Z79.52 ALF (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 OF SYSTEMIC STER 02/22/2018 GENOVEVA, GAURANG STOCK HOUSE WORKER Ot F17.210 NICOTINE DEPENDENCE, CIGARETTES, UNCOMPL 02/22/2018 GENOVEVA, GAURANG STOCK HOUSE WORKER Ot F32.9 MAJOR DEPRESSIVE DISORDER, SINGLE EPISOD 02/22/2018 GENOVEVA, GAURANG STOCK HOUSE WORKER Ot G43.909 MIGRAINE, UNSP, NOT INTRACTABLE, WITHOUT 02/22/2018 GENOVEVA, GAURANG STOCK HOUSE WORKER Ot M50.90 CERVICAL DISC DISORDER, UNSP, UNSPECIFIE 02/22/2018 GENOVEVA, GAURANG STOCK HOUSE WORKER Ot M54.2 CERVICALGIA 02/22/2018 GENOVEVA, GAURANG STOCK HOUSE WORKER Ot Z79.52 [employer] (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 OF SYSTEMIC STER 02/24/2018 GENOVEVA, GAURANG STOCK HOUSE WORKER Ot F17.210 NICOTINE DEPENDENCE, CIGARETTES, UNCOMPL 02/24/2018 GENOVEVA, GAURANG STOCK HOUSE WORKER Ot F32.9 MAJOR DEPRESSIVE DISORDER, SINGLE EPISOD 02/24/2018 GENOVEVA, GAURANG STOCK HOUSE WORKER Ot G43.909 MIGRAINE, UNSP, NOT INTRACTABLE, WITHOUT 02/24/2018 GENOVEVA, GAURANG STOCK HOUSE WORKER Ot M50.90 CERVICAL DISC DISORDER, UNSP, UNSPECIFIE 02/24/2018 GENOVEVA, GAURANG STOCK HOUSE WORKER Ot M54.2 CERVICALGIA 02/24/2018 GENOVEVA, GAURANG STOCK HOUSE WORKER Ot Z79.52 [employer] (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 OF SYSTEMIC STER 02/25/2018 GINGER [...] 03/09/2018 JEREMY GARRIDO MD T Ot Z79.52 [employer] (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 OF SYSTEMIC STER 03/11/2018 JEREMY [...] 03/11/2018 JEREMY GARRIDO MD T Ot Z79.52 ALF (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 OF SYSTEMIC STER 03/24/2018 JEREMY [...] JEREMY GARRIDO MD Ot Y92.002 BATHRM OF [facility] SN 03/24/2018 JEREMY GARRIDO MD Ot Z79.52 [employer] (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 OF SYSTEMIC STER 03/24/2018 JEREMY [...] JEREMY GARRIDO MD Ot Y92.[address] [facility] SN 03/26/2018 JEREMY GARRIDO MD Ot Z79.52 [employer] (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 OF SYSTEMIC STER 03/26/2018 JEREMY [...] 04/14/2018 DEE ASHLEY MD Ot M54.2 CERVICALGIA 04/28/2018 DEE ASHLEY MD Ot E07.9 DISORDER OF THYROID, UNSPECIFIED 04/28/2018 DEE ASHLEY MD Ot F17.210 NICOTINE DEPENDENCE, CIGARETTES, UNCOMPL 04/28/2018 DEE ASHLEY MD Ot F32.9 MAJOR DEPRESSIVE DISORDER, SINGLE EPISOD 04/28/2018 DEE ASHLEY MD Ot G43.909 MIGRAINE, UNSP, NOT INTRACTABLE, WITHOUT 04/28/2018 DEE ASHLEY MD Ot M54.2 CERVICALGIA 04/28/2018 DEE ASHLEY MD Ot W01.198A FALL SAME LEV FROM SLIP/TRIP W STRIKE AG 04/28/2018 DEE ASHLEY MD Ot Y93.E1 ACTIVITY, PERSONAL BATHING AND SHOWERING 04/28/2018 Brokob, Trinh W 305.90 OTHER, MIXED, OR UNSPECIFIED DRUG ABUSE, UNSPECIFIED USE 04/28/2018 Brokob, Trinh W 338.2 CHRONIC PAIN 04/28/2018 Brokob, Trinh A 723.1 CERVICALGIA 04/28/2018 Brokob, Trinh W 784.0 HEADACHE 04/28/2018 Brokob, Trinh W 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 04/28/2018 Brokob, Trinh W G89.29 OTHER CHRONIC PAIN 04/28/2018 Brokob, Trinh A M54.2 CERVICALGIA 04/28/2018 Brokob, Trinh W R51 HEADACHE 04/30/2018 DEE ASHLEY MD Ot E07.9 DISORDER OF THYROID, UNSPECIFIED 04/30/2018 DEE ASHLEY MD Ot F17.210 NICOTINE DEPENDENCE, CIGARETTES, UNCOMPL 04/30/2018 DEE ASHLEY MD Ot F32.9 MAJOR DEPRESSIVE DISORDER, SINGLE EPISOD 04/30/2018 DEE ASHLEY MD Ot G43.909 MIGRAINE, UNSP, NOT INTRACTABLE, WITHOUT 04/30/2018 DEE ASHLEY MD Ot M54.2 CERVICALGIA 04/30/2018 DEE ASHELY MD Ot W01.198A FALL SAME LEV FROM SLIP/TRIP W STRIKE AG 04/30/2018 DEE ASHLEY MD Ot Y93.E1 ACTIVITY, PERSONAL BATHING AND SHOWERING 05/01/2018 DIDIER JONES Ot E07.9 DISORDER OF THYROID, UNSPECIFIED 05/01/2018 DIDIER JONES Ot F32.9 MAJOR DEPRESSIVE DISORDER, SINGLE EPISOD 05/01/2018 DIDIER JONES Ot G43.909 MIGRAINE, UNSP, NOT INTRACTABLE, WITHOUT 05/01/2018 DIDIER JONES Ot G89.29 OTHER CHRONIC PAIN 05/01/2018 DIDIER JONES Ot M54.2 CERVICALGIA 05/01/2018 DIDIER JONES Ot Z77.22 CNTCT W AND EXPSR TO [...] Status Pt. Type Provider Facility Loc./Unit Complaint [id number] 02/08/2015 13:21:00 02/08/2015 23:59:59 CLS Outpatient JESSICA MARSH DDS [id number] 11/06/2014 12:15:00 11/06/2014 23:59:59 CLS Outpatient MORGAN BARRERA APRN [id number] 10/03/2014 08:26:00 10/03/2014 23:59:59 CLS Outpatient MORGAN BARRERA APRN [id number] 05/07/2010 16:02:00 05/07/2010 23:59:59 CLS Outpatient GLADYS HASKINS DDS [id number] 04/23/2015 02:28:34 ACT Document Registration [id number] 04/28/2018 15:57:00 04/28/2018 18:18:00 DIS [place] [facility] [place] [id number] 04/28/2018 17:34:01 Document Registration [id number] 05/01/2018 11:20:00 05/01/2018 12:04:00 DIS Emergency DIDIER JONES [facility] ER NECK PROBLEMS,PAIN [id number] 04/28/2018 02:10:00 04/28/2018 02:38:00 DIS Emergency DEE ASHLEY MD [facility] ER PREVIOUS FALL, NECK PAIN [id number] 04/12/2018 08:19:00 04/12/2018 09:50:00 DIS Emergency DEE ASHLEY MD [facility] ER NECK PAIN,SHAKING [id number] 04/01/2018 08:19:00 04/01/2018 10:40:00 DIS Emergency JESSICA NICHOLE DO [facility] ER ABD PAIN [id number] 03/24/2018 09:29:00 03/24/2018 10:28:00 DIS Emergency RADHIKA YAN, JEREMY Laws [facility] ER NECK PAIN,SHOULDER PAIN,FELL IN SHOWER [id number] 03/23/2018 09:48:00 03/23/2018 23:59:59 CLS Preadmit NO, LOCAL PHYSICIAN [facility] REHAB CERVICAL DYSTONIA [id number] 03/09/2018 09:01:00 03/09/2018 11:39:00 DIS Emergency JEREMY GARRIDO MD [facility] ER NECK PAIN [id number] 02/25/2018 08:05:00 02/25/2018 08:48:00 DIS Emergency GINGER YAN, VANESSA Adame [facility] ER NECK PAIN [id number] 02/18/2018 12:58:00 02/18/2018 15:40:00 DIS Emergency GAURANG TOMAS [facility] ER NECK PAIN [id number] 01/26/2018 13:03:00 01/26/2018 13:39:00 DIS Emergency BOO THOMPSON APRN [facility] ER NECK AND SHOULDER PAIN AND DISCOMFORT [id number] 12/09/2017 20:42:00 12/10/2017 00:05:00 DIS Emergency JESSICA NICHOLE DO [facility] ER BACK AND NECK PAIN;FALL [id number] 11/27/2017 04:58:00 11/27/2017 08:06:00 DIS Emergency GABI YAN, DEE Anderson [facility] ER BACK PAIN,SON WALKED ON BACK YESTERDAY [id number] 11/26/2017 08:47:00 11/26/2017 10:32:00 DIS Emergency CARLTON YAN, DAVON Estrada [facility] ER SHAKING,NECK PAIN,RIGHT SIDE PAIN [id number] 10/29/2017 08:57:00 10/29/2017 11:11:00 DIS Emergency DEE ASHLEY MD [facility] ER NECK PAIN [id number] 09/29/2017 08:34:00 09/29/2017 13:37:00 DIS Emergency JEREMY GARRIDO MD [facility] ER CP [id number] 08/18/2017 06:40:00 08/18/2017 07:45:00 DIS Emergency JEREMY GARRIDO MD [facility] ER NEUROLOGICAL DISORDER, CAN'T SLEEP [id number] 07/05/2017 16:36:00 07/05/2017 17:08:00 DIS Emergency DEE ASHLEY MD [facility] ER DENTAL PAIN [id number] 06/12/2017 13:03:00 06/12/2017 15:28:00 DIS Emergency JUSTIN VELOZ [facility] ER NECK PAIN [id number] 06/11/2017 17:39:00 06/11/2017 18:30:00 DIS Emergency VANESSA MILES MD [facility] ER NECK INJ [id number] 02/18/2017 10:20:00 02/18/2017 13:13:00 DIS Emergency JUSTIN VELOZ [facility] ER COUGH NAUSEA [id number] 02/06/2017 13:54:00 02/06/2017 14:16:00 DIS Emergency BOO THOMPSON APRN [facility] ER COUGH/CHEST CONGESTION [id number] 09/25/2016 10:36:00 09/25/2016 12:08:00 DIS Emergency BOO THOMPSON APRN [facility] ER VOMITING COUGH HEADACHE FATIGUE [id number] 06/02/2016 13:14:00 06/02/2016 14:13:00 DIS Emergency VANESSA MILES MD [facility] ER NECK PAIN/SHAKING [id number] 04/22/2015 23:25:00 04/24/2015 15:25:00 DIS Inpatient BRANDI YAN, VANESSA Anderson [facility] 4TH BENZODIAZEPINE WITHDRAWAL ;NARCOTIC WITHDRAWAL [id number] 04/21/2015 20:34:00 04/21/2015 22:10:00 DIS Emergency BOO THOMPSON APRN [facility] ER BLOODY STOOLS,ABD PAIN, WANTS REHAB [id number] 02/18/2015 12:02:00 02/18/2015 12:51:00 DIS Emergency JUSTIN VELOZ [facility] ER CYST ON HIP [id number] 02/16/2015 00:03:00 02/16/2015 00:55:00 DIS Emergency MORGAN GANNON DO [facility] ER CELLULITIS [id number] 01/15/2015 11:44:00 01/15/2015 23:59:59 CLS Preadmit ROHAN HARTMAN MD [facility] WOUNDCARE [id number] 01/07/2015 01:35:00 01/10/2015 16:30:00 DIS Outpatient CAROLEE QUINTERO MD [facility] SDC MULTIPLE ABCESS/ CELLULITIS [id number] 07/08/2014 11:44:00 07/08/2014 12:25:00 DIS Emergency BOO THOMPSON APRN [facility] ER TOOTH INFECTION [id number] 06/03/2013 16:23:00 06/03/2013 23:59:59 CLS Preadmit DAVON VINCENT MD [facility] ER DENTAL PAIN,POSSIBLE RASH [id number] 06/01/2013 12:37:00 06/01/2013 23:59:59 CLS Outpatient [id number] 05/28/2013 08:10:00 05/28/2013 09:58:00 DIS Emergency JESSICA NICHOLE DO [facility] ER L SIDE LOWER BACK PAIN AND RIB PAIN [id number] 04/28/2013 16:12:00 04/28/2013 18:55:00 DIS Emergency JUSTIN VELOZ [facility] ER DENTAL PAIN [id number] 03/26/2015 10:11:00 Document Registration [id number] 03/23/2015 13:15:00 Document Registration [id number] 06/03/2012 17:30:00 Document Registration [id number] 03/10/2012 13:38:00 Document Registration [id number] 01/24/2012 14:20:00 Document Registration [id number] 01/10/2012 14:24:00 Document Registration [id number] 12/13/2011 16:18:00 Document Registration [id number] 11/16/2011 08:46:00 Document Registration [id number] 08/18/2011 21:09:00 Document Registration [id number] 04/08/2011 12:15:00 Document Registration [id number] 11/28/2010 16:26:00 Document Registration [id number] 10/14/2010 10:52:00 Document Registration [id number] 07/28/2010 16:08:00 Document Registration [id number] 07/03/2010 02:58:00 Document Registration [id number] 06/06/2010 06:29:00 Document Registration [id number] 04/22/2010 12:05:00 Document Registration [id number] 01/19/2018 10:40:00 01/19/2018 23:59:59 CLS Outpatient KALANIL JOLEEN GARZA [facility] [id number] 06/19/2016 08:46:00 Document Registration
== END 2018-05-22 09:38 | disposition home or self-care (01) ==
LOC: EDUNIT# 08:39 → ER 08:41
DX: G24.8 Other dystonia (principal); G43.909 Migraine, unspecified, not intractable, without status migrainosus; F32.9 Major depressive disorder, single episode, unspecified; F12.10 Cannabis abuse, uncomplicated; F11.10 Opioid abuse, uncomplicated; F17.210 Nicotine dependence, cigarettes, uncomplicated; Z91.14 Patient's other noncompliance with medication regimen
CPT/HCPCS: 96372; 99284

== ENCOUNTER 2018-07-08 09:02 | Emergency (ER) | payer SELFPAY ==
[~2018-07-08] VITALS: Ht 167.6 cm; Wt 68.0 kg
[~2018-07-08 09:02] MED LIST changes: -BENZ-13 PO; +BENZ100C18 PO
--- OUTSIDE RECORDS SUMMARY | 2018-07-08 09:10 | XMS REPORT | Continuity of Care Document ---
Author Author [facility] Address Unknown Phone Unavailable Allergies Active Description Code Type Severity Reaction Onset Reported/Identified Relationship to Patient Clinical Status Yes NO KNOWN DRUG ALLERGIES UNKNOWN NO KNOWN DRUG ALLERG Yes No Known Drug Allergies [id number] Drug Allergy Mild N/A 02/06/2017 Medications Medication [...] 682.6 CELLULITIS OF LEG 04/21/2015 BOO THOMPSON PC MAINTENANCE TECHNICIAN Ot 305.50 OPIOID ABUSE-UNSPEC 04/21/2015 BOO THOMPSON [...] NICOTINE DEPENDENCE, CIGARETTES, UNCOMPL 09/25/2016 BOO THOMPSON PC MAINTENANCE TECHNICIAN Ot M79.1 MYALGIA 09/25/2016 BOO THOMPSON APRN Ot R11.2 NAUSEA WITH VOMITING, UNSPECIFIED 09/25/2016 BOO THOMPSON PC MAINTENANCE TECHNICIAN Ot R19.7 DIARRHEA, UNSPECIFIED 09/25/2016 BOO THOMPSON PC MAINTENANCE TECHNICIAN Ot R51 HEADACHE 09/26/2016 BOO THOMPSON APRN Ot F17.210 NICOTINE DEPENDENCE, CIGARETTES, UNCOMPL 09/26/2016 BOO THOMPSON PC MAINTENANCE TECHNICIAN Ot M79.1 MYALGIA 09/26/2016 BOO THOMPSON PC MAINTENANCE TECHNICIAN Ot R11.2 NAUSEA WITH VOMITING, UNSPECIFIED 09/26/2016 [...] AG 12/10/2017 JESSICA NICHOLE DO Ot Z79.82 [facility]CI (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 12/11/2017 DIONISIO JESSICA [...] 12/11/2017 DIONISIO DO JESSICA Sean Ot Z79.82 SAIL REPAIR PERSON (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 01/26/2018 BOO THOMPSON [...] 01/26/2018 BOO THOMPSON APRN Ot Y93.61 ACTIVITY, SAMMARINESE TACKLE FOOTBALL 01/26/2018 BOO THOMPSON APRN Ot Z77.22 CNTCT W AND EXPSR TO ENVIRON TOBACCO SMO 01/26/2018 BOO THOMPSON APRN Ot Z79.52 [facility]CI (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 OF SYSTEMIC STER 01/26/2018 BOO [...] 01/28/2018 BOO THOMPSON APRN Ot Y93.61 ACTIVITY, SAMMARINESE TACKLE FOOTBALL 01/28/2018 BOO THOMPSON APRN Ot Z77.22 CNTCT W AND EXPSR TO ENVIRON TOBACCO SMO 01/28/2018 BOO THOMPSON APRN Ot Z79.52 FCI (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 OF SYSTEMIC STER 01/28/2018 BOO [...] 02/01/2018 BOO THOMPSON APRN Ot Y93.61 ACTIVITY, SAMMARINESE TACKLE FOOTBALL 02/01/2018 BOO THOMPSON APRN Ot Z77.22 CNTCT W AND EXPSR TO ENVIRON TOBACCO SMO 02/01/2018 BOO THOMPSON APRN Ot Z79.52 SAIL REPAIR PERSON (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 OF SYSTEMIC STER 02/01/2018 BOO THOMPSON PC MAINTENANCE TECHNICIAN Ot Z87.59 PERSONAL HISTORY OF COMP OF PREG, CHLDBR 02/18/2018 GENOVEVA, GAURANG LEAD ADVISOR Ot F17.210 NICOTINE DEPENDENCE, CIGARETTES, UNCOMPL 02/18/2018 GENOVEVA, GAURANG LEAD ADVISOR Ot F32.9 MAJOR DEPRESSIVE DISORDER, SINGLE EPISOD 02/18/2018 GENOVEVA, GAURANG LEAD ADVISOR Ot G43.909 MIGRAINE, UNSP, NOT INTRACTABLE, WITHOUT 02/18/2018 GENOVEVA, GAURANG LEAD ADVISOR Ot M50.90 CERVICAL DISC DISORDER, UNSP, UNSPECIFIE 02/18/2018 GENOVEVA, GAURANG LEAD ADVISOR Ot M54.2 CERVICALGIA 02/18/2018 GENOVEVA, GAURANG LEAD ADVISOR Ot Z79.52 FCI (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 OF SYSTEMIC STER 02/22/2018 GENOVEVA, GAURANG LEAD ADVISOR Ot F17.210 NICOTINE DEPENDENCE, CIGARETTES, UNCOMPL 02/22/2018 GENOVEVA, GAURANG LEAD ADVISOR Ot F32.9 MAJOR DEPRESSIVE DISORDER, SINGLE EPISOD 02/22/2018 GENOVEVA, GAURANG LEAD ADVISOR Ot G43.909 MIGRAINE, UNSP, NOT INTRACTABLE, WITHOUT 02/22/2018 GENOVEVA, GAURANG LEAD ADVISOR Ot M50.90 CERVICAL DISC DISORDER, UNSP, UNSPECIFIE 02/22/2018 GENOVEVA, GAURANG LEAD ADVISOR Ot M54.2 CERVICALGIA 02/22/2018 GENOVEVA, GAURANG LEAD ADVISOR Ot Z79.52 SAIL REPAIR PERSON (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 OF SYSTEMIC STER 02/24/2018 GENOVEVA, GAURANG LEAD ADVISOR Ot F17.210 NICOTINE DEPENDENCE, CIGARETTES, UNCOMPL 02/24/2018 GENOVEVA, GAURANG LEAD ADVISOR Ot F32.9 MAJOR DEPRESSIVE DISORDER, SINGLE EPISOD 02/24/2018 GENOVEVA, GAURANG LEAD ADVISOR Ot G43.909 MIGRAINE, UNSP, NOT INTRACTABLE, WITHOUT 02/24/2018 GENOVEVA, GAURANG LEAD ADVISOR Ot M50.90 CERVICAL DISC DISORDER, UNSP, UNSPECIFIE 02/24/2018 GENOVEVA, GAURANG LEAD ADVISOR Ot M54.2 CERVICALGIA 02/24/2018 GENOVEVA, GAURANG LEAD ADVISOR Ot Z79.52 SAIL REPAIR PERSON (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 OF SYSTEMIC STER 02/25/2018 GINGER [...] 03/09/2018 JEREMY GARRIDO MD T Ot Z79.52 SAIL REPAIR PERSON (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 OF SYSTEMIC STER 03/11/2018 JEREMY [...] 03/11/2018 JEREMY GARRIDO MD T Ot Z79.52 [facility]CI (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 OF SYSTEMIC STER 03/24/2018 JEREMY [...] JEREMY GARRIDO MD Ot Y92.002 [facility]M [facility] 03/24/2018 JEREMY GARRIDO MD Ot Z79.52 SAIL REPAIR PERSON (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 OF SYSTEMIC STER 03/24/2018 JEREMY [...] JEREMY GARRIDO MD Ot Y92.002 BATHRM OF [facility] SN 03/26/2018 JEREMY GARRIDO MD Ot Z79.52 SAIL REPAIR PERSON (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 OF SYSTEMIC STER 03/26/2018 JEREMY [...] Status Pt. Type Provider Facility Loc./Unit Complaint [id number] 02/08/2015 13:21:00 02/08/2015 23:59:59 CLS Outpatient JESSICA MARSH DDS [id number] 11/06/2014 12:15:00 11/06/2014 23:59:59 CLS Outpatient MORGAN BARRERA APRN [id number] 10/03/2014 08:26:00 10/03/2014 23:59:59 CLS Outpatient MORGAN BARRERA APRN [id number] 05/07/2010 16:02:00 05/07/2010 23:59:59 CLS Outpatient GLADYS HASKINS DDS [id number] 04/23/2015 02:28:34 ACT Document Registration [id number] 04/28/2018 15:57:00 04/28/2018 18:18:00 DIS Outpatient [place] [facility] [place] [id number] 04/28/2018 17:34:01 Document Registration [id number] 05/01/2018 11:20:00 05/01/2018 12:04:00 DIS Emergency DIDIER JONES Via [facility] ER NECK PROBLEMS,PAIN [id number] 04/28/2018 02:10:00 04/28/2018 02:38:00 DIS Emergency DEE ASHLEY MD Via [facility] ER PREVIOUS FALL, NECK PAIN [id number] 04/12/2018 08:19:00 04/12/2018 09:50:00 DIS Emergency DEE ASHLEY MD Via [facility] ER NECK PAIN,SHAKING [id number] 04/01/2018 08:19:00 04/01/2018 10:40:00 DIS Emergency JESSICA NICHOLE DO Via [facility] ER ABD PAIN [id number] 03/24/2018 09:29:00 03/24/2018 10:28:00 DIS Emergency RADHIKA AYN, JEREMY Laws [facility] ER NECK PAIN,SHOULDER PAIN,FELL IN SHOWER [id number] 03/23/2018 09:48:00 03/23/2018 23:59:59 CLS Preadmit NO, LOCAL PHYSICIAN Via [facility] REHAB CERVICAL DYSTONIA [id number] 03/09/2018 09:01:00 03/09/2018 11:39:00 DIS Emergency JEREMY GARRIDO MD Via [facility] ER NECK PAIN [id number] 02/25/2018 08:05:00 02/25/2018 08:48:00 DIS Emergency GINGER YAN, VANESSA Adame Via [facility] ER NECK PAIN [id number] 02/18/2018 12:58:00 02/18/2018 15:40:00 DIS Emergency GAURANG TOMAS Via [facility] ER NECK PAIN [id number] 01/26/2018 13:03:00 01/26/2018 13:39:00 DIS Emergency BOO THOMPSON APRN Via [facility] ER NECK AND SHOULDER PAIN AND DISCOMFORT [id number] 12/09/2017 20:42:00 12/10/2017 00:05:00 DIS Emergency JESSICA NICHOLE DO Via [facility] ER BACK AND NECK PAIN;FALL [id number] 11/27/2017 04:58:00 11/27/2017 08:06:00 DIS Emergency GABI YAN, DEE Anderson [facility] ER BACK PAIN,SON WALKED ON BACK YESTERDAY [id number] 11/26/2017 08:47:00 11/26/2017 10:32:00 DIS Emergency CARLTON YAN, DAVON Estrada Via [facility] ER SHAKING,NECK PAIN,RIGHT SIDE PAIN [id number] 10/29/2017 08:57:00 10/29/2017 11:11:00 DIS Emergency DEE ASHLEY MD Via [facility] ER NECK PAIN [id number] 09/29/2017 08:34:00 09/29/2017 13:37:00 DIS Emergency JEREMY GARRIDO MD Via [facility] ER CP [id number] 08/18/2017 06:40:00 08/18/2017 07:45:00 DIS Emergency JEREMY GARRIDO MD Via [facility] ER NEUROLOGICAL DISORDER, CAN'T SLEEP [id number] 07/05/2017 16:36:00 07/05/2017 17:08:00 DIS Emergency DEE ASHLEY MD Via [facility] ER DENTAL PAIN [id number] 06/12/2017 13:03:00 06/12/2017 15:28:00 DIS Emergency JUSTIN VELOZ Via [facility] ER NECK PAIN [id number] 06/11/2017 17:39:00 06/11/2017 18:30:00 DIS Emergency VANESSA MILES MD Via [facility] ER NECK INJ [id number] 02/18/2017 10:20:00 02/18/2017 13:13:00 DIS Emergency JUSTIN VELOZ Via [facility] ER COUGH NAUSEA [id number] 02/06/2017 13:54:00 02/06/2017 14:16:00 DIS Emergency BOO THOMPSON APRN Via [facility] ER COUGH/CHEST CONGESTION [id number] 09/25/2016 10:36:00 09/25/2016 12:08:00 DIS Emergency BOO THOMPSON APRN Via [facility] ER VOMITING COUGH HEADACHE FATIGUE [id number] 06/02/2016 13:14:00 06/02/2016 14:13:00 DIS Emergency VANESSA MILES MD Via [facility] ER NECK PAIN/SHAKING [id number] 04/22/2015 23:25:00 04/24/2015 15:25:00 DIS Inpatient BRANDI YAN, VANESSA Anderson [facility] 4TH BENZODIAZEPINE WITHDRAWAL ;NARCOTIC WITHDRAWAL [id number] 04/21/2015 20:34:00 04/21/2015 22:10:00 DIS Emergency BOO THOMPSON APRN Via [facility] ER BLOODY STOOLS,ABD PAIN, WANTS REHAB [id number] 02/18/2015 12:02:00 02/18/2015 12:51:00 DIS Emergency JUSTIN VELOZ Via [facility] ER CYST ON HIP [id number] 02/16/2015 00:03:00 02/16/2015 00:55:00 DIS Emergency MORGAN GANNON DO Via [facility] ER CELLULITIS [id number] 01/15/2015 11:44:00 01/15/2015 23:59:59 CLS Preadmit ROHAN HARTMAN MD Via [facility] WOUNDCARE [id number] 01/07/2015 01:35:00 01/10/2015 16:30:00 DIS Outpatient CAROLEE QUINTERO MD Via [facility] SDC MULTIPLE ABCESS/ CELLULITIS [id number] 07/08/2014 11:44:00 07/08/2014 12:25:00 DIS Emergency BOO THOMPSON APRN Via [facility] ER TOOTH INFECTION [id number] 06/03/2013 16:23:00 06/03/2013 23:59:59 CLS Preadmit DAVON VINCENT MD Via [facility] ER DENTAL PAIN,POSSIBLE RASH [id number] 06/01/2013 12:37:00 06/01/2013 23:59:59 CLS Outpatient [id number] 05/28/2013 08:10:00 05/28/2013 09:58:00 DIS Emergency JESSICA NICHOLE DO Via [facility] ER L SIDE LOWER BACK PAIN AND RIB PAIN [id number] 04/28/2013 16:12:00 04/28/2013 18:55:00 DIS Emergency JUSTIN VELOZ Via [facility] ER DENTAL PAIN [id number] 03/26/2015 10:11:00 Document Registration [id number] 03/23/2015 13:15:00 Document Registration [id number] 06/03/2012 17:30:00 Document Registration [id number] 03/10/2012 13:38:00 Document Registration [id number] 01/24/2012 14:20:00 Document Registration [id number] 01/10/2012 14:24:00 Document Registration [id number] 12/13/2011 16:18:00 Document Registration [id number] 11/16/2011 08:46:00 Document Registration [id number] 08/18/2011 21:09:00 Document Registration [id number] 04/08/2011 12:15:00 Document Registration [id number] 11/28/2010 16:26:00 Document Registration [id number] 10/14/2010 10:52:00 Document Registration [id number] 07/28/2010 16:08:00 Document Registration [id number] 07/03/2010 02:58:00 Document Registration [id number] 06/06/2010 06:29:00 Document Registration [id number] 04/22/2010 12:05:00 Document Registration [id number] 01/19/2018 10:40:00 01/19/2018 23:59:59 CLS Outpatient KALANIL JOLEEN [facility] [id number] 06/19/2016 08:46:00 Document Registration
[2018-07-08] MEDS ORDERED: KETOROLAC 60 MG/2 ML VIAL ONE (10:32)
[2018-07-08] MEDS ORDERED: ORPHENADRINE 60 MG/2 ML (NORFLEX) AMP ONE (10:33)
--- NOTE | 2018-07-08 10:41 | ED Neck-Back Pain/Injury ---
General Chief Complaint: Head/Cervical Problems Stated Complaint: FALL;NECK PAIN Nursing Triage Note: PT STATES FELL ON THURSDAY WHILE DECORATING FOR HALLOWEEN, PT HAS CHRONIC NECK PAIN-TORTICOLOS, BUT IS WORSE SINCE FALL RATES 06/28 Nursing Sepsis Screen: No Definite Risk Source of Information: Patient Exam Limitations: No Limitations History of Present Illness Date Seen by Provider: Jul 08, 2018 Time Seen by Provider: 10:40 Initial Comments To ER with chronic neck pain, worse than usual since he fell 2 days ago while decorating for Halloween. No paresthesias. Location: Paraspinous Muscles Timing/Duration: 2-3 Days Severity: Moderate Pain/Injury Location: Neck Allergies and Home Medications Allergies Coded Allergies: No Known Drug Allergies (Verified , 02/06/17) Home Medications Methocarbamol 750 Mg Tablet, 750 MG PO Q6H PRN for PAIN-MODERATE TO SEVERE Prescribed by: BOO THOMPSON on 07/08/18 1212 Tramadol HCl 50 Mg Tablet, 50 MG PO Q6H PRN for PAIN-MODERATE TO SEVERE Prescribed by: JEERMY JO on 05/22/18 0918 Patient Home Medication List Home Medication List Reviewed: Yes Review of Systems Constitutional: see HPI EENTM: see HPI Respiratory: no symptoms reported Cardiovascular: no symptoms reported Genitourinary: no symptoms reported Musculoskeletal: see HPI, muscle twitching, neck pain Skin: no symptoms reported Psychiatric/Neurological: No Symptoms Reported Past Xsvjjnl-Bxhhik-Gptlod Hx Patient Social History Alcohol Use: Denies Use Recreational Drug Use: Yes Drug of Choice: THC, TESTED + FOR BENZODIAZEPINES 04/01/18 Smoking Status: Current Everyday Smoker Type Used: Cigarettes 2nd Hand Smoke Exposure: Yes Recent Foreign Travel: No Contact w/Someone Who Travel: No Recent Infectious Disease Expo: No Recent Hopitalizations: No Physical Abuse: No Sexual Abuse: No Immunizations Up To Date Tetanus Booster (TDap): Unknown Date of Influenza Vaccine: Aug 19, 2011 Seasonal Allergies Seasonal Allergies: No Past Medical History Surgeries: No Respiratory: No Cardiac: No Neurological: Yes ("CERVICAL DYSTONIA" PER PT--SELF-REPORTED; TREMOR) Headaches /Migraines Reproductive Disorders: No Sexually Transmitted Disease: No HIV/AIDS: No Genitourinary: No Gastrointestinal: No Musculoskeletal: Yes (CHRONIC NECK PAIN AND SELF-REPORTED "CERVICAL DYSTONIA" ) Chronic Back Pain Endocrine: Yes ("Thyroid issues") HEENT: Yes (Recurrent dental pain) Cancer: No Psychosocial: Yes Depression Integumentary: Yes (ABSCESSES) Blood Disorders: No Family Medical History Patient reports no known family medical history. No Pertinent Family Hx Physical Exam Vital Signs Vital Signs - First Documented 07/08/18 09:05 Temp 96.9 Pulse 107 Resp 18 B/P (MAP) 150/93 (112) Pulse Ox 96 Capillary Refill : Less Than 3 Seconds Height, Weight, BMI Height: 5'6.00" Weight: 150lbs. 0oz. 68.491173sk; 23.49 BMI Method:Stated General Appearance: No Apparent Distress, WD/WN HEENT: PERRL/EOMI, TMs Normal Neck: Full Range of Motion, Normal Inspection, Tender Lateral, Tender Midline Respiratory: Normal Breath Sounds, No Accessory Muscle Use, No Respiratory Distress Gastrointestinal: Normal Bowel Sounds, Non Tender, Soft Extremity: Normal Capillary Refill, Normal Inspection Neurologic/Psychiatric: Alert, Oriented x3, No Motor/Sensory Deficits Skin: Normal Color, Warm/Dry Progress/Results/Core Measures Results/Orders My Orders Orders - BOO THOMPSON APRN Cervical Spine 3 Views Or Less (07/08/18 10:50) Medications Given in ED Current Medications Medications Dose Ordered Sig/Travis Route Start Time Stop Time Status Last Admin Dose Admin Ketorolac Tromethamine 60 mg STK-MED ONCE .ROUTE 07/08/18 10:32 07/08/18 10:38 DC 07/08/18 10:40 60 MG Orphenadrine Citrate 60 mg STK-MED ONCE .ROUTE 07/08/18 10:33 07/08/18 10:38 DC 07/08/18 10:40 60 MG Vital Signs/I&O 07/08/18 07/08/18 09:05 12:20 Temp 96.9 96.9 Pulse 107 107 Resp 18 18 B/P (MAP) 150/93 (112) 150/93 (112) Pulse Ox 96 96 Blood Pressure Mean: 112 Departure Impression Primary Impression: Chronic neck pain Disposition: 01 HOME, SELF-CARE Condition: Stable Departure-Patient Inst. Decision time for Depature: 12:11 Referrals: NO,LOCAL PHYSICIAN (PCP/Family) Primary Care Physician Patient Instructions: Torticollis (DC) Add. Discharge Instructions: 1. Warm compresses to your neck 2. Muscle relaxers as directed 3. Follow-up with your doctor next week Scripts Methocarbamol (Robaxin-750) 750 Mg Tablet 750 MG PO Q6H PRN for PAIN-MODERATE TO SEVERE, #14 TAB Prov: BOO THOMPSON APRN 07/08/18 BOO THOMPSON APRN Jul 08, 2018 10:41
--- NOTE | 2018-07-08 10:45 | ED Neck-Back Pain/Injury ---
General Chief Complaint: Head/Cervical Problems Stated Complaint: FALL;NECK PAIN Nursing Triage Note: PT STATES FELL ON THURSDAY WHILE DECORATING FOR HALLOWEEN, PT HAS CHRONIC NECK PAIN-TORTICOLOS, BUT IS WORSE SINCE FALL RATES 06/28 Nursing Sepsis Screen: No Definite Risk Source of Information: Patient, Family Exam Limitations: No Limitations History of Present Illness Date Seen by Provider: Jul 08, 2018 Time Seen by Provider: 10:30 Initial Comments The patient is a 33-year-old white male with many previous visits to this ER for neck pain. He has been given a diagnosis of cervical dystonia. He was here in May with neck pain. He stated that he was to have a follow-up appointment at [facility] in June. He and his brother are vague about when or if this is to take place. Earlier this week they were moving a heavy bale to be used in a seasonal/hollowing display. The brother reports that they somehow became unbalanced and his brother fell backwards rather heavily to the ground. Since then he has had increased pain in the neck. Timing/Duration: 3-4 Days Severity: Moderate Pain/Injury Location: Back, Neck Allergies and Home Medications Allergies Coded Allergies: No Known Drug Allergies (Verified , 02/06/17) Home Medications Tramadol HCl 50 Mg Tablet, 50 MG PO Q6H PRN for PAIN-MODERATE TO SEVERE Prescribed by: JEREMY JO on 05/22/18 0918 Review of Systems Constitutional: see HPI EENTM: no symptoms reported Respiratory: no symptoms reported Cardiovascular: no symptoms reported Gastrointestinal: no symptoms reported Genitourinary: no symptoms reported Musculoskeletal: back pain, neck pain Skin: no symptoms reported Psychiatric/Neurological: No Symptoms Reported Past Qjanyzf-Oxlbuc-Tyredx Hx Patient Social History Alcohol Use: Denies Use Recreational Drug Use: Yes Drug of Choice: THC, TESTED + FOR BENZODIAZEPINES 04/01/18 Smoking Status: Current Everyday Smoker Type Used: Cigarettes 2nd Hand Smoke Exposure: Yes Recent Foreign Travel: No Contact w/Someone Who Travel: No Recent Infectious Disease Expo: No Recent Hopitalizations: No Physical Abuse: No Sexual Abuse: No Immunizations Up To Date Tetanus Booster (TDap): Unknown Date of Influenza Vaccine: Aug 19, 2011 Seasonal Allergies Seasonal Allergies: No Past Medical History Surgeries: No Respiratory: No Cardiac: No Neurological: Yes ("CERVICAL DYSTONIA" PER PT--SELF-REPORTED; TREMOR) Headaches /Migraines Reproductive Disorders: No Sexually Transmitted Disease: No HIV/AIDS: No Genitourinary: No Gastrointestinal: No Musculoskeletal: Yes (CHRONIC NECK PAIN AND SELF-REPORTED "CERVICAL DYSTONIA" ) Chronic Back Pain Endocrine: Yes ("Thyroid issues") HEENT: Yes (Recurrent dental pain) Cancer: No Psychosocial: Yes Depression Integumentary: Yes (ABSCESSES) Blood Disorders: No Family Medical History Patient reports no known family medical history. No Pertinent Family Hx Physical Exam Vital Signs Vital Signs - First Documented 07/08/18 09:05 Temp 96.9 Pulse 107 Resp 18 B/P (MAP) 150/93 (112) Pulse Ox 96 Capillary Refill : Less Than 3 Seconds Height, Weight, BMI Height: 5'6.00" Weight: 150lbs. 0oz. 68.167675lu; 23.49 BMI Method:Stated General Appearance: Thin (the patient is a thin nearly emaciated white male lying on his side tucked into a ball. He prefers to hold his neck in a rather extreme anti-flexed position.), Other HEENT: Normal ENT Inspection Neck: Normal Inspection Cardiovascular: Regular Rate, Rhythm, No Edema, No Gallop, No JVD, No Murmur, Normal Peripheral Pulses Respiratory: Chest Non Tender, Lungs Clear, Normal Breath Sounds, No Accessory Muscle Use, No Respiratory Distress, Accessory Muscle Use Gastrointestinal: Normal Bowel Sounds, No Organomegaly Extremity: Normal Capillary Refill, Normal Inspection, Normal Range of Motion, Non Tender, No Calf Tenderness, No Pedal Edema, Calf Tenderness Neurologic/Psychiatric: Alert, Oriented x3, No Motor/Sensory Deficits, Normal Mood/Affect, record press 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 He holds his neck by preference and an anti-flexed position. The posterior para cervical muscles are tight and engorged. There are tender to palpation. He exhibits pain to the attempt to retroflex passively. There is discomfort to passive horizontal rotation as well. Progress/Results/Core Measures Results/Orders My Orders Orders - DAVON VINCENT MD Ketorolac Injection (Toradol Injection) (07/08/18 10:32) Orphenadrine Injection (Norflex Injectio (07/08/18 10:33) Vital Signs/I&O 07/08/18 09:05 Temp 96.9 Pulse 107 Resp 18 B/P (MAP) 150/93 (112) Pulse Ox 96 Blood Pressure Mean: 112 Departure Departure-Patient Inst. Referrals: NO,LOCAL PHYSICIAN (PCP/Family) Primary Care Physician DAVON VINCENT MD Jul 08, 2018 10:45
--- NOTE | 2018-07-08 12:08 | Diagnostic Imaging Report ---
INDICATION: Neck pain, chronic torticollis. COMPARISON: None available. TECHNIQUE: Four views of cervical spine are submitted. FINDINGS AND IMPRESSION: No traumatic spondylolisthesis or definitive acute fracture. Assessment is mildly limited due to patient's chronic torticollis. If there remains high clinical suspicion for acute injury in the cervical spine, then CT without contrast could be obtained. Dictated by: Dictated on workstation # [id number]
[2018-07-08] MEDS ORDERED: METH-313 PO (12:12)
[2018-07-08 12:20] VITALS: BP 150/93
== END 2018-07-08 12:20 | disposition home or self-care (01) ==
LOC: EDUNIT# 09:02 → ER 09:03
DX: M54.2 Cervicalgia (principal); G89.29 Other chronic pain; G43.909 Migraine, unspecified, not intractable, without status migrainosus; F32.9 Major depressive disorder, single episode, unspecified; F12.10 Cannabis abuse, uncomplicated; F17.210 Nicotine dependence, cigarettes, uncomplicated; W19.XXXA Unspecified fall, initial encounter
CPT/HCPCS: 72040; 96374; 96375

== ENCOUNTER 2018-07-31 05:11 | Emergency (ER) | payer SELFPAY ==
[~2018-07-31] VITALS: Ht 167.6 cm; Wt 68.0 kg
[~2018-07-31 05:11] MED LIST changes: +METH-313 PO
--- NOTE | 2018-07-31 05:46 | ED Neck-Back Pain/Injury ---
General Chief Complaint: Head/Cervical Problems Stated Complaint: CERVICAL DYSTONIA FLARE Source of Information: Patient Exam Limitations: No Limitations History of Present Illness Date Seen by Provider: Jul 31, 2018 Time Seen by Provider: 05:33 Initial Comments Here with report of neck pain and left-sided that is typical for him when he has his cervical dystonia flare. States it's been going on about 4 days and then worse over the last 2 days. He has been taking Naprosyn and ibuprofen. States tramadol usually helps. Denies recent injury and is unsure why he is having a flare. He has had multiple visits for the same and is supposed to follow up with neurology or his primary doctor. He is going to be seen at [facility] on this week he reports which would be 08/05. Timing/Duration: 3-4 Days Severity: Moderate Pain/Injury Location: Neck Modifying Factors: Improves With Immobilization; Worse With Movement Associated Symptoms: muscle spasms; No weakness, No sensory/motor loss, No lower back pain Allergies and Home Medications Allergies Coded Allergies: No Known Drug Allergies (Verified , 02/06/17) Home Medications Methocarbamol 750 Mg Tablet, 750 MG PO Q6H PRN for PAIN-MODERATE TO SEVERE Prescribed by: BOO THOMPSON on 07/08/18 1212 Tramadol HCl 50 Mg Tablet, 50 MG PO Q6H PRN for PAIN-MODERATE TO SEVERE Prescribed by: JEREMY JO on 05/22/18 0918 Patient Home Medication List Home Medication List Reviewed: Yes Review of Systems Constitutional: see HPI; No chills, No fever Respiratory: no symptoms reported Cardiovascular: no symptoms reported Musculoskeletal: see HPI, muscle pain, muscle stiffness, neck pain Psychiatric/Neurological: No Symptoms Reported Past Soygsib-Sdoglc-Xwtcbj Hx Past Med/Social Hx: Reviewed Nursing Past Med/Soc Hx Patient Social History Alcohol Use: Denies Use Drug of Choice: THC, TESTED + FOR BENZODIAZEPINES 04/01/18 Smoking Status: Current Everyday Smoker Type Used: Cigarettes 2nd Hand Smoke Exposure: Yes Recent Foreign Travel: No Contact w/Someone Who Travel: No Recent Hopitalizations: No Immunizations Up To Date Tetanus Booster (TDap): Unknown Date of Influenza Vaccine: Aug 19, 2011 Seasonal Allergies Seasonal Allergies: No Past Medical History Surgeries: No Respiratory: No Cardiac: No Neurological: Yes ("CERVICAL DYSTONIA" PER PT--SELF-REPORTED; TREMOR) Headaches /Migraines Reproductive Disorders: No Sexually Transmitted Disease: No HIV/AIDS: No Genitourinary: No Gastrointestinal: No Musculoskeletal: Yes (CHRONIC NECK PAIN AND SELF-REPORTED "CERVICAL DYSTONIA" ) Chronic Back Pain Endocrine: Yes ("Thyroid issues") HEENT: Yes (Recurrent dental pain) Cancer: No Psychosocial: Yes Depression Integumentary: Yes (ABSCESSES) Blood Disorders: No Family Medical History Reviewed Nursing Family Hx Patient reports no known family medical history. No Pertinent Family Hx Physical Exam Vital Signs Capillary Refill : Height, Weight, BMI Height: 5'6.00" Weight: 150lbs. 0oz. 68.973192hc; 23.49 BMI Method:Stated General Appearance: WD/WN, Mild Distress Neck: Limited Range of Motion, Tender Lateral; No Tender Midline Cardiovascular: Regular Rate, Rhythm, No Murmur Respiratory: Lungs Clear, Normal Breath Sounds Back: Normal Inspection, No CVA Tenderness, No Vertebral Tenderness Neurologic/Psychiatric: Alert, Oriented x3 Skin: Normal Color, Warm/Dry Progress/Results/Core Measures Results/Orders My Orders Orders - DEE ASHLEY MD Tramadol Tablet (Ultram Tablet) (07/31/18 05:38) Progress Progress Note : Progress Note Seen and evaluated. Tramadol 50 mg by mouth. Discharged home with return precautions. Patient verbalize understanding instructions and agreement with plan. Departure Impression Primary Impression: Neck pain Disposition: HOME, SELF-CARE Condition: Stable Departure-Patient Inst. Decision time for Depature: 05:45 Referrals: NO,LOCAL PHYSICIAN (PCP/Family) Primary Care Physician Patient Instructions: Chronic Neck Pain (DC), Torticollis (DC) Add. Discharge Instructions: All discharge instructions reviewed with patient and/or family. Voiced understanding. Follow-up with your doctor this week for recheck and further evaluation and referral to neurology/neurosurgery for further evaluation as previously indicated. You may take ibuprofen 600 mg every 8 hours as needed for pain. You may take Tylenol 1000 mg every 8 hours as needed for pain. Drink plenty of fluids. You may use warm packs or other tves-rzs-wkzbinw items such as icy-hot with lidocaine or salon past with lidocaine or similar to area of concern. Scripts Tramadol HCl (Tramadol HCl) 50 Mg Tablet 50 MG PO Q6H PRN for PAIN, #12 TAB 0 Refills Prov: DEE ASHLEY MD 07/31/18 DEE ASHLEY MD Jul 31, 2018 05:46
[2018-07-31] MEDS ORDERED: TRAM50TA2 PO (05:47)
[2018-07-31 05:55] VITALS: BP 140/77
[2018-07-31] MEDS ORDERED: CYCL10TA9 PO (05:55)
== END 2018-07-31 05:55 | disposition home or self-care (01) ==
LOC: EDUNIT# 05:11 → ER 05:17
DX: M54.2 Cervicalgia (principal); G43.909 Migraine, unspecified, not intractable, without status migrainosus; F32.9 Major depressive disorder, single episode, unspecified; F12.10 Cannabis abuse, uncomplicated; F17.210 Nicotine dependence, cigarettes, uncomplicated
CPT/HCPCS: 99283

== ENCOUNTER 2018-08-06 11:38 | Emergency (ER) | payer SELFPAY ==
[~2018-08-06] VITALS: Ht 167.6 cm; Wt 68.0 kg
--- OUTSIDE RECORDS SUMMARY | 2018-08-06 11:45 | XMS REPORT | Continuity of Care Document ---
Author Author Formerly [facility] Address Unknown Phone Unavailable Allergies Active Description Code Type Severity Reaction Onset Reported/Identified Relationship to Patient Clinical Status Yes NO KNOWN DRUG ALLERGIES UNKNOWN NO KNOWN DRUG ALLERG Yes No Known Drug Allergies [id number] Drug Allergy Mild N/A 02/06/2017 Medications Medication [...] 682.6 CELLULITIS OF LEG 04/21/2015 BOO THOMPSON FINE PATCHER Ot 305.50 OPIOID ABUSE-UNSPEC 04/21/2015 BOO THOMPSON [...] NICOTINE DEPENDENCE, CIGARETTES, UNCOMPL 09/25/2016 BOO THOMPSON FINE PATCHER Ot M79.1 MYALGIA 09/25/2016 BOO THOMPSON APRN Ot R11.2 NAUSEA WITH VOMITING, UNSPECIFIED 09/25/2016 BOO THOMPSON FINE PATCHER Ot R19.7 DIARRHEA, UNSPECIFIED 09/25/2016 BOO THOMPSON FINE PATCHER Ot R51 HEADACHE 09/26/2016 BOO THOMPSON APRN Ot F17.210 NICOTINE DEPENDENCE, CIGARETTES, UNCOMPL 09/26/2016 OBO THOMPSON FINE PATCHER Ot M79.1 MYALGIA 09/26/2016 BOO THOMPSON FINE PATCHER Ot R11.2 NAUSEA WITH VOMITING, UNSPECIFIED 09/26/2016 [...] EXPSR TO ENVIRON TOBACCO SMO 12/10/2017 JESSICA NIHCOLE DO Ot F12.10 CANNABIS ABUSE, UNCOMPLICATED 12/10/2017 [...] COMA SCALE, BEST VERBAL RESPONSE, ORIENT 12/10/2017 JSESICA NICHOLE DO Ot R40.2362 COMA SCALE, BEST [...] 12/11/2017 DIONISIO DO JESSICA Sean Ot Z79.82 FINANCIAL AID ADVISOR (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 01/26/2018 BOO THOMPSON [...] 01/26/2018 BOO THOMPSON APRN Ot Y93.61 ACTIVITY, SRI LANKAN TACKLE FOOTBALL 01/26/2018 BOO THOMPSON APRN Ot [...] 01/28/2018 BOO THOMPSON APRN Ot Y93.61 ACTIVITY, SRI LANKAN TACKLE FOOTBALL 01/28/2018 BOO THOMPSON APRN Ot [...] 02/01/2018 BOO THOMPSON APRN Ot Y93.61 ACTIVITY, SRI LANKAN TACKLE FOOTBALL 02/01/2018 BOO THOMPSON APRN Ot Z77.22 CNTCT W AND EXPSR TO ENVIRON TOBACCO SMO 02/01/2018 BOO THOMPSON APRN Ot Z79.52 FINANCIAL AID ADVISOR (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 OF SYSTEMIC STER 02/01/2018 BOO THOMPSON FINE PATCHER Ot Z87.59 PERSONAL HISTORY OF COMP OF PREG, CHLDBR 02/18/2018 GENOVEVA, GAURANG ACTIVITIES LEADER Ot F17.210 NICOTINE DEPENDENCE, CIGARETTES, UNCOMPL 02/18/2018 GENOVEVA, GAURANG ACTIVITIES LEADER Ot F32.9 MAJOR DEPRESSIVE DISORDER, SINGLE EPISOD 02/18/2018 GENOVEVA, GAURANG ACTIVITIES LEADER Ot G43.909 MIGRAINE, UNSP, NOT INTRACTABLE, WITHOUT 02/18/2018 GENOVEVA, GAURANG ACTIVITIES LEADER Ot M50.90 CERVICAL DISC DISORDER, UNSP, UNSPECIFIE 02/18/2018 GENOVEVA, GAURANG ACTIVITIES LEADER Ot M54.2 CERVICALGIA 02/18/2018 GENOVEVA, GAURANG ACTIVITIES LEADER Ot Z79.52 SENIOR CARE (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 OF SYSTEMIC STER 02/22/2018 GENOVEVA, GAURANG ACTIVITIES LEADER Ot F17.210 NICOTINE DEPENDENCE, CIGARETTES, UNCOMPL 02/22/2018 GENOVEVA, GAURANG ACTIVITIES LEADER Ot F32.9 MAJOR DEPRESSIVE DISORDER, SINGLE EPISOD 02/22/2018 GENOVEVA, GAURANG ACTIVITIES LEADER Ot G43.909 MIGRAINE, UNSP, NOT INTRACTABLE, WITHOUT 02/22/2018 GENOVEVA, GAURANG ACTIVITIES LEADER Ot M50.90 CERVICAL DISC DISORDER, UNSP, UNSPECIFIE 02/22/2018 GENOVEVA, GAURANG ACTIVITIES LEADER Ot M54.2 CERVICALGIA 02/22/2018 GENOVEVA, GAURANG ACTIVITIES LEADER Ot Z79.52 FINANCIAL AID ADVISOR (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 OF SYSTEMIC STER 02/24/2018 GENOVEVA, GAURANG ACTIVITIES LEADER Ot F17.210 NICOTINE DEPENDENCE, CIGARETTES, UNCOMPL 02/24/2018 GENOVEVA, GAURANG ACTIVITIES LEADER Ot F32.9 MAJOR DEPRESSIVE DISORDER, SINGLE EPISOD 02/24/2018 GENOVEVA, GAURANG ACTIVITIES LEADER Ot G43.909 MIGRAINE, UNSP, NOT INTRACTABLE, WITHOUT 02/24/2018 GENOVEVA, GAURANG ACTIVITIES LEADER Ot M50.90 CERVICAL DISC DISORDER, UNSP, UNSPECIFIE 02/24/2018 GENOVEVA, GAURANG ACTIVITIES LEADER Ot M54.2 CERVICALGIA 02/24/2018 GENOVEVA, GAURANG ACTIVITIES LEADER Ot Z79.52 FINANCIAL AID ADVISOR (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 OF SYSTEMIC STER 02/25/2018 GINGER [...] 03/09/2018 JEREMY GARRIDO MD T Ot Z79.52 FINANCIAL AID ADVISOR (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 OF SYSTEMIC STER 03/11/2018 JEREMY [...] JEREMY GARRIDO MD Ot Y92.[address] [facility] 03/24/2018 JEREMY GARRIDO MD Ot Z79.52 FINANCIAL AID ADVISOR (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 OF SYSTEMIC STER 03/24/2018 JEREMY [...] MD Ot Y92.002 BATHRM OF [facility] SN 03/26/2018 JEREMY GARRIDO MD Ot Z79.52 FINANCIAL AID ADVISOR (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 OF SYSTEMIC STER 03/26/2018 JEREMY [...] Ot E07.9 DISORDER OF THYROID, UNSPECIFIED 05/01/2018 BERNOT, DIDIER Ot F32.9 MAJOR DEPRESSIVE DISORDER, SINGLE EPISOD 05/01/2018 DIDIER JONES Ot G43.909 MIGRAINE, UNSP, NOT INTRACTABLE, WITHOUT 05/01/2018 DIDIER JONES Ot G89.29 OTHER CHRONIC PAIN 05/01/2018 DIDIER JONES Ot M54.2 CERVICALGIA 05/01/2018 DIDIER JONES Ot Z77.22 CNTCT W AND EXPSR TO ENVIRON TOBACCO SMO 05/22/2018 Ot F11.10 OPIOID ABUSE , UNCOMPLICATED 05/22/2018 Ot F12.10 CANNABIS ABUSE, UNCOMPLICATED 05/22/2018 Ot F17.210 NICOTINE DEPENDENCE, CIGARETTES, UNCOMPL 05/22/2018 Ot F32.9 MAJOR DEPRESSIVE DISORDER, SINGLE EPISOD 05/22/2018 Ot G24.8 OTHER DYSTONIA 05/22/2018 Ot G43.909 MIGRAINE, UNSP, NOT INTRACTABLE, WITHOUT 05/22/2018 Ot M54.2 CERVICALGIA 05/22/2018 Ot Z91.14 PATIENT'S OTHER NONCOMPLIANCE WITH MEDIC 07/08/2018 DAVON VINCENT MD Ot F12.10 CANNABIS ABUSE, UNCOMPLICATED 07/08/2018 DAVON VINCENT MD Ot F17.210 NICOTINE DEPENDENCE, CIGARETTES, UNCOMPL 07/08/2018 DAVON VINCENT MD Ot F32.9 MAJOR DEPRESSIVE DISORDER, SINGLE EPISOD 07/08/2018 DAVON VINCENT MD Ot G43.909 MIGRAINE, UNSP, NOT INTRACTABLE, WITHOUT 07/08/2018 DAVON VINCENT MD Ot G89.29 OTHER CHRONIC PAIN 07/08/2018 DAVON VINCENT MD Ot M54.2 CERVICALGIA 07/08/2018 DAVON VINCENT MD Ot W19.XXXA UNSPECIFIED FALL, INITIAL ENCOUNTER 08/02/2018 DEE ASHLEY MD Ot F12.10 CANNABIS ABUSE, UNCOMPLICATED 08/02/2018 DEE ASHLEY MD Ot F17.210 NICOTINE DEPENDENCE, CIGARETTES, UNCOMPL 08/02/2018 DEE ASHLEY MD Ot F32.9 MAJOR DEPRESSIVE DISORDER, SINGLE EPISOD 08/02/2018 DEE ASHLEY MD Ot G43.909 MIGRAINE, UNSP, NOT INTRACTABLE, WITHOUT 08/02/2018 DEE ASHLEY MD Ot M54.2 CERVICALGIA Procedures [...] Status Pt. Type Provider Facility Loc./Unit Complaint [id number] 02/08/2015 13:21:00 02/08/2015 23:59:59 CLS Outpatient JESSICA MARSH DDS [id number] 11/06/2014 12:15:00 11/06/2014 23:59:59 CLS Outpatient MORGAN BARRERA APRN [id number] 10/03/2014 08:26:00 10/03/2014 23:59:59 CLS Outpatient MORGAN BARRERA APRN [id number] 05/07/2010 16:02:00 05/07/2010 23:59:59 CLS Outpatient GLADYS HASKINS DDS [id number] 04/23/2015 02:28:34 ACT Document Registration [id number] 04/28/2018 15:57:00 04/28/2018 18:18:00 DIS Outpatient Joyce [facility] [place] [id number] 04/28/2018 17:34:01 Document Registration [id number] 07/31/2018 05:17:00 07/31/2018 05:55:00 DIS Outpatient GABI YAN, DEE Anderson [facility] ER CERVICAL DYSTONIA FLARE [id number] 07/08/2018 09:03:00 07/08/2018 12:20:00 DIS Emergency CARLTON YAN, DAVON Estrada [facility] ER FALL;NECK PAIN [id number] 05/01/2018 11:20:00 05/01/2018 12:04:00 DIS Emergency DIDIER JONES [facility] ER NECK PROBLEMS,PAIN [id number] 04/28/2018 02:10:00 04/28/2018 02:38:00 DIS Emergency GABI YAN, DEE Anderson [facility] ER PREVIOUS FALL, NECK PAIN [id number] 04/12/2018 08:19:00 04/12/2018 09:50:00 DIS Emergency GABI YAN, DEE Anderson [facility] ER NECK PAIN,SHAKING [id number] 04/01/2018 08:19:00 04/01/2018 10:40:00 DIS Emergency JESSICA NICHOLE DO [facility] ER ABD PAIN [id number] 03/24/2018 09:29:00 03/24/2018 10:28:00 DIS Emergency RADHIKA YAN, JEREMY Laws [facility] ER NECK PAIN,SHOULDER PAIN,FELL IN SHOWER [id number] 03/23/2018 09:48:00 03/23/2018 23:59:59 CLS Preadmit NO, LOCAL PHYSICIAN [facility] REHAB CERVICAL DYSTONIA [id number] 03/09/2018 09:01:00 03/09/2018 11:39:00 DIS Emergency JEREMY GARRIDO MD [facility] ER NECK PAIN [id number] 02/25/2018 08:05:00 02/25/2018 08:48:00 DIS Emergency GINGER YAN, VANESSA Adame [facility] ER NECK PAIN [id number] 02/18/2018 12:58:00 02/18/2018 15:40:00 DIS Emergency GAURANG TOMAS [facility] ER NECK PAIN [id number] 01/26/2018 13:03:00 01/26/2018 13:39:00 DIS Emergency BOO THOMPSON APRN [facility] ER NECK AND SHOULDER PAIN AND DISCOMFORT [id number] 12/09/2017 20:42:00 12/10/2017 00:05:00 DIS Emergency JESSICA NICHOLE DO [facility] ER BACK AND NECK PAIN;FALL [id number] 11/27/2017 04:58:00 11/27/2017 08:06:00 DIS Emergency GABI YAN, DEE Anderson [facility] ER BACK PAIN,SON WALKED ON BACK YESTERDAY [id number] 11/26/2017 08:47:00 11/26/2017 10:32:00 DIS Emergency CARLTON YAN, DAVON Estrada [facility] ER SHAKING,NECK PAIN,RIGHT SIDE PAIN [id number] 10/29/2017 08:57:00 10/29/2017 11:11:00 DIS Emergency DEE ASHLEY MD [facility] ER NECK PAIN [id number] 09/29/2017 08:34:00 09/29/2017 13:37:00 DIS Emergency JEREMY GARRIDO MD [facility] ER CP [id number] 08/18/2017 06:40:00 08/18/2017 07:45:00 DIS Emergency JEREMY GARRIDO MD [facility] ER NEUROLOGICAL DISORDER, CAN'T SLEEP [id number] 07/05/2017 16:36:00 07/05/2017 17:08:00 DIS Emergency DEE ASHLEY MD [facility] ER DENTAL PAIN [id number] 06/12/2017 13:03:00 06/12/2017 15:28:00 DIS Emergency JUSTIN VELOZ [facility] ER NECK PAIN [id number] 06/11/2017 17:39:00 06/11/2017 18:30:00 DIS Emergency VANESSA MILES MD [facility] ER NECK INJ [id number] 02/18/2017 10:20:00 02/18/2017 13:13:00 DIS Emergency JUSTIN VELOZ [facility] ER COUGH NAUSEA [id number] 02/06/2017 13:54:00 02/06/2017 14:16:00 DIS Emergency BOO THOMPSON APRN [facility] ER COUGH/CHEST CONGESTION [id number] 09/25/2016 10:36:00 09/25/2016 12:08:00 DIS Emergency BOO THOMPSON APRN [facility] ER VOMITING COUGH HEADACHE FATIGUE [id number] 06/02/2016 13:14:00 06/02/2016 14:13:00 DIS Emergency VANESSA MILES MD [facility] ER NECK PAIN/SHAKING [id number] 04/22/2015 23:25:00 04/24/2015 15:25:00 DIS Inpatient VANESSA PAZ MD [facility] 4TH BENZODIAZEPINE WITHDRAWAL ;NARCOTIC WITHDRAWAL [id number] 04/21/2015 20:34:00 04/21/2015 22:10:00 DIS Emergency BOO THOMPSON APRN [facility] ER BLOODY STOOLS,ABD PAIN, WANTS REHAB [id number] 02/18/2015 12:02:00 02/18/2015 12:51:00 DIS Emergency JUSTIN VELOZ [facility] ER CYST ON HIP [id number] 02/16/2015 00:03:00 02/16/2015 00:55:00 DIS Emergency MORGAN GANNON DO [facility] ER CELLULITIS [id number] 01/15/2015 11:44:00 01/15/2015 23:59:59 CLS Preadmit ROHAN HARTMAN MD [facility] WOUNDCARE [id number] 01/07/2015 01:35:00 01/10/2015 16:30:00 DIS Outpatient CAROLEE QUINTERO MD [facility] SDC MULTIPLE ABCESS/ CELLULITIS [id number] 07/08/2014 11:44:00 07/08/2014 12:25:00 DIS Emergency BOO THOMPSON APRN [facility] ER TOOTH INFECTION [id number] 06/03/2013 16:23:00 06/03/2013 23:59:59 CLS Preadmit DAVON VINCENT MD [facility] ER DENTAL PAIN,POSSIBLE RASH [id number] 06/01/2013 12:37:00 06/01/2013 23:59:59 CLS Outpatient [id number] 05/28/2013 08:10:00 05/28/2013 09:58:00 DIS Emergency JESSICA NICHOLE DO [facility] ER L SIDE LOWER BACK PAIN AND RIB PAIN [id number] 04/28/2013 16:12:00 04/28/2013 18:55:00 DIS Emergency JUSTIN VELOZ [facility] ER DENTAL PAIN [id number] 05/22/2018 08:41:00 Document Registration [id number] 03/26/2015 10:11:00 Document Registration [id number] 03/23/2015 13:15:00 Document Registration [id number] 06/03/2012 17:30:00 Document Registration [id number] 03/10/2012 13:38:00 Document Registration [id number] 01/24/2012 14:20:00 Document Registration [id number] 01/10/2012 14:24:00 Document Registration [id number] 12/13/2011 16:18:00 Document Registration [id number] 11/16/2011 08:46:00 Document Registration [id number] 08/18/2011 21:09:00 Document Registration [id number] 04/08/2011 12:15:00 Document Registration [id number] 11/28/2010 16:26:00 Document Registration [id number] 10/14/2010 10:52:00 Document Registration [id number] 07/28/2010 16:08:00 Document Registration [id number] 07/03/2010 02:58:00 Document Registration [id number] 06/06/2010 06:29:00 Document Registration [id number] 04/22/2010 12:05:00 Document Registration [id number] 01/19/2018 10:40:00 01/19/2018 23:59:59 CLS Out[facility] [id number] 06/19/2016 08:46:00 Document Registration
[2018-08-06] MEDS ORDERED: ORPHENADRINE 60 MG/2 ML (NORFLEX) AMP IM ONE (12:15)
[2018-08-06] MEDS ORDERED: KETOROLAC 60 MG/2 ML VIAL IM ONE (12:15)
--- NOTE | 2018-08-06 12:22 | ED Neck-Back Pain/Injury ---
General Chief Complaint: Head/Cervical Problems Stated Complaint: CERVICAL PAIN Nursing Triage Note: C/O NECK PAIN THAT IS THROBBING ET SPASMS SINCE TWO DAYS AGO. DID TRY TENS UNIT AND NAPROXYN. DID NOT HELP. STATES THIS IS THE WORST IT'S EVER BEEN. DOES NOT HAVE PCP OR NEURO TO HELP WITH CHRONIC Nursing Sepsis Screen: No Definite Risk Source of Information: Patient Exam Limitations: No Limitations History of Present Illness Date Seen by Provider: Aug 06, 2018 Time Seen by Provider: 12:19 Initial Comments To ER for the 17th time this year with complaints of neck pain. He's been completely noncompliant with follow-up. Location: C-Spine Timing/Duration: 1-2 Days Severity: Moderate Pain/Injury Location: Neck Associated Symptoms: denies symptoms Allergies and Home Medications Allergies Coded Allergies: No Known Drug Allergies (Verified , 02/06/17) Home Medications Cyclobenzaprine HCl 10 Mg Tablet, 10 MG PO Q8H PRN for SPASMS Prescribed by: DEE ASHLEY on 07/31/18 0555 Methocarbamol 750 Mg Tablet, 750 MG PO Q6H PRN for PAIN-MODERATE TO SEVERE Prescribed by: BOO THOMPSON on 07/08/18 1212 Tramadol HCl 50 Mg Tablet, 50 MG PO Q6H PRN for PAIN-MODERATE TO SEVERE Prescribed by: JEREMY JO on 05/22/18 0918 Tramadol HCl 50 Mg Tablet, 50 MG PO Q6H PRN for PAIN Prescribed by: DEE ASHLEY on 07/31/18 0547 Patient Home Medication List Home Medication List Reviewed: Yes Review of Systems Constitutional: see HPI EENTM: see HPI Respiratory: no symptoms reported Cardiovascular: no symptoms reported Genitourinary: no symptoms reported Musculoskeletal: see HPI, neck pain Skin: no symptoms reported Psychiatric/Neurological: No Symptoms Reported Past Dydlfka-Pzzjkn-Wzplyl Hx Patient Social History Alcohol Use: Denies Use Recreational Drug Use: No Drug of Choice: THC, TESTED + FOR BENZODIAZEPINES 04/01/18 Type Used: Cigarettes 2nd Hand Smoke Exposure: Yes Recent Foreign Travel: No Contact w/Someone Who Travel: No Recent Infectious Disease Expo: No Recent Hopitalizations: No Immunizations Up To Date Tetanus Booster (TDap): Unknown Date of Influenza Vaccine: Aug 19, 2011 Seasonal Allergies Seasonal Allergies: No Past Medical History Surgeries: No Respiratory: No Cardiac: No Neurological: Yes ("CERVICAL DYSTONIA" PER PT--SELF-REPORTED; TREMOR) Headaches /Migraines Reproductive Disorders: No Sexually Transmitted Disease: No HIV/AIDS: No Genitourinary: No Gastrointestinal: No Musculoskeletal: Yes (CHRONIC NECK PAIN AND SELF-REPORTED "CERVICAL DYSTONIA" ) Chronic Back Pain Endocrine: Yes ("Thyroid issues") HEENT: Yes (Recurrent dental pain) Cancer: No Psychosocial: Yes Depression Integumentary: Yes (ABSCESSES) Blood Disorders: No Family Medical History Patient reports no known family medical history. No Pertinent Family Hx Physical Exam Vital Signs Vital Signs - First Documented 08/06/18 12:06 Temp 98.3 Pulse 92 Resp 22 B/P (MAP) 115/71 (86) Pulse Ox 95 O2 Delivery Room Air Capillary Refill : Less Than 3 Seconds Height, Weight, BMI Height: 5'6.00" Weight: 150lbs. 0oz. 68.307323st; 23.49 BMI Method:Stated General Appearance: WD/WN, Thin HEENT: PERRL/EOMI, TMs Normal Neck: Tender Lateral, Tender Midline Respiratory: Normal Breath Sounds, No Accessory Muscle Use, No Respiratory Distress Neurologic/Psychiatric: Alert, Oriented x3 Skin: Normal Color, Warm/Dry Progress/Results/Core Measures Results/Orders Lab Results Laboratory Tests Test 08/06/18 12:18 Range/Units Urine Opiates Screen NEGATIVE NEGATIVE Urine Oxycodone Screen NEGATIVE NEGATIVE Urine Methadone Screen NEGATIVE NEGATIVE Urine Propoxyphene Screen NEGATIVE NEGATIVE Urine Barbiturates Screen NEGATIVE NEGATIVE Ur Tricyclic Antidepressants Screen NEGATIVE NEGATIVE Urine Phencyclidine Screen NEGATIVE NEGATIVE Urine Amphetamines Screen NEGATIVE NEGATIVE Urine Methamphetamines Screen NEGATIVE NEGATIVE Urine Benzodiazepines Screen NEGATIVE NEGATIVE Urine Cocaine Screen NEGATIVE NEGATIVE Urine Cannabinoids Screen NEGATIVE NEGATIVE My Orders Orders - BOO THOMPSON APRN Ketorolac Injection (Toradol Injection) (08/06/18 12:15) Orphenadrine Injection (Norflex Injectio (08/06/18 12:15) Drug Screen Stat (Urine) (08/06/18 12:14) Medications Given in ED Current Medications Medications Dose Ordered Sig/Travis Route Start Time Stop Time Status Last Admin Dose Admin Ketorolac Tromethamine 60 mg ONCE ONCE IM 08/06/18 12:15 08/06/18 12:16 DC 08/06/18 12:45 60 MG Orphenadrine Citrate 60 mg ONCE ONCE IM 08/06/18 12:15 08/06/18 12:16 DC 08/06/18 12:46 60 MG Vital Signs/I&O 08/06/18 08/06/18 12:06 13:02 Temp 98.3 98.6 Pulse 92 79 Resp 22 16 B/P (MAP) 115/71 (86) 127/89 (102) Pulse Ox 95 97 O2 Delivery Room Air Blood Pressure Mean: 86 Departure Communication (Admissions) I did make an appointment on the patient's behalf with [facility] to see Lavelle Gamboa on August 11 at 11:20 AM Impression Primary Impression: Cervical pain (neck) Disposition: HOME, SELF-CARE Condition: Stable Departure-Patient Inst. Decision time for Depature: 12:21 Referrals: NO,LOCAL PHYSICIAN (PCP/Family) Primary Care Physician Patient Instructions: Chronic Neck Pain (DC) Add. Discharge Instructions: 1. Youre scheduled to see [facility] August 11 at 11:20 AM. You are going to see Lavelle Gamboa. Do not miss this appointment for any reason. You have been to the emergency room 17 times this year for neck pain and you must establish care with a primary care provider. All discharge instructions reviewed with patient and/or family. Voiced understanding. BOO THOMPSON APRN Aug 06, 2018 12:22
[2018-08-06 12:38] LABS: AMPHETAMINE SCREEN, URINE NEGATIVE (NEGATIVE); BARBITURATE SCREEN URINE NEGATIVE (NEGATIVE); BENZODIAZEPINES SCREEN URINE NEGATIVE (NEGATIVE); CANNABINOID SCREEN, URINE NEGATIVE (NEGATIVE); COCAINE SCREEN URINE NEGATIVE (NEGATIVE); METHADONE STAT NEGATIVE (NEGATIVE); METHAMPHETAMINE SCREEN URINE S NEGATIVE (NEGATIVE); OPIATE SCREEN URINE NEGATIVE (NEGATIVE); OXYCODONE STAT NEGATIVE (NEGATIVE); PROPOXYPHENE STAT NEGATIVE (NEGATIVE); TRICYCLIC ANTIDEPRESSANTS SCRE NEGATIVE (NEGATIVE)
[2018-08-06 13:02] VITALS: BP 127/89
== END 2018-08-06 13:01 | disposition home or self-care (01) ==
LOC: EDUNIT# 11:38 → ER 11:39
DX: M54.2 Cervicalgia (principal); G43.909 Migraine, unspecified, not intractable, without status migrainosus; F32.9 Major depressive disorder, single episode, unspecified; F12.10 Cannabis abuse, uncomplicated; Z91.19 Patient's noncompliance with other medical treatment and regimen; Z77.22 Contact with and (suspected) exposure to environmental tobacco smoke (acute) (chronic)
CPT/HCPCS: 80306; 99284

== ENCOUNTER 2018-08-20 00:11 | Emergency (ER) | payer SELFPAY ==
[~2018-08-20] VITALS: Ht 167.6 cm; Wt 68.0 kg
--- OUTSIDE RECORDS SUMMARY | 2018-08-20 01:14 | XMS REPORT | Continuity of Care Document ---
Author Author [facility] Address Unknown Phone Unavailable Allergies Active Description Code Type Severity Reaction Onset Reported/Identified Relationship to Patient Clinical Status Yes NO KNOWN DRUG ALLERGIES UNKNOWN NO KNOWN DRUG ALLERG Yes No Known Drug Allergies [id number] Drug Allergy Mild N/A 02/06/2017 Medications Medication [...] 682.6 CELLULITIS OF LEG 04/21/2015 BOO THOMPSON GIS DATABASE ADMINISTRATOR Ot 305.50 OPIOID ABUSE-UNSPEC 04/21/2015 OBO THOMPSON APRN Ot 564.00 UNSPEC CONSTIPATION 04/21/2015 [...] NICOTINE DEPENDENCE, CIGARETTES, UNCOMPL 09/25/2016 BOO THOMPSON GIS DATABASE ADMINISTRATOR Ot M79.1 MYALGIA 09/25/2016 BOO THOMPSON APRN Ot R11.2 NAUSEA WITH VOMITING, UNSPECIFIED 09/25/2016 BOO THOMPSON GIS DATABASE ADMINISTRATOR Ot R19.7 DIARRHEA, UNSPECIFIED 09/25/2016 BOO THOMPSON GIS DATABASE ADMINISTRATOR Ot R51 HEADACHE 09/26/2016 BOO THOMPSON APRN Ot F17.210 NICOTINE DEPENDENCE, CIGARETTES, UNCOMPL 09/26/2016 BOO THOMPSON GIS DATABASE ADMINISTRATOR Ot M79.1 MYALGIA 09/26/2016 BOO THOMPSON GIS DATABASE ADMINISTRATOR Ot R11.2 NAUSEA WITH VOMITING, UNSPECIFIED [...] DEE ASHLEY MD Ot M54.2 CERVICALGIA 11/27/2017 EDE ASHLEY MD Ot Z77.22 CNTCT W AND [...] AG 12/10/2017 JESSICA NICHOLE DO Ot Z79.82 JAIL (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 12/11/2017 DIONISIO JESSICA [...] 12/11/2017 DIONISIO DO JESSICA Sean Ot Z79.82 ACQUISITION SPECIALIST (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 01/26/2018 BOO THOMPSON [...] 01/26/2018 BOO THOMPSON APRN Ot Y93.61 ACTIVITY, FIJIAN TACKLE FOOTBALL 01/26/2018 BOO THOMPSON APRN Ot Z77.22 CNTCT W AND EXPSR TO ENVIRON TOBACCO SMO 01/26/2018 BOO THOMPSON APRN Ot Z79.52 JAIL (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 OF SYSTEMIC STER 01/26/2018 BOO [...] 01/28/2018 BOO THOMPSON APRN Ot Y93.61 ACTIVITY, FIJIAN TACKLE FOOTBALL 01/28/2018 BOO THOMPSON APRN Ot Z77.22 CNTCT W AND EXPSR TO ENVIRON TOBACCO SMO 01/28/2018 BOO THOMPSON APRN Ot Z79.52 JAIL (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 OF SYSTEMIC STER 01/28/2018 BOO [...] 02/01/2018 BOO THOMPSON APRN Ot Y93.61 ACTIVITY, FIJIAN TACKLE FOOTBALL 02/01/2018 BOO THOMPSON APRN Ot Z77.22 CNTCT W AND EXPSR TO ENVIRON TOBACCO SMO 02/01/2018 BOO THOMPSON APRN Ot Z79.52 ACQUISITION SPECIALIST (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 OF SYSTEMIC STER 02/01/2018 BOO THOMPSON GIS DATABASE ADMINISTRATOR Ot Z87.59 PERSONAL HISTORY OF COMP OF PREG, CHLDBR 02/18/2018 GENOVEVA, GAURANG PROFESSOR OF PHILOSOPHY Ot F17.210 NICOTINE DEPENDENCE, CIGARETTES, UNCOMPL 02/18/2018 GENOVEVA, GAURANG PROFESSOR OF PHILOSOPHY Ot F32.9 MAJOR DEPRESSIVE DISORDER, SINGLE EPISOD 02/18/2018 GENOVEVA, GAURANG PROFESSOR OF PHILOSOPHY Ot G43.909 MIGRAINE, UNSP, NOT INTRACTABLE, WITHOUT 02/18/2018 GENOVEVA, GAURANG PROFESSOR OF PHILOSOPHY Ot M50.90 CERVICAL DISC DISORDER, UNSP, UNSPECIFIE 02/18/2018 GENOVEVA, GAURANG PROFESSOR OF PHILOSOPHY Ot M54.2 CERVICALGIA 02/18/2018 GENOVEVA, GAURANG PROFESSOR OF PHILOSOPHY Ot Z79.52 JAIL (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 OF SYSTEMIC STER 02/22/2018 GENOVEVA, GAURANG PROFESSOR OF PHILOSOPHY Ot F17.210 NICOTINE DEPENDENCE, CIGARETTES, UNCOMPL 02/22/2018 GENOVEVA, GAURANG PROFESSOR OF PHILOSOPHY Ot F32.9 MAJOR DEPRESSIVE DISORDER, SINGLE EPISOD 02/22/2018 GENOVEVA, GAURANG PROFESSOR OF PHILOSOPHY Ot G43.909 MIGRAINE, UNSP, NOT INTRACTABLE, WITHOUT 02/22/2018 GENOVEVA, GAURANG PROFESSOR OF PHILOSOPHY Ot M50.90 CERVICAL DISC DISORDER, UNSP, UNSPECIFIE 02/22/2018 GENOVEVA, GAURANG PROFESSOR OF PHILOSOPHY Ot M54.2 CERVICALGIA 02/22/2018 GENOVEVA, GAURANG PROFESSOR OF PHILOSOPHY Ot Z79.52 ACQUISITION SPECIALIST (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 OF SYSTEMIC STER 02/24/2018 GENOVEVA, GAURANG PROFESSOR OF PHILOSOPHY Ot F17.210 NICOTINE DEPENDENCE, CIGARETTES, UNCOMPL 02/24/2018 GENOVEVA, GAURANG PROFESSOR OF PHILOSOPHY Ot F32.9 MAJOR DEPRESSIVE DISORDER, SINGLE EPISOD 02/24/2018 GENOVEVA, GAURANG PROFESSOR OF PHILOSOPHY Ot G43.909 MIGRAINE, UNSP, NOT INTRACTABLE, WITHOUT 02/24/2018 GENOVEVA, GAURANG PROFESSOR OF PHILOSOPHY Ot M50.90 CERVICAL DISC DISORDER, UNSP, UNSPECIFIE 02/24/2018 GENOVEVA, GAURANG PROFESSOR OF PHILOSOPHY Ot M54.2 CERVICALGIA 02/24/2018 GENOVEVA, GAURANG PROFESSOR OF PHILOSOPHY Ot Z79.52 ACQUISITION SPECIALIST (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 OF SYSTEMIC STER 02/25/2018 GINGER [...] 03/09/2018 JEREMY GARRIDO MD T Ot Z79.52 ACQUISITION SPECIALIST (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 OF SYSTEMIC STER 03/11/2018 JEREMY [...] 03/11/2018 JEREMY GARRIDO MD T Ot Z79.52 JAIL (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 OF SYSTEMIC STER 03/24/2018 JEREMY [...] JEREMY GARRIDO MD Ot Y92.002 [facility] 03/24/2018 JEREMY GARRIDO MD Ot Z79.52 ACQUISITION SPECIALIST (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 OF SYSTEMIC STER 03/24/2018 JEREMY [...] JEREMY GARRIDO MD Ot Y92.002 [facility] SN 03/26/2018 JEREMY GARRIDO MD Ot Z79.52 ACQUISITION SPECIALIST (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 OF SYSTEMIC STER 03/26/2018 JEREMY [...] F17.210 NICOTINE DEPENDENCE, CIGARETTES, UNCOMPL 04/05/2018 ELISHA NCIHOLE DOA K Ot F32.9 MAJOR DEPRESSIVE DISORDER, [...] Propoxyphene NEGATIVE NEGATIVE Tricyclic Antidepressant NEGATIVE NEGATIVE Urine drug screening test - 08/06/18 12:18 Urine phencyclidine detection by screening method NEGATIVE [...] NEGATIVE NEGATIVE Urine propoxyphene detection NEGATIVE NEGATIVE Encounters ACCT No. Visit Date/Time Discharge Status Pt. Type Provider Facility Loc./Unit Complaint [id number] 02/08/2015 13:21:00 02/08/2015 23:59:59 CLS Outpatient JESSICA MARSH DDS [id number] 11/06/2014 12:15:00 11/06/2014 23:59:59 CLS Outpatient MORGAN BARRERA APRN [id number] 10/03/2014 08:26:00 10/03/2014 23:59:59 CLS Outpatient MORGAN BARRERA APRN [id number] 05/07/2010 16:02:00 05/07/2010 23:59:59 CLS Outpatient GLADYS HASKINS DDS [id number] 04/23/2015 02:28:34 ACT Document Registration [id number] 04/28/2018 15:57:00 04/28/2018 18:18:00 DIS Outpatient [place] [facility] [place] [id number] 04/28/2018 17:34:01 Document Registration [id number] 08/06/2018 11:39:00 08/06/2018 23:59:59 CLS Emergency BOO THOMPSON APRN [facility] CERVICAL PAIN [id number] 07/31/2018 05:17:00 07/31/2018 05:55:00 DIS Outpatient GABI YAN, DEE Anderson [facility] CERVICAL DYSTONIA FLARE [id number] 07/08/2018 09:03:00 07/08/2018 12:20:00 DIS Emergency CARLTON YAN, DAVON Estrada [facility] ER FALL;NECK PAIN [id number] 05/01/2018 11:20:00 05/01/2018 12:04:00 DIS Emergency DIDIER JONES [facility] ER NECK PROBLEMS,PAIN [id number] 04/28/2018 02:10:00 04/28/2018 02:38:00 DIS Emergency GABI AYN, DEE Anderson [facility] ER PREVIOUS FALL, NECK PAIN [id number] 04/12/2018 08:19:00 04/12/2018 09:50:00 DIS Emergency GABI YAN, DEE Anderson [facility] NECK PAIN,SHAKING [id number] 04/01/2018 08:19:00 04/01/2018 10:40:00 DIS Emergency JESSICA NICHOLE DO [facility] ABD PAIN [id number] 03/24/2018 09:29:00 03/24/2018 10:28:00 DIS Emergency JEREMY GARRIDO MD [facility] NECK PAIN,SHOULDER PAIN,FELL IN SHOWER [id number] 03/23/2018 09:48:00 03/23/2018 23:59:59 CLS Preadmit NO, LOCAL PHYSICIAN [facility] REHAB CERVICAL DYSTONIA [id number] 03/09/2018 09:01:00 03/09/2018 11:39:00 DIS Emergency RADHIKA YAN, JEREMY Laws [facility] NECK PAIN [id number] 02/25/2018 08:05:00 02/25/2018 08:48:00 DIS Emergency GINGER YAN, VANESSA Adame [facility] NECK PAIN [id number] 02/18/2018 12:58:00 02/18/2018 15:40:00 DIS Emergency GAURANG TOMAS [facility] ER NECK PAIN [id number] 01/26/2018 13:03:00 01/26/2018 13:39:00 DIS Emergency BOO THOMPSON APRN [facility] ER NECK AND SHOULDER PAIN AND DISCOMFORT [id number] 12/09/2017 20:42:00 12/10/2017 00:05:00 DIS Emergency JESSICA NICHOLE DO [facility] BACK AND NECK PAIN;FALL [id number] 11/27/2017 04:58:00 11/27/2017 08:06:00 DIS Emergency DEE ASHLEY MD [facility] ER BACK PAIN,SON WALKED ON BACK YESTERDAY [id number] 11/26/2017 08:47:00 11/26/2017 10:32:00 DIS Emergency DAVON VINCENT MD [facility] SHAKING,NECK PAIN,RIGHT SIDE PAIN [id number] 10/29/2017 08:57:00 10/29/2017 11:11:00 DIS Emergency DEE ASHLEY MD [facility] NECK PAIN [id number] 09/29/2017 08:34:00 09/29/2017 13:37:00 DIS Emergency JEREMY GARRIDO MD [facility] CP [id number] 08/18/2017 06:40:00 08/18/2017 07:45:00 DIS Emergency JEREMY GARRIDO MD [facility] NEUROLOGICAL DISORDER, CAN'T SLEEP [id number] 07/05/2017 16:36:00 07/05/2017 17:08:00 DIS Emergency DEE ASHLEY MD [facility] ER DENTAL PAIN [id number] 06/12/2017 13:03:00 06/12/2017 15:28:00 DIS Emergency JUSTIN VELOZ [facility] NECK PAIN [id number] 06/11/2017 17:39:00 06/11/2017 18:30:00 DIS Emergency VANESSA MILES MD [facility] NECK INJ [id number] 02/18/2017 10:20:00 02/18/2017 13:13:00 DIS Emergency JUSTIN VELOZ [facility] ER COUGH NAUSEA [id number] 02/06/2017 13:54:00 02/06/2017 14:16:00 DIS Emergency BOO THOMPSON APRN [facility] COUGH/CHEST CONGESTION [id number] 09/25/2016 10:36:00 09/25/2016 12:08:00 DIS Emergency BOO THOMPSON APRN [facility] VOMITING COUGH HEADACHE FATIGUE [id number] 06/02/2016 13:14:00 06/02/2016 14:13:00 DIS Emergency VANESSA MILES MD [facility] ER NECK PAIN/SHAKING [id number] 04/22/2015 23:25:00 04/24/2015 15:25:00 DIS Inpatient VANESSA PAZ MD [facility] 4TH BENZODIAZEPINE WITHDRAWAL ;NARCOTIC WITHDRAWAL [id number] 04/21/2015 20:34:00 04/21/2015 22:10:00 DIS Emergency BOO THOMPSON GIS DATABASE ADMINISTRATOR [facility] BLOODY STOOLS,ABD PAIN, WANTS REHAB [id number] 02/18/2015 12:02:00 02/18/2015 12:51:00 DIS Emergency JUSTIN VELOZ [facility] CYST ON HIP [id number] 02/16/2015 00:03:00 02/16/2015 00:55:00 DIS Emergency MORGAN GANNON DO [facility] ER CELLULITIS [id number] 01/15/2015 11:44:00 01/15/2015 23:59:59 CLS Preadmit DEVAN YAN, ROHAN Davalos [facility] WOUNDCARE [id number] 01/07/2015 01:35:00 01/10/2015 16:30:00 DIS Outpatient INGRID YAN, CAROLEE Kiser [facility] MULTIPLE ABCESS/ CELLULITIS [id number] 07/08/2014 11:44:00 07/08/2014 12:25:00 DIS Emergency BOO THOMPSON APRN [facility] TOOTH INFECTION [id number] 06/03/2013 16:23:00 06/03/2013 23:59:59 CLS Preadmit CARLTON YAN, DAVON Estrada [facility] ER DENTAL PAIN,POSSIBLE RASH [id number] 06/01/2013 12:37:00 06/01/2013 23:59:59 CLS Outpatient [id number] 05/28/2013 08:10:00 05/28/2013 09:58:00 DIS Emergency DIONISIO DOJESSICA K [facility] ER L SIDE LOWER BACK PAIN AND RIB PAIN [id number] 04/28/2013 16:12:00 04/28/2013 18:55:00 DIS Emergency JUSTIN VELOZ [facility] ER DENTAL PAIN [id number] 08/20/2018 00:11:00 ACT Emergency ZACH YAN, SHAI Kiser [facility] TOOTH ABSCESS, CAN'T SLEEP [id number] 05/22/2018 08:41:00 Document Registration [id number] 03/26/2015 10:11:00 Document Registration [id number] 03/23/2015 13:15:00 Document Registration [id number] 06/03/2012 17:30:00 Document Registration [id number] 03/10/2012 13:38:00 Document Registration [id number] 01/24/2012 14:20:00 Document Registration [id number] 01/10/2012 14:24:00 Document Registration [id number] 12/13/2011 16:18:00 Document Registration [id number] 11/16/2011 08:46:00 Document Registration [id number] 08/18/2011 21:09:00 Document Registration [id number] 04/08/2011 12:15:00 Document Registration [id number] 11/28/2010 16:26:00 Document Registration [id number] 10/14/2010 10:52:00 Document Registration [id number] 07/28/2010 16:08:00 Document Registration [id number] 07/03/2010 02:58:00 Document Registration [id number] 06/06/2010 06:29:00 Document Registration [id number] 04/22/2010 12:05:00 Document Registration [id number] 01/19/2018 10:40:00 01/19/2018 23:59:59 CLS Outpatient MADL GIS DATABASE ADMINISTRATOR, [facility] [id number] 06/19/2016 08:46:00 Document Registration
[2018-08-20] MEDS ORDERED: KETOROLAC 30 MG/ML VIAL IM ONE (01:30)
[2018-08-20] MEDS ORDERED: LIDOCAINE 2% VISCOUS 15 ML UDC PO ONE (01:30)
[2018-08-20] MEDS ORDERED: AMOX500C2 PO (01:34)
[2018-08-20] MEDS ORDERED: LD5O35 TP (01:34)
--- NOTE | 2018-08-20 01:34 | ED EENT ---
History of Present Illness General Chief Complaint: Dental Problems/Pain Stated Complaint: TOOTH ABSCESS, CAN'T SLEEP Nursing Triage Note: PT AMB TO ROOM #7 HOLDING RT SIDE OF FACE. PT REPORTS APPROX 1 WK AGO UPPER RT WISDOM TOOTH BEGAN TO HURT. PT REPORTS PAIN HAS BECAME SO INTENSE HE "FEELS LIKE A SLEDGE HAMMER IS BEING PUT TO FACE." REPORTS HE IS UNABLE TO SLEEP AND PAIN IS RADIATING TO RT SIDE OF NECK. REPORTS HE "POPPED THE ABCESS IN THERE TO TRY TO RELIEVE THE PRESSURE AND ALL THAT CAME OUT WAS BLOOD." PT STATES HE "DIDNT KNOW WHAT ELSE TO DO AND BROKE UP A IBURPOFEN 800MG AND STUCK IT IN THE HOLE." REPORTS [facility] WAS UNABLE TO SEE HIM FOR A COUPLE WKS. Source: patient Exam Limitations: no limitations History of Present Illness Date Seen by Provider: Aug 20, 2018 Time Seen by Provider: 01:18 Initial Comments Patient presents to ER by private conveyance with chief complaint for the past 2 weeks she's had progressively worsening right upper molar pain. He's been taking Tylenol Motrin for the relief. He is made and appointment to see a dentist the couple weeks. He has not seen his own doctor nor been on antibiotic. He is not having any fevers chills nausea vomiting. He's used topical Orajel and other similar medicines with minimal relief. Allergies and Home Medications Allergies Coded Allergies: No Known Drug Allergies (Verified , 02/06/17) Home Medications Cyclobenzaprine HCl 10 Mg Tablet, 10 MG PO Q8H PRN for SPASMS Prescribed by: DEE ASHLEY on 07/31/18 0555 Methocarbamol 750 Mg Tablet, 750 MG PO Q6H PRN for PAIN-MODERATE TO SEVERE Prescribed by: BOO THOMPSON on 07/08/18 1212 Tramadol HCl 50 Mg Tablet, 50 MG PO Q6H PRN for PAIN-MODERATE TO SEVERE Prescribed by: JEREMY JO on 05/22/18 0918 Tramadol HCl 50 Mg Tablet, 50 MG PO Q6H PRN for PAIN Prescribed by: DEE ASHLEY on 07/31/18 0547 Patient Home Medication List Home Medication List Reviewed: Yes Review of Systems Review of Systems Constitutional: No chills, No diaphoresis Eyes: Denies Blindness, Denies Blurred Vision Ears: Denies Dizziness, Denies Pain Nose: denies clots, denies congestion Mouth: denies clots, denies loose teeth; pain, swelling Throat: denies pain, denies swelling Respiratory: No cough, No short of breath Past Aglogdo-Yiujpx-Czwnhf Hx Patient Social History Alcohol Use: Denies Use Recreational Drug Use: No Drug of Choice: THC, TESTED + FOR BENZODIAZEPINES 04/01/18 Type Used: Cigarettes 2nd Hand Smoke Exposure: Yes Recent Foreign Travel: No Contact w/Someone Who Travel: No Recent Infectious Disease Expo: No Recent Hopitalizations: No Physical Abuse: No Sexual Abuse: No Mistreated: No Immunizations Up To Date Tetanus Booster (TDap): Unknown Date of Influenza Vaccine: Aug 19, 2011 Seasonal Allergies Seasonal Allergies: No Past Medical History Surgeries: No Respiratory: No Cardiac: No Neurological: Yes ("CERVICAL DYSTONIA" PER PT--SELF-REPORTED; TREMOR) Headaches /Migraines Reproductive Disorders: No Sexually Transmitted Disease: No HIV/AIDS: No Genitourinary: No Gastrointestinal: No Musculoskeletal: Yes (CHRONIC NECK PAIN AND SELF-REPORTED "CERVICAL DYSTONIA" ) Chronic Back Pain Endocrine: Yes ("Thyroid issues") HEENT: Yes (Recurrent dental pain) Cancer: No Psychosocial: Yes Depression Integumentary: Yes (ABSCESSES) Blood Disorders: No Family Medical History Patient reports no known family medical history. No Pertinent Family Hx Physical Exam Vital Signs Vital Signs - First Documented 08/20/18 01:06 Temp 97.4 Pulse 76 Resp 16 B/P (MAP) 109/70 (83) Pulse Ox 100 O2 Delivery Room Air Height, Weight, BMI Height: 5'6.00" Weight: 150lbs. 0oz. 68.836857mp; 23.49 BMI Method:Stated General Appearance: WD/WN, no apparent distress Eyes: bilateral eye normal inspection, bilateral eye PERRL, bilateral eye EOMI Ears: bilateral ear auricle normal, bilateral ear canal normal, bilateral ear TM normal Nose: normal inspection; No active bleeding Mouth/Throat: other (extensive dental caries and tenderness to palpation of the teeth and gums of the right upper maxilla) Neck: other (there are multiple areas of silver colored paint on his marshall neck and face) Progress/Results/Core Measures Results/Orders My Orders Orders - SHAI SERRANO Lidocaine 2% Viscous 15 Ml (Xylocaine Vi (08/20/18 01:30) Ketorolac Injection (Toradol Injection) (08/20/18 01:30) Vital Signs/I&O 08/20/18 01:06 Temp 97.4 Pulse 76 Resp 16 B/P (MAP) 109/70 (83) Pulse Ox 100 O2 Delivery Room Air Blood Pressure Mean: 83 Progress Progress Note : Time: 01:31 Progress Note We'll start treating the swelling and pain in his teeth around with some amoxicillin 3 times a day. We'll give him some viscous lidocaine and a prescription for viscous lidocaine. Ketorolac 30 mg IM Departure Impression Primary Impression: Dental caries Disposition: HOME, SELF-CARE Condition: Stable Departure-Patient Inst. Decision time for Depature: 01:31 Referrals: NO,LOCAL PHYSICIAN (PCP/Family) Primary Care Physician Patient Instructions: Dental Pain (DC) Add. Discharge Instructions: Take the amoxicillin one tablet 3 times a day for the next week. Keep your follow-up appointment with the dentist. Use Tylenol 1000 mg every 8 hours in addition to ibuprofen 800 mg every 8 hours. You can use the viscous lidocaine every 2 hours applied to gauze directly into the tooth socket as needed for pain relief. All discharge instructions reviewed with patient and/or family. Voiced understanding. Scripts Lidocaine HCl (Lidocaine) 35 Gm Oint 1 GM TP Q4H PRN for PAIN-BREAKTHROUGH for 7 Days, #35 GM 0 Refills Prov: SHAI SERRANO 08/20/18 Amoxicillin (Amoxicillin) 500 Mg Capsule 500 MG PO TID for 7 Days, #21 CAP 0 Refills Prov: SHAI SERRANO 08/20/18 Copy Copies To 1: ANDREAS JULIO TITUS J Aug 20, 2018 01:34
[2018-08-20] MEDS ORDERED: TRAM50TA2 PO (02:02)
[2018-08-20 02:07] VITALS: BP 111/85
== END 2018-08-20 02:08 | disposition home or self-care (01) ==
LOC: EDUNIT# 00:11 → ER 00:11
DX: K02.9 Dental caries, unspecified (principal); G43.909 Migraine, unspecified, not intractable, without status migrainosus; F32.9 Major depressive disorder, single episode, unspecified; F12.10 Cannabis abuse, uncomplicated; Z77.22 Contact with and (suspected) exposure to environmental tobacco smoke (acute) (chronic)
CPT/HCPCS: 96372; 99283

== ENCOUNTER 2018-09-29 09:38 | Emergency (ER) | payer SELFPAY ==
[~2018-09-29] VITALS: Ht 167.6 cm; Wt 68.0 kg
[~2018-09-29 09:38] MED LIST changes: +LD5O35 TP
--- NOTE | 2018-09-29 11:09 | ED Neck-Back Pain/Injury ---
General Chief Complaint: Head/Cervical Problems Stated Complaint: NECK PAIN Nursing Triage Note: Pt reports chronic neck pain. Pt states he was helping carry an arcade game a few days ago and fell backwards. Pain has been worse since. Nursing Sepsis Screen: No Definite Risk Source of Information: Patient Exam Limitations: No Limitations History of Present Illness Date Seen by Provider: Sep 29, 2018 Time Seen by Provider: 11:06 Initial Comments Patient is a 33-year-old male who presents to emergency room with complaints of chronic neck pain reports that he has cervical dystonia. He reports that he was carrying and arcade game into a house when he fell backwards straining his neck 3 days ago. He has had numerous visits for his chronic neck pain in the past. Location: C-Spine Timing/Duration: 3-4 Days Modifying Factors: Worse With Movement Allergies and Home Medications Allergies Coded Allergies: No Known Drug Allergies (Verified , 02/06/17) Home Medications Amoxicillin 500 Mg Capsule, 500 MG PO TID Prescribed by: SHAI SERRANO on 08/20/18 0134 Cyclobenzaprine HCl 10 Mg Tablet, 10 MG PO Q8H PRN for SPASMS Prescribed by: DEE ASHLEY on 07/31/18 0555 Cyclobenzaprine HCl 10 Mg Tablet, 10 MG PO Q8H PRN for MUSCLE SPASMS Prescribed by: DIDIER JONES on 09/29/18 111 Lidocaine HCl 35 Gm Oint, 1 GM TP Q4H PRN for PAIN-BREAKTHROUGH Prescribed by: SHAI SERRANO on 08/20/18 0134 Methocarbamol 750 Mg Tablet, 750 MG PO Q6H PRN for PAIN-MODERATE TO SEVERE Prescribed by: BOO THOMPSON on 07/08/18 1212 Methylprednisolone 4 Mg Tab.ds.pk, 4 MG PO UD Prescribed by: DIDIER JONES on 09/29/18 1114 Tramadol HCl 50 Mg Tablet, 50 MG PO Q6H PRN for PAIN-MODERATE TO SEVERE Prescribed by: JEREMY JO on 05/22/18 0918 Tramadol HCl 50 Mg Tablet, 50 MG PO Q6H PRN for PAIN Prescribed by: DEE ASHLEY on 07/31/18 0547 Tramadol HCl 50 Mg Tablet, 50 MG PO Q6H PRN for PAIN Prescribed by: SHAI SERRANO on 08/20/18 0202 Patient Home Medication List Home Medication List Reviewed: Yes Review of Systems Constitutional: no symptoms reported, see HPI Musculoskeletal: see HPI, neck pain All Other Systems Reviewed Negative Unless Noted: Yes Past Iujaowp-Pzlrrp-Qmakum Hx Past Med/Social Hx: Reviewed Nursing Past Med/Soc Hx Patient Social History Drug of Choice: THC, TESTED + FOR BENZODIAZEPINES 04/01/18 Type Used: Cigarettes 2nd Hand Smoke Exposure: Yes Recent Foreign Travel: No Contact w/Someone Who Travel: No Recent Infectious Disease Expo: No Recent Hopitalizations: No Immunizations Up To Date Tetanus Booster (TDap): Unknown Date of Influenza Vaccine: Aug 19, 2011 Seasonal Allergies Seasonal Allergies: No Past Medical History Surgeries: No Respiratory: No Cardiac: No Neurological: Yes ("CERVICAL DYSTONIA" PER PT--SELF-REPORTED; TREMOR) Headaches /Migraines Reproductive Disorders: No Sexually Transmitted Disease: No HIV/AIDS: No Genitourinary: No Gastrointestinal: No Musculoskeletal: Yes (CHRONIC NECK PAIN AND SELF-REPORTED "CERVICAL DYSTONIA" ) Chronic Back Pain Endocrine: Yes ("Thyroid issues") HEENT: Yes (Recurrent dental pain) Cancer: No Psychosocial: Yes Depression Integumentary: Yes (ABSCESSES) Blood Disorders: No Family Medical History Reviewed Nursing Family Hx Patient reports no known family medical history. No Pertinent Family Hx Physical Exam Vital Signs Vital Signs - First Documented 09/29/18 10:01 Temp 98.1 Pulse 95 Resp 18 B/P (MAP) 127/73 (91) Pulse Ox 95 O2 Delivery Room Air Capillary Refill : Less Than 3 Seconds Height, Weight, BMI Height: 5'6.00" Weight: 150lbs. 0oz. 68.570139gq; 23.49 BMI Method:Stated General Appearance: No Apparent Distress, WD/WN HEENT: PERRL/EOMI, TMs Normal, Normal ENT Inspection, Pharynx Normal Neck: Full Range of Motion, Normal Inspection, Non Tender, Supple Cardiovascular: Regular Rate, Rhythm, No Edema, No Gallop, No JVD, No Murmur, Normal Peripheral Pulses Respiratory: Chest Non Tender, Lungs Clear, Normal Breath Sounds, No Accessory Muscle Use, No Respiratory Distress, Accessory Muscle Use Neurologic/Psychiatric: Alert, Oriented x3, Normal Mood/Affect Skin: Normal Color, Warm/Dry Progress/Results/Core Measures Results/Orders My Orders Orders - DIDIER JONES Tramadol Tablet (Ultram Tablet) (09/29/18 11:15) Vital Signs/I&O 09/29/18 09/29/18 10:01 11:30 Temp 98.1 98.1 Pulse 95 95 Resp 18 18 B/P (MAP) 127/73 (91) 127/73 (91) Pulse Ox 95 95 O2 Delivery Room Air Blood Pressure Mean: 91 Departure Impression Primary Impression: Sprain of cervical neck Additional Impression: Chronic pain Disposition: 01 HOME, SELF-CARE Condition: Stable/Unchanged Departure-Patient Inst. Decision time for Depature: 11:11 Referrals: NO,LOCAL PHYSICIAN (PCP/Family) Primary Care Physician Patient Instructions: Chronic Neck Pain (DC) Add. Discharge Instructions: Take medications as directed. Follow-up with your primary care provider within 1 week for recheck. You need to get back to to see the specialist that [facility] had arranged for you. Return back to the emergency room for any worsening symptoms or concerns as needed. All discharge instructions reviewed with patient and/or family. Voiced understanding. Scripts Cyclobenzaprine HCl (Cyclobenzaprine HCl) 10 Mg Tablet 10 MG PO Q8H PRN for MUSCLE SPASMS, #10 TAB Prov: DIDIER JONES 09/29/18 Methylprednisolone (Medrol) 4 Mg Tab.ds.pk 4 MG PO UD, #1 PKG Prov: DIDIER JONES 09/29/18 DIDIER JONES Sep 29, 2018 11:09
[2018-09-29] MEDS ORDERED: METH4TAB PO (11:14)
[2018-09-29] MEDS ORDERED: CYCL10TA9 PO (11:14)
[2018-09-29 11:30] VITALS: BP 127/73
--- OUTSIDE RECORDS SUMMARY | 2018-09-29 12:48 | XMS REPORT | Continuity of Care Document ---
Author Author [facility] Address Unknown Phone Unavailable Allergies Active Description Code Type Severity Reaction Onset Reported/Identified Relationship to Patient Clinical Status Yes NO KNOWN DRUG ALLERGIES UNKNOWN NO KNOWN DRUG ALLERG Yes No Known Drug Allergies [id number] Drug Allergy Mild N/A 02/06/2017 Medications Medication [...] INJURY OF OTHER SITES OF TRUNK 05/28/2013 JESSIAC NICHOLE DO Ot E000.8 OTHER EXTERNAL CAUSE [...] 682.6 CELLULITIS OF LEG 04/21/2015 BOO THOMPSON WELDER TECH Ot 305.50 OPIOID ABUSE-UNSPEC 04/21/2015 BOO THOMPSON [...] NICOTINE DEPENDENCE, CIGARETTES, UNCOMPL 09/25/2016 BOO THOMPSON WELDER TECH Ot M79.1 MYALGIA 09/25/2016 BOO THOMPSON APRN Ot R11.2 NAUSEA WITH VOMITING, UNSPECIFIED 09/25/2016 BOO THOMPSON WELDER TECH Ot R19.7 DIARRHEA, UNSPECIFIED 09/25/2016 BOO THOMPSON WELDER TECH Ot R51 HEADACHE 09/26/2016 BOO THOMPSON APRN Ot F17.210 NICOTINE DEPENDENCE, CIGARETTES, UNCOMPL 09/26/2016 BOO THOMPSON WELDER TECH Ot M79.1 MYALGIA 09/26/2016 BOO THOMPSON WELDER TECH Ot R11.2 NAUSEA WITH VOMITING, UNSPECIFIED 09/26/2016 [...] OTHER EXTERNAL CAUSE STATUS 06/12/2017 GINGER YAN, AVNESSA Adame Ot Z53.21 PROC/TRTMT NOT CRD OUT [...] Ot R07.9 CHEST PAIN, UNSPECIFIED 10/29/2017 DEE ASHLYE MD Ot F32.9 MAJOR DEPRESSIVE DISORDER, SINGLE [...] 12/11/2017 DIONISIO DO JESSICA Sean Ot Z79.82 INTERNAL SECURITY MANAGER (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 01/26/2018 BOO THOMPSON [...] 01/26/2018 BOO THOMPSON APRN Ot Y93.61 ACTIVITY, MARSHALLESE TACKLE FOOTBALL 01/26/2018 BOO THOMPSON APRN Ot [...] 01/28/2018 BOO THOMPSON APRN Ot Y93.61 ACTIVITY, MARSHALLESE TACKLE FOOTBALL 01/28/2018 BOO THOMPSON APRN Ot [...] 02/01/2018 BOO THOMPSON APRN Ot Y93.61 ACTIVITY, MARSHALLESE TACKLE FOOTBALL 02/01/2018 BOO THOMPSON APRN Ot Z77.22 CNTCT W AND EXPSR TO ENVIRON TOBACCO SMO 02/01/2018 BOO THOMPSON APRN Ot Z79.52 INTERNAL SECURITY MANAGER (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 OF SYSTEMIC STER 02/01/2018 BOO THOMPSON WELDER TECH Ot Z87.59 PERSONAL HISTORY OF COMP OF PREG, CHLDBR 02/18/2018 GENOVEVA, GAURANG STUDENT ACTIVITIES DIRECTOR Ot F17.210 NICOTINE DEPENDENCE, CIGARETTES, UNCOMPL 02/18/2018 GENOVEVA, GAURANG STUDENT ACTIVITIES DIRECTOR Ot F32.9 MAJOR DEPRESSIVE DISORDER, SINGLE EPISOD 02/18/2018 GENOVEVA, GAURANG STUDENT ACTIVITIES DIRECTOR Ot G43.909 MIGRAINE, UNSP, NOT INTRACTABLE, WITHOUT 02/18/2018 GENOVEVA, GAURANG STUDENT ACTIVITIES DIRECTOR Ot M50.90 CERVICAL DISC DISORDER, UNSP, UNSPECIFIE 02/18/2018 GENOVEVA, GAURANG STUDENT ACTIVITIES DIRECTOR Ot M54.2 CERVICALGIA 02/18/2018 GENOVEVA, GAURANG STUDENT ACTIVITIES DIRECTOR Ot Z79.52 JAIL (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 OF SYSTEMIC STER 02/22/2018 GENOVEVA, GAURANG STUDENT ACTIVITIES DIRECTOR Ot F17.210 NICOTINE DEPENDENCE, CIGARETTES, UNCOMPL 02/22/2018 GENOVEVA, GAURANG STUDENT ACTIVITIES DIRECTOR Ot F32.9 MAJOR DEPRESSIVE DISORDER, SINGLE EPISOD 02/22/2018 GENOVEVA, GAURANG STUDENT ACTIVITIES DIRECTOR Ot G43.909 MIGRAINE, UNSP, NOT INTRACTABLE, WITHOUT 02/22/2018 GENOVEVA, GAURANG STUDENT ACTIVITIES DIRECTOR Ot M50.90 CERVICAL DISC DISORDER, UNSP, UNSPECIFIE 02/22/2018 GENOVEVA, GAURANG STUDENT ACTIVITIES DIRECTOR Ot M54.2 CERVICALGIA 02/22/2018 GENOVEVA, GAURANG STUDENT ACTIVITIES DIRECTOR Ot Z79.52 INTERNAL SECURITY MANAGER (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 OF SYSTEMIC STER 02/24/2018 GENOVEVA, GAURANG STUDENT ACTIVITIES DIRECTOR Ot F17.210 NICOTINE DEPENDENCE, CIGARETTES, UNCOMPL 02/24/2018 GENOVEVA, GAURANG STUDENT ACTIVITIES DIRECTOR Ot F32.9 MAJOR DEPRESSIVE DISORDER, SINGLE EPISOD 02/24/2018 GENOVEVA, GAURANG STUDENT ACTIVITIES DIRECTOR Ot G43.909 MIGRAINE, UNSP, NOT INTRACTABLE, WITHOUT 02/24/2018 GENOVEVA, GAURANG STUDENT ACTIVITIES DIRECTOR Ot M50.90 CERVICAL DISC DISORDER, UNSP, UNSPECIFIE 02/24/2018 GENOVEVA, GAURANG STUDENT ACTIVITIES DIRECTOR Ot M54.2 CERVICALGIA 02/24/2018 GENOVEVA, GAURANG STUDENT ACTIVITIES DIRECTOR Ot Z79.52 INTERNAL SECURITY MANAGER (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 OF SYSTEMIC STER 02/25/2018 GINGER [...] 03/09/2018 JEREMY GARRIDO MD T Ot Z79.52 INTERNAL SECURITY MANAGER (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 OF SYSTEMIC STER 03/11/2018 JEREMY GARRIDO MD T Ot F12.10 CANNABIS ABUSE, UNCOMPLICATED 03/11/2018 RADHIKA YAN, JEREMY T Ot F17.210 NICOTINE DEPENDENCE, CIGARETTES, UNCOMPL 03/11/2018 JEREMY GARRIOD MD Ot F32.9 MAJOR DEPRESSIVE DISORDER, SINGLE [...] JEREMY GARRIDO MD Ot Y92.002 [facility] 03/24/2018 JEREMY GARRIDO MD Ot Z79.52 INTERNAL SECURITY MANAGER (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 OF SYSTEMIC STER 03/24/2018 JEREMY [...] GARRIDO MD Ot Y92.002 BATHRM OF [facility] SN 03/26/2018 JEREMY GARRIDO MD Ot Z79.52 INTERNAL SECURITY MANAGER (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 OF SYSTEMIC STER 03/26/2018 JEREMY [...] MD Ot F12.10 CANNABIS ABUSE, UNCOMPLICATED 04/12/2018 EDE ASHLEY MD Ot F17.210 NICOTINE DEPENDENCE, CIGARETTES, [...] MD Ot W19.XXXA UNSPECIFIED FALL, INITIAL ENCOUNTER 07/31/2018 DEE ASHLEY MD Ot F12.10 CANNABIS ABUSE, UNCOMPLICATED 07/31/2018 DEE ASHLEY MD Ot F17.210 NICOTINE DEPENDENCE, CIGARETTES, UNCOMPL 07/31/2018 DEE ASHLEY MD Ot F32.9 MAJOR DEPRESSIVE DISORDER, SINGLE EPISOD 07/31/2018 DEE ASHLEY MD Ot G43.909 MIGRAINE, UNSP, NOT INTRACTABLE, WITHOUT 07/31/2018 DEE ASHLEY MD Ot M54.2 CERVICALGIA 08/02/2018 DEE ASHLEY MD Ot F12.10 CANNABIS ABUSE, UNCOMPLICATED 08/02/2018 DEE ASHLEY MD Ot F17.210 NICOTINE DEPENDENCE, CIGARETTES, UNCOMPL 08/02/2018 DEE ASHLEY MD Ot F32.9 MAJOR DEPRESSIVE DISORDER, SINGLE EPISOD 08/02/2018 DEE ASHLEY MD Ot G43.909 MIGRAINE, UNSP, NOT INTRACTABLE, WITHOUT 08/02/2018 DEE ASHLEY MD Ot M54.2 CERVICALGIA 08/06/2018 BOO THOMPSON APRN Ot F12.10 CANNABIS ABUSE, UNCOMPLICATED 08/06/2018 BOO THOMPSON APRN Ot F32.9 MAJOR DEPRESSIVE DISORDER, SINGLE EPISOD 08/06/2018 BOO THOMPSON APRN Ot G43.909 MIGRAINE, UNSP, NOT INTRACTABLE, WITHOUT 08/06/2018 BOO THOMPSON APRN Ot M54.2 CERVICALGIA 08/06/2018 BOO THOMPSON APRN Ot Z77.22 CNTCT W AND EXPSR TO ENVIRON TOBACCO SMO 08/06/2018 BOO THOMPSON APRN Ot Z91.19 PATIENT'S NONCOMPLIANCE W [facility] 08/20/2018 SHAI SERRANO MD Ot F12.10 CANNABIS ABUSE, UNCOMPLICATED 08/20/2018 SHAI SERRANO MD Ot F32.9 MAJOR DEPRESSIVE DISORDER, SINGLE EPISOD 08/20/2018 SHAI SERRANO MD Ot G43.909 MIGRAINE, UNSP, NOT INTRACTABLE, WITHOUT 08/20/2018 SHAI SERRANO MD Ot K02.9 DENTAL CARIES, UNSPECIFIED 08/20/2018 HSAI SERRANO MD Ot K08.89 OTHER SPECIFIED DISORDERS OF TEETH AND S 08/20/2018 SHAI SERRANO MD Ot Z77.22 CNTCT W AND EXPSR TO ENVIRON TOBACCO SMO 08/23/2018 SHAI SERRANO MD Ot F12.10 CANNABIS ABUSE, UNCOMPLICATED 08/23/2018 SHAI SERRANO MD Ot F32.9 MAJOR DEPRESSIVE DISORDER, SINGLE EPISOD 08/23/2018 SHAI SERRANO MD Ot G43.909 MIGRAINE, UNSP, NOT INTRACTABLE, WITHOUT 08/23/2018 SHAI SERRANO MD Ot K02.9 DENTAL CARIES, UNSPECIFIED 08/23/2018 CAITY SERRANO MDUS J Ot K08.89 OTHER SPECIFIED DISORDERS OF TEETH AND S 08/23/2018 SHAI SERRANO MD Ot Z77.22 CNTCT W AND EXPSR [...] Status Pt. Type Provider Facility Loc./Unit Complaint [id number] 02/08/2015 13:21:00 02/08/2015 23:59:59 CLS Outpatient JESSICA MARSH DDS [id number] 11/06/2014 12:15:00 11/06/2014 23:59:59 CLS Outpatient MORGAN BARRERA APRN [id number] 10/03/2014 08:26:00 10/03/2014 23:59:59 CLS Outpatient BRUCE WELDER TECHMORGAN [id number] 05/07/2010 16:02:00 05/07/2010 23:59:59 CLS Outpatient GLADYS HASKINS DDS [id number] 04/23/2015 02:28:34 ACT Document Registration [id number] 04/28/2018 15:57:00 04/28/2018 18:18:00 [facility] [id number] 04/28/2018 17:34:01 Document Registration [id number] 08/20/2018 00:11:00 08/20/2018 02:08:00 DIS Emergency SHAI SERRANO MD [facility] ER TOOTH ABSCESS, CAN'T SLEEP [id number] 08/06/2018 11:39:00 08/06/2018 23:59:59 CLS Emergency BOO THOMPSON APRN [facility] ER CERVICAL PAIN [id number] 07/31/2018 05:17:00 07/31/2018 05:55:00 DIS Emergency DEE ASHLEY MD [facility] ER CERVICAL DYSTONIA FLARE [id number] 07/08/2018 09:03:00 07/08/2018 12:20:00 DIS Emergency DAVON VINCENT MD [facility] ER FALL;NECK PAIN [id number] 05/01/2018 11:20:00 05/01/2018 12:04:00 DIS Emergency DIDIER JONES [facility] ER NECK PROBLEMS,PAIN [id number] 04/28/2018 02:10:00 04/28/2018 02:38:00 DIS Emergency DEE ASHLEY MD [facility] ER PREVIOUS FALL, NECK PAIN [id number] 04/12/2018 08:19:00 04/12/2018 09:50:00 DIS Emergency DEE ASHLEY MD [facility] ER NECK PAIN,SHAKING [id number] 04/01/2018 08:19:00 04/01/2018 10:40:00 DIS Emergency JESSICA NICHOLE DO [facility] ER ABD PAIN [id number] 03/24/2018 09:29:00 03/24/2018 10:28:00 DIS Emergency RADHIKA YAN, JEREMY Laws [facility] ER NECK PAIN,SHOULDER PAIN,FELL IN SHOWER [id number] 03/23/2018 09:48:00 03/23/2018 23:59:59 CLS Preadmit NO, LOCAL PHYSICIAN Via [facility] REHAB CERVICAL DYSTONIA [id number] 03/09/2018 09:01:00 03/09/2018 11:39:00 DIS Emergency RADHIKA YAN, JEREMY Laws [facility] ER NECK PAIN [id number] 02/25/2018 08:05:00 02/25/2018 08:48:00 DIS Emergency VANESSA MILES MD [facility] ER NECK PAIN [id number] 02/18/2018 12:58:00 02/18/2018 15:40:00 DIS Emergency GAURANG TOMAS [facility] ER NECK PAIN [id number] 01/26/2018 13:03:00 01/26/2018 13:39:00 DIS Emergency BOO THOMPSON APRN [facility] ER NECK AND SHOULDER PAIN AND DISCOMFORT [id number] 12/09/2017 20:42:00 12/10/2017 00:05:00 DIS Emergency DIONISIO DOJESSICA [facility] ER BACK AND NECK PAIN;FALL [id number] 11/27/2017 04:58:00 11/27/2017 08:06:00 DIS Emergency DEE ASHLEY MD [facility] ER BACK PAIN,SON WALKED ON BACK YESTERDAY [id number] 11/26/2017 08:47:00 11/26/2017 10:32:00 DIS Emergency DAVON VINCENT MD [facility] ER SHAKING,NECK PAIN,RIGHT SIDE PAIN [id number] 10/29/2017 08:57:00 10/29/2017 11:11:00 DIS Emergency DEE ASHLEY MD [facility] ER NECK PAIN [id number] 09/29/2017 08:34:00 09/29/2017 13:37:00 DIS Emergency JEREMY GARRIDO MD [facility] ER CP [id number] 08/18/2017 06:40:00 08/18/2017 07:45:00 DIS Emergency RADHIKA YAN, JEREMY Laws [facility] ER NEUROLOGICAL DISORDER, CAN'T SLEEP [id number] 07/05/2017 16:36:00 07/05/2017 17:08:00 DIS Emergency DEE ASHLEY MD [facility] ER DENTAL PAIN [id number] 06/12/2017 13:03:00 06/12/2017 15:28:00 DIS Emergency JUSTIN VELOZ [facility] ER NECK PAIN [id number] 06/11/2017 17:39:00 06/11/2017 18:30:00 DIS Emergency VANESSA MILES MD [facility] ER NECK INJ [id number] 02/18/2017 10:20:00 02/18/2017 13:13:00 DIS Emergency JUSTIN VELOZ [facility] ER COUGH NAUSEA [id number] 02/06/2017 13:54:00 02/06/2017 14:16:00 DIS Emergency BOO THOMPSON APRN [facility] ER COUGH/CHEST CONGESTION [id number] 09/25/2016 10:36:00 09/25/2016 12:08:00 DIS Emergency BOO THOMPSON APRN [facility] ER VOMITING COUGH HEADACHE FATIGUE [id number] 06/02/2016 13:14:00 06/02/2016 14:13:00 DIS Emergency VANESSA MILES MD [facility] ER NECK PAIN/SHAKING [id number] 04/22/2015 23:25:00 04/24/2015 15:25:00 DIS Inpatient BRANDI YAN, VANESSA Anderson [facility] 4TH BENZODIAZEPINE WITHDRAWAL ;NARCOTIC WITHDRAWAL [id number] 04/21/2015 20:34:00 04/21/2015 22:10:00 DIS Emergency BOO THOMPSON APRN [facility] ER BLOODY STOOLS,ABD PAIN, WANTS REHAB [id number] 02/18/2015 12:02:00 02/18/2015 12:51:00 DIS Emergency JUSTIN VELOZ [facility] ER CYST ON HIP [id number] 02/16/2015 00:03:00 02/16/2015 00:55:00 DIS Emergency MORGAN GANNON DO Monica [facility] ER CELLULITIS [id number] 01/15/2015 11:44:00 01/15/2015 23:59:59 CLS Preadmit ROHAN HARTMAN MD [facility] WOUNDCARE [id number] 01/07/2015 01:35:00 01/10/2015 16:30:00 DIS Outpatient CAROLEE QUINTERO MD [facility] MULTIPLE ABCESS/ CELLULITIS [id number] 07/08/2014 11:44:00 07/08/2014 12:25:00 DIS Emergency BOO THOMPSON APRN [facility] ER TOOTH INFECTION [id number] 06/03/2013 16:23:00 06/03/2013 23:59:59 CLS Preadmit DAVON VINCENT MD [facility] ER DENTAL PAIN,POSSIBLE RASH [id number] 06/01/2013 12:37:00 06/01/2013 23:59:59 CLS Outpatient [id number] 05/28/2013 08:10:00 05/28/2013 09:58:00 DIS Emergency DIONISIO KEARNEYJESSICA [facility] ER L SIDE LOWER BACK PAIN AND RIB PAIN [id number] 04/28/2013 16:12:00 04/28/2013 18:55:00 DIS Emergency JUSTIN VELOZ [facility] ER DENTAL PAIN [id number] 09/29/2018 09:38:00 ACT Emergency DIDIER JONES [facility] ER NECK PAIN [id number] 05/22/2018 08:41:00 Document Registration [id number] 03/26/2015 10:11:00 Document Registration [id number] 03/23/2015 13:15:00 Document Registration [id number] 06/03/2012 17:30:00 Document Registration [id number] 03/10/2012 13:38:00 Document Registration [id number] 01/24/2012 14:20:00 Document Registration [id number] 01/10/2012 14:24:00 Document Registration [id number] 12/13/2011 16:18:00 Document Registration [id number] 11/16/2011 08:46:00 Document Registration [id number] 08/18/2011 21:09:00 Document Registration [id number] 04/08/2011 12:15:00 Document Registration [id number] 11/28/2010 16:26:00 Document Registration [id number] 10/14/2010 10:52:00 Document Registration [id number] 07/28/2010 16:08:00 Document Registration [id number] 07/03/2010 02:58:00 Document Registration [id number] 06/06/2010 06:29:00 Document Registration [id number] 04/22/2010 12:05:00 Document Registration [id number] 01/19/2018 10:40:00 01/19/2018 23:59:59 CLS Outpatient KALANIL WELDER [facility] [id number] 06/19/2016 08:46:00 Document Registration
== END 2018-09-29 11:30 | disposition home or self-care (01) ==
LOC: ER 09:38 → EDUNIT# 09:38 → ER 11:30
DX: S13.4XXA Sprain of ligaments of cervical spine, initial encounter (principal); M54.2 Cervicalgia; G89.29 Other chronic pain; G43.909 Migraine, unspecified, not intractable, without status migrainosus; F32.9 Major depressive disorder, single episode, unspecified; F12.10 Cannabis abuse, uncomplicated; Z79.52 Long term (current) use of systemic steroids; Z77.22 Contact with and (suspected) exposure to environmental tobacco smoke (acute) (chronic); W18.30XA Fall on same level, unspecified, initial encounter
CPT/HCPCS: 99283

== ENCOUNTER 2019-02-17 16:05 | Emergency (ER) | payer MEDICAID, OTHER ==
[~2019-02-17] VITALS: Ht 170.2 cm; Wt 68.0 kg
[2019-02-17] MEDS ORDERED: CYCL5TAB PO (16:54)
[2019-02-17] MEDS ORDERED: TRAM-42 PO (16:54)
--- NOTE | 2019-02-17 16:54 | ED Neck-Back Pain/Injury ---
General Chief Complaint: Head/Cervical Problems Stated Complaint: NECK PAIN,SPASMS Nursing Triage Note: Pt started having neck pain 2 days ago after jerking his neck the wrong way. Pt has taken advil and tried voltaren cream for the pain. Nursing Sepsis Screen: No Definite Risk Source of Information: Patient Exam Limitations: No Limitations History of Present Illness Date Seen by Provider: February 17, 2019 Time Seen by Provider: 16:51 Allergies and Home Medications Allergies Coded Allergies: No Known Drug Allergies (Verified , 02/06/17) Home Medications Amoxicillin 500 Mg Capsule, 500 MG PO TID Prescribed by: SHAI SERRANO on 08/20/18 0134 Cyclobenzaprine HCl 10 Mg Tablet, 10 MG PO Q8H PRN for SPASMS Prescribed by: DEE ASHLEY on 07/31/18 0555 Cyclobenzaprine HCl 10 Mg Tablet, 10 MG PO Q8H PRN for MUSCLE SPASMS Prescribed by: DIDIER JONES on 09/29/18 1114 Cyclobenzaprine HCl 5 Mg Tablet, 5 MG PO TID Prescribed by: DIDIER JONES on 02/17/19 1654 Lidocaine HCl 35 Gm Oint, 1 GM TP Q4H PRN for PAIN-BREAKTHROUGH Prescribed by: SHAI SERRANO on 08/20/18 0134 Methocarbamol 750 Mg Tablet, 750 MG PO Q6H PRN for PAIN-MODERATE TO SEVERE Prescribed by: BOO THOMPSON on 07/08/18 1212 Methylprednisolone 4 Mg Tab.ds.pk, 4 MG PO UD Prescribed by: DIDIER JONES on 09/29/18 1114 Tramadol HCl 50 Mg Tablet, 50 MG PO Q6H PRN for PAIN-MODERATE TO SEVERE Prescribed by: JEREMY JO on 05/22/18 0918 Tramadol HCl 50 Mg Tablet, 50 MG PO Q6H PRN for PAIN Prescribed by: DEE ASHLEY on 07/31/18 0547 Tramadol HCl 50 Mg Tablet, 50 MG PO Q6H PRN for PAIN Prescribed by: SHAI SERRANO on 08/20/18 0202 Tramadol HCl 50 Mg Tablet, 50 MG PO Q6H PRN for PAIN-MODERATE TO SEVERE Prescribed by: DIDIER JONES on 02/17/19 1654 Past Ztdolcb-Cmnmdu-Gnasxu Hx Patient Social History Drug of Choice: THC, TESTED + FOR BENZODIAZEPINES 04/01/18 Type Used: Cigarettes 2nd Hand Smoke Exposure: Yes Recent Foreign Travel: No Contact w/Someone Who Travel: No Recent Infectious Disease Expo: No Recent Hopitalizations: No Immunizations Up To Date Tetanus Booster (TDap): Unknown Date of Influenza Vaccine: Aug 19, 2011 Seasonal Allergies Seasonal Allergies: No Past Medical History Surgeries: No Respiratory: No Cardiac: No Neurological: Yes ("CERVICAL DYSTONIA" PER PT--SELF-REPORTED; TREMOR) Headaches /Migraines Reproductive Disorders: No Sexually Transmitted Disease: No HIV/AIDS: No Genitourinary: No Gastrointestinal: No Musculoskeletal: Yes (CHRONIC NECK PAIN AND SELF-REPORTED "CERVICAL DYSTONIA" ) Chronic Back Pain Endocrine: Yes ("Thyroid issues") HEENT: Yes (Recurrent dental pain) Cancer: No Psychosocial: Yes Depression Integumentary: Yes (ABSCESSES) Blood Disorders: No Family Medical History Patient reports no known family medical history. No Pertinent Family Hx Physical Exam Vital Signs Vital Signs - First Documented 02/17/19 16:34 Temp 97.1 Pulse 114 Resp 18 B/P (MAP) 145/76 (99) Pulse Ox 96 O2 Delivery Room Air Capillary Refill : Less Than 3 Seconds Height, Weight, BMI Height: 5'7.00" Weight: 150lbs. 0oz. 68.743607ij; 23.49 BMI Method:Stated Progress/Results/Core Measures Results/Orders My Orders Orders - DIDIER JONES Ketorolac Injection (Toradol Injection) (02/17/19 17:00) Cyclobenzaprine Tablet (Flexeril Tablet) (02/17/19 17:00) Vital Signs/I&O 02/17/19 16:34 Temp 97.1 Pulse 114 Resp 18 B/P (MAP) 145/76 (99) Pulse Ox 96 O2 Delivery Room Air Blood Pressure Mean: 99 Departure Impression Primary Impression: Chronic neck pain Disposition: 01 HOME, SELF-CARE Condition: Stable/Unchanged Departure-Patient Inst. Decision time for Depature: 16:52 Referrals: ANDREAS JULIO,LOCAL PHYSICIAN (PCP) Primary Care Physician Patient Instructions: Chronic Pain (DC) Add. Discharge Instructions: Take medications as directed. Follow-up with [facility] within 1 week for a recheck. Return back to the emergency room for worsening symptoms or concerns as needed. All discharge instructions reviewed with patient and/or family. Voiced understanding. Scripts Tramadol HCl (Ultram) 50 Mg Tablet 50 MG PO Q6H PRN for PAIN-MODERATE TO SEVERE, #10 TAB Prov: DIDIER JONES 02/17/19 Cyclobenzaprine HCl (Cyclobenzaprine HCl) 5 Mg Tablet 5 MG PO TID, #14 TAB Prov: DIDIER JONES 02/17/19 DIDIER JONES February 17, 2019 16:54
[2019-02-17] MEDS ORDERED: CYCLOBENZAPRINE 10 MG (FLEXERIL) TAB PO SCH (17:00)
[2019-02-17] MEDS ORDERED: KETOROLAC 60 MG/2 ML VIAL IM ONE (17:00)
[2019-02-17 17:09] VITALS: BP 145/76
== END 2019-02-17 17:25 | disposition home or self-care (01) ==
LOC: EDUNIT# 16:05 → ER 16:06
DX: M54.2 Cervicalgia (principal); G89.29 Other chronic pain; G43.909 Migraine, unspecified, not intractable, without status migrainosus; F32.9 Major depressive disorder, single episode, unspecified; Z79.52 Long term (current) use of systemic steroids; Z77.22 Contact with and (suspected) exposure to environmental tobacco smoke (acute) (chronic)
CPT/HCPCS: 99284

== ENCOUNTER 2019-05-17 13:20 | Emergency (ER) | payer MEDICAID | END 2019-05-17 14:15 | disposition home or self-care (01) | LOC: ER 13:20 ==

== ENCOUNTER 2019-05-21 10:23 | Emergency (ER) | payer MEDICAID ==
[~2019-05-21] VITALS: Ht 167.6 cm; Wt 68.0 kg
[~2019-05-21 10:23] MED LIST changes: +DIAZ2TAB PO; +DULO20CA PO
--- NOTE | 2019-05-21 11:01 | NUR ---
pt here by self alert [facility] 15. dr herman pt same time. pt here recently for same c/o neck pain. pt currently rubbing back of his neck. pt denies recent injury. denies dyspnea and no acute sighns of dyspnea noted. pain rating 10. kailash herman pt 1105.
[2019-05-21] MEDS ORDERED: PRD20T PO (11:05)
--- NOTE | 2019-05-21 11:05 | ED Neck-Back Pain/Injury ---
General Stated Complaint: FALL - NECK / BACK PAIN Source of Information: Patient Exam Limitations: No Limitations History of Present Illness Date Seen by Provider: May 21, 2019 Time Seen by Provider: 11:03 Initial Comments Patient was seen here after a fall 3 days ago with neck pain. CT was done failed to reveal any pathology. He's been to the emergency room greater than 15 times for complaints of neck pain in the last year or two. States the Robaxin prescribed is not helping. Location: C-Spine Timing/Duration: 2-3 Days Severity: Moderate Pain/Injury Location: Neck Method of Injury: Fall Associated Symptoms: denies symptoms Allergies and Home Medications Allergies Coded Allergies: No Known Drug Allergies (Verified , 02/06/17) Home Medications Methocarbamol 750 Mg Tablet, 750 MG PO Q4H PRN for PAIN-MILD TO MODERATE Prescribed by: BOO THOMPSON on 05/17/19 1410 Prednisone 20 Mg Tab, 40 MG PO DAILY Prescribed by: BOO THOMPSON on 05/21/19 1105 Patient Home Medication List Home Medication List Reviewed: Yes Review of Systems Constitutional: see HPI EENTM: see HPI Respiratory: no symptoms reported Cardiovascular: no symptoms reported Musculoskeletal: see HPI, neck pain Skin: no symptoms reported Past Uegwrty-Yhjsbj-Wttfgj Hx Patient Social History Drug of Choice: THC, TESTED + FOR BENZODIAZEPINES 04/01/18 Type Used: Cigarettes 2nd Hand Smoke Exposure: Yes Recent Foreign Travel: No Contact w/Someone Who Travel: No Recent Hopitalizations: No Immunizations Up To Date Tetanus Booster (TDap): Unknown Date of Influenza Vaccine: Aug 19, 2011 Seasonal Allergies Seasonal Allergies: No Past Medical History Surgeries: No Respiratory: No Cardiac: No Neurological: Yes ("CERVICAL DYSTONIA" PER PT--SELF-REPORTED; TREMOR) Headaches /Migraines Reproductive Disorders: No Sexually Transmitted Disease: No HIV/AIDS: No Genitourinary: No Gastrointestinal: No Musculoskeletal: Yes (CHRONIC NECK PAIN AND SELF-REPORTED "CERVICAL DYSTONIA" ) Chronic Back Pain Endocrine: Yes ("Thyroid issues") HEENT: Yes (Recurrent dental pain) Cancer: No Psychosocial: Yes Depression Integumentary: Yes (ABSCESSES) Blood Disorders: No Family Medical History Patient reports no known family medical history. No Pertinent Family Hx Physical Exam Vital Signs Capillary Refill : Height, Weight, BMI Height: 5'6.00" Weight: 140lbs. 0oz. 63.185626dg; 23.49 BMI Method:Stated General Appearance: No Apparent Distress, WD/WN HEENT: PERRL/EOMI, TMs Normal Neck: Full Range of Motion, Normal Inspection Respiratory: No Accessory Muscle Use, No Respiratory Distress Gastrointestinal: Normal Bowel Sounds, Non Tender, Soft Extremity: Normal Capillary Refill, Normal Inspection Neurologic/Psychiatric: Alert, Oriented x3 Skin: Normal Color, Warm/Dry Departure Impression Primary Impression: Chronic pain Qualified Codes: G89.29 - Other chronic pain Disposition: HOME, SELF-CARE Condition: Stable Departure-Patient Inst. Decision time for Depature: 11:04 Referrals: NO,LOCAL PHYSICIAN (PCP/Family) Primary Care Physician Patient Instructions: Chronic Pain (DC) Add. Discharge Instructions: 1. Call your provider on Thursday to get a refill of your diazepam and a ramp, those cannot and will not be prescribed in the emergency room. Scripts Prednisone (Prednisone) 20 Mg Tab 40 MG PO DAILY, #8 TAB 0 Refills Prov: BOO THOMPSON APRN 05/21/19 BOO THOMPSON APRN May 21, 2019 11:05
[2019-05-21 11:10] VITALS: BP 142/89
--- NOTE | 2019-05-21 11:10 | NUR ---
d/c instructions to pt. told to read all papers. scripts faxed. pt left ambulatory by self. pt knows f/u. i went over the handtyped by information on the chart pt had no iv.
--- OUTSIDE RECORDS SUMMARY | 2019-05-21 19:26 | XMS REPORT | Continuity of Care Document ---
Author Organization Unknown Address Unknown Phone Unavailable Allergies Active Description Code Type Severity Reaction Onset Reported/Identified Relationship to Patient Clinical Status Yes No Known Drug Allergies [id number] Drug Allergy Mild N/A 02/06/2017 Medications There [...] Ot 525.9 04/08/2011 Ot 805.2 FX DORSAL VERTEBRA- CLOSE 04/08/2011 Ot 959.19 OTH INJURY OF OTHER [...] LEVEL TO OTH NEC 07/08/2014 BOO THOMPSON [employer] ASSOCIATE Ot 521.00 UNSPEC DENTAL CARIES 07/08/2014 BOO THOMPSON [employer] ASS[employer]IATE Ot 585.9 CHRONIC KIDNEY DISEASE, UNSPECIFIED 10/03/2014 MORGAN BARRERA APRN 723.1 PAIN NECK 10/03/2014 MORGAN BARRERA APRN 723.1 PAIN NECK 10/03/2014 MARSH OLGADeep, JESSICA 723.1 PAIN NECK 01/10/2015 INGRID YAN, [...] THOMPSON APRN Ot R19.7 DIARRHEA, UNSPECIFIED 09/25/2016 BOO THOMPSON APRN Ot R51 HEADACHE 09/26/2016 THOMPSON, PETER J [employer] ASSOCIATE Ot F17.210 NICOTINE DEPENDENCE, CIGARETTES, UNCOMPL 09/26/2016 BOO THOMPSON [employer] ASS[employer]IATE Ot M79.1 MYALGIA 09/26/2016 BOO THOMPSON [employer] ASSOCIATE Ot R11.2 NAUSEA WITH VOMITING, UNSPECIFIED 09/26/2016 BOO THOMPSON [employer] ASSOCIATE Ot R19.7 DIARRHEA, UNSPECIFIED 09/26/2016 BOO THOMPSON [employer]ANT ASSOCIATE Ot R51 HEADACHE 02/06/2017 BOO THOMPSON [employer]AURANT ASSOCIATE Ot J40 BRONCHITIS, NOT SPECIFIED ACUTE OR CH 02/06/2017 BOO THOMPSON [employer] ASSOCIATE Ot R05 COUGH 02/18/2017 JUSTIN VELOZ Ot [...] G43.909 MIGRAINE, UNSP, NOT INTRACTABLE, WITHOUT 11/30/2017 GABI YAN, DEE Anderson Ot G89.29 OTHER CHRONIC PAIN 11/30/2017 GABI YAN, DEE Anderson Ot M54.2 CERVICALGIA 11/30/2017 GABI YAN, DEE Anderson Ot Z77.22 CNTCT W AND EXPSR TO ENVIRON TOBACCO SMO 12/10/2017 DIONISIO JESSICA KEARNEY Ot F12.10 CANNABIS ABUSE, UNCOMPLICATED 12/10/2017 DIONISIO JESSICA KEARNEY Ot F17.210 NICOTINE DEPENDENCE, CIGARETTES, UNCOMPL 12/10/2017 DIONISIO ELISHA KEARNEYA Sean Ot F32.9 MAJOR DEPRESSIVE DISORDER, SINGLE EPISOD 12/10/2017 JESSICA NICHOLE DO Ot G43.909 MIGRAINE, UNSP, NOT INTRACTABLE, WITHOUT 12/10/2017 ELISHA NICHOLE DOA Sean Ot G89.29 OTHER CHRONIC PAIN 12/10/2017 JESSICA NICHOLE DO Ot M54.2 CERVICALGIA 12/10/2017 DIONISIO JESSICA KEARNEY Ot M54.9 DORSALGIA, UNSPECIFIED 12/10/2017 JESSICA NICHOLE [...] AG 12/10/2017 JESSICA NICHOLE DO Ot Z79.82 SCREENER PERFUMER (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 12/11/2017 JESSICA NICHOLE DO Ot F12.10 CANNABIS ABUSE, UNCOMPLICATED 12/11/2017 DIONISIO ELISHA KEARNEYA K Ot F17.210 NICOTINE DEPENDENCE, CIGARETTES, UNCOMPL 12/11/2017 JESSICA NICHOLE DO Ot F32.9 MAJOR DEPRESSIVE DISORDER, SINGLE EPISOD 12/11/2017 DIONISIOJESSICA Flannery DO Ot G43.909 MIGRAINE, UNSP, NOT INTRACTABLE, WITHOUT 12/11/2017 DIONISIO JESSICA KEARNEY Ot G89.29 OTHER CHRONIC PAIN 12/11/2017 JESSICA NICHOLE DO Ot M54.2 CERVICALGIA 12/11/2017 DIONISIO JESSICA KEARNEY Ot M54.9 DORSALGIA, UNSPECIFIED 12/11/2017 DIONISIO JESSICA KEARNEY Ot R40.2142 COMA SCALE, EYES OPEN, SPONTANEOUS, EMR 12/11/2017 JESSICA NICHOLE DO Ot R40.2252 COMA SCALE, BEST VERBAL RESPONSE, ORIENT 12/11/2017 DIONISIO JESSICA KEARNEY Ot R40.2362 COMA SCALE, BEST MOTOR RESPONSE, OBEYS C 12/11/2017 JESSICA NICHOLE DO Ot S00.93XA CONTUSION OF UNSPECIFIED PART OF HEAD, I 12/11/2017 DIONISIO JESSICA KEARNEY Ot S20.211A CONTUSION OF RIGHT FRONT WALL OF THORAX, 12/11/2017 DIONISIO JESSICA KEARNEY Ot W01.198A FALL SAME LEV FROM SLIP/TRIP W STRIKE AG 12/11/2017 JESSICA NICHOLE DO Ot Z79.82 SCREENER PERFUMER (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 01/26/2018 BOO THOMPSON [...] 01/26/2018 BOO THOMPSON APRN Ot Y93.61 ACTIVITY, CYMRAES TACKLE FOOTBALL 01/26/2018 BOO THOMPSON APRN Ot Z77.22 CNTCT W AND EXPSR TO ENVIRON TOBACCO SMO 01/26/2018 BOO THOMPSON APRN Ot Z79.52 FDC (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 OF SYSTEMIC STER 01/26/2018 BOO [...] 01/28/2018 BOO THOMPSON APRN Ot Y93.61 ACTIVITY, CYMRAES TACKLE FOOTBALL 01/28/2018 BOO THOMPSON APRN Ot Z77.22 CNTCT W AND EXPSR TO ENVIRON TOBACCO SMO 01/28/2018 BOO THOMPSON APRN Ot Z79.52 FDC (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 OF SYSTEMIC STER 01/28/2018 BOO [...] 02/01/2018 BOO THOMPSON APRN Ot Y93.61 ACTIVITY, CYMRAES TACKLE FOOTBALL 02/01/2018 BOO THOMPSON APRN Ot Z77.22 CNTCT W AND EXPSR TO ENVIRON TOBACCO SMO 02/01/2018 BOO THOMPSON APRN Ot Z79.52 SCREENER PERFUMER (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 OF SYSTEMIC STER 02/01/2018 BOO THOMPSON APRN Ot Z87.59 PERSONAL HISTORY OF COMP OF PREG, CHLDBR 02/18/2018 GAURANG TOMAS Ot F17.210 NICOTINE DEPENDENCE, CIGARETTES, UNCOMPL 02/18/2018 GAURANG TOMAS Ot F32.9 MAJOR DEPRESSIVE DISORDER, SINGLE EPISOD 02/18/2018 GENOVEVA, GAURANG RN ENT Ot G43.909 MIGRAINE, UNSP, NOT INTRACTABLE, WITHOUT 02/18/2018 GENOVEVA, GAURANG RN ENT Ot M50.90 CERVICAL DISC DISORDER, UNSP, UNSPECIFIE 02/18/2018 GENOVEVA, GAURANG RN ENT Ot M54.2 CERVICALGIA 02/18/2018 GENOVEVA, GAURANG RN ENT Ot Z79.52 SCREENER PERFUMER (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 OF SYSTEMIC STER 02/22/2018 GENOVEVA, GAURANG RN ENT Ot F17.210 NICOTINE DEPENDENCE, CIGARETTES, UNCOMPL 02/22/2018 GENOVEVA, GAURANG RN ENT Ot F32.9 MAJOR DEPRESSIVE DISORDER, SINGLE EPISOD 02/22/2018 GENOVEVA, GAURANG RN ENT Ot G43.909 MIGRAINE, UNSP, NOT INTRACTABLE, WITHOUT 02/22/2018 GENOVEVA, GAURANG RN ENT Ot M50.90 CERVICAL DISC DISORDER, UNSP, UNSPECIFIE 02/22/2018 GENOVEVA, GAURANG RN ENT Ot M54.2 CERVICALGIA 02/22/2018 GENOVEVA, GAURANG RN ENT Ot Z79.52 SCREENER PERFUMER (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 OF SYSTEMIC STER 02/24/2018 GENOVEVA, GAURANG RN ENT Ot F17.210 NICOTINE DEPENDENCE, CIGARETTES, UNCOMPL 02/24/2018 GENOVEVA, GAURANG RN ENT Ot F32.9 MAJOR DEPRESSIVE DISORDER, SINGLE EPISOD 02/24/2018 GENOVEVA, GAURANG RN ENT Ot G43.909 MIGRAINE, UNSP, NOT INTRACTABLE, WITHOUT 02/24/2018 GENOVEVA, GAURANG RN ENT Ot M50.90 CERVICAL DISC DISORDER, UNSP, UNSPECIFIE 02/24/2018 GENOVEVA, GAURANG RN ENT Ot M54.2 CERVICALGIA 02/24/2018 GENOVEVA, GAURANG RN ENT Ot Z79.52 SCREENER PERFUMER (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 OF SYSTEMIC STER 02/25/2018 GINGER YAN, VANESSA Adame Ot F17.210 NICOTINE DEPENDENCE, CIGARETTES, UNCOMPL 02/25/2018 GINGER YAN, VANESSA Adame Ot F32.9 MAJOR DEPRESSIVE DISORDER, SINGLE EPISOD 02/25/2018 GINGER YAN, VANESSA Adame Ot G24.9 DYSTONIA, UNSPECIFIED 02/25/2018 GINGER YAN, VANESSA Adame Ot G43.909 MIGRAINE, UNSP, NOT INTRACTABLE, WITHOUT 02/25/2018 GINGER YAN, VANESSA Adame Ot M54.2 CERVICALGIA 03/09/2018 BRUEGGEJEREMY PERKINS MD T Ot F12.10 CANNABIS ABUSE, UNCOMPLICATED 03/09/2018 JEREMY GARRIDO MD T Ot F17.210 NICOTINE DEPENDENCE, CIGARETTES, UNCOMPL 03/09/2018 JEREMY GARRIDO MD Ot F32.9 MAJOR DEPRESSIVE DISORDER, SINGLE EPISOD 03/09/2018 JEREMY GARRIDO MD Ot G43.909 MIGRAINE, UNSP, NOT INTRACTABLE, WITHOUT 03/09/2018 JEREMY GARRIDO MD T Ot M50.30 OTHER CERVICAL DISC DEGENERATION, UNSP C 03/09/2018 JEREMY GARRIDO MD Ot M54.2 CERVICALGIA 03/09/2018 JEREMY GARRIDO MD T Ot Z79.52 SCREENER PERFUMER (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 OF SYSTEMIC STER 03/11/2018 JEREMY [...] 03/11/2018 JEREMY GARRIDO MD T Ot Z79.52 SCREENER PERFUMER (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 OF SYSTEMIC STER 03/24/2018 JEREMY GARRIDO MD Ot F32.9 MAJOR DEPRESSIVE DISORDER, SINGLE EPISOD 03/24/2018 JEREMY GARRIDO MD T Ot G24.8 OTHER DYSTONIA 03/24/2018 JEREMY GARRIDO MD T Ot G43.909 MIGRAINE, UNSP, NOT INTRACTABLE, WITHOUT 03/24/2018 JEREMY GARRIDO MD T Ot G89.29 OTHER CHRONIC PAIN 03/24/2018 JEREMY GARRIDO MD T Ot M54.2 CERVICALGIA 03/24/2018 JEREMY GARRIDO MD T Ot W01.198A FALL SAME LEV FROM SLIP/TRIP W STRIKE AG 03/24/2018 JEREMY GARRIDO MD Ot Y92.002 BATHRM OF [facility] NON-INSTITUT RESDNCE SNGL 03/24/2018 JEREMY GARRIDO MD Ot Z79.52 SCREENER PERFUMER (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 OF SYSTEMIC STER 03/24/2018 JEREMY [...] JEREMY GARRIDO MD Ot Y92.002 BATHRM OF [facility] NON-[facility] RESDN SNGL 03/26/2018 JEREMY GARRIDO MD Ot Z79.52 SCREENER PERFUMER (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 OF SYSTEMIC STER 03/26/2018 JEREMY [...] DEPENDENCE, CIGARETTES, UNCOMPL 04/05/2018 ELISHA NICHOLE DOA Sean Ot F32.9 MAJOR DEPRESSIVE DISORDER, SINGLE EPISOD 04/05/2018 ELISHA NICHOLE DOA Sean Ot G43.909 MIGRAINE, UNSP, NOT INTRACTABLE, WITHOUT 04/05/2018 DIONISIO KEARNEY, JESSICA Estrada Ot R10.12 LEFT UPPER QUADRANT PAIN 04/12/2018 [...] Ot Y93.E1 ACTIVITY, PERSONAL BATHING AND SHOWERING 04/30/2018 DEE ASHLEY MD Ot E07.9 DISORDER [...] ENVIRON TOBACCO SMO 05/22/2018 Ot F11.10 OPIOID ABUSE, UNCOMPLICATED 05/22/2018 Ot F12.10 CANNABIS ABUSE, UNCOMPLICATED [...] MD Ot M54.2 CERVICALGIA 08/06/2018 BOO THOMPSON [employer]AURANT ASSOCIATE Ot F12.10 CANNABIS ABUSE, UNCOMPLICATED 08/06/2018 BOO THOMPSON APRN Ot F32.9 MAJOR DEPRESSIVE DISORDER, SINGLE EPISOD 08/06/2018 BOO THOMPSON APRN Ot G43.909 MIGRAINE, UNSP, NOT INTRACTABLE, WITHOUT 08/06/2018 BOO THOMPSON APRN Ot M54.2 CERVICALGIA 08/06/2018 BOO THOMPSON APRN Ot Z77.22 CNTCT W AND EXPSR TO ENVIRON TOBACCO SMO 08/06/2018 BOO THOMPSON APRN Ot Z91.19 PATIENT'S NONCOMPLIANCE W OTH MEDICAL TR 08/20/2018 SHAI SERRANO MD Ot F12.10 CANNABIS ABUSE, UNCOMPLICATED 08/20/2018 SHAI SERRANO MD Ot F32.9 MAJOR DEPRESSIVE DISORDER, SINGLE EPISOD 08/20/2018 CAITY SERRANO MDUS J Ot G43.909 MIGRAINE, UNSP, NOT INTRACTABLE, WITHOUT 08/20/2018 SHAI SERRANO MD J Ot K02.9 DENTAL CARIES, UNSPECIFIED 08/20/2018 SHAI SERRANO MD J Ot K08.89 OTHER SPECIFIED DISORDERS OF TEETH AND S 08/20/2018 SHAI SERRANO MD Ot Z77.22 CNTCT W AND EXPSR TO ENVIRON TOBACCO SMO 08/23/2018 SHAI SERRANO MD Ot F12.10 CANNABIS ABUSE, UNCOMPLICATED 08/23/2018 SHAI SERRANO MD Ot F32.9 MAJOR DEPRESSIVE DISORDER, SINGLE EPISOD 08/23/2018 SHAI SERRANO MD J Ot G43.909 MIGRAINE, UNSP, NOT INTRACTABLE, WITHOUT 08/23/2018 SHAI SERRANO MD J Ot K02.9 DENTAL CARIES, UNSPECIFIED 08/23/2018 SHAI SERRANO MD Ot K08.89 OTHER SPECIFIED DISORDERS OF TEETH AND S 08/23/2018 SHAI SERRANO MD Ot Z77.22 CNTCT W AND EXPSR TO ENVIRON TOBACCO SMO 09/29/2018 OSITO JONESIS Ot F12.10 CANNABIS ABUSE, UNCOMPLICATED 09/29/2018 OSITO JONESIS Ot F32.9 MAJOR DEPRESSIVE DISORDER, SINGLE EPISOD 09/29/2018 OSITO JONESIS Ot G43.909 MIGRAINE, UNSP, NOT INTRACTABLE, WITHOUT 09/29/2018 OSITO JONESIS Ot G89.29 OTHER CHRONIC PAIN 09/29/2018 OSITO JONESIS Ot M54.2 CERVICALGIA 09/29/2018 DIDIER JONES Ot S13.4XXA SPRAIN OF LIGAMENTS OF CERVICAL SPINE, I 09/29/2018 DIDIER JONES Ot W18.30XA FALL ON SAME LEVEL, UNSPECIFIED, INITIAL 09/29/2018 OSITO JONESIS Ot Z77.22 CNTCT W AND EXPSR TO ENVIRON TOBACCO SMO 09/29/2018 DIDIER JONES Ot Z79.52 FDC (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 OF SYSTEMIC STER 10/01/2018 DIDIER JONES Ot F12.10 CANNABIS ABUSE, UNCOMPLICATED 10/01/2018 ALEDIDIER SHANKAR Ot F32.9 MAJOR DEPRESSIVE DISORDER, SINGLE EPISOD 10/01/2018 ALEVONNIE DIDIER Ot G43.909 MIGRAINE, UNSP, NOT INTRACTABLE, WITHOUT 10/01/2018 DIDIER JONES Ot G89.29 OTHER CHRONIC PAIN 10/01/2018 ALEDIDIER SHANKAR Ot M54.2 CERVICALGIA 10/01/2018 DIDIER JONES Ot S13.4XXA SPRAIN OF LIGAMENTS OF CERVICAL SPINE, I 10/01/2018 DIDIER JONES Ot W18.30XA FALL ON SAME LEVEL, UNSPECIFIED, INITIAL 10/01/2018 DIDIER JONES Ot Z77.22 CNTCT W AND EXPSR TO ENVIRON TOBACCO SMO 10/01/2018 DIDIER JONES Ot Z79.52 FDC (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 OF SYSTEMIC STER 11/06/2018 DAVON VINCENT MD Ot F12.10 CANNABIS ABUSE, UNCOMPLICATED 11/06/2018 DAVON VINCENT MD Ot F17.210 NICOTINE DEPENDENCE, CIGARETTES, UNCOMPL 11/06/2018 DAVON VINCENT MD Ot F32.9 MAJOR DEPRESSIVE DISORDER, SINGLE EPISOD 11/06/2018 DAVON VINCENT MD Ot G43.909 MIGRAINE, UNSP, NOT INTRACTABLE, WITHOUT 11/06/2018 DAVON VINCENT MD Ot G89.29 OTHER CHRONIC PAIN 11/06/2018 DAVON VINCENT MD Ot M54.2 CERVICALGIA 11/06/2018 DAVON VINCENT MD Ot W19.XXXA UNSPECIFIED FALL, INITIAL ENCOUNTER 01/14/2019 SHAI SERRANO MD Ot F12.10 CANNABIS ABUSE, UNCOMPLICATED 01/14/2019 SHAI SERRANO MD Ot F32.9 MAJOR DEPRESSIVE DISORDER, SINGLE EPISOD 01/14/2019 SHAI SERRANO MD Ot G43.909 MIGRAINE, UNSP, NOT INTRACTABLE, WITHOUT 01/14/2019 SHAI SERRANO MD Ot K02.9 DENTAL CARIES, UNSPECIFIED 01/14/2019 SHAI SERRANO MD Ot K08.89 OTHER SPECIFIED DISORDERS OF TEETH AND S 01/14/2019 SHAI SERRANO MD Ot Z77.22 CNTCT W AND EXPSR TO ENVIRON TOBACCO SMO 02/21/2019 DIDIER JONES Ot F32.9 MAJOR DEPRESSIVE DISORDER, SINGLE EPISOD 02/21/2019 DIDIER JONES Ot G43.909 MIGRAINE, UNSP, NOT INTRACTABLE, WITHOUT 02/21/2019 DIDIER JONES Ot G89.29 OTHER CHRONIC PAIN 02/21/2019 DIDIER JONES Ot M54.2 CERVICALGIA 02/21/2019 DIDIER JONES Ot Z77.22 CNTCT W AND EXPSR TO ENVIRON TOBACCO SMO 02/21/2019 DIDIER JONES Ot Z79.52 FDC (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 OF SYSTEMIC STER Procedures Code [...] Automated erythrocyte mean corpuscular hemoglobin concentration measurement (mass/volume) 35 g/dL 32-36 Automated erythrocyte distribution width ratio 12.8 % 10.0- 14.5 Automated blood platelet count (count/volume) 211 10*3/uL [...] Blood monocytes automated count (number/volume) 1.3 10*3 0.0- 1.0 Automated eosinophil count 0.3 10*3/uL 0.0-0.3 Automated [...] Serum or plasma aspartate aminotransferase measurement (enzymatic activity/volume) 33 U/L 5-34 Serum or plasma alanine aminotransferase measurement (enzymatic activity/volume) 45 U/L 0-55 Serum or plasma protein measurement (mass/volume) 7.1 g/dL 6.4-8.2 Serum or plasma albumin measurement (mass/volume) 4.2 g/dL 3.2-4.5 Complete urinalysis with reflex to culture - 09/25/16 11:28 Urine color determination YELLOW NRG Urine clarity determination CLEAR NRG Urine pH measurement by test strip 8 5-9 Specific gravity of urine by test strip 1.015 1.016-1.022 Urine protein assay by test strip, semi-quantitative [...] sediment leukocyte count by microscopy (number/high power field) [HPF] NRG Bacteria detection in urine sediment [...] Automated erythrocyte mean corpuscular hemoglobin concentration measurement (mass/volume) 36 g/dL 32-36 Automated erythrocyte distribution width ratio 12.9 % 10.0- 14.5 Automated blood platelet count (count/volume) 228 10*3/uL [...] Blood monocytes automated count (number/volume) 0.9 10*3 0.0- 1.0 Automated eosinophil count 0.2 10*3/uL 0.0-0.3 Automated [...] Automated erythrocyte mean corpuscular hemoglobin concentration measurement (mass/volume) 35 g/dL 32-36 Automated erythrocyte distribution width ratio 12.4 % 10.0- 14.5 Automated blood platelet count (count/volume) 193 10*3/uL [...] Blood monocytes automated count (number/volume) 1.1 10*3 0.0- 1.0 Automated eosinophil count 0.4 10*3/uL 0.0-0.3 Automated [...] Serum or plasma aspartate aminotransferase measurement (enzymatic activity/volume) 23 U/L 5-34 Serum or plasma alanine aminotransferase measurement (enzymatic activity/volume) 14 U/L 0-55 Serum or plasma protein [...] or plasma troponin i.cardiac measurement (mass/volume) < ng/mL <0.30 Myoglobin, serum - 09/29/17 09:14 Myoglobin, [...] or plasma troponin i.cardiac measurement (mass/volume) < ng/mL <0.30 Complete urinalysis with reflex to culture - 04/01/18 08:45 Urine color determination YELLOW NRG Urine clarity determination CLEAR NRG Urine pH measurement by test strip 6 5-9 Specific gravity of urine by test strip 1.025 1.016-1.022 Urine protein assay by test strip, semi-quantitative [...] sediment leukocyte count by microscopy (number/high power field) [HPF] NRG Bacteria detection in urine sediment [...] Automated erythrocyte mean corpuscular hemoglobin concentration measurement (mass/volume) 37 g/dL 32-36 Automated erythrocyte distribution width ratio 12.2 % 10.0- 14.5 Automated blood platelet count (count/volume) 188 10*3/uL [...] Blood monocytes automated count (number/volume) 0.9 10*3 0.0- 1.0 Automated eosinophil count 0.3 10*3/uL 0.0-0.3 Automated [...] Serum or plasma aspartate aminotransferase measurement (enzymatic activity/volume) 19 U/L 5-34 Serum or plasma alanine aminotransferase measurement (enzymatic activity/volume) 16 U/L 0-55 Serum or plasma protein measurement (mass/volume) 6.8 g/dL 6.4-8.2 Serum or plasma albumin measurement (mass/volume) 4.3 g/dL 3.2-4.5 Magnesium - 04/01/18 08:50 Magnesium 2.2 mg/dL 1.8-2.4 Serum or plasma amylase measurement (enzymatic activity/volume) - 04/01/18 08:50 Serum or plasma amylase measurement (enzymatic activity/volume) 54 U/L 25-125 Lipase - 04/01/18 08:50 Lipase 10 U/L 8-78 Serum or plasma thyrotropin measurement by detection limit <=0.05 miu/l (units/volume) - 04/01/18 08:50 Serum or plasma thyrotropin measurement by detection limit <=0.05 miu/l (units/volume) 1.10 u[iU]/mL 0.35-4.94 Serum or plasma acetaminophen [...] NEGATIVE NEGATIVE Urine propoxyphene detection NEGATIVE NEGATIVE Urine drug screening test - [...] NEGATIVE NEGATIVE Urine propoxyphene detection NEGATIVE NEGATIVE TSH w/ FREE T4 - 03/15/19 15:15 TSH 1.93 mIU/L 0.40-4.50 T4, FREE 1.2 ng/dL 0.8-1.8 PDM - 09 PANEL (PROFILE 1) - 03/15/19 15:15 Creatinine 80.6 mg/dL > or=20.0 pH 7.24 4.5 - 9.0 Oxidant NEGATIVE mcg/mL <200 Amphetamines NEGATIVE ng/mL <500 medMATCH Amphetamines CONSISTENT NRG Benzodiazepines NEGATIVE ng/mL <100 medMATCH Benzodiazepines CONSISTENT NRG Marijuana Metabolite NEGATIVE ng/mL <20 medMATCH Marijuana Metab CONSISTENT NRG Cocaine Metabolite NEGATIVE ng/mL <150 medMATCH Cocaine Metab CONSISTENT NRG Opiates NEGATIVE ng/mL <100 medMATCH Opiates CONSISTENT NRG Oxycodone NEGATIVE ng/mL <100 medMATCH Oxycodone CONSISTENT NRG COMMENT NRG Barbiturates NEGATIVE ng/mL <300 medMATCH Barbiturates CONSISTENT NRG Methadone Metabolite NEGATIVE ng/mL <100 medMATCH Methadone Metab CONSISTENT NRG Phencyclidine NEGATIVE ng/mL <25 medMATCH Phencyclidine CONSISTENT NRG Encounters ACCT No. Visit Date/Time Discharge Status Pt. Type Provider Facility Loc./Unit Complaint [id number] 02/08/2015 13:21:00 02/08/2015 23:59:59 CLS Outpatient SALMA SHAHBAZ JESSICA [id number] 11/06/2014 12:15:00 11/06/2014 23:59:59 CLS Outpatient MORGAN BARRERA APRN [id number] 10/03/2014 08:26:00 10/03/2014 23:59:59 CLS Outpatient MORGAN BARRERA APRN [id number] 05/07/2010 16:02:00 05/07/2010 23:59:59 CLS Outpatient DAPHNEANTONINA HARTMANNGLADYS Kwasi [id number] 05/17/2019 13:20:00 05/17/2019 14:15:00 DIS Emergency BOO THOMPSON APRN [facility] ER NECK PAIN [id number] 02/17/2019 16:06:00 02/17/2019 17:25:00 DIS Outpatient DIDIER JONES [facility] ER NECK PAIN,SPASMS [id number] 09/29/2018 09:38:00 09/29/2018 11:30:00 DIS Emergency DIDIER JONES [facility] ER NECK PAIN [id number] 08/20/2018 00:11:00 08/20/2018 02:08:00 DIS Emergency SHAI SERRANO MD [facility] ER TOOTH ABSCESS, CAN'T SLEEP [id number] 08/06/2018 11:39:00 08/06/2018 23:59:59 CLS Emergency BOO THOMPSON APRN [facility] ER CERVICAL PAIN [id number] 07/31/2018 05:17:00 07/31/2018 05:55:00 DIS Emergency BROOKE ASHLEY MDOTHY D [facility] ER CERVICAL DYSTONIA FLARE [id number] 07/08/2018 09:03:00 07/08/2018 12:20:00 DIS Emergency CARLTON YAN, DAVON Estrada [facility] ER FALL;NECK PAIN [id number] 05/01/2018 11:20:00 05/01/2018 12:04:00 DIS Emergency DIDIER JONES [facility] ER NECK PROBLEMS,PAIN [id number] 04/28/2018 02:10:00 04/28/2018 02:38:00 DIS Emergency GABI YAN, DEE Anderson [facility] ER PREVIOUS FALL, NECK PAIN [id number] 04/12/2018 08:19:00 04/12/2018 09:50:00 DIS Emergency GABI YAN, DEE Anderson [facility] ER NECK PAIN,SHAKING [id number] 04/01/2018 08:19:00 04/01/2018 10:40:00 DIS Emergency JESSICA NICHOLE DO [facility] ER ABD PAIN [id number] 03/24/2018 09:29:00 03/24/2018 10:28:00 DIS Emergency RADHIKA YAN, JEREMY Laws [facility] ER NECK PAIN,SHOULDER PAIN,FELL IN SHOWER [id number] 03/23/2018 09:48:00 03/23/2018 23:59:59 CLS Preadmit NO, LOCAL PHYSICIAN [facility] REHAB CERVICAL DYSTONIA [id number] 03/09/2018 09:01:00 03/09/2018 11:39:00 DIS Emergency RADHIKA YAN, JEREMY Laws [facility] ER NECK PAIN [id number] 02/25/2018 08:05:00 02/25/2018 08:48:00 DIS Emergency GINGER YAN, VANESSA Adame [facility] ER NECK PAIN [id number] 02/18/2018 12:58:00 02/18/2018 15:40:00 DIS Emergency GAURANG TOMAS [facility] ER NECK PAIN [id number] 01/26/2018 13:03:00 01/26/2018 13:39:00 DIS Emergency THOMPSONBOO APRN [facility] ER NECK AND SHOULDER PAIN AND DISCOMFORT [id number] 12/09/2017 20:42:00 12/10/2017 00:05:00 DIS Emergency JESSICA NICHOLE DO [facility] ER BACK AND NECK PAIN;FALL [id number] 11/27/2017 04:58:00 11/27/2017 08:06:00 DIS Emergency DEE ASHLEY MD [facility] ER BACK PAIN,SON WALKED ON BACK YESTERDAY [id number] 11/26/2017 08:47:00 11/26/2017 10:32:00 DIS Emergency DAVON VINCENT MD [facility] ER SHAKING,NECK PAIN,RIGHT SIDE PAIN [id number] 10/29/2017 08:57:00 10/29/2017 11:11:00 DIS Emergency DEE ASHLEY MD [facility] ER NECK PAIN [id number] 09/29/2017 08:34:00 09/29/2017 13:37:00 DIS Emergency JEREMY GARRIDO MD [facility] ER CP [id number] 08/18/2017 06:40:00 08/18/2017 07:45:00 DIS Emergency JEREMY GARRIDO MD [facility] ER NEUROLOGICAL DISORDER,CAN'T SLEEP [id number] 07/05/2017 16:36:00 07/05/2017 17:08:00 DIS Emergency DEE ASHLEY MD [facility] ER DENTAL PAIN [id number] 06/12/2017 13:03:00 06/12/2017 15:28:00 DIS Emergency JUSTIN VELOZ [facility] ER NECK PAIN [id number] 06/11/2017 17:39:00 06/11/2017 18:30:00 DIS Emergency VANESSA MILES MD [facility] ER NECK INJ [id number] 02/18/2017 10:20:00 02/18/2017 13:13:00 DIS Emergency JUSTIN VELOZ [facility] ER COUGH NAUSEA [id number] 02/06/2017 13:54:00 02/06/2017 14:16:00 DIS Emergency BOO THOMPSON APRN [facility] ER COUGH/CHEST CONGESTION [id number] 09/25/2016 10:36:00 09/25/2016 12:08:00 DIS Emergency BOO THOMPSON APRN [facility] ER VOMITING COUGH HEADACHE FATIGUE [id number] 06/02/2016 13:14:00 06/02/2016 14:13:00 DIS Emergency VANESSA MILES MD [facility] ER NECK PAIN/SHAKING [id number] 04/22/2015 23:25:00 04/24/2015 15:25:00 DIS Inpatient BRANDI YAN, VANESSA Anderson [facility] 4TH BENZODIAZEPINE WITHDRAWAL;NARCOTIC WITHDRAWAL [id number] 04/21/2015 20:34:00 04/21/2015 22:10:00 DIS Emergency BOO THOMPSON APRN [facility] ER BLOODY STOOLS,ABD PAIN,WANTS REHAB [id number] 02/18/2015 12:02:00 02/18/2015 12:51:00 DIS Emergency JUSTIN VELOZ [facility] ER CYST ON HIP [id number] 02/16/2015 00:03:00 02/16/2015 00:55:00 DIS Emergency MORGAN GANNON DO [facility] ER CELLULITIS [id number] 01/15/2015 11:44:00 01/15/2015 23:59:59 CLS Preadmit ROHAN HARTMAN MD [facility] WOUNDCARE [id number] 01/07/2015 01:35:00 01/10/2015 16:30:00 DIS Outpatient CAROLEE QUINTERO MD [facility] SDC MULTIPLE ABCESS/CELLULITIS [id number] 07/08/2014 11:44:00 07/08/2014 12:25:00 DIS Emergency BOO THOMPSON APRN [facility] ER TOOTH INFECTION [id number] 06/03/2013 16:23:00 06/03/2013 23:59:59 CLS Preadmit CARLTON YAN, DAVON Estrada [facility] ER DENTAL PAIN,POSSIBLE RASH [id number] 06/01/2013 12:37:00 06/01/2013 23:59:59 CLS Outpatient [id number] 05/28/2013 08:10:00 05/28/2013 09:58:00 DIS Emergency DIONISIO DO, JESSICA K [facility] ER L SIDE LOWER BACK PAIN AND RIB PAIN [id number] 04/28/2013 16:12:00 04/28/2013 18:55:00 DIS Emergency JUSTIN VELOZ [facility] ER DENTAL PAIN [id number] 05/22/2018 08:41:00 Document Registration [id number] 03/26/2015 10:11:00 Document Registration [id number] 03/23/2015 13:15:00 Document Registration [id number] 06/03/2012 17:30:00 Document Registration [id number] 03/10/2012 13:38:00 Document Registration [id number] 01/24/2012 14:20:00 Document Registration [id number] 01/10/2012 14:24:00 Document Registration [id number] 12/13/2011 16:18:00 Document Registration [id number] 11/16/2011 08:46:00 Document Registration [id number] 08/18/2011 21:09:00 Document Registration [id number] 04/08/2011 12:15:00 Document Registration [id number] 11/28/2010 16:26:00 Document Registration [id number] 10/14/2010 10:52:00 Document Registration [id number] 07/28/2010 16:08:00 Document Registration [id number] 07/03/2010 02:58:00 Document Registration [id number] 06/06/2010 06:29:00 Document Registration [id number] 04/22/2010 12:05:00 Document Registration [id number] 04/12/2019 13:20:00 04/12/2019 23:59:59 CLS Outpatient [facility] [id number] 03/15/2019 14:20:00 Document Registration
== END 2019-05-21 11:10 | disposition home or self-care (01) ==
LOC: EDUNIT# 10:23 → ER 10:24
DX: G89.29 Other chronic pain (principal); M54.2 Cervicalgia; G43.909 Migraine, unspecified, not intractable, without status migrainosus; F32.9 Major depressive disorder, single episode, unspecified; Z91.81 History of falling; Z77.22 Contact with and (suspected) exposure to environmental tobacco smoke (acute) (chronic)
CPT/HCPCS: 99282

== ENCOUNTER 2019-07-11 07:47 | Emergency (ER) | payer MEDICAID ==
[~2019-07-11] VITALS: Ht 170 cm; Wt 66.0 kg
[2019-07-11] MEDS ORDERED: KETOROLAC 60 MG/2 ML VIAL IM STA (08:03)
[2019-07-11] MEDS ORDERED: ORPHENADRINE 60 MG/2 ML (NORFLEX) AMP IM STA (08:03)
--- NOTE | 2019-07-11 08:12 | ED Neck-Back Pain/Injury ---
General Chief Complaint: Head/Cervical Problems Stated Complaint: NECK PAIN Nursing Triage Note: PT PRESENTS TO ED WITH COMPLAINTS OF R NECK PAIN THAT RADIATES TO R SHOULDER X 5 DAYS. PT REPORTS HE WAS HELPING MOVE A END TABLE INTO HIS HOUSE AND THINKS THAT MAY HAVE AGRIVATED IT. Nursing Sepsis Screen: No Definite Risk Source of Information: Patient Exam Limitations: No Limitations History of Present Illness Date Seen by Provider: Jul 11, 2019 Time Seen by Provider: 07:54 Initial Comments Here with report of right-sided neck pain radiates to the right shoulder. This is been going on for 5 days. Onset when he was moving a table. He states that the table was not very heavy but seems to have caused an injury. Has long- standing neck problems. 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 Follow-up with neurology. Has appointment with his doctor reportedly in July. He has had multiple appointments with [facility] and I cannot verify that he is made any of them. Does follow with mental health. He is trying to get on disability he reports. He is concerned because the pain is persisted. This is very similar to previous presentations with him. He walked here from home on [address] [place] is approximately 2 miles away. Timing/Duration: 5-6 Days Severity: Moderate Pain/Injury Location: Neck Modifying Factors: Worse With Movement; Improves With Rest Associated Symptoms: muscle spasms; No weakness, No numbness in legs/feet, No tingling in legs/feet, No loss of bladder control, No loss of bowel control Allergies and Home Medications Allergies Coded Allergies: No Known Drug Allergies (Verified , 02/06/17) Home Medications Methocarbamol 750 Mg Tablet, 750 MG PO Q4H PRN for PAIN-MILD TO MODERATE Prescribed by: BOO THOMPSON on 05/17/19 1410 Prednisone 20 Mg Tab, 40 MG PO DAILY Prescribed by: BOO THOMPSON on 05/21/19 1105 Patient Home Medication List Home Medication List Reviewed: Yes Review of Systems Constitutional: see HPI; No chills, No fever Respiratory: no symptoms reported Cardiovascular: no symptoms reported Musculoskeletal: see HPI, joint pain (right shoulder), muscle pain, muscle stiffness, neck pain Past Barvrfy-Zdhiwg-Dmpbox Hx Past Med/Social Hx: Reviewed Nursing Past Med/Soc Hx Patient Social History Alcohol Use: Denies Use Recreational Drug Use: No Drug of Choice: THC, TESTED + FOR BENZODIAZEPINES 04/01/18 Smoking Status: Current Everyday Smoker Type Used: Cigarettes 2nd Hand Smoke Exposure: Yes Recent Foreign Travel: No Contact w/Someone Who Travel: No Recent Infectious Disease Expo: No Recent Hopitalizations: No Physical Abuse: No Sexual Abuse: No Mistreated: No Fear: No Immunizations Up To Date Tetanus Booster (TDap): Unknown Date of Influenza Vaccine: Aug 19, 2011 Seasonal Allergies Seasonal Allergies: No Past Medical History Surgeries: No Respiratory: No Cardiac: No Neurological: Yes ("CERVICAL DYSTONIA" PER PT--SELF-REPORTED; TREMOR) Headaches /Migraines Reproductive Disorders: No Sexually Transmitted Disease: No HIV/AIDS: No Genitourinary: No Gastrointestinal: No Musculoskeletal: Yes (CHRONIC NECK PAIN AND SELF-REPORTED "CERVICAL DYSTONIA" ) Chronic Back Pain Endocrine: Yes ("Thyroid issues") HEENT: Yes (Recurrent dental pain) Cancer: No Psychosocial: Yes Depression Integumentary: Yes (ABSCESSES) Blood Disorders: No Family Medical History Reviewed Nursing Family Hx Patient reports no known family medical history. No Pertinent Family Hx Physical Exam Vital Signs Vital Signs - First Documented 07/11/19 07:54 Temp 36.1 Pulse 104 Resp 18 B/P (MAP) 105/81 (89) Pulse Ox 96 Capillary Refill : Less Than 3 Seconds Height, Weight, BMI Height: 5'6.00" Weight: 150lbs. 0oz. 68.025398ry; 22.00 BMI Method:Stated General Appearance: No Apparent Distress, WD/WN Neck: Tender Lateral, Other (muscle spasms bilateral with limited range of motion reportedly due to pain.) Cardiovascular: No Murmur, Tachycardia Respiratory: Lungs Clear, Normal Breath Sounds Gastrointestinal: Non Tender, Soft Extremity: Normal Range of Motion, Non Tender Neurologic/Psychiatric: Alert, Oriented x3 Skin: Normal Color, Warm/Dry Progress/Results/Core Measures Results/Orders My Orders Orders - DEE ASHLEY MD Acetaminophen Tablet (Tylenol Tablet) (07/11/19 08:34) Ibuprofen Tablet (Motrin Tablet) (07/11/19 08:34) Vital Signs/I&O 07/11/19 07:54 Temp 36.1 Pulse 104 Resp 18 B/P (MAP) 105/81 (89) Pulse Ox 96 Blood Pressure Mean: 89 Progress Progress Note : Progress Note Seen and evaluated. Reviewed. Previous visits. Last CT scan of the head and neck was May 17 of this year and showed no significant abnormality of the bony structures of the C-spine. Toradol 60 mg IM and Norflex 60 mg IM ordered. I have called the clinic to establish if he has had any appointments. They will call me back. Monitor patient. 0850 Patient refused Toradol and Norflex. We have changed that to Tylenol and ibuprofen. I did discuss the case with Dr. Jha at the clinic. She looked up his information. Last time he was seen by medical doctor was last year. He does have appointment with Dr. Prakash on July 22 and we will encourage him to keep that appointment. He has on scheduled drug contract at the clinic so I will have him see them and he is to get further prescriptions. Discharged home with return precautions. Patient verbalize understanding instructions and agreement with plan. Departure Impression Primary Impression: Acute neck pain Additional Impression: Chronic neck pain Disposition: HOME, SELF-CARE Condition: Stable Departure-Patient Inst. Decision time for Depature: 08:55 Referrals: NO,LOCAL PHYSICIAN (PCP/Family) Primary Care Physician Patient Instructions: Cervical Muscle Strain (DC), Chronic Pain (DC) Add. Discharge Instructions: All discharge instructions reviewed with patient and/or family. Voiced understanding. Continue home medications as previously prescribed. You may take ibuprofen 600 mg every 8 hours as needed for pain. You may also take Tylenol/acetaminophen 1000 mg every 8 hours as needed for pain. You may use [id number] Icy Hot with lidocaine patches, Aspercreme with lidocaine patches, Salonpas with lidocaine patches or similar items to area of concern per package directions. Follow-up with your doctor on July 22 as scheduled. Do not miss this appointment. You may also follow up with the walk-in clinic at [facility] for further medications as needed. Discuss with your doctor regarding possibility of MRI of the neck if indicated. Copy Copies To 1: ANDREA PRAKASH MD, TIMOTHY D MD Jul 11, 2019 08:12
[2019-07-11] MEDS ORDERED: ACETAMINOPHEN 500 MG TAB (TYLENOL) PO STA (08:34)
[2019-07-11] MEDS ORDERED: IBUPROFEN TABLET 200 MG TAB PO STA (08:34)
[2019-07-11 09:01] VITALS: BP 110/82
== END 2019-07-11 09:01 | disposition home or self-care (01) ==
LOC: EDUNIT# 07:47 → ER 07:48
DX: M54.2 Cervicalgia (principal); G89.29 Other chronic pain; G43.909 Migraine, unspecified, not intractable, without status migrainosus; F32.9 Major depressive disorder, single episode, unspecified; F17.210 Nicotine dependence, cigarettes, uncomplicated; Z79.52 Long term (current) use of systemic steroids; X50.0XXA Overexertion from strenuous movement or load, initial encounter
CPT/HCPCS: 99283

== ENCOUNTER 2019-09-13 12:23 | Emergency (ER) | payer MEDICAID ==
[~2019-09-13] VITALS: Ht 170.2 cm; Wt 68.2 kg
--- NOTE | 2019-09-13 13:08 | ED Lower Extremity ---
General Chief Complaint: Lower Extremity Stated Complaint: right toe injury Nursing Triage Note: Pt to triage via ED w/c with c/o Rt great toe discomfort. Pt reports on 09/12/19 he fell off front porch and injured toe. Pt states, "I felt a crunch." Swelling and bruising noted to Rt great toe. Denies further injury. Nursing Sepsis Screen: No Definite Risk Source: patient Exam Limitations: no limitations History of Present Illness Date Seen by Provider: Sep 13, 2019 Time Seen by Provider: 12:55 Initial Comments This is a 34-year-old male patient presents to the emergency department with complaints of right great toe pain. Patient reports that yesterday 09/12/19 he jumped off his porch. Patient reports about 1.5-2 feet and his right great toe was hyperflexed. Patient denies other injury within the foot or ankle. 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 Onset: yesterday Severity: mild Method of Injury: fell Modifying Factors: Improves With Immobilization; Worse With Movement; Improves With Pain Medication, Improves With Rest Allergies and Home Medications Allergies Coded Allergies: No Known Drug Allergies (Verified , 02/06/17) Home Medications Methocarbamol 750 Mg Tablet, 750 MG PO Q4H PRN for PAIN-MILD TO MODERATE Prescribed by: BOO THOMPSON on 05/17/19 1410 Prednisone 20 Mg Tab, 40 MG PO DAILY Prescribed by: BOO THOMPSON on 05/21/19 1105 Patient Home Medication List Home Medication List Reviewed: Yes Review of Systems Constitutional: no symptoms reported, see HPI EENTM: see HPI, no symptoms reported Respiratory: no symptoms reported, see HPI Cardiovascular: no symptoms reported, see HPI Gastrointestinal: no symptoms reported, see HPI Genitourinary: no symptoms reported, see HPI Musculoskeletal: joint pain (right toe), joint swelling Skin: no symptoms reported, see HPI Psychiatric/Neurological: No Symptoms Reported, See HPI All Other Systems Reviewed Negative Unless Noted: Yes Past Gwmctau-Rddneo-Lhcmkj Hx Past Med/Social Hx: Reviewed Nursing Past Med/Soc Hx Patient Social History Drug of Choice: THC, TESTED + FOR BENZODIAZEPINES 04/01/18 Type Used: Cigarettes 2nd Hand Smoke Exposure: Yes Recent Foreign Travel: No Contact w/Someone Who Travel: No Recent Infectious Disease Expo: No Recent Hopitalizations: No Immunizations Up To Date Tetanus Booster (TDap): Unknown Date of Influenza Vaccine: Aug 19, 2011 Seasonal Allergies Seasonal Allergies: No Past Medical History Surgeries: No Respiratory: No Cardiac: No Neurological: Yes ("CERVICAL DYSTONIA" PER PT--SELF-REPORTED; TREMOR) Headaches /Migraines Reproductive Disorders: No Sexually Transmitted Disease: No HIV/AIDS: No Genitourinary: No Gastrointestinal: No Musculoskeletal: Yes (CHRONIC NECK PAIN AND SELF-REPORTED "CERVICAL DYSTONIA" ) Chronic Back Pain Endocrine: Yes ("Thyroid issues") HEENT: Yes (Recurrent dental pain) Cancer: No Psychosocial: Yes Depression Integumentary: Yes (ABSCESSES) Blood Disorders: No Family Medical History Patient reports no known family medical history. No Pertinent Family Hx Physical Exam Vital Signs Vital Signs - First Documented 09/13/19 12:55 Temp 36.9 Pulse 62 Resp 17 B/P (MAP) 114/80 (91) Pulse Ox 98 O2 Delivery Room Air Capillary Refill : Less Than 3 Seconds Height, Weight, BMI Height: 5'6.00" Weight: 150lbs. 0oz. 68.619063th; 23.00 BMI Method:Stated General Appearance: WD/WN, no apparent distress HEENT: PERRL/EOMI, normal ENT inspection, TMs normal, pharynx normal Neck: non-tender, full range of motion, supple Cardiovascular: normal peripheral pulses, regular rate, rhythm, no edema, no gallop, no JVD, no murmur Respiratory: chest non-tender, lungs clear, normal breath sounds, no respiratory distress, no accessory muscle use Gastrointestinal: normal bowel sounds, non tender, soft, no organomegaly, no pulsatile mass Back: normal inspection, no CVA tenderness, no vertebral tenderness Feet: right foot limited range of motion, right foot pain, right foot soft tissue tenderness, right foot swelling Neurologic/Tendon: normal sensation 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, no motor/sensory deficits, alert, normal mood/affect, oriented x 3 Skin: normal color, warm/dry Lymphatic: no adenopathy Progress/Results/Core Measures Results/Orders My Orders Orders - GAURANG TOMAS Toe(S) (09/13/19 13:02) Acetaminophen Tablet/Caplet (Tylenol T (09/13/19 13:45) Medications Given in ED Current Medications Medications Dose Ordered Sig/Travis Route Start Time Stop Time Status Last Admin Dose Admin Acetaminophen 650 mg ONCE ONCE PO 09/13/19 13:45 09/13/19 13:46 DC 09/13/19 13:44 650 MG Vital Signs/I&O 09/13/19 09/13/19 12:55 14:06 Temp 36.9 36.9 Pulse 62 62 Resp 17 17 B/P (MAP) 114/80 (91) 114/80 (91) Pulse Ox 98 98 O2 Delivery Room Air Room Air Blood Pressure Mean: 91 POS Diagnostic Imaging Diagonstic Imaging: Xray Plain Films/CT/US/NM/MRI: other (toe) Comments NAME: CAROLEE MOISE [facility] REC#: [id number] PT STATUS: REG ER : 1985 PHYSICIAN: GAURANG TOMAS ADMIT DATE: 09/13/19/ER Draft POSDate of Exam:09/13/19 TOE(S) EXAMINATION: Right toes at 0122 hours. INDICATION: Injury Three views were obtained. There are no prior studies available for comparison. There is an oblique slightly displaced fracture extending through the lateral aspect of the base of the distal phalanx of the great toe. There may also be another nondisplaced fracture through the base of the distal phalanx itself. No other fracture or acute bony abnormality is noted. There is soft tissue edema about the great toe. There is no sign of a radiopaque foreign body. IMPRESSION: There are displaced and nondisplaced fractures involving the base of the distal phalanx of the great toe. There is no acute bony abnormality noted otherwise. Dictated on workstation # [id number] Dict: 09/13/19 1351 Trans: 09/13/19 1355 [facility] [id number] Interpreted by: AMERICA HUSSEIN MD Electronically signed by: Reviewed: Reviewed by Me Departure Impression Primary Impression: Fracture of toe Qualified Codes: S92.424A - Nondisplaced fracture of distal phalanx of right great toe, initial encounter for closed fracture Disposition: HOME, SELF-CARE Condition: Stable Departure-Patient Inst. Decision time for Depature: 14:01 Referrals: NO,LOCAL PHYSICIAN (PCP/Family) Primary Care Physician Patient Instructions: Toe Fracture Add. Discharge Instructions: In addition to utilize your regimen tramadol you also may alternate Tylenol 650 mg and ibuprofen 600 mg every 4 hours. Try and the the foot elevated as much as possible to help the swelling. Use ice for 20 minutes every hour while awake. Follow-up with her primary care provider in one week for recheck regarding your control if the pain persists. All discharge instructions reviewed with patient and/or family. Voiced understanding. GAURANG TOMAS Sep 13, 2019 13:08 POS
[2019-09-13] MEDS ORDERED: ACETAMINOPHEN 325 MG TABLET PO ONE (13:45)
--- NOTE | 2019-09-13 13:55 | Diagnostic Imaging Report ---
EXAMINATION: Right toes at 0122 hours. INDICATION: Injury Three views were obtained. There are no prior studies available for comparison. There is an oblique slightly displaced fracture extending through the lateral aspect of the base of the distal phalanx of the great toe. There may also be another nondisplaced fracture through the base of the distal phalanx itself. No other fracture or acute bony abnormality is noted. There is soft tissue edema about the great toe. There is no sign of a radiopaque foreign body. IMPRESSION: There are displaced and nondisplaced fractures involving the base of the distal phalanx of the great toe. There is no acute bony abnormality noted otherwise. Dictated by: Dictated on workstation # [id number]
[2019-09-13 14:06] VITALS: BP 114/80
== END 2019-09-13 14:06 | disposition home or self-care (01) ==
LOC: EDUNIT# 12:23 → ER 12:26
DX: S92.424A Nondisplaced fracture of distal phalanx of right great toe, initial encounter for closed fracture (principal); G43.909 Migraine, unspecified, not intractable, without status migrainosus; F32.9 Major depressive disorder, single episode, unspecified; Z79.52 Long term (current) use of systemic steroids; Z77.22 Contact with and (suspected) exposure to environmental tobacco smoke (acute) (chronic); W17.89XA Other fall from one level to another, initial encounter
CPT/HCPCS: 73660

== ENCOUNTER 2021-10-11 08:05 | Emergency (ER) | payer MEDICAID ==
[~2021-10-11] VITALS: Ht 172.7 cm; Wt 58.0 kg
[~2021-10-11 08:05] MED LIST changes: +CYCL10TA25 PO; -DIAZ5TAB3; +DIAZ5TAB49; -MINO100C2 PO; +MINO100C5 PO; -TRAM50TA2; -TRAM50TA2 PO; +TRM50T
--- NOTE | 2021-10-11 09:48 | ED Psychosocial ---
General Chief Complaint: Suicidal Ideation Risk Stated Complaint: DRUG USE/SUICIDAL Nursing Triage Note: suicidal idation, states he had a rope and wants to hang himself. verbalizes he has a drug problem uses opiates and benzos. Source: patient Exam Limitations: no limitations (SIVA HEIN MED STUDENT) History of Present Illness Date Seen by Provider: Oct 11, 2021 Time Seen by Provider: 09:35 Initial Comments This is a 36 YO male presenting to the ED with suicidal ideation. Pt says he has felt suicidal for a while, but it has been worsening to the point where today he wanted to hang himself. Pt did not attempt to hang himself and has not attempted suicide in the past. Does not have a psychiatrist or therapist and does not have any psychiatric diagnoses. Does not have a local PCP. States that he is suicidal because he is struggling with drug addiction. States he takes benzodiazepine and opiate pills. Denies IV drug use or EtOH use. Denies visual/auditory hallucinations or homicidal ideation. (SIVA HEIN MED STUDENT) Initial Comments I have reviewed and agreed with the medical students HPI above. I had a discussion with the patient regarding his depression and suicidal ideation. Patient states that he feels unsafe going home, he is certain that if he were to be discharged that he would likely harm himself. He has considered hanging himself. He states he has access to rope at home. He has no immediate family for support or friends that he can rely on. He has never had inpatient treatment before. He is quite withdrawn and depressed appearing. States that he last used drugs about 3 or 4 days ago. Does not drink alcohol. Does not appear intoxicated. He is very quiet. Does not really make good eye contact. No apparent hallucinations. No complaints of recent illness. No fevers, cough, cold or congestion. Does not have a current primary care doctor. Timing/Duration: constant, getting worse Severity: severe Associated Symptoms: suicidal ideation (ANNA WOLFF MD) Allergies and Home Medications Allergies Coded Allergies: No Known Drug Allergies (Verified , 02/06/17) Patient Home Medication List Home Medication List Reviewed: Yes (ANNA WOLFF MD) Diazepam (Valium) Unknown Strength Tablet, Unknown Dose PO, (Reported) Entered as Reported by: FRANK BAHENA on 05/17/19 1335 Duloxetine HCl (Cymbalta) Unknown Strength Cap, Unknown Dose PO, (Reported) Entered as Reported by: FRANK JOSEF on 05/17/19 1335 Methocarbamol (Robaxin-750) 750 Mg Tablet, 750 MG PO Q4H PRN for PAIN-MILD TO MODERATE Prescribed by: BOO THOMPSON on 05/17/19 1410 Prednisone (Prednisone) 20 Mg Tab, 40 MG PO DAILY Prescribed by: BOO THOMPSON on 05/21/19 1105 Review of Systems Constitutional: No diaphoresis, No fever EENTM: No blurred vision, No double vision Respiratory: No cough, No short of breath Cardiovascular: No chest pain, No palpitations Gastrointestinal: No abdominal pain, No vomiting Genitourinary: No discharge, No dysuria Musculoskeletal: No back pain, No joint pain Skin: no symptoms reported Psychiatric/Neurological: See HPI, Depressed (SIVA HEIN MED STUDENT) Constitutional: see HPI (ANNA WOLFF MD) All Other Systems Reviewed Negative Unless Noted: Yes (Negative excepted noted.) (SIVA HEIN MED STUDENT) Past Goeucfr-Sqeesn-Zxfjac Hx Immunizations Up To Date Tetanus Booster (TDap): Unknown (SIVA HEIN STUDENT) Seasonal Allergies Seasonal Allergies: No (SIVA HEIN MED STUDENT) Past Medical History Surgeries: No Respiratory: No Cardiac: No Neurological: Yes ("CERVICAL DYSTONIA" PER PT--SELF-REPORTED; TREMOR) Headaches /Migraines Reproductive Disorders: No Sexually Transmitted Disease: No HIV/AIDS: No Genitourinary: No Gastrointestinal: No Musculoskeletal: Yes (CHRONIC NECK PAIN AND SELF-REPORTED "CERVICAL DYSTONIA" ) Chronic Back Pain Endocrine: Yes ("Thyroid issues") HEENT: Yes (Recurrent dental pain) Cancer: No Psychosocial: Yes Depression Integumentary: Yes (ABSCESSES) Blood Disorders: No (SIVA HEIN MED STUDENT) Family Medical History Patient reports no known family medical history. No Pertinent Family Hx (SIVA HEIN STUDENT) Physical Exam Vital Signs - First Documented 10/11/21 10/11/21 09:25 20:20 Temp 36.2 Pulse 89 Resp 18 B/P (MAP) 116/73 (87) Pulse Ox 99 O2 Delivery Room Air (ANNA WOLFF MD) Capillary Refill : (SIVA HEIN MED STUDENT) Height, Weight, BMI Height: 5'6.00" Weight: 150lbs. 0oz. 68.932761da; 19.00 BMI Method:Stated (SIVA HEIN MED STUDENT) General Appearance: WD/WN, no apparent distress Neck: full range of motion, normal inspection Respiratory: lungs clear, normal breath sounds, no respiratory distress, no accessory muscle use Cardiovascular: regular rate, rhythm Gastrointestinal: normal bowel sounds, non tender, soft Extremities: normal range of motion, normal inspection Neurologic/Psychiatric: alert, normal mood/affect, oriented x 3 Appearance/Memory: appropriate appearance, no memory impairment Behavior/Eye Contact: cooperative, avoids eye contact Thoughts/Hallucinations: no apparent hallucination Skin: normal color, warm/dry (ANNA WOLFF MD) Progress/Results/Core Measures Results/Orders Lab Results (ANNA WOLFF MD) My Orders (ANNA WOLFF MD) Vital Signs/I&O (ANNA WOLFF MD) Blood Pressure Mean: 87 Progress Progress Note #1: Time: 13:25 Progress Note Patient reassessed has been resting comfortably in the emergency department, no distress. Agreeable and compliant, very polite. Labs reviewed. Patient is positive for methamphetamine/benzos/THC. Covid test negative. Awaiting to see if [facility] has beds. I did call them about an hour ago and they indicated they would potentially have a male psych bed. Plan on calling them around 2 PM Progress Note #2: Time: 14:46 Progress Note Discussed with [facility] direct call at 1431. Did they have a male psych bed available. Chart is faxed at this time, affidavit is done pending notary. (ANNA WOLFF MD) Initial ECG Impression Date: Oct 11, 2021 Initial ECG Impression Time: 10:09 Initial ECG Rate: 72 Initial ECG Rhythm: Normal Sinus Initial ECG Intervals: Normal Initial ECG Intervals PA 130 QRS 100 Qtc 413 Initial ECG Impression: Normal (ANNA WOLFF MD) Departure Impression Primary Impression: Suicidal ideation Additional Impression: Polysubstance abuse Disposition: XFER SHT-TRM HOSP Condition: Stable Transfer Transfer Reason: Exceeds level of care Time Spoke to Accepting Phy: 15:45 Transfer Progress Notes Acccepted on behalf of Psych Attending by resident Transfer Time: 20:18 Transfer Facility: [facility] Method of Transfer: Private Vehicle (ANNA WOLFF MD) Departure-Patient Inst. Referrals: NO,LOCAL PHYSICIAN (PCP/Family) Primary Care Physician Patient Instructions: [facility]PT MENT[facility] SERVICES Verification and Attestation of Medical Student E/M Service A medical student performed and documented this service in my presence. I reviewed and verified all information documented by the medical student and made modifications to such information, when appropriate. I personally performed the physical exam and medical decision making. Anna Wolff, Oct 11, 2021,13:26 (ANNA WOLFF MD) SIVA HEIN MED STUDENT Oct 11, 2021 09:48 ANNA WOLFF MD Oct 11, 2021 13:31
[2021-10-11 10:19] LABS: BASOPHILS # (AUTO) 0.1 10^3/uL (0.0-0.1); BASOPHILS % (AUTO) 1 % (0-10); EOSINOPHILS # (AUTO) 0.2 10^3/uL (0.0-0.3); EOSINOPHILS % (AUTO) 2 % (0-10); HEMATOCRIT 50 % (40-54); HEMOGLOBIN 16.8 g/dL (13.3-17.7); LYMPHOCYTES # (AUTO) 1.5 10^3/uL (1.0-4.0); LYMPHOCYTES % (AUTO) 15 % (12-44); MEAN CORPUSCULAR HEMOGLOBIN 34 pg (25-34); MEAN CORPUSCULAR HGB CONC 34 g/dL (32-36); MEAN CORPUSCULAR VOLUME 101 fL (80-99); MONOCYTES % (AUTO) 10 % (0-12); NEUTROPHILS # (AUTO) 7.2 10^3/uL (1.8-7.8); NEUTROPHILS % (AUTO) 73 % (42-75); PLATELET COUNT 276 10^3/uL (130-400); WHITE BLOOD COUNT 9.9 10^3/uL (4.3-11.0)
[2021-10-11 10:26] LABS: ALBUMIN 4.3 GM/DL (3.2-4.5); CHLORIDE 103 MMOL/L (98-107); POTASSIUM 4.1 MMOL/L (3.6-5.0); SODIUM 141 MMOL/L (135-145)
[2021-10-11 10:28] LABS: CALCIUM 9.4 MG/DL (8.5-10.1)
[2021-10-11 10:29] LABS: GLUCOSE 86 MG/DL (70-105); TOTAL PROTEIN 7.5 GM/DL (6.4-8.2)
[2021-10-11 10:30] LABS: CARBON DIOXIDE 25 MMOL/L (21-32)
[2021-10-11 10:31] LABS: BILIRUBIN,TOTAL 0.5 MG/DL (0.1-1.0)
[2021-10-11 10:32] LABS: ALKALINE PHOSPHATASE 111 U/L (40-136); CREATININE SERUM 0.75 MG/DL (0.60-1.30); GFR ESTIMATED 118
[2021-10-11 10:34] LABS: BUN/CREATININE RATIO 21
[2021-10-11 10:35] LABS: ACETAMINOPHEN < 10 UG/ML (10-30); SALICYLATE < 5.0 MG/DL (5.0-20.0)
[2021-10-11 10:36] LABS: ALANINE AMINOTRANSFERASE 31 U/L (0-55)
[2021-10-11 10:39] LABS: AMPHETAMINE SCREEN, URINE POSITIVE (NEGATIVE); BARBITURATE SCREEN URINE NEGATIVE (NEGATIVE); BENZODIAZEPINES SCREEN URINE POSITIVE (NEGATIVE); CANNABINOID SCREEN, URINE POSITIVE (NEGATIVE); COCAINE SCREEN URINE NEGATIVE (NEGATIVE); METHADONE STAT NEGATIVE (NEGATIVE); METHAMPHETAMINE SCREEN URINE S POSITIVE (NEGATIVE); OPIATE SCREEN URINE NEGATIVE (NEGATIVE); OXYCODONE STAT NEGATIVE (NEGATIVE); PROPOXYPHENE STAT NEGATIVE (NEGATIVE); TRICYCLIC ANTIDEPRESSANTS SCRE NEGATIVE (NEGATIVE)
[2021-10-11 20:20] VITALS: BP 138/82
== END 2021-10-11 20:24 ==
LOC: EDUNIT# 08:05 → ER 08:07
DX: R45.851 Suicidal ideations (principal); F19.10 Other psychoactive substance abuse, uncomplicated; F32.9 Major depressive disorder, single episode, unspecified; Z20.822 Contact with and (suspected) exposure to COVID-19; Z79.899 Other long term (current) drug therapy
CPT/HCPCS: 80053; 80306; 85025; 87636; 99285; G0480 ×3; 36415; 80320; 80329; 93005

== ENCOUNTER 2021-12-14 18:06 | Emergency (ER) | payer MEDICAID ==
[~2021-12-14] VITALS: Ht 182.8 cm; Wt 68.0 kg
[2021-12-14 18:24] VITALS: BP 146/84
[2021-12-14] MEDS ORDERED: RX-NAPROXEN (NAPROSYN) 250 MG TAB PPK#4 PO STA (18:54)
[2021-12-14] MEDS ORDERED: RX-AMOXICILLIN 500 MG CAP #3 PPK PO STA (18:54)
[2021-12-14] MEDS ORDERED: NAPR500T8 PO (18:56)
[2021-12-14] MEDS ORDERED: AMOX875T2 PO (18:56)
[2021-12-14] MEDS ORDERED: LIDO20SO23 MM (18:56)
--- NOTE | 2021-12-14 18:57 | ED EENT ---
History of Present Illness General Chief Complaint: Dental Problems/Pain Stated Complaint: DENTAL PAIN Nursing Triage Note: PT AMB TO FT3 WITH COMPLANT OF DENTAL PAIN. Source: patient History of Present Illness Date Seen by Provider: Dec 14, 2021 Time Seen by Provider: 18:48 Initial Comments PT ARRIVES VIA POV C/O DENTAL PAIN--RIGHT UPPER AND LOWER GUMS PT WITH CHRONIC DENTAL COMPLAINTS WITH EXTENSIVE DENTAL CARIES HAS NOT BEEN TO A DENTIST AT ANY TIME SYMPTOMS NO DIFFERENT TODAY HAS NOT TAKEN ANYTHING FOR PAIN NO FEVER NO SWELLING TO FACE PT WITH MULTIPLE VISITS HERE FOR VARIOUS PAIN COMPLAINTS--DENTAL PAIN, BACK AND NECK PAIN FREQUENT COMPLAINTS PCP: NONE Allergies and Home Medications Allergies Coded Allergies: No Known Drug Allergies (Verified , 02/06/17) Patient Home Medication List Home Medication List Reviewed: Yes Amoxicillin (Amoxicillin) 875 Mg Tablet, 875 MG PO BID Prescribed by: JESSICA NICHOLE on 12/14/211855 Diazepam (Valium) Unknown Strength Tablet, Unknown Dose PO, (Reported) Entered as Reported by: FRANK BAHENA on 05/17/19 1335 Duloxetine HCl (Cymbalta) Unknown Strength Cap, Unknown Dose PO, (Reported) Entered as Reported by: FRANK BAHENA on 05/17/19 1335 Lidocaine HCl (Lidocaine HCl Viscous) 15 Ml Solution, 1-2 ML MM [id number] Prescribed by: JESSICA NICHOLE on 12/14/21 185 Methocarbamol (Robaxin-750) 750 Mg Tablet, 750 MG PO Q4H PRN for PAIN-MILD TO MODERATE Prescribed by: BOO THOMPSON on 05/17/19 1410 Naproxen (Naproxen) 500 Mg Tablet.dr, 500 MG PO BID Prescribed by: JESSICA NICHOLE on 12/14/211855 Prednisone (Prednisone) 20 Mg Tab, 40 MG PO DAILY Prescribed by: BOO THOMPSON on 05/21/19 1105 Review of Systems Review of Systems Constitutional: no symptoms reported Mouth: see HPI Past Ulbnavh-Njdgeq-Cseapz Hx Patient Social History Tobacco Use?: Yes Substance use?: Yes Alcohol Use?: Yes Immunizations Up To Date Tetanus Booster (TDap): Unknown First/Initial COVID19 Vaccinat: HAD IT AT [facility] Second COVID19 Vaccination Riley: HAD IT AT [facility] Third COVID19 Vaccination Date: HAD IT AT [facility] Seasonal Allergies Seasonal Allergies: No Past Medical History Surgeries: No Respiratory: No Cardiac: No Neurological: Yes ("CERVICAL DYSTONIA" PER 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 No Pertinent Family Hx Physical Exam Vital Signs Vital Signs - First Documented 12/14/21 18:24 Temp 36.3 Pulse 75 Resp 16 B/P (MAP) 146/84 (104) Pulse Ox 98 O2 Delivery Room Air Height, Weight, BMI Height: 5'6.00" Weight: 150lbs. 0oz. 68.893400nc; 20.00 BMI Method:Stated General Appearance: WD/WN, no apparent distress, other (CONSTANT MOVEMENTS) Mouth/Throat: other (EXTENSIVE DENTAL CARIES--MANY MISSING TEETH AND REMAINING TEETH DECAYED DOWN TO GUMS--RIGHT UPPER AND LOWER MOLAR/PREMOLAR AREAS WITH TENDERNESS, GUM INFLAMMATION, NO FLUCUTANCE, NO DRAINAGE. NO SWELLING TO FACE. 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, no motor/sensory deficits, alert, oriented x 3 Skin: normal color, warm/dry, tattoos/piercings (MULTIPLE TATTOOS) Progress/Results/Core Measures Results/Orders My Orders Orders - JESSICA NICHOLE DO Lidocaine 2% Viscous 15 Ml (Xylocaine Vi (12/14/21 19:00) Rx-Amoxicillin Capsule (Rx-Polymox Capsu (12/14/21 18:54) Rx-Naproxen (Rx-Naprosyn) (12/14/21 18:54) Vital Signs/I&O 12/14/21 18:24 Temp 36.3 Pulse 75 Resp 16 B/P (MAP) 146/84 (104) Pulse Ox 98 O2 Delivery Room Air Blood Pressure Mean: 104 Departure Impression Primary Impression: Dental caries Disposition: 01 HOME, SELF-CARE Condition: Stable Departure-Patient Inst. Decision time for Depature: 18:55 Referrals: NO,LOCAL PHYSICIAN (PCP/Family) Primary Care Physician Patient Instructions: Tooth Decay ED Add. Discharge Instructions: FREQUENT S[place] W[place] SWISHES FOLLOW UP WITH DENTIST NEXT WEEK FOR FURTHER CARE--CALL THURSDAY MORNING TO SCHEDULE APPOINTMENT All discharge instructions reviewed with patient and/or family. Voiced understanding. Scripts Naproxen (Naproxen) 500 Mg Tablet.dr 500 MG PO BID, #20 TAB Prov: JESSICA NICHOLE DO 12/14/21 Lidocaine HCl (Lidocaine HCl Viscous) 15 Ml Solution 1-2 ML MM [id number], #120 ML Prov: JESSICA NICHOLE DO 12/14/21 Amoxicillin (Amoxicillin) 875 Mg Tablet 875 MG PO BID, #20 TAB Prov: JESSICA NICHOLE DO 12/14/21 JESSICA NICHOLE DO Dec 14, 2021 18:56
[2021-12-14] MEDS ORDERED: LIDOCAINE 2% VISCOUS 15 ML UDC MM ONE (19:00)
== END 2021-12-14 19:11 | disposition home or self-care (01) ==
LOC: EDUNIT# 18:06 → ER 18:08
DX: K02.9 Dental caries, unspecified (principal); Z72.0 Tobacco use
CPT/HCPCS: 99283

== ENCOUNTER 2022-02-19 07:37 | Emergency (ER) | payer MEDICAID ==
[~2022-02-19] VITALS: Ht 167 cm; Wt 68.0 kg
[~2022-02-19 07:37] MED LIST changes: +AMOX875T2 PO; +LIDO20SO23 MM; +NAPR500T8 PO
--- NOTE | 2022-02-19 08:06 | ED Abdominal Pain ---
General Chief Complaint: Abdominal/GI Problems Stated Complaint: BLOOD IN STOOL - ABD PAIN Nursing Triage Note: PT AMB TO RM 7 PT CO OF ABD PAIN 04/27, NAUSEA AND POSSIBLE BLOOD IN STOOL THIS AM. PT STATES SMOKES "ALOT OF POT" Source of Information: Patient Exam Limitations: No Limitations History of Present Illness Date Seen by Provider: February 19, 2022 Time Seen by Provider: 07:48 Initial Comments Patient is a 36-year-old male who presents to the emergency department today with a chief complaint of epigastric "burning". No radiation of the pain. He has not taken anything for it. He is a smoker and smokes THC daily (for his "form of Parkinson's). Nothing makes the pain any better or any worse. He states he has had diarrhea for about the last month and thinks that he might of seen a little blood in his stool in the last day or 2. Not light headed or dizzy. No nausea or vomiting, no problems with urination. Has never had anything like this before. All other review of systems reviewed and negative except as stated. Timing/Duration: Other (1 month) Severity/Quality: Moderate, Burning Location: Epigastric Radiation: No Radiation Associated Symptoms: Other (diarrhea - possible blood in stool) Allergies and Home Medications Allergies Coded Allergies: No Known Drug Allergies (Verified , 02/06/17) Patient Home Medication List Home Medication List Reviewed: Yes Amoxicillin (Amoxicillin) 875 Mg Tablet, 875 MG PO BID Prescribed by: JESSICA NICHOLE on 12/14/211855 Diazepam (Valium) Unknown Strength Tablet, Unknown Dose PO, (Reported) Entered as Reported by: FRANK BAHENA on 05/17/19 133 Duloxetine HCl (Cymbalta) Unknown Strength Cap, Unknown Dose PO, (Reported) Entered as Reported by: FRANK BAHENA on 05/17/19 1335 Lidocaine HCl (Lidocaine HCl Viscous) 15 Ml Solution, 1-2 ML MM [id number] Prescribed by: JESSICA NICHOLE on 12/14/211855 Methocarbamol (Robaxin-750) 750 Mg Tablet, 750 MG PO Q4H PRN for PAIN-MILD TO MODERATE Prescribed by: BOO THOMPSON on 05/17/19 1410 Naproxen (Naproxen) 500 Mg Tablet.dr, 500 MG PO BID Prescribed by: JESSICA NICHOLE on 12/14/211855 Prednisone (Prednisone) 20 Mg Tab, 40 MG PO DAILY Prescribed by: BOO THOMPSON on 05/21/19 1105 Review of Systems Review of Systems Constitutional: see HPI EENTM: No Symptoms Reported Respiratory: No Symptoms Reported Cardiovascular: No Symptoms Reported Gastrointestinal: Abdominal Pain (epigastric) Genitourinary: No Symptoms Reported Musculoskeletal: no symptoms reported Skin: no symptoms reported All Other Systems Reviewed Negative Unless Noted: Yes Past Hywvvcu-Emklxd-Vbwwen Hx Patient Social History Tobacco Use?: Yes Tobacco type used: Cigarettes Smoking Status: Current Everyday Smoker Substance use?: Yes Substance type: Marijuana Substance frequency: Daily Alcohol Use?: No Pt feels they are or have been: No Immunizations Up To Date Tetanus Booster (TDap): Unknown First/Initial COVID19 Vaccinat: HAD IT AT [facility] Second COVID19 Vaccination Riley: HAD IT AT [facility] Third COVID19 Vaccination Date: HAD IT AT [facility] Seasonal Allergies Seasonal Allergies: No Past Medical History Surgery/Hospitalization HX: TYPE OF [facility] Surgeries: No Respiratory: No Cardiac: No Neurological: Yes ("CERVICAL DYSTONIA" PER 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 No Pertinent Family Hx Physical Exam Vital Signs Vital Signs - First Documented 02/19/22 07:41 Temp 36.4 Pulse 79 Resp 18 B/P (MAP) 135/85 (102) Pulse Ox 96 O2 Delivery Room Air Capillary Refill : Less Than 3 Seconds Height/Weight/BMI Height: 5'6.00" Weight: 150lbs. 0oz. 68.386423oz; 24.00 BMI Method:Stated General Appearance: WD/WN, no apparent distress HEENT: PERRL/EOMI Neck: normal inspection Respiratory: lungs clear, normal breath sounds, no respiratory distress, no accessory muscle use Cardiovascular: regular rate, rhythm, other (brisk capillary refill) Gastrointestinal: normal bowel sounds, soft, tenderness (epigastric tenderness to palpation) Rectal: normal rectal tone, heme negative stool Neurologic/Psychiatric: alert, normal mood/affect, oriented x 3 Skin: normal color, warm/dry Progress/Results/Core Measures Results/Orders Lab Results Laboratory Tests Test 02/19/22 08:20 Range/Units White Blood Count 7.0 4.3-11.0 10^3/uL Red Blood Count 4.52 4.30-5.52 10^6/uL Hemoglobin 15.4 13.3-17.7 g/dL Hematocrit 43 40-54 % Mean Corpuscular Volume 96 80-99 fL Mean Corpuscular Hemoglobin 34 25-34 pg Mean Corpuscular Hemoglobin Concent 36 32-36 g/dL Red Cell Distribution Width 11.7 10.0-14.5 % Platelet Count 214 130-400 10^3/uL Mean Platelet Volume 10.3 9.0-12.2 fL Immature Granulocyte % (Auto) 0 % Neutrophils (%) (Auto) 61 42-75 % Lymphocytes (%) (Auto) 27 12-44 % Monocytes (%) (Auto) 10 0-12 % Eosinophils (%) (Auto) 2 0-10 % Basophils (%) (Auto) 1 0-10 % Neutrophils # (Auto) 4.3 1.8-7.8 10^3/uL Lymphocytes # (Auto) 1.9 1.0-4.0 10^3/uL Monocytes # (Auto) 0.7 0.0-1.0 10^3/uL Eosinophils # (Auto) 0.1 0.0-0.3 10^3/uL Basophils # (Auto) 0.1 0.0-0.1 10^3/uL Immature Granulocyte # (Auto) 0.0 0.0-0.1 10^3/uL My Orders Orders - ANNA WOLFF MD Sucralfate Tablet (Carafate Tablet) (02/19/22 08:15) Lidocaine 2% Viscous 15 Ml (Xylocaine Vi (02/19/22 08:15) Antacid Suspension (Mylanta Suspension (02/19/22 08:15) Cbc With Automated Diff (02/19/22 08:01) Fecal Occult Bedside (02/19/22 08:07) Medications Given in ED Current Medications Medications Dose Ordered Sig/Travis Route Start Time Stop Time Status Last Admin Dose Admin Al Hydrox/Mg Hydrox/Simethicone 30 ml ONCE ONCE PO 02/19/22 08:15 02/19/22 08:16 DC 02/19/22 08:17 30 ML Lidocaine HCl 5 ml ONCE ONCE PO 02/19/22 08:15 02/19/22 08:16 DC 02/19/22 08:17 5 ML Sucralfate 1 gm ONCE ONCE PO 02/19/22 08:15 02/19/22 08:16 DC 02/19/22 08:17 1 GM Vital Signs/I&O 02/19/22 07:41 Temp 36.4 Pulse 79 Resp 18 B/P (MAP) 135/85 (102) Pulse Ox 96 O2 Delivery Room Air Blood Pressure Mean: 102 Departure Impression Primary Impression: Epigastric abdominal pain Disposition: 01 HOME, SELF-CARE Condition: Stable Departure-Patient Inst. Decision time for Depature: 08:52 Referrals: [facility]/ NO,LOCAL PHYSICIAN (PCP) Primary Care Physician Patient Instructions: Acid Reflux, Adult and Adolescent ED Add. Discharge Instructions: You should really try and stop smoking. Start an jwzi-vhr-balxsnc acid recruiting consultant such as generic Pepcid, Zantac or Prilosec. If you develop more blood in the stool or worsening pain or become lightheaded or dizzy with those symptoms please come back to the emergency room for reevaluation Please follow-up with [facility]. Work/School Note: Work Release Form Date Seen in the Emergency Department: February 19, 2022 Return to Work: February 20, 2022 ANNA WOLFF MD February 19, 2022 08:06
[2022-02-19] MEDS ORDERED: SUCRALFATE 1 GM (CARAFATE) TAB PO ONE (08:15)
[2022-02-19] MEDS ORDERED: LIDOCAINE 2% VISCOUS 15 ML UDC PO ONE (08:15)
[2022-02-19] MEDS ORDERED: ANTACID SUSP 30 ML UDC (MYLANTA) PO ONE (08:15)
[2022-02-19 08:26] LABS: BASOPHILS # (AUTO) 0.1 10^3/uL (0.0-0.1); BASOPHILS % (AUTO) 1 % (0-10); EOSINOPHILS # (AUTO) 0.1 10^3/uL (0.0-0.3); EOSINOPHILS % (AUTO) 2 % (0-10); HEMATOCRIT 43 % (40-54); HEMOGLOBIN 15.4 g/dL (13.3-17.7); LYMPHOCYTES # (AUTO) 1.9 10^3/uL (1.0-4.0); LYMPHOCYTES % (AUTO) 27 % (12-44); MEAN CORPUSCULAR HEMOGLOBIN 34 pg (25-34); MEAN CORPUSCULAR HGB CONC 36 g/dL (32-36); MEAN CORPUSCULAR VOLUME 96 fL (80-99); MEAN PLATELET VOLUME 10.3 fL (9.0-12.2); MONOCYTES # (AUTO) 0.7 10^3/uL (0.0-1.0); MONOCYTES % (AUTO) 10 % (0-12); NEUTROPHILS # (AUTO) 4.3 10^3/uL (1.8-7.8); NEUTROPHILS % (AUTO) 61 % (42-75); PLATELET COUNT 214 10^3/uL (130-400)
[2022-02-19 08:56] VITALS: BP 133/49
== END 2022-02-19 09:00 | disposition home or self-care (01) ==
LOC: EDUNIT# 07:37 → ER 07:38
DX: R10.13 Epigastric pain (principal); G20 Parkinson's disease; F17.210 Nicotine dependence, cigarettes, uncomplicated; F17.290 Nicotine dependence, other tobacco product, uncomplicated
CPT/HCPCS: 36415; 82274; 85025

== ENCOUNTER 2022-04-10 02:02 | Emergency (ER) | payer MEDICAID ==
[~2022-04-10] VITALS: Ht 172.7 cm; Wt 70.4 kg
[2022-04-10 02:44] LABS: BASOPHILS # (AUTO) 0.1 10^3/uL (0.0-0.1); BASOPHILS % (AUTO) 1 % (0-10); EOSINOPHILS # (AUTO) 0.2 10^3/uL (0.0-0.3); EOSINOPHILS % (AUTO) 2 % (0-10); HEMATOCRIT 43 % (40-54); HEMOGLOBIN 15.5 g/dL (13.3-17.7); LYMPHOCYTES # (AUTO) 2.8 10^3/uL (1.0-4.0); LYMPHOCYTES % (AUTO) 21 % (12-44); MEAN CORPUSCULAR HEMOGLOBIN 34 pg (25-34); MEAN CORPUSCULAR HGB CONC 36 g/dL (32-36); MEAN CORPUSCULAR VOLUME 94 fL (80-99); MONOCYTES % (AUTO) 8 % (0-12); NEUTROPHILS # (AUTO) 9.5 10^3/uL (1.8-7.8); NEUTROPHILS % (AUTO) 69 % (42-75); PLATELET COUNT 252 10^3/uL (130-400); WHITE BLOOD COUNT 13.6 10^3/uL (4.3-11.0)
[2022-04-10 02:57] LABS: ALBUMIN 4.5 GM/DL (3.2-4.5); CHLORIDE 106 MMOL/L (98-107); POTASSIUM 3.5 MMOL/L (3.6-5.0); SODIUM 140 MMOL/L (135-145)
[2022-04-10 02:59] LABS: CALCIUM 9.4 MG/DL (8.5-10.1)
[2022-04-10 03:00] LABS: GLUCOSE 101 MG/DL (70-105); TOTAL PROTEIN 7.4 GM/DL (6.4-8.2)
[2022-04-10 03:01] LABS: CARBON DIOXIDE 21 MMOL/L (21-32)
[2022-04-10 03:02] LABS: BILIRUBIN,TOTAL 0.9 MG/DL (0.1-1.0)
[2022-04-10 03:04] LABS: ALKALINE PHOSPHATASE 100 U/L (40-136); CREATININE SERUM 0.78 MG/DL (0.60-1.30); GFR ESTIMATED 119
[2022-04-10 03:05] LABS: BUN/CREATININE RATIO 10
[2022-04-10 03:07] LABS: ALANINE AMINOTRANSFERASE 16 U/L (0-55); SALICYLATE < 5.0 MG/DL (5.0-20.0)
[2022-04-10 03:13] LABS: BILIRUBIN,URINE NEGATIVE (NEGATIVE); CLARITY,URINE CLEAR; COLOR,URINE YELLOW; GLUCOSE, URINE (UA) NEGATIVE (NEGATIVE); KETONES,URINE NEGATIVE (NEGATIVE); LEUKOCYTE ESTERASE ,URINE NEGATIVE (NEGATIVE); NITRITE,URINE NEGATIVE (NEGATIVE); PROTEIN,URINE NEGATIVE (NEGATIVE)
[2022-04-10 03:55] LABS: ACETAMINOPHEN < 10 UG/ML (10-30)
[2022-04-10 03:56] LABS: AMPHETAMINE SCREEN, URINE POSITIVE (NEGATIVE); BACTERIA,URINE TRACE /HPF; BARBITURATE SCREEN URINE NEGATIVE (NEGATIVE); BENZODIAZEPINES SCREEN URINE NEGATIVE (NEGATIVE); CANNABINOID SCREEN, URINE POSITIVE (NEGATIVE); COCAINE SCREEN URINE NEGATIVE (NEGATIVE); METHADONE STAT NEGATIVE (NEGATIVE); OPIATE SCREEN URINE NEGATIVE (NEGATIVE); OXYCODONE STAT NEGATIVE (NEGATIVE); PROPOXYPHENE STAT NEGATIVE (NEGATIVE); SQUAMOUS EPITHELIAL CELL,UR RARE /HPF; TRICYCLIC ANTIDEPRESSANTS SCRE NEGATIVE (NEGATIVE); WBC,URINE 0-2 /HPF
--- NOTE | 2022-04-10 06:27 | ED Psychosocial ---
General Chief Complaint: Psych/Social Disorder Stated Complaint: SUICIDAL IDEATIONS Nursing Triage Note: PT AMBULATORY INTO ER WITH COMPLAINT OF SI WITH A PLAN. PT STATES " IM GOING THROUGH SOME DRAMA, AND I DONT WANT TO TALK ABOUT IT". PT STATES THAT " I HAVE AN EXTENSION CORD, AND A SHOE STRING AND WAS GOING TO GO UNDER THE OVERPASS AND STRANGLE MYSELF". PT STATES THAT HE DECIDED TO GET HELP INSTEAD. PT DENIES HOMICIDAL IDEATION. PT DOES ADMIT TO METH AND BENZO USE IN THE LAST 12 HOURS. PT HAS FELT THIS WAY FOR THE LAST TWO WEEKS. PT INTO GOWN, AND ROOM IS SAFE FOR SUICIDAL PATIENT AT THIS TIME. Source: patient Exam Limitations: no limitations (JEREMY GARRIDO MD) History of Present Illness Date Seen by Provider: Apr 10, 2022 Time Seen by Provider: 02:18 Initial Comments This 36-year-old male presents to the emergency room with complaints of suicidal ideation. He reports his plan is to hang himself with extension cord or other item from an overpass. When asked, he states he does not believe he would be safe if discharged from the ER. He has history of depression and OCD. He has reportedly required inpatient psychiatric admission at the [place] [facility] in the past. He admits to methamphetamine use as recently as 2 days ago. He feels tired but otherwise has no physical complaints. (JEREMY GARRIDO MD) Allergies and Home Medications Allergies Coded Allergies: No Known Drug Allergies (Verified , 02/06/17) Patient Home Medication List Home Medication List Reviewed: Yes (JEREMY GARRIDO MD) Amoxicillin (Amoxicillin) 875 Mg Tablet, 875 MG PO BID Prescribed by: JESSICA NICHOLE on 12/14/211855 Diazepam (Valium) Unknown Strength Tablet, Unknown Dose PO, (Reported) Entered as Reported by: FRANK BAHENA on 05/17/19 133 Duloxetine HCl (Cymbalta) Unknown Strength Cap, Unknown Dose PO, (Reported) Entered as Reported by: FRANK BAHENA on 05/17/19 133 Lidocaine HCl (Lidocaine HCl Viscous) 15 Ml Solution, 1-2 ML MM [id number] Prescribed by: JESSICA NICHOLE on 12/14/211855 Methocarbamol (Robaxin-750) 750 Mg Tablet, 750 MG PO Q4H PRN for PAIN-MILD TO MODERATE Prescribed by: BOO THOMPSON on 05/17/19 1410 Naproxen (Naproxen) 500 Mg Tablet.dr, 500 MG PO BID Prescribed by: JESSICA NICHOLE on 12/14/21 1856 Prednisone (Prednisone) 20 Mg Tab, 40 MG PO DAILY Prescribed by: BOO THOMPSON on 05/21/19 1105 Review of Systems Constitutional: see HPI EENTM: no symptoms reported Respiratory: no symptoms reported Cardiovascular: no symptoms reported Gastrointestinal: no symptoms reported Genitourinary: no symptoms reported Musculoskeletal: no symptoms reported Skin: no symptoms reported Psychiatric/Neurological: See HPI (JEREMY GARRIDO MD) Past Uqhqyte-Fwwhap-Ncrkrk Hx Patient Social History Tobacco Use?: Yes Tobacco type used: Cigarettes Smoking Status: Current Everyday Smoker Use of E-Cig and/or Vaping dev: No Substance use?: Yes Substance type: Methamphetamine, Opiates/Opioids, Misuse of prescript meds, Other Additional substance use comme: BENZO'S Substance frequency: Daily Alcohol Use?: No Pt feels they are or have been: No (JEREMY GARRIDO MD) Immunizations Up To Date Tetanus Booster (TDap): Unknown Influenza Vaccine Up-to-Date: No; Not Current First/Initial COVID19 Vaccinat: HAD IT AT [facility] Second COVID19 Vaccination Riley: HAD IT AT [facility] Third COVID19 Vaccination Date: HAD IT AT [facility] (JEREMY GARRIDO MD) Seasonal Allergies Seasonal Allergies: No (JEREMY GARRIDO MD) Past Medical History Surgery/Hospitalization HX: TYPE OF [facility] Surgeries: No Respiratory: No Cardiac: No Neurological: Yes ("CERVICAL DYSTONIA" PER PT--SELF-REPORTED; TREMOR) Headaches /Migraines Reproductive Disorders: No Sexually Transmitted Disease: No HIV/AIDS: No Genitourinary: No Gastrointestinal: No Musculoskeletal: Yes (CHRONIC NECK PAIN AND SELF-REPORTED "CERVICAL DYSTONIA" ) Chronic Back Pain Endocrine: Yes ("Thyroid issues") HEENT: Yes (Recurrent dental pain; EXTENSIVE DENTAL CARIES) Cancer: No Psychosocial: Yes (OCD) Depression Integumentary: Yes (ABSCESSES) Blood Disorders: No (JEREMY GARRIDO MD) Family Medical History Patient reports no known family medical history. No Pertinent Family Hx (JEREMY GARRIDO MD) Physical Exam Vital Signs - First Documented 04/10/22 02:31 Temp 36.6 Pulse 78 Resp 20 B/P (MAP) 122/81 (95) Pulse Ox 98 O2 Delivery Room Air (ANNA WOLFF MD) Capillary Refill : Less Than 3 Seconds (JEREMY GARRIDO MD) Height, Weight, BMI Height: 5'6.00" Weight: 150lbs. 0oz. 68.884279ns; 23.00 BMI Method:Stated General Appearance: WD/WN, no apparent distress HEENT: PERRL/EOMI, normal ENT inspection, pharynx normal Neck: normal inspection Respiratory: lungs clear, normal breath sounds, no respiratory distress Cardiovascular: regular rate, rhythm, no edema, no murmur Gastrointestinal: non tender, soft Extremities: normal inspection Neurologic/Psychiatric: no motor/sensory deficits, alert, normal mood/affect Appearance/Memory: no memory impairment Behavior/Eye Contact: cooperative, good eye contact, normal speech Thoughts/Hallucinations: no apparent hallucination, other (Suicidal ideation) Skin: normal color, warm/dry (JEREMY GARRIDO MD) Progress/Results/Core Measures Results/Orders Lab Results Laboratory Tests Test 04/10/22 02:23 04/10/22 02:26 Range/Units White Blood Count 13.6 H 4.3-11.0 10^3/uL Red Blood Count 4.60 4.30-5.52 10^6/uL Hemoglobin 15.5 13.3-17.7 g/dL Hematocrit 43 40-54 % Mean Corpuscular Volume 94 80-99 fL Mean Corpuscular Hemoglobin 34 25-34 pg Mean Corpuscular Hemoglobin Concent 36 32-36 g/dL Red Cell Distribution Width 12.1 10.0-14.5 % Platelet Count 252 130-400 10^3/uL Mean Platelet Volume 10.0 9.0-12.2 fL Immature Granulocyte % (Auto) 0 % Neutrophils (%) (Auto) 69 42-75 % Lymphocytes (%) (Auto) 21 12-44 % Monocytes (%) (Auto) 8 0-12 % Eosinophils (%) (Auto) 2 0-10 % Basophils (%) (Auto) 1 0-10 % Neutrophils # (Auto) 9.5 H 1.8-7.8 10^3/uL Lymphocytes # (Auto) 2.8 1.0-4.0 10^3/uL Monocytes # (Auto) 1.0 0.0-1.0 10^3/uL Eosinophils # (Auto) 0.2 0.0-0.3 10^3/uL Basophils # (Auto) 0.1 0.0-0.1 10^3/uL Immature Granulocyte # (Auto) 0.0 0.0-0.1 10^3/uL Sodium Level 140 135-145 MMOL/L Potassium Level 3.5 L 3.6-5.0 MMOL/L Chloride Level 106 98-107 MMOL/L Carbon Dioxide Level 21 21-32 MMOL/L Anion Gap 13 5-14 MMOL/L Blood Urea Nitrogen 8 7-18 MG/DL Creatinine 0.78 0.60-1.30 MG/DL Estimat Glomerular Filtration Rate 119 BUN/Creatinine Ratio 10 Glucose Level 101 70-105 MG/DL Calcium Level 9.4 8.5-10.1 MG/DL Corrected Calcium 9.0 8.5-10.1 MG/DL Total Bilirubin 0.9 0.1-1.0 MG/DL Aspartate Amino Transf (AST/SGOT) 18 5-34 U/L Alanine Aminotransferase (ALT/SGPT) 16 0-55 U/L Alkaline Phosphatase 100 40-136 U/L Total Protein 7.4 6.4-8.2 GM/DL Albumin 4.5 3.2-4.5 GM/DL TSH [place] Testing 1.89 0.35-4.94 UIU/ML Salicylates Level < 5.0 L 5.0-20.0 MG/DL Acetaminophen Level < 10 L 10-30 UG/ML Serum Alcohol < 10 <10 MG/DL Influenza Type A (RT-PCR) Not Detected Not Detecte Influenza Type B (RT-PCR) Not Detected Not Detecte SARS-CoV-2 RNA (RT-PCR) Not Detected Not Detecte Urine Color YELLOW Urine Clarity CLEAR Urine pH 6.0 5-9 Urine Specific Lester >=1.030 1.016-1.022 Urine Protein NEGATIVE NEGATIVE Urine Glucose (UA) NEGATIVE NEGATIVE Urine Ketones NEGATIVE NEGATIVE Urine Nitrite NEGATIVE NEGATIVE Urine Bilirubin NEGATIVE NEGATIVE Urine Urobilinogen 0.2 < = 1.0 MG/DL Urine Leukocyte Esterase NEGATIVE NEGATIVE Urine RBC (Auto) NEGATIVE NEGATIVE Urine RBC NONE /HPF Urine WBC 0-2 /HPF Urine Squamous Epithelial Cells RARE /HPF Urine Crystals NONE /LPF Urine Bacteria TRACE /HPF Urine Casts NONE /LPF Urine Mucus MODERATE H /LPF Urine Culture Indicated NO Urine Opiates Screen NEGATIVE NEGATIVE Urine Oxycodone Screen NEGATIVE NEGATIVE Urine Methadone Screen NEGATIVE NEGATIVE Urine Propoxyphene Screen NEGATIVE NEGATIVE Urine Barbiturates Screen NEGATIVE NEGATIVE Ur Tricyclic Antidepressants Screen NEGATIVE NEGATIVE Urine Phencyclidine Screen NEGATIVE NEGATIVE Urine Amphetamines Screen POSITIVE H NEGATIVE Urine Methamphetamines Screen POSITIVE H NEGATIVE Urine Benzodiazepines Screen NEGATIVE NEGATIVE Urine Cocaine Screen NEGATIVE NEGATIVE Urine Cannabinoids Screen POSITIVE H NEGATIVE (ANNA WOLFF MD) My Orders Orders - ANNA WOLFF MD General/Regular (04/10/22 Breakfast) General/Regular (04/10/22 Lunch) Lorazepam Tablet (Ativan Tablet) (04/10/22 16:11) (ANNA WOLFF MD) Vital Signs/I&O 04/10/22 12:45 Temp 36.6 Pulse 71 Resp 16 B/P (MAP) 104/64 Pulse Ox 98 O2 Delivery Room Air (ANNA WOLFF MD) Blood Pressure Mean: 95 Progress Progress Note : Time: 06:28 Progress Note Work-up is unremarkable. Screening for inpatient admission is pending. (EJREMY GARRIDO MD) Progress Note #1: Time: 11:37 Progress Note [facility] has been to assess the patient. She agrees that he needs inpatient placement for his SI and he seems motivated for rehab today. He will be voluntary with an affidavit. All records have been faxed to [facility]. They do have available male psych beds. Progress Note #2: Time: 17:15 Progress Note Discussed with Dr. Hoyt at 1712. He kindly accepts the patient for admission to the [facility]. Direct call gave us a room #305. Patient has been resting comfortably. We will contact transportation to get the patient over to [place]. (ANNA WOLFF MD) Initial ECG Impression Date: Apr 10, 2022 Initial ECG Impression Time: 02:21 Initial ECG Rate: 72 Initial ECG Rhythm: Normal Sinus Comment Sinus rhythm with no ST elevation or depression. Incomplete right bundle branch block. No axis deviation. (JEREMY GARRIDO MD) Departure Impression Primary Impression: Suicidal ideation Additional Impression: Polysubstance abuse Disposition: 02 XFER SHT-TRM HOSP Condition: Stable Transfer Transfer Reason: Exceeds level of care Time Spoke to Accepting Phy: 17:12 Transfer Progress Notes Discussed with Dr Hoyt, Psychiatry Transfer Facility: [facility]; [place], [place] Method of Transfer: Private Vehicle (ANNA WOLFF MD) Departure-Patient Inst. Referrals: NO,LOCAL PHYSICIAN (PCP/Family) Primary Care Physician JEREMY GARRIDO MD Apr 10, 2022 06:27 ANNA WOLFF MD Apr 10, 2022 11:38
[2022-04-10] MEDS ORDERED: LORazepam 0.5 MG (ATIVAN) TABLET PO STA (16:11)
[2022-04-10 17:49] VITALS: BP 114/70
== END 2022-04-10 17:48 | disposition short-term general hospital (02) ==
LOC: EDUNIT# 02:02 → ER 02:05
DX: R45.851 Suicidal ideations (principal); F12.10 Cannabis abuse, uncomplicated; F15.10 Other stimulant abuse, uncomplicated; I45.10 Unspecified right bundle-branch block; F17.210 Nicotine dependence, cigarettes, uncomplicated; Z20.822 Contact with and (suspected) exposure to COVID-19
CPT/HCPCS: 80053; 80306; 81000; 84443; 85025; 87636; 93005; 93041; 99285; G0480 ×3; 36415; 80320; 80329

== ENCOUNTER 2022-04-27 19:24 | Emergency (ER) | payer MEDICAID ==
[~2022-04-27] VITALS: Ht 170.2 cm; Wt 54.4 kg
--- NOTE | 2022-04-27 19:42 | ED Psychosocial ---
General Stated Complaint: SUICIDAL IDEATIONS,ATTEMPT TO STRANGLE SELF Source: patient (DIFFICULT HISTORIAN) History of Present Illness Date Seen by Provider: Apr 27, 2022 Time Seen by Provider: 19:38 Initial Comments PT ARRIVES VIA POV C/O SUICIDAL IDEATIONS--ONGOING ISSUES STATES HE TRIED TO STRANGLE HIMSELF--TIED A DOG CHAIN AROUND HIS NECK AND LEANED BACK NO SPECIFIC TRIGGER, JUST STATES HE IS "UNDER ALOT OF STRESS" NO NECK PAIN NO PARESTHESIAS OR MOTOR DEFICITS PT WITH LONGSTANDING HX OF POLYSUBSTANCE ABUSE ( METH, THC, BENZO'S) AND HAS HAD PREVIOUS PSYCH ADMITS. LAST ADMIT WAS 04/10/22 TO [facility] --SEEN HERE AND THEN TRANFERRED THERE PT WAS THERE "FOR A WEEK" --BUT CANNOT STATE WHAT DAY HE ACTUALLY WAS DISMISSED HAS NOT TAKEN ANY MEDICATIONS --DID NOT GET PRESCRIPTIONS FILLED--NOR HAS HE ATTEMPTED TO FOLLOW UP WITH ANYONE AT ANY TIME, HAS NOT ATTEMPTED TO CALL [facility] PT IS HOMELESS STATES HE SMOKED MARIJUANA TODAY AND LAST USED METH 2 DAYS AGO--SMOKES IT, DENIES IV USE. PCP: NONE MENTAL HEALTH: NONE Allergies and Home Medications Allergies Coded Allergies: No Known Drug Allergies (Verified , 02/06/17) Patient Home Medication List Home Medication List Reviewed: Yes Amoxicillin (Amoxicillin) 875 Mg Tablet, 875 MG PO BID Prescribed by: JESSICA NICHOLE on 12/14/211855 Diazepam (Valium) Unknown Strength Tablet, Unknown Dose PO, (Reported) Entered as Reported by: FRANK BAHENA on 05/17/19 1335 Duloxetine HCl (Cymbalta) Unknown Strength Cap, Unknown Dose PO, (Reported) Entered as Reported by: FRANK BAHENA on 05/17/19 1335 Lidocaine HCl (Lidocaine HCl Viscous) 15 Ml Solution, 1-2 ML MM [id number] Prescribed by: JESSICA NICHOLE on 12/14/211855 Methocarbamol (Robaxin-750) 750 Mg Tablet, 750 MG PO Q4H PRN for PAIN-MILD TO MODERATE Prescribed by: BOO THOMPSON on 05/17/19 1410 Naproxen (Naproxen) 500 Mg Tablet.dr, 500 MG PO BID Prescribed by: JESSICA NICHOLE on 12/14/211855 Prednisone (Prednisone) 20 Mg Tab, 40 MG PO DAILY Prescribed by: BOO THOMPSON on 05/21/19 1105 Review of Systems Constitutional: no symptoms reported EENTM: no symptoms reported Respiratory: no symptoms reported Cardiovascular: no symptoms reported Gastrointestinal: no symptoms reported Genitourinary: no symptoms reported Musculoskeletal: no symptoms reported Skin: no symptoms reported Psychiatric/Neurological: See HPI Past Oipzysn-Ekmczv-Shfowa Hx Patient Social History Tobacco Use?: Yes Tobacco type used: Cigarettes Smoking Status: Current Everyday Smoker Substance use?: Yes Substance type: Methamphetamine, Misuse of prescript meds, Marijuana Substance frequency: Daily Alcohol Use?: No Immunizations Up To Date Tetanus Booster (TDap): Unknown First/Initial COVID19 Vaccinat: HAD IT AT [facility] Second COVID19 Vaccination Riley: HAD IT AT [facility] Third COVID19 Vaccination Date: HAD IT AT [facility] Seasonal Allergies Seasonal Allergies: No Past Medical History Surgeries: No Respiratory: No Cardiac: No Neurological: Yes ("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 No Pertinent Family Hx SOCIAL HISTORY: -SMOKES 1 PPD -DRUGS--SMOKES METH AND THC, ALSO HX OF BENZODIAZEPINE ABUSE. DENIES IV USE -DENIES ALCOHOL USE MULTITUDE OF VISITS--MOST FOR CHRONIC DENTAL PAIN AND CHRONIC NECK PAIN. ALSO HERE FOR PSYCH RELATED ISSUES Physical Exam Vital Signs - First Documented 04/27/22 04/28/22 19:35 00:48 Temp 37.0 Pulse 86 Resp 17 B/P (MAP) 122/84 (97) Pulse Ox 96 O2 Delivery Room Air Capillary Refill : Height, Weight, BMI Height: 5'6.00" Weight: 150lbs. 0oz. 68.310229au; 23.00 BMI Method:Stated General Appearance: WD/WN, no apparent distress, thin, other (CONSTANT MOVEMENTS, PACING. MALODOROUS. ) HEENT: PERRL/EOMI Neck: non-tender, full range of motion, supple, normal inspection, other (NO EXTERNAL EVIDENCE OF TRAUMA TO NECK. NO TENDERNESS TO NECK, FULL ROM. ) Respiratory: normal breath sounds, no respiratory distress, no accessory muscle use Cardiovascular: regular rate, rhythm, no murmur Gastrointestinal: non tender, soft Extremities: normal inspection, normal capillary refill Neurologic/Psychiatric: director operations broadcast II-XII nml as tested, no motor/sensory deficits, alert, oriented x 3 Appearance/Memory: no memory impairment, disheveled Behavior/Eye Contact: cooperative, good eye contact, normal speech Thoughts/Hallucinations: no apparent hallucination Skin: normal color, warm/dry, tattoos/piercings, other (NO EXTERNAL EVIDENCE OF TRAUMA ANYWHERE) Suicide Risk Suicide Risk Suicide Risk Level / RN Screen: High Low Suicide Risk Level []Suicidal Ideation WITHOUT method, intent, plan or behavior more than a month ago []]Modifiable risk factors and strong protective factors []No reported history of suicidal ideation or behavior []Patient reports/exhibits symptoms consistent with psychosis []Patient reports a plan that would be unrealistic/impossible to complete and intent []Suicide attempt prior to arrival (Indicates at LEAST Low Suicide Risk, consider other risk factors) Moderate Suicide Risk Level: []Suicidal ideation with method, WITHOUT plan, intent or behavior in the past month []Multiple risk factors and few protective factors []Patient reports intent to follow through on plan to end life if allowed to leave hospital, and has attempted to elope from the hospital High Suicide Risk Level: [] Suicidal ideation with intent or intent with a plan in the past month [] Patient has harmed self or attempted suicide while in the hospital [] Patient has hx of or current Command Auditory hallucinations to harm self or others that they follow without hesitation [] Patient refuses to disclose plan, and indicates intent to complete [] Patient reports plan that is possible to accomplish and/or has means to complete Risk factors supporting recommendation: [] Non-compliance with treatment (acute or chronic) [] Patient has access to or owns firearms and/or stockpiled medications [] Hx Impulsive behavior [] Pending incarceration or homelessness [] Sexual abuse [] Family history and/or exposure to suicide [] Adverse childhood experiences [] Exposure to violence or negative socio-political cultural, and economic forces [] Current or hx of substance use/abuse [] Chronic physical pain or other acute medical problem (AIDS, COPD, Cancer, etc) [] Perceived burden on family or others [] Patient has attempted to elope [] Unable to answer and/or unable to identify [] Refuses to agree to a safety plan Protective Factors supporting recommendation: [] Identifies reasons for living [] Future plans/goals [] Engaged in work or School [] Good family support network [] Good social support network [] Responsibility to family [] Belief that suicide is immoral, against their mormonism beliefs [] High spirituality and involvement in anglican community [] Fear of or dying due to pain and suffering [] Established outpt psychiatric services [] Unable to answer and/or unable to identify Risk Assessment Tool Score: High Progress/Results/Core Measures Results/Orders Lab Results Laboratory Tests Test 04/27/22 19:55 04/27/22 20:24 Range/Units White Blood Count 11.1 H 4.3-11.0 10^3/uL Red Blood Count 4.85 4.30-5.52 10^6/uL Hemoglobin 16.1 13.3-17.7 g/dL Hematocrit 45 40-54 % Mean Corpuscular Volume 93 80-99 fL Mean Corpuscular Hemoglobin 33 25-34 pg Mean Corpuscular Hemoglobin Concent 36 32-36 g/dL Red Cell Distribution Width 12.5 10.0-14.5 % Platelet Count 330 130-400 10^3/uL Mean Platelet Volume 9.6 9.0-12.2 fL Immature Granulocyte % (Auto) 0 % Neutrophils (%) (Auto) 70 42-75 % Lymphocytes (%) (Auto) 21 12-44 % Monocytes (%) (Auto) 8 0-12 % Eosinophils (%) (Auto) 1 0-10 % Basophils (%) (Auto) 1 0-10 % Neutrophils # (Auto) 7.8 1.8-7.8 10^3/uL Lymphocytes # (Auto) 2.3 1.0-4.0 10^3/uL Monocytes # (Auto) 0.9 0.0-1.0 10^3/uL Eosinophils # (Auto) 0.1 0.0-0.3 10^3/uL Basophils # (Auto) 0.1 0.0-0.1 10^3/uL Immature Granulocyte # (Auto) 0.0 0.0-0.1 10^3/uL Sodium Level 138 135-145 MMOL/L Potassium Level 3.2 L 3.6-5.0 MMOL/L Chloride Level 104 98-107 MMOL/L Carbon Dioxide Level 19 L 21-32 MMOL/L Anion Gap 15 H 5-14 MMOL/L Blood Urea Nitrogen 11 7-18 MG/DL Creatinine 0.97 0.60-1.30 MG/DL Estimat Glomerular Filtration Rate 103 BUN/Creatinine Ratio 11 Glucose Level 145 H 70-105 MG/DL Calcium Level 9.8 8.5-10.1 MG/DL Corrected Calcium 8.5-10.1 MG/DL Total Bilirubin 1.2 H 0.1-1.0 MG/DL Aspartate Amino Transf (AST/SGOT) 26 5-34 U/L Alanine Aminotransferase (ALT/SGPT) 22 0-55 U/L Alkaline Phosphatase 105 40-136 U/L Total Protein 7.9 6.4-8.2 GM/DL Albumin 4.7 H 3.2-4.5 GM/DL Salicylates Level < 5.0 L 5.0-20.0 MG/DL Acetaminophen Level < 10 L 10-30 UG/ML Serum Alcohol < 10 <10 MG/DL Influenza Type A (RT-PCR) Not Detected Not Detecte Influenza Type B (RT-PCR) Not Detected Not Detecte SARS-CoV-2 RNA (RT-PCR) Not Detected Not Detecte Urine Color YELLOW Urine Clarity CLEAR Urine pH 5.5 5-9 Urine Specific [place] >=1.030 1.016-1.022 Urine Protein NEGATIVE NEGATIVE Urine Glucose (UA) NEGATIVE NEGATIVE Urine Ketones TRACE H NEGATIVE Urine Nitrite NEGATIVE NEGATIVE Urine Bilirubin 1+ H NEGATIVE Urine Urobilinogen 1.0 < = 1.0 MG/DL Urine Leukocyte Esterase TRACE H NEGATIVE Urine RBC (Auto) 1+ H NEGATIVE Urine RBC NONE /HPF Urine WBC 10-25 H /HPF Urine Squamous Epithelial Cells NONE /HPF Urine Renal Epithelial Cells NONE /HPF Urine Crystals PRESENT H /LPF Urine Calcium Oxalate Crystals FEW H /LPF Urine Bacteria MODERATE H /HPF Urine Casts NONE /LPF Urine Mucus LARGE H /LPF Urine Culture Indicated YES Urine Opiates Screen NEGATIVE NEGATIVE Urine Oxycodone Screen NEGATIVE NEGATIVE Urine Methadone Screen NEGATIVE NEGATIVE Urine Propoxyphene Screen NEGATIVE NEGATIVE Urine Barbiturates Screen NEGATIVE NEGATIVE Ur Tricyclic Antidepressants Screen NEGATIVE NEGATIVE Urine Phencyclidine Screen NEGATIVE NEGATIVE Urine Amphetamines Screen POSITIVE H NEGATIVE Urine Methamphetamines Screen POSITIVE H NEGATIVE Urine Benzodiazepines Screen NEGATIVE NEGATIVE Urine Cocaine Screen NEGATIVE NEGATIVE Urine Cannabinoids Screen POSITIVE H NEGATIVE My Orders Orders - JESSICA NICHOLE DO Acetaminophen (04/27/22 19:37) Alcohol (04/27/22 19:37) Cbc No Diff (04/27/22 19:37) Cbc With Automated Diff (04/27/22 19:37) Drug Screen Stat (Urine) (04/27/22 19:37) Salicylate (04/27/22 19:37) Ua Culture If Indicated (04/27/22 19:37) Covid 19 Inhouse Test (04/27/22 19:37) Influenza A And B By Pcr (04/27/22 19:37) Isolation Central Supply Req (04/27/22 19:37) Comprehensive Metabolic Panel (04/27/22 20:42) Urine Culture (04/27/22 20:24) Neis Karthik Dna Urine Test (04/27/22 20:51) Chlamydia Trachomatis Urine (04/27/22 20:51) Cefdinir Capsule (Omnicef Capsule) (04/27/22 21:15) Potassium Chloride (Tablet) (Klor Con Ta (04/27/22 21:15) General/Regular (04/27/22 Dinner) Medications Given in ED Current Medications Medications Dose Ordered Sig/Travis Route Start Time Stop Time Status Last Admin Dose Admin Cefdinir 300 mg ONCE ONCE PO 04/27/22 21:15 04/27/22 21:17 DC 04/27/22 22:02 300 MG Potassium Chloride 20 meq ONCE ONCE PO 04/27/22 21:15 04/27/22 21:17 DC 04/27/22 22:02 20 MEQ Vital Signs/I&O 04/27/22 04/28/22 19:35 00:48 Temp 37.0 37.0 Pulse 86 82 Resp 17 17 B/P (MAP) 122/84 (97) 118/80 Pulse Ox 96 O2 Delivery Room Air Room Air Progress Progress Note : Progress Note 3--PT REMAINS COOPERATIVE AT THIS TIME AND IS RESTING QUIETLY. MEAL TRAY ORDERED. PT STATES HE HAS NOT HAD ANYTHING TO EAT TODAY. SLEPT/RESTED QUIETLY FOR NEARLY THE ENTIRE ER STAY Departure Communication (Admissions) 2114--MENTAL HEALTH SCREENER BEING CONTACTED BY NURSING STAFF 2330--MENTAL HEALTH SCREEN IS BEING DONE NOW VIA TELE-VISIT. 0001--MENTAL HEALTH SCREENER HAS DETERMINED THAT PT DOES NOT NEED INPATIENT TREATMENT AT THIS TIME, AND ADVISES TO SEND HOME AND SHE WILL BE FAXING A SAFETY PLAN. 0040--PT HAS ELOPED BEFORE BEING DISMISSED, HAVE NOT RECEIVED THE FAX OF THE SAFETY PLAN AT THIS TIME, RN TRIED TO STOP PATIENT BUT PT LITERALLY RAN OUT OF THE ER. Impression Primary Impression: Suicidal ideation Additional Impressions: Polysubstance abuse Methamphetamine use Marijuana use Homeless Disposition: HOME, SELF-CARE Condition: Stable Departure-Patient Inst. Decision time for Depature: 00:04 Referrals: NO,LOCAL PHYSICIAN (PCP/Family) Primary Care Physician Patient Instructions: OUTPT MENTAL HEALTH SERVICES, OUTPT SUBSTANCE ABUSE RESOURCE, Suicide Prevention, Drug Abuse and Drug Addiction (DC) Add. Discharge Instructions: FOLLOW SAFETY PLAN SET UP BY MENTAL HEALTH SCREENER JESSICA NICHOLE DO Apr 27, 2022 19:42
[2022-04-27 20:07] LABS: BASOPHILS # (AUTO) 0.1 10^3/uL (0.0-0.1); BASOPHILS % (AUTO) 1 % (0-10); EOSINOPHILS # (AUTO) 0.1 10^3/uL (0.0-0.3); EOSINOPHILS % (AUTO) 1 % (0-10); HEMATOCRIT 45 % (40-54); HEMOGLOBIN 16.1 g/dL (13.3-17.7); LYMPHOCYTES # (AUTO) 2.3 10^3/uL (1.0-4.0); LYMPHOCYTES % (AUTO) 21 % (12-44); MEAN CORPUSCULAR HEMOGLOBIN 33 pg (25-34); MEAN CORPUSCULAR HGB CONC 36 g/dL (32-36); MEAN CORPUSCULAR VOLUME 93 fL (80-99); MEAN PLATELET VOLUME 9.6 fL (9.0-12.2); MONOCYTES # (AUTO) 0.9 10^3/uL (0.0-1.0); MONOCYTES % (AUTO) 8 % (0-12); NEUTROPHILS # (AUTO) 7.8 10^3/uL (1.8-7.8); NEUTROPHILS % (AUTO) 70 % (42-75); PLATELET COUNT 330 10^3/uL (130-400); WHITE BLOOD COUNT 11.1 10^3/uL (4.3-11.0)
[2022-04-27 20:34] LABS: BILIRUBIN,URINE 1+ (NEGATIVE); CLARITY,URINE CLEAR; COLOR,URINE YELLOW; GLUCOSE, URINE (UA) NEGATIVE (NEGATIVE); KETONES,URINE TRACE (NEGATIVE); LEUKOCYTE ESTERASE ,URINE TRACE (NEGATIVE); NITRITE,URINE NEGATIVE (NEGATIVE); PH,URINE 5.5 (5-9); PROTEIN,URINE NEGATIVE (NEGATIVE)
[2022-04-27 20:39] LABS: ACETAMINOPHEN < 10 UG/ML (10-30); SALICYLATE < 5.0 MG/DL (5.0-20.0)
[2022-04-27 20:46] LABS: BACTERIA,URINE MODERATE /HPF; CALCIUM OXALATE CRYSTALS,UR FEW /LPF
[2022-04-27 20:52] LABS: ALBUMIN 4.7 GM/DL (3.2-4.5); CHLORIDE 104 MMOL/L (98-107); POTASSIUM 3.2 MMOL/L (3.6-5.0); SODIUM 138 MMOL/L (135-145)
[2022-04-27 20:53] LABS: CALCIUM 9.8 MG/DL (8.5-10.1)
[2022-04-27 20:54] LABS: AMPHETAMINE SCREEN, URINE POSITIVE (NEGATIVE); BARBITURATE SCREEN URINE NEGATIVE (NEGATIVE); BENZODIAZEPINES SCREEN URINE NEGATIVE (NEGATIVE); CANNABINOID SCREEN, URINE POSITIVE (NEGATIVE); COCAINE SCREEN URINE NEGATIVE (NEGATIVE); METHADONE STAT NEGATIVE (NEGATIVE); OPIATE SCREEN URINE NEGATIVE (NEGATIVE); OXYCODONE STAT NEGATIVE (NEGATIVE); PROPOXYPHENE STAT NEGATIVE (NEGATIVE); TRICYCLIC ANTIDEPRESSANTS SCRE NEGATIVE (NEGATIVE)
[2022-04-27 20:54] LABS: GLUCOSE 145 MG/DL (70-105); TOTAL PROTEIN 7.9 GM/DL (6.4-8.2)
[2022-04-27 20:55] LABS: CARBON DIOXIDE 19 MMOL/L (21-32)
[2022-04-27 20:56] LABS: BILIRUBIN,TOTAL 1.2 MG/DL (0.1-1.0)
[2022-04-27 20:58] LABS: ALKALINE PHOSPHATASE 105 U/L (40-136); CREATININE SERUM 0.97 MG/DL (0.60-1.30); GFR ESTIMATED 103
[2022-04-27 20:59] LABS: BUN/CREATININE RATIO 11
[2022-04-27 21:01] LABS: ALANINE AMINOTRANSFERASE 22 U/L (0-55)
[2022-04-27] MEDS ORDERED: CEFDINIR 300 MG (OMNICEF) CAP PO ONE (21:15)
[2022-04-27] MEDS ORDERED: KCL 10 MEQ TAB (MICRO K) PO ONE (21:15)
[2022-04-28 00:48] VITALS: BP 118/80
== END 2022-04-28 00:42 | disposition left against medical advice (07) ==
LOC: EDUNIT# 19:24 → ER 19:25
DX: R41.82 Altered mental status, unspecified (principal); F12.10 Cannabis abuse, uncomplicated; F15.10 Other stimulant abuse, uncomplicated; F19.10 Other psychoactive substance abuse, uncomplicated; F17.210 Nicotine dependence, cigarettes, uncomplicated; Z59.00 Homelessness unspecified; Z20.822 Contact with and (suspected) exposure to COVID-19; Z28.310 Unvaccinated for COVID-19
CPT/HCPCS: 80053; 80306; 81000; 85025; 85027; 87088; 87491; 87591; 87636; 99283; G0480 ×3; 36415; 80320; 80329

== ENCOUNTER 2022-04-28 05:50 | Emergency (ER) | payer MEDICAID ==
[~2022-04-28] VITALS: Ht 170 cm; Wt 55.0 kg
--- NOTE | 2022-04-28 06:25 | ED Psychosocial ---
General Stated Complaint: SUICIDAL IDEATION Source: patient Exam Limitations: no limitations History of Present Illness Date Seen by Provider: Apr 28, 2022 Time Seen by Provider: 06:09 Initial Comments Patient to the ER by police escort with chief complaint he called them complaining he was going to jump off of [facility] and [place], [place]. He was recently seen in the ER screened and set up with a safety plan by mental health to go home earlier this shift. Patient suffers from homelessness, depression, other various mental health issues, methamphetamine abuse. He would like to go inpatient. He just discharged from [facility] in the past 2 weeks. Patient states he was standing on the bridge and contemplating hanging himself from it. He had made a noose when he saw superintendent police drive-by they stopped and he told them what he was going to do so they brought him to the hospital. He says he still desires to go inpatient voluntarily. [facility] health screener was called and she is going to rescind the safety plan. She is going to send us a new plan and work on inpatient placement and hospitalization. Allergies and Home Medications Allergies Coded Allergies: No Known Drug Allergies (Verified , 02/06/17) Patient Home Medication List Home Medication List Reviewed: Yes Amoxicillin (Amoxicillin) 875 Mg Tablet, 875 MG PO BID Prescribed by: JESSICA NICHOLE on 12/14/211855 Diazepam (Valium) Unknown Strength Tablet, Unknown Dose PO, (Reported) Entered as Reported by: FRANK BAHENA on 05/17/19 133 Duloxetine HCl (Cymbalta) Unknown Strength Cap, Unknown Dose PO, (Reported) Entered as Reported by: FRANK BAHENA on 05/17/19 1335 Lidocaine HCl (Lidocaine HCl Viscous) 15 Ml Solution, 1-2 ML MM [id number] Prescribed by: JESSICA NICHOLE on 12/14/211855 Methocarbamol (Robaxin-750) 750 Mg Tablet, 750 MG PO Q4H PRN for PAIN-MILD TO MODERATE Prescribed by: BOO THOMPSON on 05/17/19 1410 Naproxen (Naproxen) 500 Mg Tablet.dr, 500 MG PO BID Prescribed by: JESSICA NICHOLE on 12/14/211855 Prednisone (Prednisone) 20 Mg Tab, 40 MG PO DAILY Prescribed by: BOO THOMPSON on 05/21/19 1105 Review of Systems Constitutional: No chills, No diaphoresis EENTM: No ear discharge, No ear pain, No blurred vision Respiratory: no symptoms reported Cardiovascular: no symptoms reported Gastrointestinal: no symptoms reported Genitourinary: no symptoms reported All Other Systems Reviewed Negative Unless Noted: Yes Past Ccqereh-Xbgxyg-Qwxwtb Hx Patient Social History Tobacco Use?: Yes Use of E-Cig and/or Vaping dev: No Substance use?: Yes Substance type: Amphetamines, Methamphetamine, Marijuana Immunizations Up To Date Tetanus Booster (TDap): Unknown First/Initial COVID19 Vaccinat: HAD IT AT [facility] Second COVID19 Vaccination Riley: HAD IT AT [facility] Third COVID19 Vaccination Date: HAD IT AT [facility] Seasonal Allergies Seasonal Allergies: No Past Medical History Surgeries: No Respiratory: No Cardiac: No Neurological: Yes ("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 No Pertinent Family Hx SOCIAL HISTORY: -SMOKES 1 PPD -DRUGS--SMOKES METH AND THC, ALSO HX OF BENZODIAZEPINE ABUSE. DENIES IV USE -DENIES ALCOHOL USE MULTITUDE OF VISITS--MOST FOR CHRONIC DENTAL PAIN AND CHRONIC NECK PAIN. ALSO HERE FOR PSYCH RELATED ISSUES Physical Exam Vital Signs - First Documented 04/28/22 08:20 Temp 36.4 Pulse 70 Resp 18 B/P (MAP) 102/71 (81) Pulse Ox 100 Capillary Refill : Height, Weight, BMI Height: 5'6.00" Weight: 150lbs. 0oz. 68.031288hd; 18.00 BMI Method:Stated General Appearance: WD/WN, no apparent distress HEENT: PERRL/EOMI, pharynx normal (Mildly dry oral mucosa) Respiratory: lungs clear, normal breath sounds, no respiratory distress, no accessory muscle use Cardiovascular: normal peripheral pulses, regular rate, rhythm Peripheral Pulses: 2+ Radial Pulses (R), 2+ Radial Pulses (L) Gastrointestinal: normal bowel sounds, non tender, soft Neurologic/Psychiatric: alert, normal mood/affect, oriented x 3 Appearance/Memory: no memory impairment Behavior/Eye Contact: cooperative, good eye contact Thoughts/Hallucinations: no apparent hallucination, other (Suicidal ideation with plan to hang himself. Formed a noose.) Suicide Risk Suicide Risk Suicide Risk Level / RN Screen: Moderate Low Suicide Risk Level []Suicidal Ideation WITHOUT method, intent, plan or behavior more than a month ago []]Modifiable risk factors and strong protective factors []No reported history of suicidal ideation or behavior []Patient reports/exhibits symptoms consistent with psychosis []Patient reports a plan that would be unrealistic/impossible to complete and intent []Suicide attempt prior to arrival (Indicates at LEAST Low Suicide Risk, consider other risk factors) Moderate Suicide Risk Level: []Suicidal ideation with method, WITHOUT plan, intent or behavior in the past month []Multiple risk factors and few protective factors []Patient reports intent to follow through on plan to end life if allowed to leave hospital, and has attempted to elope from the hospital High Suicide Risk Level: [] Suicidal ideation with intent or intent with a plan in the past month [] Patient has harmed self or attempted suicide while in the hospital [] Patient has hx of or current Command Auditory hallucinations to harm self or others that they follow without hesitation [] Patient refuses to disclose plan, and indicates intent to complete [] Patient reports plan that is possible to accomplish and/or has means to complete Risk factors supporting recommendation: [] Non-compliance with treatment (acute or chronic) [] Patient has access to or owns firearms and/or stockpiled medications [] Hx Impulsive behavior [] Pending incarceration or homelessness [] Sexual abuse [] Family history and/or exposure to suicide [] Adverse childhood experiences [] Exposure to violence or negative socio-political cultural, and economic forces [] Current or hx of substance use/abuse [] Chronic physical pain or other acute medical problem (AIDS, COPD, Cancer, etc) [] Perceived burden on family or others [] Patient has attempted to elope [] Unable to answer and/or unable to identify [] Refuses to agree to a safety plan Protective Factors supporting recommendation: [] Identifies reasons for living [] Future plans/goals [] Engaged in work or School [] Good family support network [] Good social support network [] Responsibility to family [] Belief that suicide is immoral, against their presybeterian beliefs [] High spirituality and involvement in sabianism community [] Fear of or dying due to pain and suffering [] Established outpt psychiatric services [] Unable to answer and/or unable to identify Risk Assessment Tool Score: Moderate Progress/Results/Core Measures Results/Orders My Orders Orders - SHAI SERRANO Ekg Tracing (04/28/22 06:57) General/Regular (04/28/22 Breakfast) Vital Signs/I&O 04/28/22 08:20 Temp 36.4 Pulse 70 Resp 18 B/P (MAP) 102/71 (81) Pulse Ox 100 Progress Progress Note : Time: 09:11 Progress Note We will provide him with some breakfast. Nursing staff is getting a hold of [facility] to bridge the gap between the overnight on-call [facility] screener to work on placement inpatient for psychiatric voluntary placement. Patient is okay with this plan. He has been cooperative and calm since his arrival. Initial ECG Impression Date: Apr 28, 2022 Initial ECG Impression Time: 08:33 Initial ECG Rate: 64 Initial ECG Rhythm: Normal Sinus Initial ECG Intervals: Normal Initial ECG Impression: Normal Comment Normal sinus rhythm without clinically relevant ST changes. Departure Impression Primary Impression: Suicidal ideation Additional Impression: Depression Qualified Codes: F32.A - Depression, unspecified Disposition: 65 XFER TO PSYCH HOSP/UNIT Condition: Stable Transfer Transfer Reason: Exceeds level of care (No inpt Psych) Time Spoke to Accepting Phy: 11:00 Transfer Progress Notes 0910: [facility] is sending a screener out to visit with the patient. [facility] Dr. Fisher accepts the patient for inpatient psychiatric management. Transfer Time: 16:00 Transfer Facility: [facility] Method of Transfer: Private Vehicle (Evelio) Departure-Patient Inst. Referrals: NO,LOCAL PHYSICIAN (PCP/Family) Primary Care Physician Patient Instructions: Psychotherapy SHAI SERRANO Apr 28, 2022 06:25
[2022-04-28 15:13] VITALS: BP 110/64
== END 2022-04-28 15:13 ==
LOC: EDUNIT# 05:50 → ER 06:11
DX: F32.A Depression, unspecified (principal); R45.851 Suicidal ideations; Z72.0 Tobacco use
CPT/HCPCS: 93005

== ENCOUNTER 2023-07-08 19:40 | Emergency (ER) | payer SELFPAY ==
[~2023-07-08] VITALS: Ht 175.2 cm; Wt 63.5 kg
[~2023-07-08 19:40] MED LIST changes: +LIDO15SO3 MM; -LIDO20SO23 MM
--- NOTE | 2023-07-08 20:20 | ED General ---
General Chief Complaint: Chest Wall Stated Complaint: RT RIB INJ Source of Information: Patient Exam Limitations: No Limitations History of Present Illness Date Seen by Provider: Jul 08, 2023 Time Seen by Provider: 20:18 Initial Comments Patient is a 38-year-old male presents ED with right lateral rib pain. Patient states he fell down 4-5 stairs 2 weeks ago landing on his right ribs. Is been having pain worse with movement deep inspiration. Started having some improvement with Epsom salt. States at work he was leaning against a rail putting increased pressure on the right sided ribs which exacerbated the pain even more. Denies any bruising or swelling. Has been continue with Epsom salt. History of previous fracture 10 years ago. Denies of any abdominal pain, vomit, diarrhea, fever, chills, headache, dizziness Allergies and Home Medications Allergies Coded Allergies: No Known Drug Allergies (Verified , 02/06/17) Patient Home Medication List Home Medication List Reviewed: Yes Amoxicillin (Amoxicillin) 875 Mg Tablet, 875 MG PO BID Prescribed by: JESSICA NICHOLE on 12/14/211855 Diazepam (Valium) Unknown Strength Tablet, Unknown Dose PO, (Reported) Entered as Reported by: FRANK BAHENA on 05/17/19 1335 Duloxetine HCl (Cymbalta) Unknown Strength Cap, Unknown Dose PO, (Reported) Entered as Reported by: FRANK BAHENA on 05/17/19 1335 Lidocaine HCl (Lidocaine HCl Viscous) 15 Ml Solution, 1-2 ML MM [id number] Prescribed by: JESSICA NICHOLE on 12/14/21 185 Methocarbamol (Robaxin-750) 750 Mg Tablet, 750 MG PO Q4H PRN for PAIN-MILD TO MODERATE Prescribed by: BOO THOMPSON on 05/17/19 1410 Naproxen (Naproxen) 500 Mg Tablet.dr, 500 MG PO BID Prescribed by: JESSICA NICHOLE on 12/14/21 185 Naproxen (Naproxen) 500 Mg Tablet, 500 MG PO Q12H Prescribed by: ERIC JIM on 07/08/23 205 Prednisone (Prednisone) 20 Mg Tab, 40 MG PO DAILY Prescribed by: BOO THOMPSON on 05/21/19 1105 Review of Systems Review of Systems Constitutional: No chills, No diaphoresis EENTM: No blurred vision, No double vision Respiratory: No cough, No dyspnea on exertion Cardiovascular: No chest pain Gastrointestinal: No abdominal pain, No diarrhea, No nausea, No vomiting Genitourinary: No decreased output, No discharge Musculoskeletal: back pain; No joint pain; muscle pain Skin: No change in color, No change in hair/nails All Other Systems Reviewed Negative Unless Noted: Yes Past Tnanmie-Gpmqkc-Kkysnk Hx Patient Social History Tobacco Use?: Yes Tobacco type used: Cigarettes Smoking Status: Current Everyday Smoker Substance use?: No Alcohol Use?: No Pt feels they are or have been: No Immunizations Up To Date Tetanus Booster (TDap): Unknown First/Initial COVID19 Vaccinat: DENIES GETTING VACCINE Second COVID19 Vaccination Riley: HAD IT AT [facility] Third COVID19 Vaccination Date: HAD IT AT [facility] Seasonal Allergies Seasonal Allergies: No Past Medical History Surgery/Hospitalization HX: TYPE OF PARKINSONS, CHRONIC NECK PAIN Surgeries: No Respiratory: No Cardiac: No Neurological: Yes ("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 No Pertinent Family Hx SOCIAL HISTORY: -SMOKES 1 PPD -DRUGS--SMOKES METH AND THC, ALSO HX OF BENZODIAZEPINE ABUSE. DENIES IV USE -DENIES ALCOHOL USE MULTITUDE OF VISITS--MOST FOR CHRONIC DENTAL PAIN AND CHRONIC NECK PAIN. ALSO HERE FOR PSYCH RELATED ISSUES Physical Exam Vital Signs Vital Signs - First Documented 07/08/23 20:10 Pulse 61 Resp 18 B/P (MAP) 122/68 (86) Pulse Ox 96 O2 Delivery Room Air Capillary Refill : Height, Weight, BMI Height: 5'6.00" Weight: 150lbs. 0oz. [id number]; 19.00 BMI Method:Stated General Appearance: No Apparent Distress, WD/WN Eyes: Bilateral Eye Normal Inspection, Bilateral Eye PERRL, Bilateral Eye EOMI HEENT: PERRL/EOMI, TMs Normal, Normal ENT Inspection, Pharynx Normal Neck: Full Range of Motion, Normal Inspection, Non Tender, Supple Respiratory: Lungs Clear, Normal Breath Sounds, No Accessory Muscle Use, No Respiratory Distress, Other (Right lateral rib tenderness. No bruising or swelling. No crepitus. 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 Patient fell 2 weeks ago. [place] like he was doing better with Epsom salt but reinjured again at work. Holding his right sided ribs. Lung sounds clear bilateral. No crepitus or step-off. No obvious bruising or swelling. History of previous fracture 10 years ago. X-ray of the ribs was performed which did not note any acute fracture. No evidence of pneumothorax. Refused anything for pain. Recommend at this time continue with Epsom salt, topical muscle rub, anti-inflammatories. Should start to see continue improvement over the next 2 or 3 weeks. If any worsening symptoms return back to ED for further evaluation. Impression Primary Impression: Rib pain Disposition: 01 HOME, SELF-CARE Condition: Stable Departure-Patient Inst. Decision time for Depature: 20:51 Referrals: NO,LOCAL PHYSICIAN (PCP) Primary Care Physician TEREZA KILGORE MD Patient Instructions: Bruised Rib (DC) Add. Discharge Instructions: Recommend anti-inflammatories, ice. Follow-up your PCP 2 to 3 days for reevaluation. All discharge instructions reviewed with patient and/or family. Voiced understanding. Scripts Naproxen (Naproxen) 500 Mg Tablet 500 MG PO Q12H, #20 TAB Prov: AROLDO LOJA 07/08/23 AROLDO LOJA Jul 08, 2023 20:20
--- NOTE | 2023-07-08 20:48 | Diagnostic Imaging Report ---
PATIENT HISTORY: Right rib pain. Injury two weeks ago. TECHNIQUE: 12/09/2017. COMPARISON: 3 views of the right ribs were obtained. FINDINGS: No acute displaced right-sided rib fracture. The included right lung is clear. IMPRESSION: No acute displaced right-sided rib fracture. No pneumothorax or pleural effusion. Dictated by: Dictated on workstation # [id number]
[2023-07-08] MEDS ORDERED: NAPR-915 PO (20:52)
[2023-07-08 21:00] VITALS: BP 122/68
== END 2023-07-08 21:00 | disposition home or self-care (01) ==
LOC: EDUNIT# 19:40 → ER 19:45
DX: R07.81 Pleurodynia (principal); F17.210 Nicotine dependence, cigarettes, uncomplicated; W10.8XXA Fall (on) (from) other stairs and steps, initial encounter
CPT/HCPCS: 71100